=== PATIENT | male | born 1955 | race Caucasian/White ===

== ENCOUNTER 2017-10-30 13:00 | Outpatient (RCR) | payer MEDICARE, SELFPAY ==
[2017-10-16 13:12] VITALS: BP 97/58; PULSE 86; RESP 16; TEMP 38; BMI 24.4
--- NOTE | 2017-10-16 14:44 | PN.PCM_ITS ---
(1) Ulcer of left lower extremity with fat layer exposed Status: Chronic Current Visit: Yes Code(s): L97.922 - Non-pressure chronic ulcer of unspecified part of left lower leg with fat layer exposed (2) Diabetes mellitus with polyneuropathy Status: Chronic Current Visit: Yes Qualifiers: Code(s): E11.42 - Type 2 diabetes mellitus with diabetic polyneuropathy (3) Delayed wound healing Status: Chronic Current Visit: Yes Code(s): T14.8 - Other injury of unspecified body region (4) Amputation of right lower extremity Status: Chronic Current Visit: Yes Code(s): S88.911A - Complete traumatic amputation of right lower leg, level unspecified, initial encounter (5) Peripheral vascular disease Status: Chronic Current Visit: Yes Code(s): I73.9 - Peripheral vascular disease, unspecified Comment: venous (6) Malnutrition Status: Chronic Current Visit: Yes Code(s): E46 - Unspecified protein- calorie malnutrition Type of Wound Date of Service: 10/17/17 Chief Complaint: right leg revisional below knee amputation; chronic ulceration. left ulcer with fat layer exposed at previous second toe amputation site. diabetes. delayed healing continued. History of Wound: This 62 year old male with significant past medical history of uncontrolled diabetes, smoking habit, non compliance, recurrent lower extremity infections, h/o right below knee amputation, and small vessel disease follows up today for multiple lower extremity wounds. He denies fever, chills, nausea, vomiting, calf or foot pain. he denies new injuries. He had a second toe amputation performed by Dr. rayo this past August and his wound is still not healed. Progress of Wound: Stable - Physical Exam Vital Signs Temp Pulse Resp BP 100.4 F H 86 16 97/58 L 10/16/17 13:12 10/16/17 13:12 10/16/17 13:12 10/16/17 13:12 General: Alert, Oriented x3, Cooperative Extremities: No cyanosis, Capillary Refill Less than 3 Seconds - Around amputation site left and to remaining digits 1, 3, 4, 5, No Calf Tenderness - Negative Virgie and Long sign left, Diminished Peripheral Pulses, Edema Skin: Ulcer/ Wound - Granular base no deep tissue exposed. Skin is atrophic and hairless. No erythema no purulence no streaking noted left Wound Measurements and Assessment WC - Nurse 1 - General Ulcer Measurement Start: 10/16/17 13:11 Freq: Status: Active Protocol: Activity Type Activity Date Activity User E-Sign Co-Sign Detail Recorded Client Recorded Date Recorded By Document 10/16/17 13:12 [id number] 10/16/17 13:32 10/16/17 13:12 Wound Center Nurse 1 [Ulcer Assessment Protocol: WC.WD.LOC] #5 LEFT 2ND TOE AMP. SITE -Combined with other wound No -Current Size (cm) - Length 2.5 -Current Size (cm) - Width 1.0 -Current Size (cm) - Depth 0.1 -Total Square Cm 2.50 -Date of Last Picture (Recall this 10/16/17 field) -Photo Taken Yes -Epithelialization None Present -Tunneling No -Undermining/Tunneling No -Circular Undermining No -Classification - Thickness Full Thickness without Exposed Support Structure -Classification - Pathak Grading ( Grade 1 Diabetic Ulcer) -Exudate Amt Medium (34-66%) -Exudate Type Serosanguineous -Wound Margin Distinct, Outline Attached -Granulation Amt Small (1-33%) -Granulation Quality Red -Slough/Fibrin Yes -Necrosis Amt None Present (0 %) -Structure Exposed N/A -Texture (Annabel-wound Skin Appearance) Induration -Moisture (Annabel-wound Skin Appearance Maceration ) -Color (Annabel-wound Skin Appearance) No Abnormality -Temperature (Annabel-wound Skin Cool/Cold Appearance) -Tenderness on Palpation (Annabel-wound No Skin Appearance) -Ulcer Cleansing Rinsed/ Irrigated with Saline -Foul Odor after Cleansing No -Anesthetic Used 4% Lidocaine Solution [Edema Assessment] -Lower Limb Edema Present No - Nurse 2 - General Ulcer CM Notes Start: 10/16/17 13:11 Freq: Status: Active Protocol: Activity Type Activity Date Activity User E-Sign Co-Sign Detail Recorded Client Recorded Date Recorded By Document 10/16/17 13:48 [id number] 10/16/17 13:56 10/16/17 13:48 Wound Center Nurse 2 [Procedure/Treatment] #5 LEFT 2ND TOE AMP. SITE -Time 13:48 -Correct Patient Yes -Correct Side, Site, Position Yes -Correct Procedure Yes -Procedure Performed Yes -Type of Procedure Debridement -Clinical Debridement Subcutaneous -Post Debridement Size (cm) - Length 2.6 -Post Debridement Size (cm) - Width 1.1 -Post Debridement Size (cm) - Depth 0.1 -Total Square Cm 2.86 -Wound/Ulcer Outcome Amputation -Ulcer Cleansing Rinsed/ Irrigated with Saline -Foul Odor after Cleansing No -Bioengineered Tissue No -Topical Lidocaine (%) 4 -Bleeding Controlled with Pressure -Treatment Response Procedure Tolerated Well [See Physician Procedure note for Specifics] Pain Scale: 0-10 Numeric [Pain] -Is Patient Pain Free? Yes Musculoskeletal: No Tenderness to Palpation of Joints or Extremities, Muscle Wasting, - - Second toe amputation left below-knee amputation right Neurological: - - Lack of epicritic sensation to light touch left Psych/Mental Status: Normal Affect, Appropriate Debridement Note Post-Debridement Measurements/Treatment WC - Nurse 2 - General Ulcer CM Notes Start: 10/16/17 13:11 Freq: Status: Active Protocol: Activity Type Activity Date Activity User E-Sign Co-Sign Detail Recorded Client Recorded Date Recorded By Document 10/16/17 13:48 [id number] 10/16/17 13:56 10/16/17 13:48 Wound Center Nurse 2 #5 LEFT 2ND TOE AMP. SITE -Time 13:48 -Correct Patient Yes -Correct Side, Site, Position Yes -Correct Procedure Yes -Procedure Performed Yes -Type of Procedure Debridement -Clinical Debridement Subcutaneous -Post Debridement Size (cm) - Length 2.6 -Post Debridement Size (cm) - Width 1.1 -Post Debridement Size (cm) - Depth 0.1 -Total Square Cm 2.86 -Wound/Ulcer Outcome Amputation -Ulcer Cleansing Rinsed/ Irrigated with Saline -Foul Odor after Cleansing No -Bioengineered Tissue No -Topical Lidocaine (%) 4 -Bleeding Controlled with Pressure -Treatment Response Procedure Tolerated Well Pain Scale: 0-10 Numeric Is Patient Pain Free? Yes Wound debrided: 2nd toe amputation wound site Laterality: Left Wound Grade/Stage: grade 1 Type of Debridement: Excisional debridement Anesthesia Used: 4% Lidocaine Solution Depth: in the subcutaneous layer Percentage of wound debrided: 100 Instrument Used: #15 blade Tissue Removed: Fibrous, devitalized subcutaneous, biofilm, slough Severity: Fat Layer Exposed Amount of bleeding with debridement: Mild Bleeding Controlled with: Pressure Patient tolerated procedure well Assessment/Plan Active Problems Ulcer of left lower extremity with fat layer exposed (Chronic) Diabetes mellitus with polyneuropathy (Chronic) Delayed wound healing (Chronic) Amputation of right lower extremity (Chronic) Peripheral vascular disease (Chronic) venous Malnutrition (Chronic) Assessment: left foot ulcer with fat exposed (2nd toe amputation site). diabetes with neuropathy. small vessel disease. noncompliance / poor decision making. smoker. right below knee amputation (under care of ortho surgeon, Dr. Kendrick) Plan: Discussed case. Performed subcutaneous debridement left as noted in the clinical panel right and including bone of left toe. I recommend advanced skin substitute to optimize healing; preauthorization will be initiated. He was advised on the indications and planned procedure. To change dressing daily with edil to left second toe; this was applied today. To offload by wearing surgical shoe and to avoid pressure to the dorsal forefoot. To avoid wearing closed shoegear. To avoid pressure to ulcer sites. Continue nutritional supplementation, smoking cessation, and edema control to further optimize healing. To continue to apply lotion to the remainder of the limb to preserve skin quality. He understands he is high risk and at risk for further limb loss. RTC one week or call sooner if problems.
[2017-10-23 13:17] VITALS: BP 147/90; PULSE 102; RESP 18; TEMP 37.2; BMI 24.4
--- NOTE | 2017-10-23 15:16 | PN.PCM_ITS ---
(1) Ulcer of left lower extremity with fat layer exposed Status: Chronic Current Visit: Yes Code(s): L97.922 - Non-pressure chronic ulcer of unspecified part of left lower leg with fat layer exposed (2) Diabetes mellitus with polyneuropathy Status: Chronic Current Visit: Yes Qualifiers: Code(s): E11.42 - Type 2 diabetes mellitus with diabetic polyneuropathy (3) Delayed wound healing Status: Chronic Current Visit: Yes Code(s): T14.8 - Other injury of unspecified body region (4) Amputation of right lower extremity Status: Chronic Current Visit: Yes Code(s): S88.911A - Complete traumatic amputation of right lower leg, level unspecified, initial encounter (5) Peripheral vascular disease Status: Chronic Current Visit: Yes Code(s): I73.9 - Peripheral vascular disease, unspecified Comment: venous (6) Malnutrition Status: Chronic Current Visit: Yes Code(s): E46 - Unspecified protein- calorie malnutrition Type of Wound Date of Service: 10/23/17 Chief Complaint: right leg revisional below knee amputation; chronic ulceration. left ulcer with fat layer exposed at previous second toe amputation site. diabetes. delayed healing continued. History of Wound: This 62 year old male with significant past medical history of uncontrolled diabetes, smoking habit, non compliance, recurrent lower extremity infections, h/o right below knee amputation, and small vessel disease follows up today for multiple lower extremity wounds. He denies fever, chills, nausea, vomiting, calf or foot pain. he denies new injuries. He had a second toe amputation performed by Dr. rayo this past August and his wound is still not healed.he had a new blood blister to his great toe that he popped on his own. He denies a known trauma. Progress of Wound: Improving. New wound left great toe - Physical Exam Vital Signs Temp Pulse Resp BP 98.9 F 102 H 18 147/90 H 10/23/17 13:17 10/23/17 13:17 10/23/17 13:17 10/23/17 13:17 General: Alert, Oriented x3, Cooperative HEENT: Atraumatic Extremities: No cyanosis, Capillary Refill Less than 3 Seconds, No Calf Tenderness - Negative Virgie and Long left, Diminished Peripheral Pulses, Edema - Minimal left Skin: Ulcer/ Wound - No purulence, no erythema, streaking, no infection. There is a new wound with fibrous and granular base the distal left hallux without infection. His skin is atrophic and hairless left lower extremity Wound Measurements and Assessment WC - Nurse 1 - General Ulcer Measurement Start: 10/16/17 13:11 Freq: Status: Active Protocol: Activity Type Activity Date Activity User E-Sign Co-Sign Detail Recorded Client Recorded Date Recorded By Document 10/23/17 13:17 MW [email or web address] 10/23/17 13:23 MW 10/23/17 13:17 Wound Center Nurse 1 [Ulcer Assessment] #10 LEFT 2ND TOE AMP. SITE -Combined with other wound No -Current Size (cm) - Length 1.0 -Current Size (cm) - Width 0.5 -Current Size (cm) - Depth 0.1 -Total Square Cm 0.50 -Photo Taken No -Epithelialization Medium 34-66% -Tunneling No -Undermining/Tunneling No -Circular Undermining No -Exudate Amt Small (1-33%) -Exudate Type Serosanguineous -Wound Margin Flat & Intact -Granulation Amt Large (67-100%) -Granulation Quality Red -Slough/Fibrin Yes -Necrosis Amt Small (1-33%) -Necrotic Tissue Type Adherent Slough -Structure Exposed N/A -Texture (Annabel-wound Skin Appearance) Assessed -Moisture (Annabel-wound Skin Appearance Assessed ) Maceration -Color (Annabel-wound Skin Appearance) Assessed -Temperature (Annabel-wound Skin No Abnormality Appearance) (Pt Warm) -Tenderness on Palpation (Annabel-wound No Skin Appearance) -Ulcer Cleansing Rinsed/ Irrigated with Saline -Foul Odor after Cleansing No -Anesthetic Used 4% Lidocaine Solution [Edema Assessment] -Lower Limb Edema Present Yes -Left Calf (cm) 30.5 -Left Ankle (cm) 22.5 WC - Nurse 2 - General Ulcer CM Notes Start: 10/16/17 13:11 Freq: Status: Active Protocol: Activity Type Activity Date Activity User E-Sign Co-Sign Detail Recorded Client Recorded Date Recorded By Document 10/23/17 13:36 [id number] 10/23/17 13:45 JF 10/23/17 13:36 Wound Center Nurse 2 [Procedure/Treatment] 11- Right [place] -Time 13:43 -Correct Patient Yes -Correct Side, Site, Position Yes -Correct Procedure Yes -Procedure Performed Yes -Type of Procedure Debridement -Clinical Debridement Subcutaneous -Post Debridement Size (cm) - Length 0.5 -Post Debridement Size (cm) - Width 0.5 -Post Debridement Size (cm) - Depth 0.2 -Total Square Cm 0.25 -Wound/Ulcer Outcome Not Healed -Ulcer Cleansing Rinsed/ Irrigated with Saline -Foul Odor after Cleansing No -Bioengineered Tissue Yes -Type of bioengineered Tissue EPIFIX -Expiration Date 07/03/22 -Product Lot Number [id number] -Percent Used 100 -Saline Lot Number [id number] -Bleeding Controlled with Pressure -Other same Epifix applied to this ulcer. -Treatment Response Procedure Tolerated Well #10 LEFT 2ND TOE AMP. SITE -Time 13:41 -Correct Patient Yes -Correct Side, Site, Position Yes -Correct Procedure Yes -Procedure Performed Yes -Type of Procedure Debridement -Clinical Debridement Subcutaneous -Post Debridement Size (cm) - Length 1.1 -Post Debridement Size (cm) - Width 0.5 -Post Debridement Size (cm) - Depth 0.3 -Total Square Cm 0.55 -Wound/Ulcer Outcome Not Healed -Ulcer Cleansing Rinsed/ Irrigated with Saline -Foul Odor after Cleansing No -Bioengineered Tissue Yes -Type of bioengineered Tissue EPIFIX -Expiration Date 07/03/22 -Product Lot Number [id number] -Percent Used 100 -Saline Lot Number [id number] -Bleeding Controlled with Pressure -Treatment Response Procedure Tolerated Well [See Physician Procedure note for Specifics] Pain Scale: 0-10 Numeric [Pain] -Is Patient Pain Free? Yes Musculoskeletal: No Tenderness to Palpation of Joints or Extremities, Muscle Wasting, - - Right below-knee amputation Neurological: - - Lack of epicritic sensation light touch left lower extremity Psych/Mental Status: Normal Affect, Appropriate Debridement Note Post-Debridement Measurements/Treatment WC - Nurse 2 - General Ulcer CM Notes Start: 10/16/17 13:11 Freq: Status: Active Protocol: Activity Type Activity Date Activity User E-Sign Co-Sign Detail Recorded Client Recorded Date Recorded By Document 10/16/17 13:48 [id number] 10/16/17 13:56 Document 10/23/17 13:36 [id number] 10/23/17 13:45 JF 10/16/17 10/23/17 13:48 13:36 Wound Center Nurse 2 11- Right [place] -Time 13:43 -Correct Patient Yes -Correct Side, Site, Position Yes -Correct Procedure Yes -Procedure Performed Yes -Type of Procedure Debridement -Clinical Debridement Subcutaneous -Post Debridement Size (cm) - Length 0.5 -Post Debridement Size (cm) - Width 0.5 -Post Debridement Size (cm) - Depth 0.2 -Total Square Cm 0.25 -Wound/Ulcer Outcome Not Healed -Ulcer Cleansing Rinsed/ Irrigated with Saline -Foul Odor after Cleansing No -Bioengineered Tissue Yes -Type of bioengineered Tissue EPIFIX -Expiration Date 07/03/22 -Product Lot Number [id number] -Percent Used 100 -Saline Lot Number [id number] -Bleeding Controlled with Pressure -Other same Epifix applied to this ulcer. -Treatment Response Procedure Tolerated Well #10 LEFT 2ND TOE AMP. SITE -Time 13:48 13:41 -Correct Patient Yes Yes -Correct Side, Site, Position Yes Yes -Correct Procedure Yes Yes -Procedure Performed Yes Yes -Type of Procedure Debridement Debridement -Clinical Debridement Subcutaneous Subcutaneous -Post Debridement Size (cm) - Length 2.6 1.1 -Post Debridement Size (cm) - Width 1.1 0.5 -Post Debridement Size (cm) - Depth 0.1 0.3 -Total Square Cm 2.86 0.55 -Wound/Ulcer Outcome Amputation Not Healed -Ulcer Cleansing Rinsed/ Rinsed/ Irrigated with Irrigated with Saline Saline -Foul Odor after Cleansing No No -Bioengineered Tissue No Yes -Type of bioengineered Tissue EPIFIX -Expiration Date 07/03/22 -Product Lot Number [id number] -Percent Used 100 -Saline Lot Number [id number] -Topical Lidocaine (%) 4 -Bleeding Controlled with Pressure Pressure -Treatment Response Procedure Procedure Tolerated Well Tolerated Well Pain Scale: 0-10 Numeric Is Patient Pain Free? Yes Yes Wound debrided: s/p 2nd toe amputation site Laterality: Left Wound Grade/Stage: grade 1 Type of Debridement: Excisional debridement Anesthesia Used: 4% Lidocaine Solution Depth: in the subcutaneous layer Percentage of wound debrided: 100 Instrument Used: #15 blade Tissue Removed: fibrous, devitalized subcutaneous, biofilm, slough Severity: Fat Layer Exposed Amount of bleeding with debridement: Mild Bleeding Controlled with: Pressure Patient tolerated procedure well - Additional Wound Wound debrided: distal hallux Laterality: Left Wound Grade/Stage: grade 1 Type of Debridement: Excisional debridement Anesthesia Used: 4% Lidocaine Solution Depth: in the subcutaneous layer Percentage of wound debrided: 100 Instrument Used: #15 blade Tissue Removed: fibrous, devitalized subcutaneous, biofilm, slough Severity: Fat Layer Exposed Amount of bleeding with debridement: Mild Bleeding Controlled with: Pressure Patient tolerated procedure: Patient tolerated procedure well Assessment/Plan Active Problems Ulcer of left lower extremity with fat layer exposed (Chronic) Diabetes mellitus with polyneuropathy (Chronic) Delayed wound healing (Chronic) Amputation of right lower extremity (Chronic) Peripheral vascular disease (Chronic) venous Malnutrition (Chronic) Assessment: left foot ulcer with fat exposed (2nd toe amputation site), grade 1. New distal left hallux ulcer with fat layer exposed, grade 1. diabetes with neuropathy. small vessel disease. noncompliance / poor decision making. smoker. right below knee amputation (under care of ortho surgeon, Dr. Kendrick) Plan: Discussed case. Performed subcutaneous debridement left as noted in the clinical panel right and including bone of left toe. I recommend advanced skin substitute to optimize healing; preauthorization was performed. He was advised on the indications and planned procedure. He elects to proceed forward. The wounds were irrigated with normal saline and epi fix advanced wound care product was applied according to standard protocol. This was secured in place with Steri-Strips and wound veil to both sites. He tolerated this well. He was advised to keep his dressing clean dry and intact until follow-up next week. To offload by wearing surgical shoe and to avoid pressure to the dorsal forefoot. To avoid wearing closed shoegear. To avoid pressure to ulcer sites. Continue nutritional supplementation, smoking cessation, and edema control to further optimize healing. To continue to apply lotion to the remainder of the limb to preserve skin quality. He understands he is high risk and at risk for further limb loss. RTC one week or call sooner if problems.
[2017-10-30 13:15] VITALS: BP 147/74; PULSE 90; RESP 20; TEMP 37.1; BMI 24.4
--- NOTE | 2017-10-30 16:01 | PCM.WC.PN ---
(1) Ulcer of left lower extremity with fat layer exposed Status: Chronic Code(s): L97.922 - Non-pressure chronic ulcer of unspecified part of left lower leg with fat layer exposed (2) Diabetes mellitus with polyneuropathy Status: Chronic Qualifiers: Code(s): E11.42 - Type 2 diabetes mellitus with diabetic polyneuropathy (3) Delayed wound healing Status: Chronic Code(s): T14.8 - Other injury of unspecified body region (4) Amputation of right lower extremity Status: Chronic Code(s): S88.911A - Complete traumatic amputation of right lower leg, level unspecified, initial encounter (5) Peripheral vascular disease Status: Chronic Code(s): I73.9 - Peripheral vascular disease, unspecified Comment: venous (6) Malnutrition Status: Chronic Code(s): E46 - Unspecified protein-calorie malnutrition (7) Ulcer of right lower extremity with fat layer exposed Status: Chronic Code(s): L97.912 - Non-pressure chronic ulcer of unspecified part of right lower leg with fat layer exposed Type of Wound Date of Service: 10/31/17 Chief Complaint: right leg revisional below knee amputation; chronic ulceration. left ulcer with fat layer exposed at previous second toe amputation site. diabetes. delayed healing continued. History of Wound: This 62 year old male with significant past medical history of uncontrolled diabetes, smoking habit, non compliance, recurrent lower extremity infections, h/o right below knee amputation, and small vessel disease follows up today for multiple lower extremity wounds. He denies fever, chills, nausea, vomiting, calf or foot pain. he denies new injuries. He had a second toe amputation performed by Dr. rayo this past August. He denies a known trauma. He relates today that he also has a right stump wound and would like this evaluated at this time. He denied having this previously. He does continue to wear his prosthetic leg on the right lower extremity. Progress of Wound: Improving left foot ulcer. wound left great toe -healed. Recently reported right leg stump wound - Physical Exam Vital Signs Temp Pulse Resp BP 98.7 F 90 20 H 147/74 H 10/30/17 13:15 10/30/17 13:15 10/30/17 13:15 10/30/17 13:15 General: Alert, Oriented x3, Cooperative Extremities: No cyanosis, Capillary Refill Less than 3 Seconds, No Calf Tenderness, Diminished Peripheral Pulses, Edema, - - Right below-knee amputation Skin: Ulcer/ Wound - No purulence, no erythema, no streaking, no odor. The skin is atrophic and hairless. There is significant reduction in size and improved granulation tissue to the left foot ulcer site. The left great toe ulcer site is fully epithelialized and is healed today Wound Measurements and Assessment WC - Nurse 1 - General Ulcer Measurement Start: 10/16/17 13:11 Freq: Status: Active Protocol: Activity Type Activity Date Activity User E-Sign Co-Sign Detail Recorded Client Recorded Date Recorded By Document 10/30/17 13:15 DL [id number] 10/30/17 13:33 DL 10/30/17 13:15 Wound Center Nurse 1 [Ulcer Assessment] #12 R Stump -Current Size (cm) - Length 0.5 -Current Size (cm) - Width 0.6 -Current Size (cm) - Depth 0.9 -Total Square Cm 0.30 -Photo Taken Yes -Exudate Amt Small (1-33%) -Exudate Type Serosanguineous -Wound Margin Distinct, Outline Attached -Granulation Amt Small (1-33%) -Granulation Quality [place] -Necrosis Amt Small (1-33%) -Necrotic Tissue Type Adherent Slough -Structure Exposed N/A -Texture (Annabel-wound Skin Appearance) Scarring -Moisture (Annabel-wound Skin Appearance Maceration ) -Color (Annabel-wound Skin Appearance) No Abnormality Rubor -Temperature (Annabel-wound Skin No Abnormality Appearance) (Pt Warm) -Ulcer Cleansing Wound Cleanser -Foul Odor after Cleansing No -Anesthetic Used 4% Lidocaine Solution #11 L Grt Hallux -Current Size (cm) - Length 0.3 -Current Size (cm) - Width 0.3 -Current Size (cm) - Depth 0.1 -Total Square Cm 0.09 -Photo Taken No -Exudate Amt None Present (0 %) -Wound Margin Thickened -Granulation Amt None Present (0 %) -Necrosis Amt Small (1-33%) -Necrotic Tissue Type Adherent Slough -Structure Exposed N/A -Texture (Annabel-wound Skin Appearance) No Abnormality -Moisture (Annabel-wound Skin Appearance No Abnormality ) Dry/Scaly -Color (Annabel-wound Skin Appearance) No Abnormality -Temperature (Annabel-wound Skin No Abnormality Appearance) (Pt Warm) -Ulcer Cleansing Wound Cleanser -Foul Odor after Cleansing No -Anesthetic Used 4% Lidocaine Solution #10 LEFT 2ND TOE AMP. SITE -Current Size (cm) - Length 0.3 -Current Size (cm) - Width 0.1 -Current Size (cm) - Depth 0.1 -Total Square Cm 0.03 -Photo Taken No -Exudate Amt None Present (0 %) -Exudate Type Serosanguineous -Wound Margin Thickened -Granulation Amt Small (1-33%) -Granulation Quality Pale -Necrosis Amt Small (1-33%) -Necrotic Tissue Type Adherent Slough -Structure Exposed N/A -Texture (Annabel-wound Skin Appearance) Scarring -Moisture (Annabel-wound Skin Appearance Dry/Scaly ) -Color (Annabel-wound Skin Appearance) No Abnormality -Temperature (Annabel-wound Skin No Abnormality Appearance) (Pt Warm) -Ulcer Cleansing Wound Cleanser -Foul Odor after Cleansing No -Anesthetic Used 4% Lidocaine Solution WC - Nurse 2 - General Ulcer CM Notes Start: 10/16/17 13:11 Freq: Status: Active Protocol: Activity Type Activity Date Activity User E-Sign Co-Sign Detail Recorded Client Recorded Date Recorded By Document 10/30/17 13:48 [id number] 10/30/17 14:03 10/30/17 13:48 Wound Center Nurse 2 [Procedure/Treatment] #12 R Stump -Time 13:48 -Correct Patient Yes -Correct Side, Site, Position Yes -Correct Procedure Yes -Procedure Performed Yes -Type of Procedure Debridement -Clinical Debridement Subcutaneous -Post Debridement Size (cm) - Length 0.6 -Post Debridement Size (cm) - Width 0.7 -Post Debridement Size (cm) - Depth 0.9 -Total Square Cm 0.42 -Wound/Ulcer Outcome Not Healed -Ulcer Cleansing Rinsed/ Irrigated with Saline -Foul Odor after Cleansing No -Bioengineered Tissue No -Topical Lidocaine (%) 4 -Bleeding Controlled with Pressure -Treatment Response Procedure Tolerated Well #11 L Grt Hallux -Time 13:59 -Correct Patient Yes -Correct Side, Site, Position Yes -Correct Procedure Yes -Procedure Performed Yes -Post Debridement Size (cm) - Length 0 -Post Debridement Size (cm) - Width 0 -Post Debridement Size (cm) - Depth 0 -Total Square Cm 0 -Wound/Ulcer Outcome Healed- Epithelialized -Ulcer Cleansing Rinsed/ Irrigated with Saline -Foul Odor after Cleansing No -Bioengineered Tissue No -Bleeding Controlled with NA -Treatment Response Procedure Tolerated Well #10 LEFT 2ND TOE AMP. SITE -Time 13:59 -Correct Patient Yes -Correct Side, Site, Position Yes -Correct Procedure Yes -Procedure Performed Yes -Type of Procedure Debridement -Clinical Debridement Subcutaneous -Post Debridement Size (cm) - Length 0.4 -Post Debridement Size (cm) - Width 0.2 -Post Debridement Size (cm) - Depth 0.1 -Total Square Cm 0.08 -Wound/Ulcer Outcome Amputation -Ulcer Cleansing Rinsed/ Irrigated with Saline -Foul Odor after Cleansing No -Bioengineered Tissue Yes -Type of bioengineered Tissue EPIFIX -Expiration Date 08/02/22 -Product Lot Number [id number] -Percent Used 100 -Saline Lot Number [id number] -Topical Lidocaine (%) 4 -Bleeding Controlled with Pressure -Treatment Response Procedure Tolerated Well [See Physician Procedure note for Specifics] Pain Scale: 0-10 Numeric [Pain] -Is Patient Pain Free? Yes Musculoskeletal: No Tenderness to Palpation of Joints or Extremities, Muscle Wasting Neurological: - - Lack of epicritic sensation light touch bilateral lower extremities Psych/Mental Status: Normal Affect, Appropriate Debridement Note Post-Debridement Measurements/Treatment WC - Nurse 2 - General Ulcer CM Notes Start: 10/16/17 13:11 Freq: Status: Active Protocol: Activity Type Activity Date Activity User E-Sign Co-Sign Detail Recorded Client Recorded Date Recorded By Document 10/16/17 13:48 [id number] 10/16/17 13:56 Document 10/23/17 13:36 [id number] 10/23/17 13:45 Document 10/30/17 13:48 [id number] 10/30/17 14:03 10/16/17 10/23/17 10/30/17 13:48 13:36 13:48 Wound Center Nurse 2 #12 R Stump -Time 13:48 -Correct Patient Yes -Correct Side, Site, Position Yes -Correct Procedure Yes -Procedure Performed Yes -Type of Procedure Debridement -Clinical Debridement Subcutaneous -Post Debridement Size (cm) - Length 0.6 -Post Debridement Size (cm) - Width 0.7 -Post Debridement Size (cm) - Depth 0.9 -Total Square Cm 0.42 -Wound/Ulcer Outcome Not Healed -Ulcer Cleansing Rinsed/ Irrigated with Saline -Foul Odor after Cleansing No -Bioengineered Tissue No -Topical Lidocaine (%) 4 -Bleeding Controlled with Pressure -Treatment Response Procedure Tolerated Well #11 L Grt Hallux -Time 13:43 13:59 -Correct Patient Yes Yes -Correct Side, Site, Position Yes Yes -Correct Procedure Yes Yes -Procedure Performed Yes Yes -Type of Procedure Debridement -Clinical Debridement Subcutaneous -Post Debridement Size (cm) - Length 0.5 0 -Post Debridement Size (cm) - Width 0.5 0 -Post Debridement Size (cm) - Depth 0.2 0 -Total Square Cm 0.25 0 -Wound/Ulcer Outcome Not Healed Healed- Epithelialized -Ulcer Cleansing Rinsed/ Rinsed/ Irrigated with Irrigated with Saline Saline -Foul Odor after Cleansing No No -Bioengineered Tissue Yes No -Type of bioengineered Tissue EPIFIX -Expiration Date 07/03/22 -Product Lot Number [id number] -Percent Used 100 -Saline Lot Number [id number] -Bleeding Controlled with Pressure NA -Other same Epifix applied to this ulcer. -Treatment Response Procedure Procedure Tolerated Well Tolerated Well #10 LEFT 2ND TOE AMP. SITE -Time 13:48 13:41 13:59 -Correct Patient Yes Yes Yes -Correct Side, Site, Position Yes Yes Yes -Correct Procedure Yes Yes Yes -Procedure Performed Yes Yes Yes -Type of Procedure Debridement Debridement Debridement -Clinical Debridement Subcutaneous Subcutaneous Subcutaneous -Post Debridement Size (cm) - Length 2.6 1.1 0.4 -Post Debridement Size (cm) - Width 1.1 0.5 0.2 -Post Debridement Size (cm) - Depth 0.1 0.3 0.1 -Total Square Cm 2.86 0.55 0.08 -Wound/Ulcer Outcome Amputation Not Healed Amputation -Ulcer Cleansing Rinsed/ Rinsed/ Rinsed/ Irrigated with Irrigated with Irrigated with Saline Saline Saline -Foul Odor after Cleansing No No No -Bioengineered Tissue No Yes Yes -Type of bioengineered Tissue EPIFIX EPIFIX -Expiration Date 07/03/22 08/02/22 -Product Lot Number [id number] -Percent Used 100 100 -Saline Lot Number [id number] -Topical Lidocaine (%) 4 4 -Bleeding Controlled with Pressure Pressure Pressure -Treatment Response Procedure Procedure Procedure Tolerated Well Tolerated Well Tolerated Well Pain Scale: 0-10 Numeric Is Patient Pain Free? Yes Yes Yes Wound debrided: below knee amputation stump site Laterality: Right Wound Grade/Stage: grade 2 Type of Debridement: Excisional debridement Anesthesia Used: 4% Lidocaine Solution Depth: in the subcutaneous layer Percentage of wound debrided: 100 Instrument Used: #15 blade Tissue Removed: fibrous, devitalized subcutaneous, biofilm, slough Severity: Fat Layer Exposed Amount of bleeding with debridement: Mild Bleeding Controlled with: Pressure Patient tolerated procedure well Assessment/Plan Assessment: left foot ulcer with fat exposed (2nd toe amputation site), grade 1. Right below-knee amputation stump ulcer, grade 2. Healed distal left hallux ulcer. diabetes with neuropathy. small vessel disease. noncompliance / poor decision making. smoker. right below knee amputation (under care of ortho surgeon, Dr. Kendrick) Plan: Discussed case and ongoing treatment recommendations. Performed subcutaneous debridement left as noted in the clinical panel right and including bone of left toe. I recommend advanced skin substitute to optimize healing; preauthorization was performed. He was advised on the indications and planned procedure. He elects to proceed forward. The wounds were irrigated with normal saline and epi fix advanced wound care product was applied according to standard protocol. This was secured in place with Steri-Strips and wound veil to both sites. He tolerated this well. He was advised to keep his dressing clean dry and intact until follow-up next week. To offload by wearing surgical shoe and to avoid pressure to the dorsal forefoot. To avoid wearing closed shoegear. To avoid pressure to ulcer sites. Continue nutritional supplementation, smoking cessation, and edema control to further optimize healing. To continue to apply lotion to the remainder of the limb to preserve skin quality. He understands he is high risk and at risk for further limb loss. Pending response to initial treatment plan, further workup for right lower extremity will be initiated. There are no local signs of infection however the chronicity of this wound and depth of the wound are concerned. Surgical closure techniques will also be considered. RTC one week or call sooner if problems.
== END 2017-10-30 23:59 ==
LOC: WC 13:00
PROVIDERS: Family Provider Family Medicine; PCP Family Medicine; Visit Provider Podiatrist
DX: E11.622 Type 2 diabetes mellitus with other skin ulcer (principal); E11.42 Type 2 diabetes mellitus with diabetic polyneuropathy; E11.51 Type 2 diabetes mellitus with diabetic peripheral angiopathy without gangrene; L97.822 Non-pressure chronic ulcer of other part of left lower leg with fat layer exposed; Z89.421 Acquired absence of other right toe(s); E11.65 Type 2 diabetes mellitus with hyperglycemia; F17.200 Nicotine dependence, unspecified, uncomplicated; Z91.19 Patient's noncompliance with other medical treatment and regimen; R60.0 Localized edema; L97.522 Non-pressure chronic ulcer of other part of left foot with fat layer exposed
CPT/HCPCS: 11042; 15275; 99212; Q4131; G0463

== ENCOUNTER 2017-11-27 08:37 | Outpatient (RCR) | payer MEDICARE, SELFPAY ==
[2017-10-31 01:11] VITALS: PULSE 90; RESP 20; TEMP 37.1
[2017-11-13 13:22] VITALS: BP 139/61; PULSE 90; RESP 18; TEMP 36.9
--- NOTE | 2017-11-13 17:14 | PCM.WC.PN ---
(1) Chronic ulcer of left foot with fat layer exposed Status: Chronic Code(s): L97.522 - Non-pressure chronic ulcer of other part of left foot with fat layer exposed (2) Delayed wound healing Status: Chronic Code(s): T14.8 - Other injury of unspecified body region (3) Smoker Status: Chronic Code(s): F17.200 - Nicotine dependence, unspecified, uncomplicated (4) Amputation of right lower extremity Status: Chronic Code(s): S88.911A - Complete traumatic amputation of right lower leg, level unspecified, initial encounter (5) Ulcer of right lower extremity with fat layer exposed Status: Chronic Code(s): L97.912 - Non-pressure chronic ulcer of unspecified part of right lower leg with fat layer exposed (6) Peripheral vascular disease Status: Chronic Code(s): I73.9 - Peripheral vascular disease, unspecified Comment: venous Type of Wound Date of Service: 11/15/17 Chief Complaint: right leg revisional below knee amputation; chronic ulceration. left ulcer with fat layer exposed at previous second toe amputation site. diabetes. delayed healing continued. History of Wound: This 62 year old male with significant past medical history of uncontrolled diabetes, smoking habit, non compliance, recurrent lower extremity infections, h/o right below knee amputation, and small vessel disease follows up today for multiple lower extremity wounds. He denies fever, chills, nausea, vomiting, calf or foot pain. he denies new injuries. He had a second toe amputation performed by Dr. rayo this past August and his wound is still not healed. He reports improvement since last week. Progress of Wound: Improving - Physical Exam Vital Signs Temp Pulse Resp BP 98.4 F 90 18 139/61 H 11/13/17 13:22 11/13/17 13:22 11/13/17 13:22 11/13/17 13:22 General: Alert, Oriented x3, Cooperative Extremities: No cyanosis, Capillary Refill Less than 3 Seconds, No Calf Tenderness - neg aaron and schroeder left, Diminished Peripheral Pulses, Edema, - - right below knee amputation Skin: Ulcer/ Wound - No maceration, erythema, streaking, no odor. There is continued epithelialization to the left foot ulcer site. The right ulcer site is communicating to capsular layer but not directly to bone and there is continued serous drainage without infection noted. The peripheral skin is atrophic and hairless bilateral Wound Measurements and Assessment WC - Nurse 1 - General Ulcer Measurement Start: 11/13/17 13:22 Freq: Status: Active Protocol: Activity Type Activity Date Activity User E-Sign Co-Sign Detail Recorded Client Recorded Date Recorded By Document 11/13/17 13:22 [facility] [id number] 11/13/17 13:39 [facility] 11/13/17 13:22 Wound Center Nurse 1 [Ulcer Assessment] #12 R Stump -Combined with other wound No -Current Size (cm) - Length 0.4 -Current Size (cm) - Width 1 -Current Size (cm) - Depth 0.5 -Total Square Cm 0.4 -Photo Taken No -Epithelialization None Present -Tunneling No -Undermining/Tunneling Yes -Undermining/Tunneling Starts (O' 4 clock) -Undermining/Tunneling Ends (O'clock) 1 -Maximum Distance (cm) 1.3 -Exudate Amt Small (1-33%) -Exudate Type Serous -Wound Margin Distinct, Outline Attached -Granulation Amt Medium (34-66%) -Granulation Quality [place] -Slough/Fibrin Yes -Necrosis Amt Medium (34-66%) -Necrotic Tissue Type Adherent Slough -Texture (Annabel-wound Skin Appearance) Localized Edema Scarring -Moisture (Annabel-wound Skin Appearance Maceration ) -Color (Annabel-wound Skin Appearance) Erythema [place] -Temperature (Annabel-wound Skin No Abnormality Appearance) (Pt Warm) -Tenderness on Palpation (Annabel-wound No Skin Appearance) -Ulcer Cleansing Rinsed/ Irrigated with Saline -Foul Odor after Cleansing No -Anesthetic Used 4% Lidocaine Solution #10 LEFT 2ND TOE AMP. SITE -Combined with other wound No -Current Size (cm) - Length 0.4 -Current Size (cm) - Width 0.2 -Current Size (cm) - Depth 0.2 -Total Square Cm 0.08 -Photo Taken No -Epithelialization Small 1-33% -Tunneling No -Undermining/Tunneling No -Exudate Amt Small (1-33%) -Exudate Type Serous -Wound Margin Distinct, Outline Attached -Granulation Amt None Present (0 %) -Slough/Fibrin Yes -Necrosis Amt Large (67-100%) -Necrotic Tissue Type Adherent Slough -Structure Exposed None/Limited to Skin Breakdown -Texture (Annabel-wound Skin Appearance) Scarring -Moisture (Annabel-wound Skin Appearance Maceration ) Dry/Scaly -Color (Annabel-wound Skin Appearance) Assessed [place] -Temperature (Annabel-wound Skin No Abnormality Appearance) (Pt Warm) -Tenderness on Palpation (Annabel-wound No Skin Appearance) -Ulcer Cleansing Rinsed/ Irrigated with Saline -Foul Odor after Cleansing No -Anesthetic Used 4% Lidocaine Solution [Edema Assessment] -Lower Limb Edema Present Yes -Left Calf (cm) 20.5 -Left Ankle (cm) 30 WC - Nurse 2 - General Ulcer CM Notes Start: 11/13/17 13:22 Freq: Status: Active Protocol: Activity Type Activity Date Activity User E-Sign Co-Sign Detail Recorded Client Recorded Date Recorded By Document 11/13/17 13:56 [id number] 11/13/17 13:58 11/13/17 13:56 Wound Center Nurse 2 [Procedure/Treatment] #12 R Stump -Time 13:56 -Correct Patient Yes -Correct Side, Site, Position Yes -Correct Procedure Yes -Procedure Performed Yes -Type of Procedure Debridement -Clinical Debridement Subcutaneous -Post Debridement Size (cm) - Length 0.5 -Post Debridement Size (cm) - Width 1.1 -Post Debridement Size (cm) - Depth 0.5 -Total Square Cm 0.55 -Wound/Ulcer Outcome Not Healed -Ulcer Cleansing Rinsed/ Irrigated with Saline -Foul Odor after Cleansing No -Bioengineered Tissue No -Topical Lidocaine (%) 4 -Bleeding Controlled with Pressure -Treatment Response Procedure Tolerated Well #10 LEFT 2ND TOE AMP. SITE -Time 13:58 -Correct Patient Yes -Correct Side, Site, Position Yes -Correct Procedure Yes -Procedure Performed Yes -Type of Procedure Debridement -Clinical Debridement Subcutaneous -Post Debridement Size (cm) - Length 0.5 -Post Debridement Size (cm) - Width 0.3 -Post Debridement Size (cm) - Depth 0.1 -Total Square Cm 0.15 -Wound/Ulcer Outcome Not Healed -Ulcer Cleansing Rinsed/ Irrigated with Saline -Foul Odor after Cleansing No -Bioengineered Tissue No -Topical Lidocaine (%) 4 -Bleeding Controlled with Pressure -Treatment Response Procedure Tolerated Well [See Physician Procedure note for Specifics] Pain Scale: 0-10 Numeric [Pain] -Is Patient Pain Free? Yes Musculoskeletal: No Tenderness to Palpation of Joints or Extremities, Muscle Wasting, - - No palpation pain bilateral Neurological: - - Lack of epicritic sensation light touch bilateral Psych/Mental Status: Normal Affect, Appropriate Debridement Note Post-Debridement Measurements/Treatment WC - Nurse 2 - General Ulcer CM Notes Start: 11/13/17 13:22 Freq: Status: Active Protocol: Activity Type Activity Date Activity User E-Sign Co-Sign Detail Recorded Client Recorded Date Recorded By Document 11/13/17 13:56 [id number] 11/13/17 13:58 11/13/17 13:56 Wound Center Nurse 2 #12 R Stump -Time 13:56 -Correct Patient Yes -Correct Side, Site, Position Yes -Correct Procedure Yes -Procedure Performed Yes -Type of Procedure Debridement -Clinical Debridement Subcutaneous -Post Debridement Size (cm) - Length 0.5 -Post Debridement Size (cm) - Width 1.1 -Post Debridement Size (cm) - Depth 0.5 -Total Square Cm 0.55 -Wound/Ulcer Outcome Not Healed -Ulcer Cleansing Rinsed/ Irrigated with Saline -Foul Odor after Cleansing No -Bioengineered Tissue No -Topical Lidocaine (%) 4 -Bleeding Controlled with Pressure -Treatment Response Procedure Tolerated Well #10 LEFT 2ND TOE AMP. SITE -Time 13:58 -Correct Patient Yes -Correct Side, Site, Position Yes -Correct Procedure Yes -Procedure Performed Yes -Type of Procedure Debridement -Clinical Debridement Subcutaneous -Post Debridement Size (cm) - Length 0.5 -Post Debridement Size (cm) - Width 0.3 -Post Debridement Size (cm) - Depth 0.1 -Total Square Cm 0.15 -Wound/Ulcer Outcome Not Healed -Ulcer Cleansing Rinsed/ Irrigated with Saline -Foul Odor after Cleansing No -Bioengineered Tissue No -Topical Lidocaine (%) 4 -Bleeding Controlled with Pressure -Treatment Response Procedure Tolerated Well Pain Scale: 0-10 Numeric Is Patient Pain Free? Yes Wound debrided: dorsal foot Laterality: Left Wound Grade/Stage: grade 1 Type of Debridement: Excisional debridement Anesthesia Used: 4% Lidocaine Solution Depth: in the subcutaneous layer Percentage of wound debrided: 100 Instrument Used: #15 blade Tissue Removed: fibrous, devitalized subcutaneous, biofilm, sloug Severity: Fat Layer Exposed Amount of bleeding with debridement: Mild Bleeding Controlled with: Pressure Patient tolerated procedure well - Additional Wound Wound debrided: anterior leg Laterality: Right Wound Grade/Stage: grade 2 Type of Debridement: Excisional debridement Anesthesia Used: 4% Lidocaine Solution Depth: in the subcutaneous layer Percentage of wound debrided: 100 Instrument Used: #15 blade Tissue Removed: fibrous, devitalized subcutaneous, biofilm, slough Severity: Fat Layer Exposed Amount of bleeding with debridement: Mild Bleeding Controlled with: Pressure Patient tolerated procedure: Patient tolerated procedure well Assessment/Plan Assessment: left foot ulcer with fat exposed (2nd toe amputation site), grade 1. right leg ulcer, grade 2 at below knee amputation surgical site. diabetes with neuropathy. small vessel disease. noncompliance / poor decision making. smoker Plan: Discussed case. Performed subcutaneous debridement left and right as noted in the clinical panel right and including bone of left toe. I recommend advanced skin substitute to optimize healing; preauthorization was performed and he had a couple of applications with great improvement. He was advised on the indications and planned procedure. He elects to proceed forward. Yolie was applied and he was advised to changes every day. The debridement was performed as noted in the clinical panel. He tolerated this well. He was advised to keep his dressing clean dry and intact until follow-up next week. To offload by wearing surgical shoe and to avoid pressure to the dorsal forefoot. To avoid wearing closed shoegear. To avoid pressure to ulcer sites. Continued walking with the right lower extremity prosthesis is impairing his ability to heal his stump ulcer site due to continued pressure and shearing forces. I would like to perform an ulcer excision with delayed primary closure in the clinical setting next Saturday. He understands offloading with use of a wheelchair during this healing time is imperative for healing come prepared with this device. He understands he is at risk for further limb loss. He was reassured there are no signs of infection today. Continue nutritional supplementation, smoking cessation, and edema control to further optimize healing. To continue to apply lotion to the remainder of the limb to preserve skin quality. He understands he is high risk and at risk for further limb loss. RTC one week or call sooner if problems.
[2017-11-27 13:27] VITALS: BP 112/61; PULSE 104; RESP 18; TEMP 36.6
--- NOTE | 2017-11-27 14:38 | PCM.WC.PN ---
(1) Chronic ulcer of left foot with fat layer exposed Status: Chronic Current Visit: Yes Code(s): L97.522 - Non-pressure chronic ulcer of other part of left foot with fat layer exposed (2) Delayed wound healing Status: Chronic Current Visit: Yes Code(s): T14.8 - Other injury of unspecified body region (3) Smoker Status: Chronic Current Visit: Yes Code(s): F17.200 - Nicotine dependence, unspecified, uncomplicated (4) Amputation of right lower extremity Status: Chronic Current Visit: Yes Code(s): S88.911A - Complete traumatic amputation of right lower leg, level unspecified, initial encounter (5) Peripheral vascular disease Status: Chronic Current Visit: Yes Code(s): I73.9 - Peripheral vascular disease, unspecified Comment: venous (6) Ulcer of right lower extremity with necrosis of muscle Status: Chronic Current Visit: Yes Code(s): L97.913 - Non-pressure chronic ulcer of unspecified part of right lower leg with necrosis of muscle Type of Wound Date of Service: 11/27/17 Chief Complaint: right leg revisional below knee amputation; chronic ulceration / delayed healing. left ulcer with fat layer exposed at previous second toe amputation site. diabetes. delayed healing continued. History of Wound: This 62 year old male with significant past medical history of uncontrolled diabetes, smoking habit, non compliance, recurrent lower extremity infections, h/o right below knee amputation, and small vessel disease follows up today for multiple lower extremity wounds. He denies fever, chills, nausea, vomiting, calf or foot pain. he denies new injuries. He has been compliant this last week. He presents today with a wheelchair in preparation for right leg ulcer excision with suture closure. He understands he cannot wear his prosthetic or put any weight or apply any tension to the site where it is likely to fail. Progress of Wound: Improving - Physical Exam Vital Signs Temp Pulse Resp BP 97.8 F 104 H 18 112/61 11/27/17 13:27 11/27/17 13:27 11/27/17 13:27 11/27/17 13:27 General: Alert, Oriented x3, Cooperative Extremities: No cyanosis, Capillary Refill Less than 3 Seconds, No Calf Tenderness, Diminished Peripheral Pulses, Edema Skin: Ulcer/ Wound - No purulence, no erythema, no streaking, no odor. There is continued epithelialization noted to the left foot. The right leg ulcer does have exposed deeper fascia tissue however this does not probe directly to bone and there is no signs of infection noted. Hematogenous drainage is noted during this excisional procedure to both sites, - - The skin is very atrophic and there is no hair Wound Measurements and Assessment WC - Nurse 1 - General Ulcer Measurement Start: 11/13/17 13:22 Freq: Status: Active Protocol: Activity Type Activity Date Activity User E-Sign Co-Sign Detail Recorded Client Recorded Date Recorded By Document 11/27/17 13:27 [id number] 11/27/17 13:35 11/27/17 13:27 Wound Center Nurse 1 [Ulcer Assessment] #12 R Stump -Current Size (cm) - Length 0.2 -Current Size (cm) - Width 0.4 -Current Size (cm) - Depth 0.9 -Total Square Cm 0.08 -Photo Taken No -Exudate Amt Small (1-33%) -Exudate Type Serosanguineous -Wound Margin Distinct, Outline Attached -Granulation Amt Large (67-100%) -Granulation Quality Red -Necrosis Amt Small (1-33%) -Necrotic Tissue Type Adherent Slough -Structure Exposed N/A -Texture (Annabel-wound Skin Appearance) No Abnormality -Moisture (Annabel-wound Skin Appearance Maceration ) -Color (Annabel-wound Skin Appearance) Erythema Rubor -Temperature (Annabel-wound Skin No Abnormality Appearance) (Pt Warm) -Ulcer Cleansing Wound Cleanser -Foul Odor after Cleansing No -Anesthetic Used 4% Lidocaine Solution #10 LEFT 2ND TOE AMP. SITE -Combined with other wound No -Current Size (cm) - Length 0.1 -Current Size (cm) - Width 0.1 -Current Size (cm) - Depth 0.1 -Total Square Cm 0.01 -Photo Taken Yes -Epithelialization Large 67-100% -Tunneling No -Undermining/Tunneling No -Circular Undermining No -Exudate Amt None Present (0 %) -Wound Margin Indistinct, Non -Visible -Granulation Amt None Present (0 %) -Slough/Fibrin Yes -Necrosis Amt Large (67-100%) -Necrotic Tissue Type Adherent Slough -Structure Exposed N/A -Texture (Annabel-wound Skin Appearance) Assessed -Moisture (Annabel-wound Skin Appearance Assessed ) Dry/Scaly -Color (Annabel-wound Skin Appearance) Assessed -Temperature (Annabel-wound Skin No Abnormality Appearance) (Pt Warm) -Tenderness on Palpation (Annabel-wound No Skin Appearance) -Ulcer Cleansing Rinsed/ Irrigated with Saline -Foul Odor after Cleansing No -Anesthetic Used 4% Lidocaine Solution [Edema Assessment] -Lower Limb Edema Present NA WC - Nurse 2 - General Ulcer CM Notes Start: 11/13/17 13:22 Freq: Status: Active Protocol: Activity Type Activity Date Activity User E-Sign Co-Sign Detail Recorded Client Recorded Date Recorded By Document 11/27/17 14:11 [id number] 11/27/17 14:15 TM 11/27/17 14:11 Wound Center Nurse 2 [Procedure/Treatment] #12 R Stump -Time 14:13 -Correct Patient Yes -Correct Side, Site, Position Yes -Correct Procedure Yes -Procedure Performed Yes -Post Debridement Size (cm) - Length 0 -Post Debridement Size (cm) - Width 0 -Post Debridement Size (cm) - Depth 0 -Total Square Cm 0 -Wound/Ulcer Outcome Healed- Surgical Closure -Ulcer Cleansing Rinsed/ Irrigated with Saline -Foul Odor after Cleansing No -Bioengineered Tissue No -Injectable Lidocaine (%) 2 -Lidocaine (ml) 10 -Bleeding Controlled with Pressure -Treatment Response Procedure Tolerated Well #10 LEFT 2ND TOE AMP. SITE -Time 14:13 -Correct Patient Yes -Correct Side, Site, Position Yes -Correct Procedure Yes -Procedure Performed Yes -Type of Procedure Debridement -Clinical Debridement Subcutaneous -Post Debridement Size (cm) - Length 0.2 -Post Debridement Size (cm) - Width 0.2 -Post Debridement Size (cm) - Depth 0.1 -Total Square Cm 0.04 -Wound/Ulcer Outcome Not Healed -Ulcer Cleansing Rinsed/ Irrigated with Saline -Foul Odor after Cleansing No -Bioengineered Tissue Yes -Type of bioengineered Tissue EPIFIX -Expiration Date 09/02/22 -Product Lot Number [id number] -Percent Used 100 -Saline Lot Number [id number] -Topical Lidocaine (%) 5 -Bleeding Controlled with Pressure -Treatment Response Procedure Tolerated Well [See Physician Procedure note for Specifics] Pain Scale: 0-10 Numeric [Pain] -Is Patient Pain Free? Yes Musculoskeletal: No Tenderness to Palpation of Joints or Extremities, Muscle Wasting, - - second toe amputation, left. right below knee amputation Neurological: - - lack of epicritic sensation via light touch is noted Psych/Mental Status: Normal Affect, Appropriate Debridement Note Post-Debridement Measurements/Treatment WC - Nurse 2 - General Ulcer CM Notes Start: 11/13/17 13:22 Freq: Status: Active Protocol: Activity Type Activity Date Activity User E-Sign Co-Sign Detail Recorded Client Recorded Date Recorded By Document 11/13/17 13:56 [id number] 11/13/17 13:58 TM Document 11/27/17 14:11 [id number] 11/27/17 14:15 TM 11/13/17 11/27/17 13:56 14:11 Wound Center Nurse 2 #12 R Stump -Time 13:56 14:13 -Correct Patient Yes Yes -Correct Side, Site, Position Yes Yes -Correct Procedure Yes Yes -Procedure Performed Yes Yes -Type of Procedure Debridement -Clinical Debridement Subcutaneous -Post Debridement Size (cm) - Length 0.5 0 -Post Debridement Size (cm) - Width 1.1 0 -Post Debridement Size (cm) - Depth 0.5 0 -Total Square Cm 0.55 0 -Wound/Ulcer Outcome Not Healed Healed- Surgical Closure -Ulcer Cleansing Rinsed/ Rinsed/ Irrigated with Irrigated with Saline Saline -Foul Odor after Cleansing No No -Bioengineered Tissue No No -Topical Lidocaine (%) 4 -Injectable Lidocaine (%) 2 -Lidocaine (ml) 10 -Bleeding Controlled with Pressure Pressure -Treatment Response Procedure Procedure Tolerated Well Tolerated Well #10 LEFT 2ND TOE AMP. SITE -Time 13:58 14:13 -Correct Patient Yes Yes -Correct Side, Site, Position Yes Yes -Correct Procedure Yes Yes -Procedure Performed Yes Yes -Type of Procedure Debridement Debridement -Clinical Debridement Subcutaneous Subcutaneous -Post Debridement Size (cm) - Length 0.5 0.2 -Post Debridement Size (cm) - Width 0.3 0.2 -Post Debridement Size (cm) - Depth 0.1 0.1 -Total Square Cm 0.15 0.04 -Wound/Ulcer Outcome Not Healed Not Healed -Ulcer Cleansing Rinsed/ Rinsed/ Irrigated with Irrigated with Saline Saline -Foul Odor after Cleansing No No -Bioengineered Tissue No Yes -Type of bioengineered Tissue EPIFIX -Expiration Date 09/02/22 -Product Lot Number [id number] -Percent Used 100 -Saline Lot Number [id number] -Topical Lidocaine (%) 4 5 -Bleeding Controlled with Pressure Pressure -Treatment Response Procedure Procedure Tolerated Well Tolerated Well Pain Scale: 0-10 Numeric Is Patient Pain Free? Yes Yes Wound debrided: dorsal foot Laterality: Left Wound Grade/Stage: grade 1 Type of Debridement: Excisional debridement Anesthesia Used: 4% Lidocaine Solution Depth: in the subcutaneous layer Percentage of wound debrided: 100 Instrument Used: #15 blade Tissue Removed: fibrous, devitalized subcutaneous, biofilm, slough Severity: Fat Layer Exposed Amount of bleeding with debridement: Mild Bleeding Controlled with: Pressure Patient tolerated procedure well - Additional Wound Wound debrided: amputation stump site- this is a delayed primary closure Laterality: Right Wound Grade/Stage: grade 2 Type of Debridement: Excisional debridement Anesthesia Used: 4% Lidocaine Solution, - - 3cc 1% lidocain plain administed periwound Depth: in the subcutaneous layer Percentage of wound debrided: 100 Instrument Used: #15 blade Tissue Removed: fibrous, devitalized subcutaneous, biofilm, slough Severity: Fat Layer Exposed Amount of bleeding with debridement: Mild Bleeding Controlled with: Pressure, - - 2-0 prolene sutures applied utilizing vertical mattress and wide simple retention sutures and steristrips Assessment/Plan Active Problems Chronic ulcer of left foot with fat layer exposed (Chronic) Ulcer of right lower extremity with necrosis of muscle (Chronic) Delayed wound healing (Chronic) Smoker (Chronic) Amputation of right lower extremity (Chronic) Ulcer of right lower extremity with fat layer exposed (Chronic) Peripheral vascular disease (Chronic) venous Assessment: left foot ulcer with fat exposed (2nd toe amputation site), grade 1. right leg ulcer, grade 2 at below knee amputation surgical site. diabetes with neuropathy. small vessel disease. noncompliance / poor decision making. smoker Plan: Discussed case. Performed subcutaneous debridement left and right as noted in the clinical panel right and including bone of left toe. I recommend advanced skin substitute to optimize healing; preauthorization was performed and he had a couple of applications with great improvement. He was advised on the indications and planned procedure. He elects to proceed forward. The debridement was performed as noted in the clinical panel. Verbal consent was obtained to apply epi fix to the left foot this was secured in place the wound veil and Steri-Strips. To leave this dressing in place for next week. He tolerated this well. 3 Cc of 1% lidocaine plain was administered subdermally around the right leg stump site. A 15 blade was used to excisionally Remove approximately 3 mm around the wound margin the skin was gently mobilized and the skin edges were reapproximated utilizing 2-0 Prolene vertical mattress and wide retention simple suture techniques. A dressing consisting of Betadine and gauze was applied. He was advised to try to leave this in place until he follows up next week. If he does have strikethrough it is okay for him to change dressing at home. He must avoid prosthetic device use and he is amenable to this plan. He came prepared with a wheelchair today. To offload by wearing surgical shoe (left) and to avoid pressure to the dorsal forefoot. To avoid wearing closed shoegear. To avoid pressure to ulcer sites. Continue nutritional supplementation, smoking cessation, and edema control to further optimize healing. To continue to apply lotion to the remainder of the limb to preserve skin quality. He understands he is high risk and at risk for further limb loss. RTC one week or call sooner if problems.
== END 2017-11-30 23:59 ==
LOC: WC 08:37
PROVIDERS: Family Provider Family Medicine; PCP Family Medicine; Visit Provider Podiatrist
DX: E11.621 Type 2 diabetes mellitus with foot ulcer (principal); L97.522 Non-pressure chronic ulcer of other part of left foot with fat layer exposed; F17.200 Nicotine dependence, unspecified, uncomplicated; Z89.511 Acquired absence of right leg below knee; E11.51 Type 2 diabetes mellitus with diabetic peripheral angiopathy without gangrene; E11.65 Type 2 diabetes mellitus with hyperglycemia; Z91.19 Patient's noncompliance with other medical treatment and regimen; E11.40 Type 2 diabetes mellitus with diabetic neuropathy, unspecified; L97.812 Non-pressure chronic ulcer of other part of right lower leg with fat layer exposed
CPT/HCPCS: 11042; 15275; Q4131

== ENCOUNTER 2017-12-25 13:00 | Outpatient (RCR) | payer MEDICARE, MEDICAID, SELFPAY ==
[2017-12-01 00:58] VITALS: PULSE 104; RESP 18; TEMP 36.6
[2017-12-04 14:09] VITALS: BP 150/77; PULSE 90; RESP 18; TEMP 37.2
--- NOTE | 2017-12-04 14:54 | PCM.WC.PN ---
(1) Chronic ulcer of left foot with fat layer exposed Status: Chronic Current Visit: Yes Code(s): L97.522 - Non-pressure chronic ulcer of other part of left foot with fat layer exposed (2) Ulcer of right lower extremity with fat layer exposed Status: Chronic Current Visit: Yes Code(s): L97.912 - Non-pressure chronic ulcer of unspecified part of right lower leg with fat layer exposed (3) Osteomyelitis Status: Suspected Current Visit: No Qualifiers: Osteomyelitis location: tibia Laterality: right Code(s): M86.9 - Osteomyelitis, unspecified (4) Ulcer of left lower extremity with fat layer exposed Status: Chronic Current Visit: Yes Code(s): L97.922 - Non-pressure chronic ulcer of unspecified part of left lower leg with fat layer exposed (5) Diabetes mellitus with polyneuropathy Status: Chronic Current Visit: Yes Qualifiers: Diabetes mellitus type: type 2 Qualified Code(s): E11.42 - Type 2 diabetes mellitus with diabetic polyneuropathy Code(s): E11.42 - Type 2 diabetes mellitus with diabetic polyneuropathy (6) Delayed wound healing Status: Chronic Current Visit: Yes Code(s): T14.8 - Other injury of unspecified body region (7) Amputation of right lower extremity Status: Chronic Current Visit: Yes Code(s): S88.911A - Complete traumatic amputation of right lower leg, level unspecified, initial encounter (8) Peripheral vascular disease Status: Chronic Current Visit: Yes Code(s): I73.9 - Peripheral vascular disease, unspecified Comment: venous (9) Malnutrition Status: Chronic Current Visit: Yes Code(s): E46 - Unspecified protein-calorie malnutrition Type of Wound Date of Service: 12/05/17 Chief Complaint: right leg revisional below knee amputation; chronic ulceration / delayed healing. left ulcer with fat layer exposed at previous second toe amputation site. diabetes. delayed healing continued. History of Wound: This 62 year old male with significant past medical history of uncontrolled diabetes, smoking habit, non compliance, recurrent lower extremity infections, h/o right below knee amputation, and small vessel disease follows up today for multiple lower extremity wounds. He denies fever, chills, nausea, vomiting, calf or foot pain. he denies new injuries. He has been compliant this last week. He presents today with a wheelchair. He admits he has not been able to protect his right lower extremity as advised. When he travels on the stairs he does push off of his leg and thinks this has contributed to the suture is being ripped out. He understands he cannot wear his prosthetic or put any weight or apply any tension to the site where it is likely to fail. Progress of Wound: Improving left foot. No improvement right leg - Physical Exam Vital Signs Temp Pulse Resp BP 99 F 90 18 150/77 H 12/04/17 14:12/04/17 14:12/04/17 14:12/04/17 14:09 General: Alert, Oriented x3, Cooperative Extremities: No cyanosis, Capillary Refill Less than 3 Seconds, No Calf Tenderness - Negative Virgie and Long last, Diminished Peripheral Pulses, Edema - Mild bilateral lower extremities, - - Status post right below-knee amputation Skin: Ulcer/ Wound - No purulence, no erythema, streaking, no odor, no infection bilateral lower extremities. Significant epithelialization is noted to left foot wound. The right below-knee amputation stump site recently delayed primary closure site has dehisced and the sutures are no longer holding the wound and then approximated position. There is exposed deep capsular periosteal tissue exposed. There is no exposed bone. Significant mobilization at the below-knee amputation site is likely complicating his healing at this location. Wound Measurements and Assessment WC - Nurse 1 - General Ulcer Measurement Start: 12/04/17 14:08 Freq: Status: Active Protocol: Activity Type Activity Date Activity User E-Sign Co-Sign Detail Recorded Client Recorded Date Recorded By Document 12/04/17 14:09 [id number] 12/04/17 14:26 RB 12/04/17 14:09 Wound Center Nurse 1 [Ulcer Assessment] #12 R Stump -Combined with other wound No -Current Size (cm) - Length 0.5 -Current Size (cm) - Width 1 -Current Size (cm) - Depth 0.5 -Total Square Cm 0.5 -Tunneling No -Undermining/Tunneling No -Circular Undermining No -Classification - Thickness Full Thickness without Exposed Support Structure -Exudate Amt Medium (34-66%) -Exudate Type Serosanguineous -Wound Margin Thickened & Rolled Under -Granulation Amt Medium (34-66%) -Granulation Quality [place] -Slough/Fibrin Yes -Necrosis Amt Medium (34-66%) -Necrotic Tissue Type Adherent Slough -Structure Exposed N/A -Texture (Annabel-wound Skin Appearance) Assessed -Moisture (Annabel-wound Skin Appearance Assessed ) Maceration -Color (Annabel-wound Skin Appearance) Assessed -Temperature (Annabel-wound Skin No Abnormality Appearance) (Pt Warm) -Tenderness on Palpation (Annabel-wound No Skin Appearance) -Ulcer Cleansing Rinsed/ Irrigated with Saline -Foul Odor after Cleansing No -Anesthetic Used 4% Lidocaine Solution #10 LEFT 2ND TOE AMP. SITE -Combined with other wound No -Current Size (cm) - Length 1.5 -Current Size (cm) - Width 1.3 -Current Size (cm) - Depth 0.1 -Total Square Cm 1.95 -Tunneling No -Undermining/Tunneling No -Circular Undermining No -Classification - Thickness Full Thickness without Exposed Support Structure -Exudate Amt None Present (0 %) -Wound Margin Distinct, Outline Attached -Granulation Amt Small (1-33%) -Granulation Quality [place] -Slough/Fibrin Yes -Necrosis Amt Large (67-100%) -Necrotic Tissue Type Adherent Slough -Structure Exposed N/A -Texture (Annabel-wound Skin Appearance) Assessed -Moisture (Annabel-wound Skin Appearance Assessed ) -Color (Annabel-wound Skin Appearance) Assessed -Temperature (Annabel-wound Skin No Abnormality Appearance) (Pt Warm) -Tenderness on Palpation (Annabel-wound No Skin Appearance) -Ulcer Cleansing Rinsed/ Irrigated with Saline -Foul Odor after Cleansing No -Anesthetic Used 4% Lidocaine Solution WC - Nurse 2 - General Ulcer CM Notes Start: 12/04/17 14:08 Freq: Status: Active Protocol: Activity Type Activity Date Activity User E-Sign Co-Sign Detail Recorded Client Recorded Date Recorded By Document 12/04/17 14:51 [id number] 12/04/17 14:54 TM 12/04/17 14:51 Wound Center Nurse 2 [Procedure/Treatment] #12 R Stump -Time 14:52 -Correct Patient Yes -Correct Side, Site, Position Yes -Correct Procedure Yes -Procedure Performed Yes -Type of Procedure Debridement -Clinical Debridement Subcutaneous -Post Debridement Size (cm) - Length 0.6 -Post Debridement Size (cm) - Width 1.1 -Post Debridement Size (cm) - Depth 0.5 -Total Square Cm 0.66 -Wound/Ulcer Outcome Not Healed -Ulcer Cleansing Rinsed/ Irrigated with Saline -Foul Odor after Cleansing No -Bioengineered Tissue No -Topical Lidocaine (%) 5 -Bleeding Controlled with Pressure -Treatment Response Procedure Tolerated Well #10 LEFT 2ND TOE AMP. SITE -Time 14:52 -Correct Patient Yes -Correct Side, Site, Position Yes -Correct Procedure Yes -Procedure Performed Yes -Type of Procedure Debridement -Clinical Debridement Subcutaneous -Post Debridement Size (cm) - Length 1.6 -Post Debridement Size (cm) - Width 1.4 -Post Debridement Size (cm) - Depth 0.1 -Total Square Cm 2.24 -Wound/Ulcer Outcome Not Healed -Ulcer Cleansing Rinsed/ Irrigated with Saline -Foul Odor after Cleansing No -Bioengineered Tissue No -Bleeding Controlled with Pressure -Treatment Response Procedure Tolerated Well [See Physician Procedure note for Specifics] Pain Scale: 0-10 Numeric [Pain] -Is Patient Pain Free? Yes Musculoskeletal: No Tenderness to Palpation of Joints or Extremities, Muscle Wasting Neurological: - - Lack of epicritic sensation light touch bilateral lower extremities Psych/Mental Status: Normal Affect, Appropriate Debridement Note Post-Debridement Measurements/Treatment WC - Nurse 2 - General Ulcer CM Notes Start: 12/04/17 14:08 Freq: Status: Active Protocol: Activity Type Activity Date Activity User E-Sign Co-Sign Detail Recorded Client Recorded Date Recorded By Document 12/04/17 14:51 [id number] 12/04/17 14:54 12/04/17 14:51 Wound Center Nurse 2 #12 R Stump -Time 14:52 -Correct Patient Yes -Correct Side, Site, Position Yes -Correct Procedure Yes -Procedure Performed Yes -Type of Procedure Debridement -Clinical Debridement Subcutaneous -Post Debridement Size (cm) - Length 0.6 -Post Debridement Size (cm) - Width 1.1 -Post Debridement Size (cm) - Depth 0.5 -Total Square Cm 0.66 -Wound/Ulcer Outcome Not Healed -Ulcer Cleansing Rinsed/ Irrigated with Saline -Foul Odor after Cleansing No -Bioengineered Tissue No -Topical Lidocaine (%) 5 -Bleeding Controlled with Pressure -Treatment Response Procedure Tolerated Well #10 LEFT 2ND TOE AMP. SITE -Time 14:52 -Correct Patient Yes -Correct Side, Site, Position Yes -Correct Procedure Yes -Procedure Performed Yes -Type of Procedure Debridement -Clinical Debridement Subcutaneous -Post Debridement Size (cm) - Length 1.6 -Post Debridement Size (cm) - Width 1.4 -Post Debridement Size (cm) - Depth 0.1 -Total Square Cm 2.24 -Wound/Ulcer Outcome Not Healed -Ulcer Cleansing Rinsed/ Irrigated with Saline -Foul Odor after Cleansing No -Bioengineered Tissue No -Bleeding Controlled with Pressure -Treatment Response Procedure Tolerated Well Pain Scale: 0-10 Numeric Is Patient Pain Free? Yes Wound debrided: leg at below knee amputation site Laterality: Right Wound Grade/Stage: grade 2 Type of Debridement: Excisional debridement Anesthesia Used: 4% Lidocaine Solution Depth: in the subcutaneous layer Percentage of wound debrided: 100 Instrument Used: #15 blade Tissue Removed: devitalized subcutaneous, biofilm, slough, fibrous Severity: Fat Layer Exposed Amount of bleeding with debridement: Mild Bleeding Controlled with: Pressure Patient tolerated procedure well - Additional Wound Wound debrided: dorsal foot Laterality: Left Wound Grade/Stage: grade 1 Type of Debridement: Excisional debridement Anesthesia Used: 4% Lidocaine Solution Depth: in the subcutaneous layer Percentage of wound debrided: 100 Instrument Used: #15 blade Tissue Removed: devitalized subcutaneous, biofilm, slough, fibrous Severity: Fat Layer Exposed Amount of bleeding with debridement: Mild Bleeding Controlled with: Pressure Patient tolerated procedure: Patient tolerated procedure well Assessment/Plan Active Problems Ulcer of right lower extremity with fat layer exposed (Chronic) Chronic ulcer of left foot with fat layer exposed (Chronic) Ulcer of left lower extremity with fat layer exposed (Chronic) Diabetes mellitus with polyneuropathy (Chronic) Delayed wound healing (Chronic) Amputation of right lower extremity (Chronic) Peripheral vascular disease (Chronic) venous Malnutrition (Chronic) Assessment: left foot ulcer with fat exposed (2nd toe amputation site), grade 1. right leg ulcer, grade 2 at below knee amputation surgical site. diabetes with neuropathy. small vessel disease. noncompliance / poor decision making. smoker Plan: Discussed case and treatment recommendations moving forward. Performed subcutaneous debridement left and right as noted in the clinical panel right leg and left foot. To change dressing daily with Aquacel Ag. The sutures are removed from the dehisced right procedure site. I am concerned with the chronic deep tissue exposure and x-rays were ordered of the right lower extremity today. Lab work was also ordered. He understands a referral back to orthopedics may be needed due to his nonhealing surgical site or if osteomyelitis is suspected. To offload by wearing surgical shoe (left) and to avoid pressure to the dorsal forefoot. To avoid wearing closed shoegear. To avoid pressure to ulcer sites. I recommend stricter mobilization of the right lower extremity with a splint extending from the amputation stump site up to the proximal thigh. Supplies will be ordered to be applied next week. I recommend deep packing with overlying the wound VAC for negative pressure therapy to help this heal via secondary closure techniques. He is amenable to this plan and understands pushing off his leg while ascending or descending the stairs and likely compromising this even though this is his only way to get around his home and I understand this is very challenging for him. Continue nutritional supplementation, smoking cessation, and edema control to further optimize healing. To continue to apply lotion to the remainder of the limb to preserve skin quality. He understands he is high risk and at risk for further limb loss. RTC one week or call sooner if problems.
[2017-12-18 14:05] VITALS: BP 127/64; PULSE 94; RESP 16; TEMP 36.9
--- NOTE | 2017-12-18 15:37 | PN.PCM_ITS ---
(1) Chronic ulcer of left foot with fat layer exposed Status: Resolved Current Visit: Yes Code(s): L97.522 - Non-pressure chronic ulcer of other part of left foot with fat layer exposed (2) Ulcer of right lower extremity with fat layer exposed Status: Chronic Current Visit: Yes Code(s): L97.912 - Non-pressure chronic ulcer of unspecified part of right lower leg with fat layer exposed (3) Diabetes mellitus with polyneuropathy Status: Chronic Current Visit: Yes Qualifiers: Diabetes mellitus type: type 2 Qualified Code(s): E11.42 - Type 2 diabetes mellitus with diabetic polyneuropathy Code(s): E11.42 - Type 2 diabetes mellitus with diabetic polyneuropathy (4) Delayed wound healing Status: Chronic Current Visit: Yes Code(s): T14.8 - Other injury of unspecified body region (5) Amputation of right lower extremity Status: Chronic Current Visit: Yes Code(s): S88.911A - Complete traumatic amputation of right lower leg, level unspecified, initial encounter (6) Peripheral vascular disease Status: Chronic Current Visit: Yes Code(s): I73.9 - Peripheral vascular disease, unspecified Comment: venous (7) Malnutrition Status: Chronic Current Visit: Yes Code(s): E46 - Unspecified protein- calorie malnutrition Type of Wound Date of Service: 12/18/17 Chief Complaint: right leg revisional below knee amputation; chronic ulceration / delayed healing. diabetes. delayed healing continued. History of Wound: This 62 year old male with significant past medical history of uncontrolled diabetes, smoking habit, non compliance, recurrent lower extremity infections, h/o right below knee amputation, and small vessel disease follows up today for multiple lower extremity wounds. He denies fever, chills, nausea, vomiting, calf or foot pain. He denies new injuries. He has been compliant this last week. He presents today with a wheelchair. He understands he cannot wear his prosthetic or put any weight or apply any tension to the site where it is likely to fail. Progress of Wound: Healed left foot. No improvement right leg - Physical Exam Vital Signs Temp Pulse Resp BP 98.4 F 94 16 127/64 H 12/18/17 14:05 12/18/17 14:05 12/18/17 14:05 12/18/17 14:05 General: Alert, Oriented x3, Cooperative HEENT: Atraumatic Extremities: No cyanosis, No edema, Capillary Refill Less than 3 Seconds, No Calf Tenderness - Negative Virgie and Long left, Diminished Peripheral Pulses, - - Right below-knee amputation noted Skin: Ulcer/ Wound - Full epithelialization to left foot. No purulence, no erythema, no streaking, no odor, no. There is exposed deeper tissue at the below-knee amputation stump site and deep tissue mobilization is visualized in the wound bed. His skin is atrophic. Wound Measurements and Assessment WC - Nurse 1 - General Ulcer Measurement Start: 12/04/17 14:08 Freq: Status: Active Protocol: Activity Type Activity Date Activity User E-Sign Co-Sign Detail Recorded Client Recorded Date Recorded By Document 12/18/17 14:05 [facility] [id number] 12/18/17 14:22 [facility] 12/18/17 14:05 Wound Center Nurse 1 [Ulcer Assessment] # 13- RT POPLITEAL FOLD -Combined with other wound No -Current Size (cm) - Length 1 -Current Size (cm) - Width 0.8 -Current Size (cm) - Depth 0.1 -Total Square Cm 0.8 -Date of Last Picture (Recall this 12/18/17 field) -Photo Taken Yes -Epithelialization None Present -Tunneling No -Undermining/Tunneling No -Circular Undermining No -Exudate Amt Small (1-33%) -Exudate Type Serosanguineous -Wound Margin Distinct, Outline Attached -Granulation Amt Large (67-100%) -Granulation Quality Red -Slough/Fibrin Yes -Necrosis Amt Small (1-33%) -Necrotic Tissue Type Adherent Slough -Structure Exposed None/Limited to Skin Breakdown -Texture (Annabel-wound Skin Appearance) Scarring -Moisture (Annabel-wound Skin Appearance Dry/Scaly ) -Color (Annabel-wound Skin Appearance) Erythema -Temperature (Annabel-wound Skin No Abnormality Appearance) (Pt Warm) -Tenderness on Palpation (Annabel-wound No Skin Appearance) -Ulcer Cleansing Rinsed/ Irrigated with Saline -Foul Odor after Cleansing No -Anesthetic Used 4% Lidocaine Solution #12 R Stump -Combined with other wound No -Current Size (cm) - Length 0.5 -Current Size (cm) - Width 1.3 -Current Size (cm) - Depth 0.6 -Total Square Cm 0.65 -Date of Last Picture (Recall this 12/18/17 field) -Photo Taken Yes -Epithelialization None Present -Tunneling Yes -Tunneling Position (O'clock) 10 -Tunneling Distance (cm) 1.1 -Undermining/Tunneling No -Exudate Amt Small (1-33%) -Exudate Type Serosanguineous -Wound Margin Distinct, Outline Attached -Granulation Amt Large (67-100%) -Granulation Quality [place] -Slough/Fibrin No -Necrosis Amt None Present (0 %) -Structure Exposed N/A -Texture (Annabel-wound Skin Appearance) Scarring -Moisture (Annabel-wound Skin Appearance Maceration ) Dry/Scaly -Color (Annabel-wound Skin Appearance) Palor -Temperature (Annabel-wound Skin No Abnormality Appearance) (Pt Warm) -Tenderness on Palpation (Annabel-wound Yes Skin Appearance) -Ulcer Cleansing Rinsed/ Irrigated with Saline -Foul Odor after Cleansing No -Anesthetic Used 4% Lidocaine Solution #10 LEFT 2ND TOE AMP. SITE -Combined with other wound No -Current Size (cm) - Length 0.1 -Current Size (cm) - Width 0.1 -Current Size (cm) - Depth 0.1 -Total Square Cm 0.01 -Date of Last Picture (Recall this 12/18/17 field) -Photo Taken Yes -Epithelialization None Present -Tunneling No -Undermining/Tunneling No -Circular Undermining No -Exudate Amt None Present (0 %) -Wound Margin Distinct, Outline Attached -Granulation Amt None Present (0 %) -Slough/Fibrin Yes -Necrosis Amt Large (67-100%) -Necrotic Tissue Type Adherent Slough -Structure Exposed N/A -Texture (Annabel-wound Skin Appearance) Scarring -Moisture (Annabel-wound Skin Appearance Dry/Scaly ) -Color (Annabel-wound Skin Appearance) Assessed -Temperature (Annabel-wound Skin No Abnormality Appearance) (Pt Warm) -Tenderness on Palpation (Annabel-wound No Skin Appearance) -Ulcer Cleansing Rinsed/ Irrigated with Saline -Foul Odor after Cleansing No -Anesthetic Used 4% Lidocaine Solution WC - Nurse 2 - General Ulcer CM Notes Start: 12/04/17 14:08 Freq: Status: Active Protocol: Activity Type Activity Date Activity User E-Sign Co-Sign Detail Recorded Client Recorded Date Recorded By Document 12/18/17 14:53 JF [id number] 12/18/17 14:56 12/18/17 14:53 Wound Center Nurse 2 [Procedure/Treatment] # 13- RT POPLITEAL FOLD -Time 14:54 -Correct Patient No -Correct Side, Site, Position No -Correct Procedure No -Procedure Performed No #12 R Stump -Time 14:55 -Correct Patient Yes -Correct Side, Site, Position Yes -Correct Procedure Yes -Procedure Performed Yes -Type of Procedure Debridement -Clinical Debridement Subcutaneous -Post Debridement Size (cm) - Length 0.5 -Post Debridement Size (cm) - Width 1.5 -Post Debridement Size (cm) - Depth 0.6 -Total Square Cm 0.75 -Wound/Ulcer Outcome Not Healed -Ulcer Cleansing Rinsed/ Irrigated with Saline -Foul Odor after Cleansing No -Bioengineered Tissue No -Bleeding Controlled with Pressure -Treatment Response Procedure Tolerated Well #10 LEFT 2ND TOE AMP. SITE -Correct Patient No -Correct Side, Site, Position No -Correct Procedure No -Procedure Performed No -Post Debridement Size (cm) - Length 0 -Post Debridement Size (cm) - Width 0 -Post Debridement Size (cm) - Depth 0 -Total Square Cm 0 -Wound/Ulcer Outcome Healed- Epithelialized [See Physician Procedure note for Specifics] Pain Scale: 0-10 Numeric [Pain] -Is Patient Pain Free? Yes Musculoskeletal: No Tenderness to Palpation of Joints or Extremities, Muscle Wasting Neurological: - - Lack of epicritic sensation light touch Psych/Mental Status: Normal Affect, Appropriate Debridement Note Post-Debridement Measurements/Treatment WC - Nurse 2 - General Ulcer CM Notes Start: 12/04/17 14:08 Freq: Status: Active Protocol: Activity Type Activity Date Activity User E-Sign Co-Sign Detail Recorded Client Recorded Date Recorded By Document 12/04/17 14:51 [id number] 12/04/17 14:54 Document 12/18/17 14:53 [id number] 12/18/17 14:56 12/04/17 12/18/17 14:51 14:53 Wound Center Nurse 2 # 13- RT POPLITEAL FOLD -Time 14:54 -Correct Patient No -Correct Side, Site, Position No -Correct Procedure No -Procedure Performed No #12 R Stump -Time 14:52 14:55 -Correct Patient Yes Yes -Correct Side, Site, Position Yes Yes -Correct Procedure Yes Yes -Procedure Performed Yes Yes -Type of Procedure Debridement Debridement -Clinical Debridement Subcutaneous Subcutaneous -Post Debridement Size (cm) - Length 0.6 0.5 -Post Debridement Size (cm) - Width 1.1 1.5 -Post Debridement Size (cm) - Depth 0.5 0.6 -Total Square Cm 0.66 0.75 -Wound/Ulcer Outcome Not Healed Not Healed -Ulcer Cleansing Rinsed/ Rinsed/ Irrigated with Irrigated with Saline Saline -Foul Odor after Cleansing No No -Bioengineered Tissue No No -Topical Lidocaine (%) 5 -Bleeding Controlled with Pressure Pressure -Treatment Response Procedure Procedure Tolerated Well Tolerated Well #10 LEFT 2ND TOE AMP. SITE -Time 14:52 -Correct Patient Yes No -Correct Side, Site, Position Yes No -Correct Procedure Yes No -Procedure Performed Yes No -Type of Procedure Debridement -Clinical Debridement Subcutaneous -Post Debridement Size (cm) - Length 1.6 0 -Post Debridement Size (cm) - Width 1.4 0 -Post Debridement Size (cm) - Depth 0.1 0 -Total Square Cm 2.24 0 -Wound/Ulcer Outcome Not Healed Healed- Epithelialized -Ulcer Cleansing Rinsed/ Irrigated with Saline -Foul Odor after Cleansing No -Bioengineered Tissue No -Bleeding Controlled with Pressure -Treatment Response Procedure Tolerated Well Pain Scale: 0-10 Numeric Is Patient Pain Free? Yes Yes Wound debrided: leg Laterality: Right Wound Grade/Stage: grade 2 Type of Debridement: Excisional debridement Anesthesia Used: 4% Lidocaine Solution Depth: in the subcutaneous layer Percentage of wound debrided: 100 Instrument Used: #15 blade Tissue Removed: fibrous, devitalized subcutaneous, biofilm, slough Severity: Fat Layer Exposed Amount of bleeding with debridement: Mild Bleeding Controlled with: Pressure Patient tolerated procedure well Assessment/Plan Active Problems Ulcer of right lower extremity with fat layer exposed (Chronic) Ulcer of left lower extremity with fat layer exposed (Chronic) Diabetes mellitus with polyneuropathy (Chronic) Delayed wound healing (Chronic) Amputation of right lower extremity (Chronic) Peripheral vascular disease (Chronic) venous Malnutrition (Chronic) Assessment: left foot ulcer site remains healed. right leg ulcer, grade 2 at below knee amputation surgical site. diabetes with neuropathy. small vessel disease. noncompliance / poor decision making. smoker Plan: Discussed case and treatment recommendations moving forward. Performed subcutaneous debridement right lower extremity as noted in the clinical panel. To change dressing daily with sterile gauze packing; this was demonstrated. I previuosly ordered x-rays of the right lower extremity. Lab work was also ordered. It is noted he did not complete this further workup and missed several recent appointments. I encouraged him to obtain this diagnostic data at this time to ensure a more serious condition is not proliferating. He understands a referral back to orthopedics may be needed due to his nonhealing surgical site or if osteomyelitis is suspected. To offload by wearing surgical shoe (left is now healed) and to avoid pressure to the dorsal forefoot. To avoid wearing closed shoegear. To avoid pressure to ulcer site right lower extremity. After dressing was applied, a well-padded posterior mold was applied from the amputation level to the thigh to prevent knee contracture and further decrease tension at the wound site. I recommend deep packing with overlying the wound VAC for negative pressure therapy to help this heal via secondary closure techniques. His insurance covers only 80% of this and he is unable to afford the remaining cost and deferred wound VAC application today. Continue nutritional supplementation, smoking cessation, and edema control to further optimize healing. To continue to apply lotion to the remainder of the limb to preserve skin quality. He understands he is high risk and at risk for further limb loss. RTC one week or call sooner if problems.
[2017-12-25 13:20] VITALS: BP 128/69; PULSE 92; RESP 18; TEMP 36.9
--- NOTE | 2017-12-25 14:55 | PN.PCM_ITS ---
(1) Chronic ulcer of left foot with fat layer exposed Status: Resolved Current Visit: Yes Code(s): L97.522 - Non-pressure chronic ulcer of other part of left foot with fat layer exposed (2) Ulcer of right lower extremity with fat layer exposed Status: Chronic Current Visit: Yes Code(s): L97.912 - Non-pressure chronic ulcer of unspecified part of right lower leg with fat layer exposed (3) Diabetes mellitus with polyneuropathy Status: Chronic Current Visit: Yes Qualifiers: Diabetes mellitus type: type 2 Qualified Code(s): E11.42 - Type 2 diabetes mellitus with diabetic polyneuropathy Code(s): E11.42 - Type 2 diabetes mellitus with diabetic polyneuropathy (4) Delayed wound healing Status: Chronic Current Visit: Yes Code(s): T14.8 - Other injury of unspecified body region (5) Amputation of right lower extremity Status: Chronic Current Visit: Yes Code(s): S88.911A - Complete traumatic amputation of right lower leg, level unspecified, initial encounter (6) Peripheral vascular disease Status: Chronic Current Visit: Yes Code(s): I73.9 - Peripheral vascular disease, unspecified Comment: venous (7) Malnutrition Status: Chronic Current Visit: Yes Code(s): E46 - Unspecified protein- calorie malnutrition Type of Wound Date of Service: 12/27/17 Chief Complaint: right leg revisional below knee amputation; chronic ulceration / delayed healing. diabetes. delayed healing continued. History of Wound: This 62 year old male with significant past medical history of uncontrolled diabetes, smoking habit, non compliance, recurrent lower extremity infections, h/o right below knee amputation, and small vessel disease follows up today for multiple lower extremity wounds. He denies fever, chills, nausea, vomiting, calf or foot pain. He denies new injuries. He was not able to keep his posterior mold in place and this is removed last Saturday. He refuses additional application because he is unable to tolerate this due to his living condition. He presents today with a wheelchair. He has been changing the dressing twice daily. Progress of Wound: Stable right leg - Physical Exam Vital Signs Temp Pulse Resp BP 98.4 F 92 18 128/69 H 12/25/17 13:20 12/25/17 13:20 12/25/17 13:20 04/25/18 13:20 General: Alert, Oriented x3, Cooperative Extremities: No cyanosis, Capillary Refill Less than 3 Seconds, No Calf Tenderness, Diminished Peripheral Pulses, Edema Skin: Ulcer/ Wound - No purulence, no erythema, streaking, no odor, no infection right lower extremity. Skin is atrophic with scant hair Wound Measurements and Assessment WC - Nurse 1 - General Ulcer Measurement Start: 12/04/17 14:08 Freq: Status: Active Protocol: Activity Type Activity Date Activity User E-Sign Co-Sign Detail Recorded Client Recorded Date Recorded By Document 12/25/17 13:20 TN [id number] 12/25/17 13:32 [place] 12/25/17 13:20 Wound Center Nurse 1 [Ulcer Assessment] # 13- RT POPLITEAL FOLD -Combined with other wound No -Current Size (cm) - Length 0.1 -Current Size (cm) - Width 0.1 -Current Size (cm) - Depth 0.1 -Total Square Cm 0.01 -Photo Taken No -Epithelialization None Present -Tunneling No -Undermining/Tunneling No -Circular Undermining No -Change in Wound Grade/Stage No Query Text:If change please identify the Stage/Grade in the comment (ie. S2 G3) -Exudate Amt None Present (0 %) -Wound Margin Distinct, Outline Attached -Granulation Amt None Present (0 %) -Slough/Fibrin Yes -Necrosis Amt None Present (0 %) -Structure Exposed None/Limited to Skin Breakdown -Texture (Annabel-wound Skin Appearance) No Abnormality Assessed -Moisture (Annabel-wound Skin Appearance No Abnormality ) -Color (Annabel-wound Skin Appearance) No Abnormality Assessed -Temperature (Annabel-wound Skin No Abnormality Appearance) (Pt Warm) -Tenderness on Palpation (Annabel-wound No Skin Appearance) -Ulcer Cleansing Not Cleansed -Foul Odor after Cleansing No #12 R Stump -Combined with other wound No -Current Size (cm) - Length 0.7 -Current Size (cm) - Width 1.2 -Current Size (cm) - Depth 0.7 -Total Square Cm 0.84 -Photo Taken No -Epithelialization None Present -Tunneling Yes -Tunneling Position (O'clock) 12 -Tunneling Distance (cm) 0.6 -Circular Undermining No -Classification - Thickness Full Thickness without Exposed Support Structure -Change in Wound Grade/Stage No Query Text:If change please identify the Stage/Grade in the comment (ie. S2 G3) -Exudate Type Serosanguineous -Wound Margin Distinct, Outline Attached -Granulation Amt Small (1-33%) -Granulation Quality Red -Slough/Fibrin Yes -Necrosis Amt Large (67-100%) -Necrotic Tissue Type Adherent Slough -Structure Exposed None/Limited to Skin Breakdown -Texture (Annabel-wound Skin Appearance) Assessed Scarring -Moisture (Annabel-wound Skin Appearance Assessed ) Maceration -Color (Annabel-wound Skin Appearance) Assessed -Temperature (Annabel-wound Skin No Abnormality Appearance) (Pt Warm) -Tenderness on Palpation (Annabel-wound No Skin Appearance) -Ulcer Cleansing Wound Cleanser -Foul Odor after Cleansing No -Anesthetic Used 5% Lidocaine Gel [Edema Assessment] -Lower Limb Edema Present No WC - Nurse 2 - General Ulcer CM Notes Start: 12/04/17 14:08 Freq: Status: Active Protocol: Activity Type Activity Date Activity User E-Sign Co-Sign Detail Recorded Client Recorded Date Recorded By Document 12/25/17 13:43 [id number] 12/25/17 13:52 12/25/17 13:43 Wound Center Nurse 2 [Procedure/Treatment] # 13- RT POPLITEAL FOLD -Time 13:43 -Correct Patient Yes -Correct Side, Site, Position Yes -Correct Procedure Yes -Procedure Performed Yes -Post Debridement Size (cm) - Length 0 -Post Debridement Size (cm) - Width 0 -Post Debridement Size (cm) - Depth 0 -Total Square Cm 0 -Wound/Ulcer Outcome Healed- Epithelialized -Bleeding Controlled with NA #12 R Stump -Time 13:44 -Correct Patient Yes -Correct Side, Site, Position Yes -Correct Procedure Yes -Procedure Performed Yes -Type of Procedure Debridement -Clinical Debridement Subcutaneous -Post Debridement Size (cm) - Length 0.8 -Post Debridement Size (cm) - Width 1.3 -Post Debridement Size (cm) - Depth 0.7 -Total Square Cm 1.04 -Wound/Ulcer Outcome Not Healed -Ulcer Cleansing Rinsed/ Irrigated with Saline -Foul Odor after Cleansing No -Bioengineered Tissue No -Topical Lidocaine (%) 5 -Bleeding Controlled with Pressure -Treatment Response Procedure Tolerated Well [See Physician Procedure note for Specifics] Pain Scale: 0-10 Numeric [Pain] -Is Patient Pain Free? Yes Musculoskeletal: No Tenderness to Palpation of Joints or Extremities, Muscle Wasting, - - Right below-knee amputation Neurological: - - Lack of epicritic sensation light touch Psych/Mental Status: Normal Affect, Appropriate Debridement Note Post-Debridement Measurements/Treatment WC - Nurse 2 - General Ulcer CM Notes Start: 12/04/17 14:08 Freq: Status: Active Protocol: Activity Type Activity Date Activity User E-Sign Co-Sign Detail Recorded Client Recorded Date Recorded By Document 12/04/17 14:51 [id number] 12/04/17 14:54 Document 12/18/17 14:53 [id number] 12/18/17 14:56 Document 12/25/17 13:43 [id number] 12/25/17 13:52 12/04/17 12/18/17 12/25/17 14:51 14:53 13:43 Wound Center Nurse 2 # 13- RT POPLITEAL FOLD -Time 14:54 13:43 -Correct Patient No Yes -Correct Side, Site, Position No Yes -Correct Procedure No Yes -Procedure Performed No Yes -Post Debridement Size (cm) - Length 0 -Post Debridement Size (cm) - Width 0 -Post Debridement Size (cm) - Depth 0 -Total Square Cm 0 -Wound/Ulcer Outcome Healed- Epithelialized -Bleeding Controlled with NA #12 R Stump -Time 14:52 14:55 13:44 -Correct Patient Yes Yes Yes -Correct Side, Site, Position Yes Yes Yes -Correct Procedure Yes Yes Yes -Procedure Performed Yes Yes Yes -Type of Procedure Debridement Debridement Debridement -Clinical Debridement Subcutaneous Subcutaneous Subcutaneous -Post Debridement Size (cm) - Length 0.6 0.5 0.8 -Post Debridement Size (cm) - Width 1.1 1.5 1.3 -Post Debridement Size (cm) - Depth 0.5 0.6 0.7 -Total Square Cm 0.66 0.75 1.04 -Wound/Ulcer Outcome Not Healed Not Healed Not Healed -Ulcer Cleansing Rinsed/ Rinsed/ Rinsed/ Irrigated with Irrigated with Irrigated with Saline Saline Saline -Foul Odor after Cleansing No No No -Bioengineered Tissue No No No -Topical Lidocaine (%) 5 5 -Bleeding Controlled with Pressure Pressure Pressure -Treatment Response Procedure Procedure Procedure Tolerated Well Tolerated Well Tolerated Well #10 LEFT 2ND TOE AMP. SITE -Time 14:52 -Correct Patient Yes No -Correct Side, Site, Position Yes No -Correct Procedure Yes No -Procedure Performed Yes No -Type of Procedure Debridement -Clinical Debridement Subcutaneous -Post Debridement Size (cm) - Length 1.6 0 -Post Debridement Size (cm) - Width 1.4 0 -Post Debridement Size (cm) - Depth 0.1 0 -Total Square Cm 2.24 0 -Wound/Ulcer Outcome Not Healed Healed- Epithelialized -Ulcer Cleansing Rinsed/ Irrigated with Saline -Foul Odor after Cleansing No -Bioengineered Tissue No -Bleeding Controlled with Pressure -Treatment Response Procedure Tolerated Well Pain Scale: 0-10 Numeric Is Patient Pain Free? Yes Yes Yes Wound debrided: leg Laterality: Right Wound Grade/Stage: grade 2 Type of Debridement: Excisional debridement Anesthesia Used: 5% Lidocaine Gel Depth: in the subcutaneous layer Percentage of wound debrided: 100 Instrument Used: #15 blade Tissue Removed: fibrous, devitalized subcutaneous, biofilm, slough Severity: Fat Layer Exposed Amount of bleeding with debridement: Mild Bleeding Controlled with: Pressure Patient tolerated procedure well Assessment/Plan Active Problems Ulcer of right lower extremity with fat layer exposed (Chronic) Ulcer of left lower extremity with fat layer exposed (Chronic) Diabetes mellitus with polyneuropathy (Chronic) Delayed wound healing (Chronic) Amputation of right lower extremity (Chronic) Peripheral vascular disease (Chronic) venous Malnutrition (Chronic) Assessment: . right leg ulcer, grade 2 at below knee amputation surgical site. diabetes with neuropathy. small vessel disease. noncompliance / poor decision making. smoker Plan: Discussed case and treatment recommendations moving forward. Performed subcutaneous debridement right lower extremity as noted in the clinical panel. To change dressing daily with sterile gauze packing; this was demonstrated. I previuosly ordered x-rays of the right lower extremity. Lab work was also ordered. Unfortunately not obtained as advised; he was encouraged to complete this again. He understands a referral back to orthopedics may be needed due to his nonhealing surgical site or if osteomyelitis is suspected. To offload by wearing surgical shoe (left is now healed) and to avoid pressure to the dorsal forefoot. To avoid wearing closed shoegear. To avoid pressure to ulcer site right lower extremity. Fuses reapplication of the posterior mold splint. I recommend deep packing with overlying the wound VAC for negative pressure therapy to help this heal via secondary closure techniques. He does have most of the supplies available and is looking for a canister. Continue nutritional supplementation, smoking cessation, and edema control to further optimize healing. To continue to apply lotion to the remainder of the limb to preserve skin quality. He understands he is high risk and at risk for further limb loss. RTC one week or call sooner if problems.
== END 2017-12-30 23:59 ==
LOC: WC 13:00
PROVIDERS: Family Provider Family Medicine; PCP Family Medicine; Visit Provider Podiatrist
DX: E11.622 Type 2 diabetes mellitus with other skin ulcer (principal); E11.42 Type 2 diabetes mellitus with diabetic polyneuropathy; E11.51 Type 2 diabetes mellitus with diabetic peripheral angiopathy without gangrene; L97.822 Non-pressure chronic ulcer of other part of left lower leg with fat layer exposed; L97.812 Non-pressure chronic ulcer of other part of right lower leg with fat layer exposed; Z91.19 Patient's noncompliance with other medical treatment and regimen; Z89.511 Acquired absence of right leg below knee; E11.65 Type 2 diabetes mellitus with hyperglycemia
CPT/HCPCS: 11042

== ENCOUNTER 2018-01-10 14:00 | Outpatient (RCR) | payer MEDICARE, SELFPAY ==
[2017-12-31 00:47] VITALS: PULSE 92; RESP 18; TEMP 36.9
[2018-01-01 13:37] VITALS: BP 149/81; PULSE 101; RESP 18; TEMP 37.3
[2018-01-01 15:00] LABS: Bedside Glucose 39 mg/dL (70-110)
[2018-01-01 15:05] LABS: Bedside Glucose 45 mg/dL (70-110)
--- NOTE | 2018-01-01 17:26 | PN.PCM_ITS ---
(1) Ulcer of right lower extremity with fat layer exposed Status: Chronic Current Visit: Yes Code(s): L97.912 - Non-pressure chronic ulcer of unspecified part of right lower leg with fat layer exposed (2) Hypoglycemia Status: Chronic Current Visit: Yes Code(s): E16.2 - Hypoglycemia, unspecified (3) Diabetes mellitus with polyneuropathy Status: Chronic Current Visit: Yes Qualifiers: Diabetes mellitus type: type 2 Qualified Code(s): E11.42 - Type 2 diabetes mellitus with diabetic polyneuropathy Code(s): E11.42 - Type 2 diabetes mellitus with diabetic polyneuropathy (4) Peripheral vascular disease Status: Chronic Current Visit: Yes Code(s): I73.9 - Peripheral vascular disease, unspecified Comment: venous (5) Malnutrition Status: Chronic Current Visit: Yes Code(s): E46 - Unspecified protein- calorie malnutrition Type of Wound Date of Service: 01/02/18 Chief Complaint: right leg revisional below knee amputation; chronic ulceration / delayed healing. diabetes. delayed healing continued. History of Wound: This 62 year old male with significant past medical history of uncontrolled diabetes, smoking habit, non compliance, recurrent lower extremity infections, h/o right below knee amputation, and small vessel disease follows up today for multiple lower extremity wounds. He denies fever, chills, nausea, vomiting, calf or foot pain. He denies new injuries. He brought a wound VAC supplies today; [facility]. He presents today with a wheelchair. He has been changing the dressing as advised. Towards the end of his exam he admits he does not feel well and his sugar is dropping; he denies eating any food so far today. He did take his long-acting acting insulin prior to traveling today. Progress of Wound: Stable right leg - Physical Exam Vital Signs Temp Pulse Resp BP 99.1 F 101 H 18 149/81 H 01/01/18 13:37 01/01/18 13:37 01/01/18 13:37 01/01/18 13:37 General: Alert, Oriented x3, Cooperative, Lethargic - Late in the exam he became lethargic and expressed concerns of hypoglycemia; he remained conscious and alert and oriented throughout the entire process Extremities: No cyanosis, No edema, Capillary Refill Less than 3 Seconds, No Calf Tenderness, Diminished Peripheral Pulses, - - Right below-knee amputation Skin: Ulcer/ Wound - No purulence, no erythema, skin, odor, no eschar right surgical site, - - The skin is atrophic. Wound Measurements and Assessment - Nurse 1 - General Ulcer Measurement Start: 01/01/18 13:37 Freq: Status: Active Protocol: Activity Type Activity Date Activity User E-Sign Co-Sign Detail Recorded Client Recorded Date Recorded By Document 01/01/18 13:37 [id number] 01/01/18 13:39 01/01/18 13:37 Wound Center Nurse 1 [Ulcer Assessment] #12 R Stump -Combined with other wound No -Current Size (cm) - Length 0.8 -Current Size (cm) - Width 1.3 -Current Size (cm) - Depth 0.5 -Total Square Cm 1.04 -Photo Taken No -Epithelialization None Present -Tunneling Yes -Tunneling Position (O'clock) 13 -Tunneling Distance (cm) 1.0 -Undermining/Tunneling No -Circular Undermining No -Exudate Amt Medium (34-66%) -Exudate Type Serosanguineous -Wound Margin Flat & Intact -Granulation Amt Large (67-100%) -Granulation Quality Red -Slough/Fibrin Yes -Necrosis Amt Small (1-33%) -Necrotic Tissue Type Adherent Slough -Structure Exposed N/A -Texture (Annabel-wound Skin Appearance) Assessed -Moisture (Annabel-wound Skin Appearance Assessed ) Dry/Scaly -Color (Annabel-wound Skin Appearance) Assessed -Temperature (Annabel-wound Skin No Abnormality Appearance) (Pt Warm) -Tenderness on Palpation (Annabel-wound No Skin Appearance) -Ulcer Cleansing Wound Cleanser -Foul Odor after Cleansing No -Anesthetic Used 4% Lidocaine Solution - Nurse 2 - General Ulcer CM Notes Start: 01/01/18 13:37 Freq: Status: Active Protocol: Activity Type Activity Date Activity User E-Sign Co-Sign Detail Recorded Client Recorded Date Recorded By Document 01/01/18 14:02 [id number] 01/01/18 14:07 01/01/18 14:02 Wound Center Nurse 2 [Procedure/Treatment] -Time 14:02 -Correct Patient Yes -Correct Side, Site, Position Yes -Correct Procedure Yes -Procedure Performed Yes -Type of Procedure Debridement -Clinical Debridement Subcutaneous -Post Debridement Size (cm) - Length 0.9 -Post Debridement Size (cm) - Width 1.4 -Post Debridement Size (cm) - Depth 0.5 -Total Square Cm 1.26 -Wound/Ulcer Outcome Not Healed -Ulcer Cleansing Rinsed/ Irrigated with Saline -Foul Odor after Cleansing No -Bioengineered Tissue Yes -Type of bioengineered Tissue EPIFIX -Expiration Date 09/02/22 -Product Lot Number [id number] -Percent Used 100 -Saline Lot Number [id number] -Bleeding Controlled with Pressure -Treatment Response Procedure Tolerated Well [See Physician Procedure note for Specifics] Pain Scale: 0-10 Numeric [Pain] -Is Patient Pain Free? Yes Musculoskeletal: No Tenderness to Palpation of Joints or Extremities, Muscle Wasting, - - No pain with wound manipulation right Neurological: - - Lack of epicritic sensation light touch noted right lower extremity Psych/Mental Status: Normal Affect, Appropriate Debridement Note Post-Debridement Measurements/Treatment WC - Nurse 2 - General Ulcer CM Notes Start: 01/01/18 13:37 Freq: Status: Active Protocol: Activity Type Activity Date Activity User E-Sign Co-Sign Detail Recorded Client Recorded Date Recorded By Document 01/01/18 14:02 [email or web address] [id number] 01/01/18 14:07 DESTINEE 01/01/18 14:02 Wound Center Nurse 2 #12 R Stump -Time 14:02 -Correct Patient Yes -Correct Side, Site, Position Yes -Correct Procedure Yes -Procedure Performed Yes -Type of Procedure Debridement -Clinical Debridement Subcutaneous -Post Debridement Size (cm) - Length 0.9 -Post Debridement Size (cm) - Width 1.4 -Post Debridement Size (cm) - Depth 0.5 -Total Square Cm 1.26 -Wound/Ulcer Outcome Not Healed -Ulcer Cleansing Rinsed/ Irrigated with Saline -Foul Odor after Cleansing No -Bioengineered Tissue Yes -Type of bioengineered Tissue EPIFIX -Expiration Date 09/02/22 -Product Lot Number [id number] -Percent Used 100 -Saline Lot Number [id number] -Bleeding Controlled with Pressure -Treatment Response Procedure Tolerated Well Pain Scale: 0-10 Numeric Is Patient Pain Free? Yes Wound debrided: leg Laterality: Right Wound Grade/Stage: grade 2 Type of Debridement: Excisional debridement Anesthesia Used: 4% Lidocaine Solution Depth: in the subcutaneous layer Percentage of wound debrided: 100 Instrument Used: #15 blade Tissue Removed: fibrous, devitalized subcutaneous, biofilm, slough Severity: Fat Layer Exposed Amount of bleeding with debridement: Mild Bleeding Controlled with: Pressure Patient tolerated procedure well Assessment/Plan Active Problems Ulcer of right lower extremity with fat layer exposed (Chronic) Hypoglycemia (Chronic) Diabetes mellitus with polyneuropathy (Chronic) Peripheral vascular disease (Chronic) venous Malnutrition (Chronic) Assessment: hypoglycemia. right leg ulcer, grade 2 at below knee amputation surgical site. diabetes with neuropathy. small vessel disease. noncompliance / poor decision making. smoker Plan: Discussed case and treatment recommendations moving forward. Performed subcutaneous debridement right lower extremity as noted in the clinical panel. I recommend application of advanced wound care product today, epi fix. The indications, purpose, anticipated healing time management were discussed. This was applied after verbal consent and according to standard protocol. This was secured in place with Steri-Strips and wound veil. The wound VAC was applied however there was a malfunction with the cord and he will try to replace this this upcoming week. A gauze dressing was applied and he was advised to keep this intact to allow advanced wound care product incorporation. I previuosly ordered x-rays of the right lower extremity; this is not completed yet. Lab work was also ordered. Unfortunately not obtained as advised; he was encouraged to complete this again. He understands a referral back to orthopedics may be needed due to his nonhealing surgical site or if osteomyelitis is suspected. To offload by wearing surgical shoe (left is now healed) and to avoid pressure to the dorsal forefoot. To avoid wearing closed shoegear. To avoid pressure to ulcer site right lower extremity. He refuses reapplication of the posterior mold splint. I recommend deep packing with overlying the wound VAC for negative pressure therapy to help this heal via secondary closure techniques. Continue nutritional supplementation, smoking cessation, and edema control to further optimize healing. To continue to apply lotion to the remainder of the limb to preserve skin quality. He understands he is high risk and at risk for further limb loss. RTC one week or call sooner if problems; Dr. Cuellar is covering next week. Towards the end of his office visit, he became hypo-glycemia and expressed he has not eaten all day. His blood sugar was checked and he is at a level 31. He was able to eat applesauce and drinking Glucerna and eat snacks and this went up to low 40s. We immediately called the squad to him taken to the emergency room. He refused to leave with the squad and his blood sugar was 86 mg/dL when checked in the parking lot prior to transport home as previously planned. He is advised he must eat before coming to clinic to avoid this dangerous situation. Hypoglycemia is life-threatening.
[2018-01-10 14:52] VITALS: BP 104/74; PULSE 91; RESP 16; TEMP 36.6
--- NOTE | 2018-01-10 16:34 | PCM.WC.PN ---
(1) Ulcer of right lower extremity with fat layer exposed Status: Chronic Current Visit: Yes Code(s): L97.912 - Non-pressure chronic ulcer of unspecified part of right lower leg with fat layer exposed (2) Diabetes mellitus with polyneuropathy Status: Chronic Current Visit: Yes Qualifiers: Diabetes mellitus type: type 2 Qualified Code(s): E11.42 - Type 2 diabetes mellitus with diabetic polyneuropathy Code(s): E11.42 - Type 2 diabetes mellitus with diabetic polyneuropathy (3) Peripheral vascular disease Status: Chronic Current Visit: Yes Code(s): I73.9 - Peripheral vascular disease, unspecified Comment: venous (4) Malnutrition Status: Chronic Current Visit: Yes Code(s): E46 - Unspecified protein-calorie malnutrition (5) Osteomyelitis of right lower extremity Status: Suspected Current Visit: Yes Code(s): M86.9 - Osteomyelitis, unspecified Type of Wound Date of Service: 01/12/18 Chief Complaint: right leg revisional below knee amputation; chronic ulceration / delayed healing. diabetes. delayed healing continued. History of Wound: This 62 year old male with significant past medical history of uncontrolled diabetes, smoking habit, non compliance, recurrent lower extremity infections, h/o right below knee amputation, and small vessel disease follows up today for multiple lower extremity wounds. He denies fever, chills, nausea, vomiting, calf or foot pain. He denies new injuries. He brought a wound VAC supplies today; [facility]. He presents today with a wheelchair. He has kept his dressing intact as advised. He denies hypoglycemia today. He was unable to find an alternative wound VAC cord. He has not followed up with his previous orthopedic surgeon as advised and has not ever been able to progress into his prosthetic limb Progress of Wound: Worsening status right leg - Physical Exam Vital Signs Temp Pulse Resp BP 97.8 F 91 16 104/74 01/10/18 14:52 01/10/18 14:52 01/10/18 14:52 01/10/18 14:52 General: Alert, Oriented x3, Cooperative HEENT: Atraumatic Extremities: No cyanosis, Capillary Refill Less than 3 Seconds - To surgical site and wound site right lower extremity, Edema - Periwound right leg, Tenderness - No pain with wound manipulation, - - The deeper tissues are visualized through the wound bed and are gliding beneath the skin. Skin: Ulcer/ Wound - No purulence or odor noted. There is periwound erythema and inflammation noted. There is no probe or direct visualization of the bone however deeper structures are seen, - - The skin is atrophic and the leg is hairless Wound Measurements and Assessment WC - Nurse 1 - General Ulcer Measurement Start: 01/01/18 13:37 Freq: Status: Active Protocol: Activity Type Activity Date Activity User E-Sign Co-Sign Detail Recorded Client Recorded Date Recorded By Document 01/10/18 14:52 MW [id number] 01/10/18 15:05 MW 01/10/18 14:52 Wound Center Nurse 1 [Ulcer Assessment] #12 R Stump -Combined with other wound No -Current Size (cm) - Length 1.0 -Current Size (cm) - Width 1.5 -Current Size (cm) - Depth 1.1 -Total Square Cm 1.50 -Photo Taken No -Epithelialization None Present -Tunneling No -Undermining/Tunneling No -Circular Undermining No -Exudate Amt Small (1-33%) -Exudate Type Serosanguineous -Wound Margin Distinct, Outline Attached -Granulation Amt Medium (34-66%) -Granulation Quality Panther Burn -Slough/Fibrin Yes -Necrosis Amt Small (1-33%) -Necrotic Tissue Type Adherent Slough -Structure Exposed N/A -Texture (Annabel-wound Skin Appearance) Assessed Localized Edema Scarring -Moisture (Annabel-wound Skin Appearance Assessed ) Dry/Scaly -Color (Annabel-wound Skin Appearance) Assessed Erythema -Temperature (Annabel-wound Skin No Abnormality Appearance) (Pt Warm) -Tenderness on Palpation (Annabel-wound No Skin Appearance) -Ulcer Cleansing Rinsed/ Irrigated with Saline -Foul Odor after Cleansing No -Anesthetic Used 4% Lidocaine Solution 5% Lidocaine Gel [Edema Assessment] -Lower Limb Edema Present No WC - Nurse 2 - General Ulcer CM Notes Start: 01/01/18 13:37 Freq: Status: Active Protocol: Activity Type Activity Date Activity User E-Sign Co-Sign Detail Recorded Client Recorded Date Recorded By Document 01/10/18 15:52 TM [id number] 01/10/18 16:02 TM 01/10/18 15:52 Wound Center Nurse 2 [Procedure/Treatment] #12 R Stump -Time 15:55 -Correct Patient Yes -Correct Side, Site, Position Yes -Correct Procedure Yes -Procedure Performed Yes -Type of Procedure Debridement -Clinical Debridement Subcutaneous -Post Debridement Size (cm) - Length 1.1 -Post Debridement Size (cm) - Width 1.6 -Post Debridement Size (cm) - Depth 1.1 -Total Square Cm 1.76 -Wound/Ulcer Outcome Not Healed -Ulcer Cleansing Rinsed/ Irrigated with Saline -Foul Odor after Cleansing No -Bioengineered Tissue No -Topical Lidocaine (%) 4 -Bleeding Controlled with Pressure -Treatment Response Procedure Tolerated Well [See Physician Procedure note for Specifics] Pain Scale: 0-10 Numeric [Pain] -Is Patient Pain Free? Yes Musculoskeletal: No Tenderness to Palpation of Joints or Extremities, Muscle Wasting, - - Right below-knee amputation Neurological: - - Lack of epicritic sensation to light touch left. Wheelchair use noted Psych/Mental Status: Normal Affect, Appropriate Debridement Note Post-Debridement Measurements/Treatment WC - Nurse 2 - General Ulcer CM Notes Start: 01/01/18 13:37 Freq: Status: Active Protocol: Activity Type Activity Date Activity User E-Sign Co-Sign Detail Recorded Client Recorded Date Recorded By Document 01/01/18 14:02 [id number] 01/01/18 14:07 Document 01/10/18 15:52 [id number] 01/10/18 16:02 01/01/18 01/10/18 14:02 15:52 Wound Center Nurse 2 #12 R Stump -Time 14:02 15:55 -Correct Patient Yes Yes -Correct Side, Site, Position Yes Yes -Correct Procedure Yes Yes -Procedure Performed Yes Yes -Type of Procedure Debridement Debridement -Clinical Debridement Subcutaneous Subcutaneous -Post Debridement Size (cm) - Length 0.9 1.1 -Post Debridement Size (cm) - Width 1.4 1.6 -Post Debridement Size (cm) - Depth 0.5 1.1 -Total Square Cm 1.26 1.76 -Wound/Ulcer Outcome Not Healed Not Healed -Ulcer Cleansing Rinsed/ Rinsed/ Irrigated with Irrigated with Saline Saline -Foul Odor after Cleansing No No -Bioengineered Tissue Yes No -Type of bioengineered Tissue EPIFIX -Expiration Date 09/02/22 -Product Lot Number [id number] -Percent Used 100 -Saline Lot Number [id number] -Topical Lidocaine (%) 4 -Bleeding Controlled with Pressure Pressure -Treatment Response Procedure Procedure Tolerated Well Tolerated Well Pain Scale: 0-10 Numeric Is Patient Pain Free? Yes Yes Wound debrided: leg Laterality: Right Wound Grade/Stage: grade 2 Type of Debridement: Excisional debridement Anesthesia Used: 5% Lidocaine Gel Depth: in the subcutaneous layer Percentage of wound debrided: 100 Instrument Used: #15 blade Tissue Removed: fibrous, devitalized subcutaneous, biofilm, slough Severity: Fat Layer Exposed Amount of bleeding with debridement: Mild Bleeding Controlled with: Pressure Patient tolerated procedure well Assessment/Plan Active Problems Ulcer of right lower extremity with fat layer exposed (Chronic) Hypoglycemia (Chronic) Diabetes mellitus with polyneuropathy (Chronic) Peripheral vascular disease (Chronic) venous Malnutrition (Chronic) Assessment: right leg ulcer, grade 2 at below knee amputation surgical site. Rule out osteomyelitis. diabetes with neuropathy. small vessel disease. noncompliance / poor decision making. smoker Plan: Discussed case and treatment recommendations moving forward. Performed subcutaneous debridement right lower extremity as noted in the clinical panel. To change dressing daily with sterile gauze packing; this is applied today. The indications, purpose, anticipated healing time management were discussed. The wound VAC will be considered if all the equipment is obtained. A secondary gauze dressing was applied. I previuosly ordered x-rays of the right lower extremity; this is not completed yet. Lab work was also ordered. He reports he lost the order requisition and new papers were provided today. He understands a referral back to orthopedics may be needed due to his nonhealing surgical site or if osteomyelitis is suspected. To offload by wearing surgical shoe (left is now healed) and to avoid pressure to the dorsal forefoot. To avoid wearing closed shoegear. To avoid pressure to ulcer site right lower extremity. He refuses reapplication of the posterior mold splint on the right lower extremity. Continue nutritional supplementation, smoking cessation, and edema control to further optimize healing. To continue to apply lotion to the remainder of the limb to preserve skin quality. He understands he is high risk and at risk for further limb loss. RTC one week or call sooner if problems. I answered all his questions.
== END 2018-01-30 23:59 ==
LOC: WC 14:00
PROVIDERS: Family Provider Family Medicine; PCP Family Medicine; Visit Provider Podiatrist
DX: L97.912 Non-pressure chronic ulcer of unspecified part of right lower leg with fat layer exposed (principal); M86.9 Osteomyelitis, unspecified; E16.2 Hypoglycemia, unspecified; E11.42 Type 2 diabetes mellitus with diabetic polyneuropathy; I73.9 Peripheral vascular disease, unspecified; E46 Unspecified protein-calorie malnutrition; Z89.511 Acquired absence of right leg below knee; Z91.19 Patient's noncompliance with other medical treatment and regimen; F17.200 Nicotine dependence, unspecified, uncomplicated
CPT/HCPCS: 11042; 15271; 82962; Q4131

== ENCOUNTER → 2018-05-02 10:47 | Outpatient (CLI) | payer MEDICARE, SELFPAY ==
[2018-05-02 11:32] LABS: Absolute Lymphocyte Count 1.84 X10^3/ul (0.83-4.51); Absolute Neutrophil Count 4.1 X10^3/uL (2.0-7.7); Basophil# 0.05 X10^3/uL; Basophil% 0.7 % (0-1); Eosinophil# 0.35 X10^3/uL; Hematocrit 41.4 % (40-54); Hemoglobin 13.2 g/dl (13.0-16.5); Lymphocyte # 1.84 X10^3/ul (4.0); Lymphocyte % 26.3 % (19-41); Mean Corp Hgb Conc 31.9 g/gl (32-36); Mean Corpuscular Hgb 28.4 pg (27.0-32.0); Mean Platelet Vol. 11.7 fl (6.2-12.0); Monocyte# 0.64 X10^3/uL; Monocyte% 9.1 % (0-10); Neutrophil % 58.6 % (47-70); Platelet Count 223 K/mm3 (150-450); RBC Distribution Width CV 14.1 % (11.6-14.6); RBC Distribution Width SD 45.5 fl (35.1-43.9); Red Blood Count 4.65 M/mm3 (4.6-6.2)
[2018-05-02 11:39] LABS: POSITIVE COUNT NO; POSITIVE DIFFERENTIAL NO; POSITIVE MORPHOLOGY NO
[2018-05-02 12:10] LABS: Vitamin B12 305 pg/mL (211-911)
[2018-05-02 12:12] LABS: ALB/GLOB Ratio 0.8 RATIO (0.9-2.4); AST(SGOT) 15 U/L (15-37); Alanine Aminotransfer ALT/SGPT 20 U/L (16-61); Albumin, Serum 3.4 g/dL (3.2-5.0); Alkaline Phosphatase 102 U/L (45-117); Anion Gap 9 (5-15); BUN 17 mg/dL (7-18); BUN/Creat Ratio 11.3 RATIO (10-20); Calcium,Total 8.6 mg/dL (8.5-10.1); Chloride 103 mmol/L (98-107); Creatinine, Serum 1.51 mg/dL (0.70-1.30); EST Glomerular Filtration Rate 50 mL/min (>60); Est Glom Filt Rate - Afr Amer 60 mL/min (>60); Globulin 4.3 g/dL (2.2-4.2); Glucose 268 mg/dL (74-106); Potassium 4.6 mmol/L (3.5-5.1); Protein, Total 7.7 g/dL (6.4-8.2); Sodium Level 137 mmol/L (136-145); Thyroid Stim Hormone (TSH) 4.63 uIU/mL (0.358-3.74)
[2018-05-08 15:48] LABS: Testosterone, Free 5.25 ng/dL (5.00-21.00)
[2018-05-09 11:41] LABS: Testosterone, % Free 2.09 % (1.50-4.20); Testosterone, Total 251 ng/dL (264-916)
== END ==
PROVIDERS: Family Provider Family Medicine; PCP Family Medicine; Visit Provider Family Medicine
DX: E11.42 Type 2 diabetes mellitus with diabetic polyneuropathy (principal); E29.1 Testicular hypofunction; R53.83 Other fatigue; R29.898 Other symptoms and signs involving the musculoskeletal system
CPT/HCPCS: 36415; 80053; 82607; 84402; 84403; 84443; 85025

== ENCOUNTER → 2018-06-26 16:28 | Outpatient (CLI) | payer MEDICARE, SELFPAY ==
[2018-06-26 18:21] LABS: Hemoglobin A1c 10.4 % (4.2-6.3)
[2018-06-26 18:31] LABS: Amphetamine Urine VISTA NEGATIVE (<1000 ng/mL); Barbiturate Urine VISTA NEGATIVE (< 200 ng/mL); Benzodiazepine Urine VISTA NEGATIVE (< 200 ng/mL); Cocaine Urine VISTA NEGATIVE (< 300 ng/mL); Ecstacy Urine VISTA NEGATIVE (< 500 ng/mL); Methadone Urine VISTA NEGATIVE (< 300 ng/mL); PCP Urine VISTA NEGATIVE (< 25 ng/mL); THC Urine VISTA NEGATIVE (< 50 ng/mL); Vista UDS pH Range 6
[2018-06-26 18:49] LABS: Vitamin B12 371 pg/mL (211-911)
[2018-06-26 18:53] LABS: ALB/GLOB Ratio 0.8 RATIO (0.9-2.4); AST(SGOT) 12 U/L (15-37); Alanine Aminotransfer ALT/SGPT 18 U/L (16-61); Albumin, Serum 3.3 g/dL (3.2-5.0); Alkaline Phosphatase 104 U/L (45-117); Anion Gap 7 (5-15); BUN 29 mg/dL (7-18); BUN/Creat Ratio 20.4 RATIO (10-20); Calcium,Total 9.2 mg/dL (8.5-10.1); Chloride 104 mmol/L (98-107); Cholesterol 156 mg/dL (200); Creatinine, Serum 1.42 mg/dL (0.70-1.30); EST Glomerular Filtration Rate 53 mL/min (>60); Est Glom Filt Rate - Afr Amer 64 mL/min (>60); Globulin 4.4 g/dL (2.2-4.2); Glucose 214 mg/dL (74-106); High Density Lipoprotein 46 mg/dL; Potassium 4.3 mmol/L (3.5-5.1); Protein, Total 7.7 g/dL (6.4-8.2); Sodium Level 139 mmol/L (136-145); Thyroid Stim Hormone (TSH) 1.82 uIU/mL (0.358-3.74); Triglycerides 147 mg/dL; Very Low Density Lipoprotein 29 mg/dL (5-40)
== END ==
PROVIDERS: Family Provider Family Medicine; PCP Family Medicine; Visit Provider Family Medicine
DX: E11.42 Type 2 diabetes mellitus with diabetic polyneuropathy (principal); G89.29 Other chronic pain; E29.1 Testicular hypofunction
CPT/HCPCS: 36415; 80053; 80061; 80307; 82607; 82746; 83036; 84443

== ENCOUNTER → 2018-07-23 13:30 | Outpatient (CLI) | payer MEDICARE, SELFPAY | PROVIDERS: Family Provider Family Medicine; PCP Family Medicine; Referring Provider Ophthalmology; Visit Provider Ophthalmology | DX: Z22.321 Carrier or suspected carrier of Methicillin susceptible Staphylococcus aureus (principal) | CPT/HCPCS: 87081 ==

== ENCOUNTER → 2019-03-25 12:41 | Outpatient (CLI) | payer MEDICARE, SELFPAY ==
--- NOTE | 2019-03-25 12:49 | MRI_ITS ---
HISTORY: Chronic low back pain. COMPARISON: None. TECHNIQUE: Multisequence multiplanar MR imaging of the lumbar spine was performed per department protocol without IV gadolinium. # of images incl. paperwork: 129 FINDINGS: VERTEBRA: Mild retrolisthesis of L5 upon S1 measuring 3 mm. Remainder of the lumbar spine is otherwise in normal anatomic alignment. No acute fracture or subluxation. Lumbar vertebral bodies are normal in height. Mild anterior marginal osteophytes L3, L4, and L5 and at the T12 and L1 levels. No focal marrow signal abnormality to suggest a pathologic process. CONUS: The conus is identified opposite the T12-L1 level and is normal in morphology and signal characteristics. DISCS: Mild disc space narrowing at L4-L5 and L5-S1 levels. Moderate disc desiccation from the L2-L3 through the L5-S1 levels. LEVELS: T12-L1: No disc bulge or disc protrusion. No canal or neural foraminal stenosis. L1-2: No disc bulge or disc protrusion. No canal or neural foraminal stenosis. L2-3: No disc bulge or disc protrusion. No canal or neural foraminal stenosis. L3-4: Mild disc bulge without significant effacement of the ventral thecal sac. No superimposed disc protrusion. No canal or foraminal stenosis. Mild hypertrophic changes of bilateral facet joints. L4-5: Mild circumferential disc bulge. No significant effacement of ventral thecal sac. No superimposed disc protrusion. Mild bilateral facet joint arthropathy with ligamentum flavum redundancy. No canal or foraminal stenosis. L5-S1: 3 mm broad-based disc protrusion which predominantly effaces the ventral epidural fat and 1 mm of the ventral thecal sac. Moderate bilateral facet joint arthropathy. No canal or foraminal stenosis. SOFT TISSUES: Paravertebral soft tissues show no gross signal abnormalities. MRI/Spine Lumbar (Routine) IMPRESSION: 1. No canal or foraminal stenosis of lumbar spine. 2. Mild multilevel degenerative changes as described. at 1506 Reported and signed by: Rajan Lane MD Electronically Signed: Rajan Lane MD at 15:04 EDT Tel , Service support ,
== END ==
PROVIDERS: Family Provider Family Medicine; PCP Family Medicine; Referring Provider Anesthesiology Pain Medicine; Visit Provider Anesthesiology Pain Medicine
DX: M54.9 Dorsalgia, unspecified (principal)
CPT/HCPCS: 72148

== ENCOUNTER → 2019-07-03 11:01 | Outpatient (CLI) | payer MEDICARE, SELFPAY | LOC: LAB.FUTURE 01-05 00:17 → BFHLAB 04-07 08:59 | PROVIDERS: Family Provider Family Medicine; PCP Family Medicine; Visit Provider Family Medicine | DX: E11.42 Type 2 diabetes mellitus with diabetic polyneuropathy (principal); E11.22 Type 2 diabetes mellitus with diabetic chronic kidney disease; N18.3 Chronic kidney disease, stage 3 (moderate); E29.1 Testicular hypofunction; E53.8 Deficiency of other specified B group vitamins; Z51.81 Encounter for therapeutic drug level monitoring ==

== ENCOUNTER → 2019-11-02 10:50 | Outpatient (CLI) | payer MEDICARE, SELFPAY ==
[2019-11-02 12:54] LABS: Hematocrit 44.8 % (40-54); Red Blood Count 4.98 M/mm3 (4.6-6.2); White Blood Count 10.8 K/mm3 (4.4-11.0)
[2019-11-02 12:55] LABS: Absolute Lymphocyte Count 1.52 X10^3/uL (0.83-4.51); Absolute Neutrophil Count 8.3 X10^3/uL (2.0-7.7); Basophil# 0.09 X10^3/uL; Basophil% 0.8 % (0-1); Eosinophils% 0.9 % (0-5); Lymphocyte # 1.52 X10^3/ul (4.0); Mean Corp Hgb Conc 31.3 g/dL (32-36); Mean Corpuscular Hgb 28.1 pg (27.0-32.0); Monocyte# 0.74 X10^3/uL; Monocyte% 6.8 % (0-10); NRBC Flagged by Analyzer 0 % (0-5); Neutrophil % 76.7 % (47-70); Platelet Count 219 K/mm3 (150-450); RBC Distribution Width CV 14.4 % (11.6-14.6); RBC Distribution Width SD 47.1 fl (35.1-43.9)
[2019-11-02 13:17] LABS: Hemoglobin A1c 11.4 % (4.2-6.3)
[2019-11-02 13:31] LABS: Vitamin B12 378 pg/mL (211-911)
[2019-11-02 13:34] LABS: ALB/GLOB Ratio 0.8 RATIO (0.9-2.4); AST(SGOT) 9 U/L (15-37); Alanine Aminotransfer ALT/SGPT 19 U/L (16-61); Alkaline Phosphatase 119 U/L (45-117); Anion Gap 3 (5-15); BUN 28 mg/dL (7-18); BUN/Creat Ratio 22.4 RATIO (10-20); Calcium,Total 8.9 mg/dL (8.5-10.1); Chloride 106 mmol/L (98-107); Cholesterol 157 mg/dL (200); Creatinine, Serum 1.25 mg/dL (0.70-1.30); EST Glomerular Filtration Rate 61 mL/min (>60); Est Glom Filt Rate - Afr Amer 74 mL/min (>60); Globulin 3.7 g/dL (2.2-4.2); Glucose 257 mg/dL (74-106); High Density Lipoprotein 71 mg/dL; Potassium 4.4 mmol/L (3.5-5.1); Protein, Total 6.7 g/dL (6.4-8.2); Sodium Level 139 mmol/L (136-145); Triglycerides 101 mg/dL; Very Low Density Lipoprotein 20 mg/dL (5-40)
[2019-11-02 16:15] LABS: Microalbumin,Random Urine 78.9 mg/L (NO RANGE EST.); Microalbumin:Creatinine Ratio 109.3 mg/g CRE (<30 mg/g CRE)
[2019-11-05 12:07] LABS: Testosterone, Free 8.25 ng/dL (5.00-21.00)
[2019-11-05 14:04] LABS: Testosterone, Total 434 ng/dL (264-916)
== END ==
PROVIDERS: PCP Family Medicine; Visit Provider Family Medicine
DX: E11.42 Type 2 diabetes mellitus with diabetic polyneuropathy (principal); E11.22 Type 2 diabetes mellitus with diabetic chronic kidney disease; N18.3 Chronic kidney disease, stage 3 (moderate); E29.1 Testicular hypofunction; E53.8 Deficiency of other specified B group vitamins; Z51.81 Encounter for therapeutic drug level monitoring
CPT/HCPCS: 36415; 80053; 80061; 82043; 82570; 82607; 83036; 84402; 84403; 85025

== ENCOUNTER → 2020-05-20 12:09 | Outpatient (CLI) | payer MEDICARE, SELFPAY ==
--- NOTE | 2020-05-20 13:00 | MRI_ITS ---
STUDY: MRI LUMBAR SPINE WITHOUT CONTRAST REASON FOR EXAM: Male, 65 years old. Back pain 10-20 yrs, stenosis TECHNIQUE: Standardized fat and water weighted pulse sequences were obtained in the sagittal and axial planes. COMPARISON: 03/25/2019 FINDINGS: T12-L1: Normal endplates. Normal disc height, hydration and morphology. Normal bilateral facet joints. Normal central canal and bilateral lateral recesses. Normal bilateral intervertebral neural foramina. Normal lumbar lordosis. There is no substantial scoliosis. Normal conus medullaris that terminates at the T12/L1. L1-2: Normal endplates. Normal disc height, hydration and morphology. Normal bilateral facet joints. Normal central canal and bilateral lateral recesses. Normal bilateral intervertebral neural foramina. L2-3: Mild bilateral facet hypertrophy and ligament flavum hypertrophy. No change in the mild bilobed disc protrusion which produces mild spinal stenosis and mild bilateral neural foraminal stenosis. L3-4: Mild bilateral facet hypertrophy and ligament flavum hypertrophy. No change in the mild bilobed disc protrusion which produces mild spinal stenosis and mild bilateral neural foraminal stenosis. L4-5: Mild bilateral facet hypertrophy and ligament flavum hypertrophy. No change in the mild broad disc protrusion which produces mild spinal stenosis with mild bilateral lateral recess stenosis and mild bilateral neural foraminal stenosis. L5-S1: Mild bilateral facet hypertrophy. No change in a small central disc protrusion which produces mild spinal stenosis but no neural foraminal stenosis. Normal visualized sacral ala. Normal visualized paraspinous soft tissue structures. MRI/Spine Lumbar (Routine) IMPRESSION: No change from 03/25/2019. Electronically Signed: En Caballero MD at 16:36 EDT Tel , Service support ,
== END ==
PROVIDERS: PCP Family Medicine; Referring Provider Nurse Practitioner; Visit Provider Nurse Practitioner
DX: M48.062 Spinal stenosis, lumbar region with neurogenic claudication (principal)
CPT/HCPCS: 72148

== ENCOUNTER 2020-10-25 13:25 | Inpatient (IN) | payer MEDICARE, SELFPAY ==
[2020-10-25] VITALS (7 sets, daily range): BP systolic 104–133; BP diastolic 63–104; PULSE 102–113; RESP 14–18; TEMP 35.6–37.1; O2SAT 92–95; BMI 24.5; BMI 25.6
--- NOTE | 2020-10-25 14:08 | ED.VISSUMM ---
- ER Visit Summary Date of Service: 10/25/20 Chief Complaint: [Left foot wound] History of Present Illness: The patient is a 65 M [presents to the emergency department with a wound to the left foot that he first noted yesterday. Patient states that he had a similar issue years ago when he lost his right foot from it. Patient has history of MRSA. Patient noted that the heel skin became thin and started to peel off his heel. The rest of the foot became red and hot to the touch. He denies any fevers. Patient denies any Covid symptoms. Patient has history of peripheral vascular disease as well as diabetes, neuropathy, and history of osteomyelitis. 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 Cranial nerves II through XII grossly intact. TMs clear. Mucous membranes moist. No adenopathy. Cardiovascular-regular rate and rhythm without murmur or ectopy Lungs-clear to auscultation, chest wall stable without crepitus or subcu emphysema Abdomen-normoactive bowel sounds, soft, nontender, no rebound or rigidity, no peritoneal signs. Extremities-intact ?4, normal range of motion, normal pulses, atraumatic. Left foot-patient has a large flap-like wound of skin peeling off of the medial aspect of the heel with surrounding erythema and some serous drainage noted. There is a foul odor noted. Patient also has some erythema diffusely about the toes with most black eschar areas involving the great toe and the dorsum of the third MTP joint with surrounding cellulitic changes. Patient has good dorsal pedal and posterior tibial pulses. Test Results: [3 views x-rays of left foot obtained interpreted by myself as no acute fractures and no evidence of osteomyelitis to the heel noted. Patient was noted to have an amputation of the second toe. Radiology in agreement with interpretation other than he also noted arthrosis of the first MTP joint and IP joint. Patient had a CBC with differential that showed a white count 9.6, hemoglobin 12.8, hematocrit 40, placed 271. Chemistries unremarkable. Lactate was normal at 1.2. Patient had a CRP and sed rate ordered results of which are currently pending.] Emergency Department Course and Treatment: [IV line established on arrival. Patient started on Unasyn and vancomycin IV.] Treatment Plan: [Admit] Disposition: [Admit] Impression: [Left foot diabetic foot wound and cellulitis] This note was generated with [employer] dictation software. It may contain incorrect words, spelling, and punctuation that were not noted in review of the chart prior to signing ED Disposition - Plan for ED Patient: Referrals: Dani Sevilla DO [Primary Care Provider] -
--- NOTE | 2020-10-25 14:30 | RAD_ITS ---
STUDY: X-RAY - LEFT FOOT CLINICAL: Soft tissue wound and left foot pain. TECHNIQUE: 3 view(s) of the foot. COMPARISON: Radiographs 08/15/2017. FINDINGS: Normal talus, calcaneus, and tarsal bones. There is chronic healed fracture deformity of the distal fibula. Normal visualized subtalar, talonavicular, calcaneocuboid, tarsal and tarsometatarsal articulations. There is chronic healed fracture deformity of the fifth metatarsal. There is mild joint space narrowing of the metatarsophalangeal joint of the great toe. Normal tibial and fibular sesamoid bones. There is joint space narrowing of the interphalangeal joint of the great toe. Normal phalanges of the great toe. There is amputation of the second digit at the metatarsophalangeal joint. Normal third through fifth metatarsophalangeal joints. Normal interphalangeal joints and phalanges of the third through fifth digits. The soft tissue structures are unremarkable. RAD/Foot min 3 Views IMPRESSION: Arthrosis of the metatarsophalangeal joint and interphalangeal joint of the first digit. Chronic healed fracture deformity of the fifth metatarsal and distal fibula. Amputation of the second toe. Electronically Signed: Jules Arthur MD at 15:08 EST Tel , Service support ,
[2020-10-25 15:09] LABS: Absolute Lymphocyte Count 1.48 X10^3/uL (0.83-4.51); Absolute Neutrophil Count 7.4 X10^3/uL (2.0-7.7); Basophil# 0.06 X10^3/uL; Basophil% 0.6 % (0-1); Eosinophil# 0.03 X10^3/uL; Eosinophils% 0.3 % (0-5); Hematocrit 40.3 % (40-54); Hemoglobin 12.8 g/dL (13.0-16.5); Lymphocyte # 1.48 X10^3/ul (4.0); Lymphocyte % 15.4 % (19-41); Mean Corp Hgb Conc 31.8 g/dL (32-36); Mean Corpuscular Hgb 28.5 pg (27.0-32.0); Mean Corpuscular Volume 89.8 fL (80-94); Mean Platelet Vol. 11.7 fl (6.2-12.0); Monocyte# 0.58 X10^3/uL; NRBC Flagged by Analyzer 0 % (0-5); Neutrophil # 7.44 X10^3/uL (2.7-7.7); Neutrophil % 77.3 % (47-70); Platelet Count 271 K/mm3 (150-450); RBC Distribution Width CV 13.6 % (11.6-14.6); RBC Distribution Width SD 44.5 fl (35.1-43.9); Red Blood Count 4.49 M/mm3 (4.6-6.2); White Blood Count 9.6 K/mm3 (4.4-11.0)
[2020-10-25 15:22] LABS: Anion Gap 5 (5-15); BUN 21 mg/dL (7-18); BUN/Creat Ratio 17.9 RATIO (10-20); Chloride 105 mmol/L (98-107); Creatinine, Serum 1.17 mg/dL (0.70-1.30); EST Glomerular Filtration Rate 66 mL/min (>60); Est Glom Filt Rate - Afr Amer 80 mL/min (>60); Estimated Creatinine Clearance 67.25 ml/min; Glucose 158 mg/dL (74-106); Potassium 4.5 mmol/L (3.5-5.1); Sodium Level 139 mmol/L (136-145)
[2020-10-25 15:31] LABS: Lactic Acid 1.2 mmol/L (0.4-1.9)
[2020-10-25 15:36] LABS: Erythrocyte Sedimentation Rate 31 mm/hr (0-20)
--- NOTE | 2020-10-25 16:18 | PCM.HP.STD ---
Problem List (1) Diabetes mellitus with polyneuropathy Status: Chronic Qualifiers: (2) Amputation of right lower extremity Status: Chronic (3) Diabetic gastroparesis Status: Chronic (4) Diabetic neuropathy Status: Chronic Qualifiers: (5) Peripheral vascular disease Status: Chronic Comment: venous History of Present Illness Date of Admission: 10/25/20 Chief Complaint: Left foot wound. The patient is a 65 year old M with past medical history as mentioned above presented to the emergency room because of left foot pain, wound and redness. According to the patient, all symptoms started last night all of a sudden, started having sloughing of the skin on the left heel, associated with increased redness and swelling of the left foot, pain on the left foot, dull aching pain, 8 out of 10 in severity, not radiating and no aggravating or relieving factors. From development of the left foot, those wounds and redness are present for long time which may be worsening recently. He denies fever or chills. He had a history of below right knee amputation for diabetic foot infection. He had a history of amputation of the left second toe for osteomyelitis as well. In the emergency department, he was afebrile, slightly tachycardic, blood pressure was stable, pulse ox was 95% on room air. Routine blood work was unremarkable. Lactic acid was normal. X-ray of the left foot showed chronic healed fracture of the fifth metatarsal, no evidence of acute osteomyelitis. Patient is being admitted for acute left foot diabetic wound infection with surrounding cellulitis and suspected osteomyelitis. Past Medical History Past Medical History (Chronic Problems): Chronic Problems Ulcer of right lower extremity with fat layer exposed (Chronic) Chronic ulcer of left foot with fat layer exposed (Chronic) Ulcer of right lower extremity with necrosis of muscle (Chronic) Ulcer of left lower extremity with fat layer exposed (Chronic) Diabetes mellitus with polyneuropathy (Chronic) Delayed wound healing (Chronic) Smoker (Chronic) Amputation of right lower extremity (Chronic) Ulcer of right lower extremity with fat layer exposed (Chronic) INFECTED DIABETIC ULCERS (Chronic) Diabetes (Chronic) Nephrolithiasis (Chronic) Diabetic gastroparesis (Chronic) Diabetic neuropathy (Chronic) Peripheral vascular disease (Chronic) venous Malnutrition (Chronic) Allergies No Known Allergies Allergy (Verified 08/13/17 15:55) Home Medications: Ambulatory Orders Medication Instructions Recorded Insulin Detemir [Levemir FlexPen] 40 units SC BID 11/08/16 Insulin Aspart [Novolog Flexpen] 5 - 7 units SC TIDAC 08/13/17 Cyclobenzaprine HCl 10 mg PO TID PRN 10/25/20 Dulaglutide [Trulicity] 0.75 mg SQ FR 10/25/20 Erythromycin Base [Erythromycin] 250 mg PO BID PRN 10/25/20 Metoclopramide [Reglan] 10 mg PO BIDCM PRN 10/25/20 Ondansetron [Zofran Odt] 4 mg PO Q6H PRN 10/25/20 Oxycodone HCl 20 mg PO TID PRN PRN 10/25/20 Pregabalin [Lyrica] 150 mg PO 4X/DAY 10/25/20 Testosterone [Androgel] 2 each TD QHS 10/25/20 Surgical History: - - Right tibial surgery for fracture, right heel ulcer debridement, right ankle fasciotomy. Repeated debridements of right heel wound, right bka. Psychiatric History: No pertinent psych hx Lives: Alone Smoking Status: Current every day smoker Tobacco Use: Cigarettes Alcohol: None Drugs: None - *Family History Paternal History Items: No pertinent history Maternal History Items: No pertinent history Review of Systems Constitutional: Denies: Anorexia, Chills, Fever, Weakness Eyes: Denies: Blurred vision, Double vision, Drainage, Redness HEENT: Denies: Difficulty Hearing, Ear Pain, Eye Pain, Nasal Congestion, Sore Throat Cardiovascular: Denies: Chest Pain, Claudication, Chest Tightness, Edema, Heaviness, Palpitations, Syncope, - Respiratory: Denies: Cough, Pleuritic Pain, Shortness of Breath, Sputum production, Wheezing Gastrointestinal: Denies: Abdominal Pain, Constipation, Diarrhea, Nausea, Vomiting Genitourinary: Denies: Dysuria, Frequency, Hematuria Musculoskeletal: Reports: Foot Pain. Denies: Arm Pain, Back Pain Skin: Reports: Wounds. Denies: Dryness, Rash Neurological: Denies: Balance problems, Double vision, Change in Speech, Slurred speech, Focal weakness, Headaches, Incoordination, Numbness Psychiatric: Denies: Anxiety, Depression Endocrine: Denies: Change in Body Habitus, Polydipsia, Polyuria VTE Information - Inpt Only VTE Present on Admission: No VTE Mechan Device Prophylaxis: None VTE Pharm Prophylaxis ordered?: Yes - Physical Exam Vitals/I&O's: Vital Signs Temp Pulse Resp BP Pulse Ox 98.4 F 103 H 14 122/83 H 93 10/25/20 16:07 10/25/20 16:07 10/25/20 16:07 10/25/20 16:07 10/25/20 16:07 Oxygen Delivery Method Room Air Weight: 180 lb 12.465 oz Body Mass Index (BMI) 24.5 Finger Stick Blood Glucose 108 Intake and Output for Last 24 Hours 10/23/20 10/24/20 10/25/20 23:59 23:59 23:59 Intake Total 112 / 112 Balance 112 / 112 General: Alert, Oriented x3, Cooperative, No apparent distress HEENT: Atraumatic, PERRLA, EOMI, Normocephalic Oral: Moist Mucosa, No Gingival or Mucosal Lesions/ Ulcerations Neck: Supple, No JVD, Negative Carotid Bruits, Trachea Midline, Thyroid Normal Size and Texture Lungs: Clear to auscultation, Normal air movement, No rhonchi, No wheeze, No rales, Diminished Cardiovascular: Regular rate, Regular Rhythm, Normal S1, Normal S2, PMI Normal Abdomen: Bowel Sounds Present, Soft, Non Tender, Non-Distended, No Hepato-splenomegaly Extremities: No clubbing, No cyanosis, Edema - Trace edema of the left leg. Status post below right knee amputation. Left foot: Sloughing of the skin on the left heel with deep ulceration, status post amputation of the left second toe, diffuse erythema and swelling of the right foot. Skin: No rashes, Ulcer/ Wound Lymphatic: Cervical Adenopathy Neurological: Cranial nerves II-XII grossly intact, Motor Exam 5/5 strength throughout Psych/Mental Status: Normal Affect, Appropriate, Alert and oriented to time, place, person, mood and affect Laboratory Results 10/25/20 15:01: WBC 9.6, RBC 4.49 L, Hgb 12.8 L, Hct 40.3, MCV 89.8, MCH 28.5, MCHC 31.8 L, RDW Std Deviation 44.5 H, RDW Coeff of Jo 13.6, Plt Count 271, MPV 11.7, Immature Gran % (Auto) 0.400, Neut % (Auto) 77.3 H, Lymph % (Auto) 15.4 L, [place] % (Auto) 6.0, Eos % (Auto) 0.3, Baso % (Auto) 0.6, Absolute Neuts (auto) 7.4, Absolute Lymphs (auto) 1.48, Nucleated RBC % 0 10/25/20 15:01: Sodium 139, Potassium 4.5, Chloride 105, Carbon Dioxide 29.0, Anion Gap 5, BUN 21 H, Creatinine 1.17, Estim Creat Clear Calc 67.25, Est GFR (MDRD) Af Amer 80, Est GFR (MDRD) Non-Af 66, BUN/Creatinine Ratio 17.9, Glucose 158 H, Calcium 9.0 10/25/20 15:01: Lactic Acid 1.2 10/25/20 15:01: ESR 31 H 10/25/20 15:01: C-React Prot Ext Range 46.60 H Clinical Impression(s) from Imaging Studies Foot X-Ray 10/25/20 14:30 IMPRESSION: Arthrosis of the metatarsophalangeal joint and interphalangeal joint of the first digit. Chronic healed fracture deformity of the fifth metatarsal and distal fibula. Amputation of the second toe. Electronically Signed: Jules Arthur MD at 15:08 EST Tel , Service support , Current Medications Vancomycin HCl 1,250 mg/ (Sodium Chloride) 275 mls @ 167 mls/hr IV X1 ONE Stop: 10/25/20 16:23 Last Admin: 10/25/20 15:46 Dose: 167 mls/hr Documented by: Assessment/Plan This is a 65 years old male patient presented to the emergency room because of left foot wound, pain, swelling and redness, found to have acute diabetic left foot infection with infected wound, cellulitis and suspected osteomyelitis and is being admitted for evaluation and treatment. #1 acute left foot/left heel diabetic infection/infected wound/cellulitis/suspected osteomyelitis: X-ray of the left foot reviewed. No evidence of sepsis or sepsis. ESR and CRP are elevated. Plan: Admit to [facility] floor, wound culture, blood culture, MRSA wound screen, start IV Zosyn and vancomycin, OxyIR as needed for pain, IV fluids, Tylenol as needed, Zofran as needed, podiatry medicine consult, MRI left foot to rule out osteomyelitis, repeat CBC and BMP tomorrow morning, PT OT evaluation and treatment. #2 type 2 diabetes mellitus: Uncontrolled. Hemoglobin A1c was 11.4% on October,. Plan: ADA diet, Accu-Cheks, insulin sliding scale, check hemoglobin A1c, continue Levemir twice daily. #3 peripheral diabetic neuropathy: Continue Lyrica and OxyIR as needed. #4 diabetic gastroparesis: Stable, continue Reglan. #5 peripheral vascular disease: will do arterial Doppler of the left lower extremity. #6 DVT prophylaxis: Subcu Lovenox. This note was generated with [employer] dictation software. It may contain incorrect words, spelling, and punctuation that were not noted in checking the note before signing. Inpatient E&M: 07577 Init Hosp L3
--- NOTE | 2020-10-25 17:51 | MRI_ITS ---
STUDY: MRI LEFT ANKLE WITH AND WITHOUT CONTRAST REASON FOR EXAM: Left heel wound, infection. TECHNIQUE: Standarized fat and water weighted pulse sequences were obtained in all 3 orthogonal plane pre and post administration of 15ml Dotarem via IV. COMPARISON: Radiographs 10/25/2020. FINDINGS: Although there is image degradation secondary to patient motion, there is still significant diagnostically useful information available from this examination. There is edema in the subcutis adipose space with contrast enhancement (postcontrast T1 sagittal images 3-22) suggestive of cellulitis. There is no focal fluid collection to indicate soft tissue abscess. There is a very small volume of fluid in the distal posterior tibialis tendon sheath (T2 axial image 10). The posterior tibialis tendon is morphologically normal. Normal flexor digitorum longus tendon. There is a small volume of fluid in the flexor hallucis longus tendon sheath distal to the sustentaculum darlene (inversion recovery sagittal images 9, 10). Normal peroneus longus and brevis tendons. Normal tibialis anterior tendon. Normal extensor hallucis longus tendon. Normal extensor digitorum longus tendons. Normal Achilles tendon and teno-osseous insertion. Normal plantar fascia. Normal plantar calcaneal tubercles. There is fat replacement of the intrinsic muscles of the rearfoot suggestive of peripheral neuropathy. Normal distal tibiofibular syndesmotic ligamentous complex. Normal lateral ligamentous complex. Normal subtalar ligaments and sinus tarsi. Normal deltoid ligamentous complexes. Normal plantar calcaneonavicular (spring) ligament. Normal tibiotalar articulation. Normal talar dome. Normal subtalar articulations. Normal talonavicular articulation. Normal calcaneocuboid articulation. Normal navicular-cuneiform articulations. There is no bone edema of the tarsal bones of the hindfoot or midfoot, distal talus, distal fibula, or visualized proximal metatarsals to indicate osteomyelitis. MRI/Lower Ext No Joint W/WO Cont IMPRESSION: Cellulitis without demonstrated soft tissue abscess. Very mild posterior tibialis tenosynovitis. Mild flexor hallucis longus tenosynovitis. Atrophy of the intrinsic muscles of the hindfoot suggestive of peripheral neuropathy. No demonstrated osteomyelitis. Electronically Signed: Jules Arthur MD at 7:28 EST Tel , Service support ,
--- NOTE | 2020-10-25 18:03 | ART_ITS ---
Reason For Study: Diabetic foot infection Procedure A bilateral lower extremity continuous wave Doppler with analog waveform analysis,segmental pressures,and ankle brachial indexes without exercise. Left Segmental Pressures Left brachial= 118mmHg. Left thigh = 168mmHg. Left calf = 140mmHg. Left posterior tibial artery = 110mmHg. Right Segmental Pressures Right brachial= 126mmHg. Indices The left ankle brachial index by the posterior tibial artery is 0.87. Interpretation Summary History of right below-knee amputation Unable to assess left toe pressures or left dorsalis pedis secondary to wounds and or bandages Abdomen normal left posterior tibial resting ankle-brachial index of 0.87 with biphasic Doppler waveforms consistent with moderately severe arterial occlusive disease Ordering Physician: Pedro Hargrove Referring Physician: Dani Sevilla Performed By: Arabella Hein RDCS/RVT
[2020-10-25 18:11] LABS: Bedside Glucose 27 mg/dL (70-110)
[2020-10-25 18:27] LABS: Hemoglobin A1c 11.6 % (3.8-5.6)
--- NOTE | 2020-10-25 18:28 | NURSING ---
1805 bs checked prior to supper tray and was 27. discharge specialist aware and lab called for stat backup. pt a&ox3 and only reported that felt a little weird usually carries candy d/t doing this at least once a month and pt had not eaten since this am. 2 oj's given with peanut butter crackers and mini candybars. dr. bernstein aware.
--- NOTE | 2020-10-25 18:29 | NURSING ---
1830-lab in for stat backup. mri form completed and sent to mri. pt sitting up in bed eating supper now
[2020-10-25] MEDS: Dextrose 50%-Water 25 GM/50 ML DISP.SYRIN IV (18:35)
[2020-10-25] MEDS: 0.9% Normal Saline 1,000 ML 100 ML IV (18:44)
[2020-10-25 18:49] LABS: Glucose 39 mg/dL (74-106)
--- NOTE | 2020-10-25 18:59 | PCM.RX.CS ---
Consult Pharmacy has been consulted to manage selected antiobiotic: Vancomycin Type of Consult: New start Suspected Infection: Skin/Soft tissue Labs: Sodium 139 mmol/L (136-145) 10/25/20 15:01 Potassium 4.5 mmol/L (3.5-5.1) 10/25/20 15:01 Chloride 105 mmol/L (98-107) 10/25/20 15:01 Carbon Dioxide 29.0 mmol/L (21.0-32.0) 10/25/20 15:01 Anion Gap 5 (5-15) 10/25/20 15:01 BUN 21 mg/dL (7-18) H 10/25/20 15:01 Creatinine 1.17 mg/dL (0.70-1.30) 10/25/20 15:01 Est GFR (MDRD) Af Amer 80 mL/min (>60) 10/25/20 15:01 Est GFR (MDRD) Non-Af 66 mL/min (>60) 10/25/20 15:01 BUN/Creatinine Ratio 17.9 RATIO (10-20) 10/25/20 15:01 Glucose 39 mg/dL (74-106) L* 10/25/20 18:26 Weight used for dosin kg Estimated Creatinine Clearance: 67ml/min Goal Trough: 10-15 mcg/mL Pharmacy Plan for Drug Dosing: NEW START IV VANCOMYCIN Consulting Physician: Delvin Indication: Diabetic Foot\Cellulitis Goal Trough: 10-15 SrCr: 1.17 CrCl: 67.25 Comments: pt received x1 dose of Vancomycin 1250mg in the ER 10/25 at 1546 Vancomcyin Dose: Dr. Hargrove dosed the pt at 750mg q12h, which per our dosing protocol is the correct dose for a goal trough of 10-15. Will not adjust ordered dose. Pending Level: 10/27/20 at 0330 Pharmacy Service will continue to monitor and adjust dosing as required. Follow-Up Labs: Trough Vancomycin - 10/27 at 0330
[2020-10-25 19:01] LABS: Bedside Glucose 158 mg/dL (70-110)
[2020-10-25] MEDS: oxyCODONE 5 MG Tablet PO (19:01)
[2020-10-25] MEDS: Pregabalin 75 MG Capsule 150 MG PO ×2 (19:01→22:51)
--- NOTE | 2020-10-25 19:22 | NURSING ---
repeat bs after d50 158 then rechecked in 30mins was 167. mri coming to take and architectural inspector in to remove rt prosthesis
[2020-10-25 19:26] LABS: Bedside Glucose 167 mg/dL (70-110)
[2020-10-25 22:40] LABS: Bedside Glucose 267 mg/dL (70-110)
[2020-10-25] MEDS: 0.9% Saline Lock 10 ML Syringe IV (22:50)
[2020-10-26] VITALS (9 sets, daily range): BP systolic 112–133; BP diastolic 73–81; PULSE 80–116; RESP 18; TEMP 36.7–37.2; O2SAT 92–96
[2020-10-26 00:28] LABS: M R Staph aureus DNA By PCR Negative (Negative); Probe Check PASS; Specimen Processing Control PASS; Staph aureus DNA By PCR NEGATIVE (Negative)
[2020-10-26 02:01] LABS: Bedside Glucose 25 mg/dL (70-110)
[2020-10-26 02:01] LABS: Bedside Glucose 26 mg/dL (70-110)
[2020-10-26 03:06] LABS: Bedside Glucose 228 mg/dL (70-110)
[2020-10-26] MEDS: 0.9% Saline Lock 10 ML Syringe IV (05:05)
[2020-10-26] MEDS: oxyCODONE 5 MG Tablet PO ×2 (05:18→17:17)
--- NOTE | 2020-10-26 06:07 | PCM.CONS.GEN ---
Problem List (1) Ulcer of left foot with fat layer exposed Status: Acute (2) Cellulitis of left lower limb Status: Acute (3) Diabetes mellitus with polyneuropathy Status: Chronic Qualifiers: (4) Malnutrition Status: Chronic (5) Other specified peripheral vascular diseases Status: Suspected (6) Amputation of right lower extremity Status: Chronic Reason for Consult Date of Consultation: 10/26/20 Reason for Consultation: Left foot infection and wounds History of Present Illness: The patient is a 65 year old M with significant past medical history of uncontrolled diabetes and prior amputation was seen bedside this morning for infected left heel ulcer and ulcers to the toes. He reports his heel became painful and swollen within the past two weeks. He noticed it while on his way to [employer] to get his right prosthetic leg updated. He presented to the emergency room for evaluation due to the odor. He also relates his toe ulcer and skin changes were noticed within the past week. He denies trauma or recent increase in activity. His pain upon arrival was 8/10 and now is decreased to mild. He is resting with his foot hanging over several pillows. He denies fever, chills, nausea, vomiting, fatigue, calf pain. He denies left limb claudication with ambulation. This patient is previously known to me for wound care in 2017. He has a history of MRSA. Past Medical History Past Medical History (Chronic Problems): Chronic Problems Ulcer of right lower extremity with fat layer exposed (Chronic) Chronic ulcer of left foot with fat layer exposed (Chronic) Ulcer of right lower extremity with necrosis of muscle (Chronic) Ulcer of left lower extremity with fat layer exposed (Chronic) Diabetes mellitus with polyneuropathy (Chronic) Delayed wound healing (Chronic) Smoker (Chronic) Amputation of right lower extremity (Chronic) Ulcer of right lower extremity with fat layer exposed (Chronic) INFECTED DIABETIC ULCERS (Chronic) Diabetes (Chronic) Nephrolithiasis (Chronic) Diabetic gastroparesis (Chronic) Diabetic neuropathy (Chronic) Peripheral vascular disease (Chronic) venous Malnutrition (Chronic) Allergies No Known Allergies Allergy (Verified 08/13/17 15:55) Home Medications: Ambulatory Orders Medication Instructions Recorded Insulin Detemir [Levemir FlexPen] 40 units SC BID 11/08/16 Insulin Aspart [Novolog Flexpen] 5 - 7 units SC TIDAC 08/13/17 Cyclobenzaprine HCl 10 mg PO TID PRN 10/25/20 Dulaglutide [Trulicity] 0.75 mg SQ FR 10/25/20 Erythromycin Base [Erythromycin] 250 mg PO BID PRN 10/25/20 Metoclopramide [Reglan] 10 mg PO BIDCM PRN 10/25/20 Ondansetron [Zofran Odt] 4 mg PO Q6H PRN 10/25/20 Oxycodone HCl 20 mg PO TID PRN PRN 10/25/20 Pregabalin [Lyrica] 150 mg PO 4X/DAY 10/25/20 Testosterone [Androgel] 2 each TD QHS 10/25/20 Surgical History: - - Right tibial surgery for fracture, right heel ulcer debridement, right ankle fasciotomy. Repeated debridements of right heel wound, right bka. Psychiatric History: No pertinent psych hx Lives: Alone Smoking Status: Current every day smoker Tobacco Use: Cigarettes Alcohol: None Drugs: None - *Family History Paternal History Items: No pertinent history Maternal History Items: No pertinent history Review of Systems Constitutional: Denies: Chills, Fever, Fatigue Cardiovascular: Reports: Edema. Denies: Chest Pain, Claudication Respiratory: Denies: Shortness of Breath Gastrointestinal: Denies: Nausea, Vomiting Skin: Reports: Skin Changes, Wounds Neurological: Reports: Balance problems, Incoordination, Numbness, Tingling Psychiatric: Denies: Anxiety Endocrine: Denies: Change in Body Habitus Patient Problems: Active and Suspected Problems Ulcer of left foot with fat layer exposed (Acute) Cellulitis of left lower limb (Acute) Other specified peripheral vascular diseases (Suspected) - Physical Exam Vitals/I&O's: Vital Signs Temp Pulse Resp BP Pulse Ox 99 F 109 H 18 133/80 H 93 10/26/20 05:09 10/26/20 05:09 10/26/20 05:09 10/26/20 05:09 10/26/20 05:09 Oxygen Delivery Method Room Air Weight: 85.729 kg Body Mass Index (BMI) 25.6 Finger Stick Blood Glucose 108 Intake and Output for Last 24 Hours 10/24/20 10/25/20 10/26/20 23:59 23:59 23:59 Intake Total 1463.67 / 1463.67 670 / 670 Output Total 1200 / 1200 Balance 263.67 / 263.67 670 / 670 General: Alert, Oriented x3, Cooperative HEENT: Atraumatic Extremities: No cyanosis, Capillary Refill Less than 3 Seconds, No Calf Tenderness - Negative Virgie and Long sign left, Diminished Peripheral Pulses - Nonpalpable DP pulse and 2 out of 4 palpable PT pulse left lower extremity. Nonpalpable popliteal pulse left lower extremity, Edema - Hindfoot and ankle mild to moderate edema, - - Right below-knee amputation. Left second toe amputation. Left lower extremity compartments remain soft to palpate Skin: Ulcer/ Wound - Skin discontinuity with callus partially adhered consistent with prior blister site with foul odor. After debridement and cleansing, foul odor is reduced and there is a ulcer base that is mainly granular with a small area of fibrous tissue and devitalized region without deep probing., - - The ulcers to the first and third toe are granular and superficial without adjacent signs of infection. His skin in general is hairless and atrophic. He does have cellulitis including erythema extending to the anterior mid leg and adjacent to the medial hindfoot Musculoskeletal: No Tenderness to Palpation of Joints or Extremities, Muscle Wasting Lymphatic: - - No palpable lymphadenopathy popliteal, left Neurological: - - Lack of normal epicritic sensation to light touch is consistent with his neuropathic status Psych/Mental Status: Normal Affect, Appropriate Laboratory Results 10/25/20 15:01: WBC 9.6, RBC 4.49 L, Hgb 12.8 L, Hct 40.3, MCV 89.8, MCH 28.5, MCHC 31.8 L, RDW Std Deviation 44.5 H, RDW Coeff of Jo 13.6, Plt Count 271, MPV 11.7, Immature Gran % (Auto) 0.400, Neut % (Auto) 77.3 H, Lymph % (Auto) 15.4 L, [place] % (Auto) 6.0, Eos % (Auto) 0.3, Baso % (Auto) 0.6, Absolute Neuts (auto) 7.4, Absolute Lymphs (auto) 1.48, Nucleated RBC % 0 10/25/20 15:01: Sodium 139, Potassium 4.5, Chloride 105, Carbon Dioxide 29.0, Anion Gap 5, BUN 21 H, Creatinine 1.17, Estim Creat Clear Calc 67.25, Est GFR (MDRD) Af Amer 80, Est GFR (MDRD) Non-Af 66, BUN/Creatinine Ratio 17.9, Glucose 158 H, Calcium 9.0 10/25/20 15:01: Lactic Acid 1.2 10/25/20 15:01: ESR 31 H 10/25/20 15:01: C-React Prot Ext Range 46.60 H 10/25/20 15:01: Hemoglobin A1c 11.6 H 10/25/20 16:08: S.aureus Protein A PCR NEGATIVE, MRSA (PCR) Negative 10/25/20 18:04: POC Glucose 27 L* 10/25/20 18:26: Glucose 39 L* 10/25/20 18:34: POC Glucose 25 L* 10/25/20 18:36: POC Glucose 26 L* 10/25/20 18:58: POC Glucose 158 H 10/25/20 19:21: POC Glucose 167 H 10/25/20 22:22: POC Glucose 267 H 10/26/20 02:59: POC Glucose 228 H Current Medications Acetaminophen (Acetaminophen 325 Mg Tablet) 650 mg PO Q6H PRN PRN PRN Reason: Pain Score 1-10/Temp > 100.7 F Enoxaparin Sodium (Enoxaparin 40 Mg/0.4 Ml Syringe) 40 mg SC DAILY [facility] Sodium Chloride () 1,000 mls @ 100 mls/hr IV .Q10H [facility] Last Infusion: 10/26/20 05:03 Dose: 0 mls/hr Documented by: Piperacillin Sod/Tazobactam (Sod 3.375 gm/ Sodium Chloride) 50 mls @ 12.5 mls/hr IV Q8 [facility] Last Admin: 10/26/20 05:06 Dose: 12.5 mls/hr Documented by: Vancomycin HCl 750 mg/ Sodium (Chloride) 265 mls @ 250 mls/hr IV Q12H [facility] Last Admin: 10/26/20 05:03 Dose: 250 mls/hr Documented by: Insulin Glargine (Insulin Glargine 100 Units/Ml Pen) 40 units SC BID [facility] Last Admin: 10/25/20 22:57 Dose: 40 u Documented by: Insulin Human Lispro (Insulin Lispro 100 Unit/Ml Insuln.Pen) 0 unit SC ACHS [facility]; Protocol Last Admin: 10/25/20 22:26 Dose: Not Given Documented by: Metoclopramide HCl (Metoclopramide 10 Mg Tablet) 10 mg PO BIDCM PRN PRN Reason: STOMACH Ondansetron HCl (Ondansetron 4 Mg/2 Ml Vial) 4 mg IV Q8H PRN PRN PRN Reason: NAUSEA/VOMITING Oxycodone HCl (Oxycodone 5 Mg Tablet) 5 mg PO Q4H PRN PRN PRN Reason: Pain Score 4-5 Last Admin: 10/26/20 05:18 Dose: 5 mg Documented by: Pregabalin (Pregabalin 75 Mg Capsule) 150 mg PO 4X/DAY JAMES Last Admin: 10/25/20 22:51 Dose: 150 mg Documented by: Senna/Docusate Sodium (Senna/Docusate Sodium 1 Tablet) 2 tablet PO BID PRN PRN PRN Reason: Constipation Sodium Chloride (0.9% Saline Lock 10 Ml Syringe) 10 - 40 ml IV UD PRN PRN Reason: SALINE FLUSH Last Admin: 10/26/20 05:05 Dose: 10 ml Documented by: Sodium Chloride (Sodium Chloride 0.65% 1 Gibson Gibson.Btl) 2 spray NASAL TID PRN PRN PRN Reason: NASAL DRYNESS Zolpidem Tartrate (Zolpidem Tartrate 5 Mg Tablet) 5 mg PO QHS PRN PRN PRN Reason: INSOMNIA Assessment/Plan All Active Problems Ulcer of left foot with fat layer exposed (Acute) Cellulitis of left lower limb (Acute) Left plantar medial heel ulcer with cellulitis Uncontrolled diabetes with neuropathy (A1c 11.6%) Prior right below-knee amputation and left second toe amputation Peripheral vascular disease screening in process Ulcer hallux and third toe, stable without infection (Pathak grade 1) I reviewed and discussed his case. He is afebrile this morning. His diagnostic data was reviewed. His white blood cell count is 10.9, ESR 31, C-reactive protein 46.6. X-rays were reviewed without any acute fractures, dislocation, soft tissue emphysema, foreign body, or osseous destruction adjacent to the ulcer location. MRI was reviewed without evidence of osteomyelitis or deep space abscess. There is some subcutaneous edema at the ulcer area. There is also some mild tenosynovitis to the flexor tendons at the ankle level. There is a foul odor noted with moist callus overlying the ulcer site. This was debrided after verbal consent was obtained with a 15 blade scalpel. The predebridement measurement was 5.3 x 5.2 x 0.1 cm and post debridement 5.5 x 5.3 x 0.1 cm. Devitalized subcutaneous, nonviable fibrous tissue, biofilm, slough, callus were excised. Additionally there is a ulcer to the distal hallux with predebridement measurement of 0.2 x 0.4 x 0.1 cm and post debridement 0.3 x 0.5 x 0.1 cm. There is an ulcer to the dorsal distal aspect of the second toe predebridement 0.1 x 0.1 x 0.1 cm and post debridement 0.2 x 0.2 x 0.1 cm. There was no bogginess or fluctuance on palpation of the ulcer site or at the adjacent ulcer area. Pressure was applied to maintain hemostasis and he tolerated this well. Betadine wet-to-dry dressing was also applied. To continue to keep pressure off the site by hanging his heel over stacked pillows while in bed and avoiding direct weightbearing activity to the hindfoot. Surgical shoe will be ordered to also offload his toe ulcer sites. Updated post debridement aerobic, anaerobic, and MRSA PCR cultures were obtained. Blood cultures are pending. He was started on broad-spectrum IV antibiotics including vancomycin and Zosyn. Updated arterial duplex studies were ordered for the left lower extremity to assess for peripheral vascular disease given his history of contralateral limb amputation and history of prior lower extremity ulcers. It is noted he had fairly normal perfusion to the left lower extremity when last checked in 2017. The results of this updated tests are pending. I recommend continued wound care and antibiotics at this time. Surgical intervention is not recommended at this time. Surgical intervention will be considered if he does not respond appropriately to the a forementioned treatments. Medical management DVT prophylaxis per primary team as noted. Thank you for the consultation. Please do not hesitate to call if you have any questions. Justa Garcia DPM, [facility] [phone]
[2020-10-26 06:46] LABS: Bedside Glucose 131 mg/dL (70-110)
[2020-10-26 07:18] LABS: Absolute Neutrophil Count 9.2 X10^3/uL (2.0-7.7); Basophil# 0.06 X10^3/uL; Basophil% 0.5 % (0-1); Eosinophil# 0.14 X10^3/uL; Eosinophils% 1.3 % (0-5); Hematocrit 38.7 % (40-54); Lymphocyte % 8.2 % (19-41); Mean Corpuscular Hgb 28.3 pg (27.0-32.0); Mean Corpuscular Volume 91.3 fL (80-94); Mean Platelet Vol. 11.9 fl (6.2-12.0); Monocyte# 0.59 X10^3/uL; Monocyte% 5.4 % (0-10); NRBC Flagged by Analyzer 0 % (0-5); Neutrophil # 9.19 X10^3/uL (2.7-7.7); Neutrophil % 84.1 % (47-70); Platelet Count 246 K/mm3 (150-450); RBC Distribution Width CV 13.7 % (11.6-14.6); Red Blood Count 4.24 M/mm3 (4.6-6.2); White Blood Count 10.9 K/mm3 (4.4-11.0)
[2020-10-26] MEDS: 0.9% Normal Saline 1,000 ML 100 ML IV ×2 (07:33→19:02)
[2020-10-26 07:59] LABS: Anion Gap 5 (5-15); BUN 15 mg/dL (7-18); BUN/Creat Ratio 14.7 RATIO (10-20); Calcium,Total 8.6 mg/dL (8.5-10.1); Chloride 110 mmol/L (98-107); Creatinine, Serum 1.02 mg/dL (0.70-1.30); EST Glomerular Filtration Rate 77 mL/min (>60); Est Glom Filt Rate - Afr Amer 94 mL/min (>60); Estimated Creatinine Clearance 77.14 ml/min; Glucose 133 mg/dL (74-106); Potassium 3.9 mmol/L (3.5-5.1); Sodium Level 141 mmol/L (136-145)
[2020-10-26 08:20] LABS: M R Staph aureus DNA By PCR Negative (Negative); Probe Check PASS; Specimen Processing Control PASS; Staph aureus DNA By PCR NEGATIVE (Negative)
--- NOTE | 2020-10-26 09:26 | NURSING ---
wound photo: left medial heel
--- NOTE | 2020-10-26 09:27 | NURSING ---
wound photo: left great and 2nd toe
[2020-10-26] MEDS: Enoxaparin 40 MG/0.4 ML Syringe SC (09:37)
[2020-10-26] MEDS: Pregabalin 75 MG Capsule 150 MG PO ×4 (09:42→21:36)
--- NOTE | 2020-10-26 11:00 | CASEMGMT ---
ZAC GALAVIZ Face to Face with patient for initial transition planning/care coordination assessment. ZAC GALAVIZ introduced self and role at [facility]. Patient sitting up in chair, alert and oriented. Patient willing to participate in some of the assessment and is able to answer questions appropriately. Care providers, pharmacy, and demographics verified. Patient wishes to discharge home, denies need for home health at this time. Patient states he has no further needs or concerns at this time. CM to follow for discharge planning needs that may arise. PCP: [facility] Specialists: denies Preferred Pharmacy: [facility] Insurance: Medicare Prescription Benefit: yes Living Will/HPOA: no, no LNOK: unknown Living Arrangements: Patient reports he lives in a 2 story home. He would not answer any further questions regarding his home. He states You need to collaborate with those people who were just in here. They asked the exact same questions. Later in the assessment, patient reported he was independent at home. Transportation: [employer] and neighbor DME/HHC: Pt reports he has a cane, walker, shower chair and wheelchair in the home. He denies need for further DME. He reports he has not had any previous HHC. He also declines to have any HHC upon dc for wound care. He also states he works out at home and will not need therapy. He states he did not have wound care prior to this episode and that he can do his own wound care when he goes home. He has been in SNF's in [facility] and [facility]. He was unable to recall the names of the facilities. Disposition Plan: Pt to dc home with self, neighbor support and follow up plans in place.
[2020-10-26 11:41] LABS: Bedside Glucose 204 mg/dL (70-110)
[2020-10-26] MEDS: cycloBENZAPRine HCl 10 MG Tablet PO (17:17)
--- NOTE | 2020-10-26 17:22 | PN_ITS ---
Patient Problems: Active and Suspected Problems Ulcer of left foot with fat layer exposed (Acute) Cellulitis of left lower limb (Acute) Other specified peripheral vascular diseases (Suspected) Subjective: Patient was seen and examined today, I talked with him briefly about discharge planning, he does not want to go to a jail facility at the time of discharge he prefers to go home. We are currently awaiting culture results- there are 3 different types of bacteria growing out of the wound but they are not identified specifically yet. Patient remains on Zosyn and vancomycin, patient complains of no fever or chills. - Physical Exam Vitals/I&O's: Vital Signs Temp Pulse Resp BP Pulse Ox 98.0 F 80 18 127/81 H 94 10/26/20 11:05 10/26/20 11:05 10/26/20 11:05 10/26/20 11:05 10/26/20 11:05 Oxygen Delivery Method Room Air Weight: 85.7 kg Body Mass Index (BMI) 25.6 Finger Stick Blood Glucose 108 Intake and Output for Last 24 Hours 10/24/20 10/25/20 10/26/20 23:59 23:59 23:59 Intake Total 1463.67 / 1463.67 1328.33 / 1328.33 Output Total 1200 / 1200 Balance 263.67 / 263.67 1328.33 / 1328.33 General: Alert, Oriented x3, Cooperative, No apparent distress, Well developed, Well nourished HEENT: Atraumatic, PERRLA, EOMI, Normocephalic Oral: Moist Mucosa Neck: Supple, No JVD, Trachea Midline, Thyroid Normal Size and Texture Lungs: Clear to auscultation, Normal air movement, No rhonchi, No wheeze, No rales Cardiovascular: Regular rate, Regular Rhythm, Normal S1, Normal S2, No murmurs, PMI Normal, No rub noted, No Gallop Abdomen: Bowel Sounds Present, Soft, Non Tender, Non-Distended Extremities: No clubbing, No cyanosis, Capillary Refill Less than 3 Seconds, - - There is a remote below the knee amputation noted to be present Skin: - - Left lower leg is wrapped with surgical dressing-this was not removed for inspection of his foot wounds Musculoskeletal: No Tenderness to Palpation of Joints or Extremities Neurological: Cranial nerves II-XII grossly intact, Neuro grossly intact Psych/Mental Status: Normal Affect, Appropriate, Alert and oriented to time, place, person, mood and affect Microbiology Past 72 Hours 10/25/20 16:08 Wound - Left Foot Gram Stain - Final 10/25/20 16:08 Wound - Left Foot Wound Culture - Preliminary 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 Gram negative glenda Gram positive organism 10/26/20 06:45 Wound - Heel, Left Gram Stain - Final Laboratory Results 10/25/20 15:01: Hemoglobin A1c 11.6 H 10/25/20 16:08: S.aureus Protein A PCR NEGATIVE, MRSA (PCR) Negative 10/25/20 18:04: POC Glucose 27 L* 10/25/20 18:26: Glucose 39 L* 10/25/20 18:34: POC Glucose 25 L* 10/25/20 18:36: POC Glucose 26 L* 10/25/20 18:58: POC Glucose 158 H 10/25/20 19:21: POC Glucose 167 H 10/25/20 22:22: POC Glucose 267 H 10/26/20 02:59: POC Glucose 228 H 10/26/20 06:41: POC Glucose 131 H 10/26/20 06:45: S.aureus Protein A PCR NEGATIVE, MRSA (PCR) Negative 10/26/20 06:50: Sodium 141, Potassium 3.9, Chloride 110 H, Carbon Dioxide 26.0, Anion Gap 5, BUN 15, Creatinine 1.02, Estim Creat Clear Calc 77.14, Est GFR (MDRD) Af Amer 94, Est GFR (MDRD) Non-Af 77, BUN/Creatinine Ratio 14.7, Glucose 133 H, Calcium 8.6 10/26/20 06:50: WBC 10.9, RBC 4.24 L, Hgb 12.0 L, Hct 38.7 L, MCV 91.3, MCH 28.3, MCHC 31.0 L, RDW Std Deviation 46.0 H, RDW Coeff of Jo 13.7, Plt Count 246, MPV 11.9, Immature Gran % (Auto) 0.500, Neut % (Auto) 84.1 H, Lymph % (Auto) 8.2 L, [place] % (Auto) 5.4, Eos % (Auto) 1.3, Baso % (Auto) 0.5, Absolute Neuts (auto) 9.2 H, Absolute Lymphs (auto) 0.90, Nucleated RBC % 0 10/26/20 11:38: POC Glucose 204 H Current Medications Acetaminophen (Acetaminophen 325 Mg Tablet) 650 mg PO Q6H PRN PRN PRN Reason: Pain Score 1-10/Temp > 100.7 F Cyclobenzaprine HCl (Cyclobenzaprine Hcl 10 Mg Tablet) 10 mg PO TID PRN PRN Reason: SPASMS Last Admin: 10/26/20 17:17 Dose: 10 mg Documented by: Enoxaparin Sodium (Enoxaparin 40 Mg/0.4 Ml Syringe) 40 mg SC DAILY REPLACED BY [facility] Last Admin: 10/26/20 09:37 Dose: 40 mg Documented by: Sodium Chloride () 1,000 mls @ 100 mls/hr IV .Q10H REPLACED BY [facility] Last Admin: 10/26/20 07:33 Dose: 100 mls/hr Documented by: Piperacillin Sod/Tazobactam (Sod 3.375 gm/ Sodium Chloride) 50 mls @ 12.5 mls/hr IV Q8 REPLACED BY [facility] Last Admin: 10/26/20 14:50 Dose: 12.5 mls/hr Documented by: Vancomycin HCl 750 mg/ Sodium (Chloride) 265 mls @ 250 mls/hr IV Q12H REPLACED BY [facility] Last Admin: 10/26/20 17:16 Dose: 250 mls/hr Documented by: Insulin Glargine (Insulin Glargine 100 Units/Ml Pen) 40 units SC BID REPLACED BY [facility] Last Admin: 10/26/20 09:38 Dose: 40 u Documented by: Insulin Human Lispro (Insulin Lispro 100 Unit/Ml Insuln.Pen) 0 unit SC [facility]; Protocol Last Admin: 10/26/20 17:17 Dose: Not Given Documented by: Metoclopramide HCl (Metoclopramide 10 Mg Tablet) 10 mg PO BIDCM PRN PRN Reason: STOMACH Ondansetron HCl (Ondansetron 4 Mg/2 Ml Vial) 4 mg IV Q8H PRN PRN PRN Reason: NAUSEA/VOMITING Oxycodone HCl (Oxycodone 5 Mg Tablet) 5 mg PO Q4H PRN PRN PRN Reason: Pain Score 4-5 Last Admin: 10/26/20 17:17 Dose: 5 mg Documented by: Pregabalin (Pregabalin 75 Mg Capsule) 150 mg PO 4X/DAY JAMES Last Admin: 10/26/20 14:50 Dose: 150 mg Documented by: Senna/Docusate Sodium (Senna/Docusate Sodium 1 Tablet) 2 tablet PO BID PRN PRN PRN Reason: Constipation Sodium Chloride (0.9% Saline Lock 10 Ml Syringe) 10 - 40 ml IV UD PRN PRN Reason: SALINE FLUSH Last Admin: 10/26/20 05:05 Dose: 10 ml Documented by: Sodium Chloride (Sodium Chloride 0.65% 1 Helm Helm.Btl) 2 spray NASAL TID PRN PRN PRN Reason: NASAL DRYNESS Zolpidem Tartrate (Zolpidem Tartrate 5 Mg Tablet) 5 mg PO QHS PRN PRN PRN Reason: INSOMNIA Medical Necessity - Tobacco Use Smoking Status: Current every day smoker Tobacco Use: Cigarettes Assessment/Plan All Active Problems Ulcer of left foot with fat layer exposed (Acute) Cellulitis of left lower limb (Acute) #1 cellulitis of the left foot secondary to diabetic neuropathy-multiple organisms are growing out of the wound at this time, continue present antibiotic treatment and await confirmation of organisms, surgery is not indicated at this time per podiatry notes #2 type 2 diabetes-uncontrolled, continue to monitor blood sugars #3 diabetic neuropathy #4 diabetic gastroparesis Inpatient E&M: [id number] [facility] L2
[2020-10-26 17:26] LABS: Bedside Glucose 270 mg/dL (70-110)
--- NOTE | 2020-10-26 18:16 | NURSING ---
pt updated that dr juarez has changed oxy ir to 20 mg tid prn and that means he must ask for it when he needs it-pt voices understanding at this time, oxy ir 20 mg not available in accudose for pt administration
[2020-10-26] MEDS: oxyCODONE 5 MG Tablet 20 MG PO (19:01)
[2020-10-26 21:36] LABS: Bedside Glucose 412 mg/dL (70-110)
[2020-10-27 04:00] VITALS: BP 125/63; PULSE 92; RESP 16; TEMP 36.8; O2SAT 97
[2020-10-27] MEDS: 0.9% Normal Saline 1,000 ML 100 ML IV ×2 (04:18→15:26)
[2020-10-27 04:19] LABS: Vancomycin, Trough Level 10.8 ug/mL (5.0-15.0)
[2020-10-27 04:21] LABS: Anion Gap 5 (5-15); BUN 24 mg/dL (7-18); BUN/Creat Ratio 24.1 RATIO (10-20); Calcium,Total 7.9 mg/dL (8.5-10.1); Chloride 110 mmol/L (98-107); EST Glomerular Filtration Rate 80 mL/min (>60); Est Glom Filt Rate - Afr Amer 96 mL/min (>60); Estimated Creatinine Clearance 78.68 ml/min; Glucose 266 mg/dL (74-106); Potassium 4.2 mmol/L (3.5-5.1); Sodium Level 135 mmol/L (136-145)
[2020-10-27 06:46] LABS: Bedside Glucose 127 mg/dL (70-110)
[2020-10-27] MEDS: cycloBENZAPRine HCl 10 MG Tablet PO (06:46)
[2020-10-27] MEDS: oxyCODONE 5 MG Tablet 20 MG PO ×3 (06:46→21:25)
[2020-10-27 07:20] VITALS: O2SAT 95
--- NOTE | 2020-10-27 07:36 | PN_ITS ---
Patient Problems: Active and Suspected Problems Ulcer of left foot with fat layer exposed (Acute) Cellulitis of left lower limb (Acute) Other specified peripheral vascular diseases (Suspected) Subjective: This 65-year-old male with uncontrolled diabetes and prior bilateral lower extremity amputations seen bedside for a left heel ulcer with cellulitis. He also has first and third toe ulcers. He denies fever, chill, nausea, vomiting, loss of appetite. He would like to return home at time of discharge. He relates he refused his antibiotics and some of his insulin overnight. - Physical Exam Vitals/I&O's: Vital Signs Temp Pulse Resp BP Pulse Ox 98.2 F 92 16 125/63 H 95 10/27/20 04:00 10/27/20 04:00 10/27/20 04:00 10/27/20 04:00 10/27/20 07:20 Oxygen Delivery Method Room Air Weight: 85.7 kg Body Mass Index (BMI) 25.6 Finger Stick Blood Glucose 108 Intake and Output for Last 24 Hours 10/25/20 10/26/20 10/27/20 23:59 23:59 23:59 Intake Total 1463.67 / 1463.67 3543.33 / 4143.33 1676.67 / 1676.67 Output Total 1200 / 1200 2100 / 2100 Balance 263.67 / 263.67 3543.33 / 3143.33 -423.33 / -423.33 General: Alert, Oriented x3, Cooperative HEENT: Atraumatic Extremities: No cyanosis, Capillary Refill Less than 3 Seconds, No Calf Tenderness - Left, Diminished Peripheral Pulses - Palpable PT pulse and difficult to palpate deeply depressed left lower extremity, Edema - Decreased left lower extremity, - - Right below-knee amputation Skin: Ulcer/ Wound - Resolved erythema. No streaking, odor, or purulence. There is significant provement to the medial heel ulcer and the base is pale granular with a dry devitalized location. There is no bogginess, fluctuance, or deep tissue exposure. The first and third toe ulcer sites are granular superficial, - - There are no signs of infection to the toes or deep tissue exposure. 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 Gram negative glenda Gram positive organism 10/26/20 06:45 Wound - Heel, Left Gram Stain - Final Laboratory Results 10/26/20 06:45: S.aureus Protein A PCR NEGATIVE, MRSA (PCR) Negative 10/26/20 06:50: Sodium 141, Potassium 3.9, Chloride 110 H, Carbon Dioxide 26.0, Anion Gap 5, BUN 15, Creatinine 1.02, Estim Creat Clear Calc 77.14, Est GFR (M DRD) Af Amer 94, Est GFR (MDRD) Non-Af 77, BUN/Creatinine Ratio 14.7, Glucose 133 H, Calcium 8.6 10/26/20 11:38: POC Glucose 204 H 10/26/20 17:07: POC Glucose 270 H 10/26/20 21:29: POC Glucose 412 H 10/27/20 03:38: Vancomycin Trough 10.8 10/27/20 03:38: Sodium 135 L, Potassium 4.2, Chloride 110 H, Carbon Dioxide 20.0 L, Anion Gap 5, BUN 24 H, Creatinine 1.00, Estim Creat Clear Calc 78.68, Est GFR (MDRD) Af Amer 96, Est GFR (MDRD) Non-Af 80, BUN/Creatinine Ratio 24.1 H, Glucose 266 H, Calcium 7.9 L 10/27/20 06:38: POC Glucose 127 H Current Medications Acetaminophen (Acetaminophen 325 Mg Tablet) 650 mg PO Q6H PRN PRN PRN Reason: Pain Score 1-10/Temp > 100.7 F Cyclobenzaprine HCl (Cyclobenzaprine Hcl 10 Mg Tablet) 10 mg PO TID PRN PRN Reason: SPASMS Last Admin: 10/27/20 06:46 Dose: 10 mg Documented by: Enoxaparin Sodium (Enoxaparin 40 Mg/0.4 Ml Syringe) 40 mg SC DAILY [facility] Last Admin: 10/26/20 09:37 Dose: 40 mg Documented by: Sodium Chloride () 1,000 mls @ 100 mls/hr IV .Q10H [facility] Last Admin: 10/27/20 04:18 Dose: 100 mls/hr Documented by: Piperacillin Sod/Tazobactam (Sod 3.375 gm/ Sodium Chloride) 50 mls @ 12.5 mls/ hr IV Q8 [facility] Last Admin: 10/27/20 06:42 Dose: Not Given Documented by: Vancomycin HCl 750 mg/ Sodium (Chloride) 265 mls @ 250 mls/hr IV Q12H [facility] Last Admin: 10/27/20 04:22 Dose: Not Given Documented by: Insulin Glargine (Insulin Glargine 100 Units/Ml Pen) 40 units SC BID [facility] Last Admin: 10/26/20 21:39 Dose: 40 u Documented by: Insulin Human Lispro (Insulin Lispro 100 Unit/Ml Insuln.Pen) 0 unit SC ACHS [facility]; Protocol Last Admin: 10/27/20 06:42 Dose: Not Given Documented by: Metoclopramide HCl (Metoclopramide 10 Mg Tablet) 10 mg PO BIDCM PRN PRN Reason: STOMACH Ondansetron HCl (Ondansetron 4 Mg/2 Ml Vial) 4 mg IV Q8H PRN PRN PRN Reason: NAUSEA/VOMITING Oxycodone HCl (Oxycodone 5 Mg Tablet) 20 mg PO TID PRN PRN PRN Reason: Pain Score 4-10 Last Admin: 10/27/20 06:46 Dose: 20 mg Documented by: Pregabalin (Pregabalin 75 Mg Capsule) 150 mg PO 4X/DAY [facility] Last Admin: 10/26/20 21:36 Dose: 150 mg Documented by: Senna/Docusate Sodium (Senna/Docusate Sodium 1 Tablet) 2 tablet PO BID PRN PRN PRN Reason: Constipation Sodium Chloride (0.9% Saline Lock 10 Ml Syringe) 10 - 40 ml IV UD PRN PRN Reason: SALINE FLUSH Last Admin: 10/26/20 05:05 Dose: 10 ml Documented by: Sodium Chloride (Sodium Chloride 0.65% 1 [place].Btl) 2 spray NASAL TID PRN PRN PRN Reason: NASAL DRYNESS Zolpidem Tartrate (Zolpidem Tartrate 5 Mg Tablet) 5 mg PO QHS PRN PRN PRN Reason: INSOMNIA Medical Necessity - Tobacco Use Smoking Status: Current every day smoker Tobacco Use: Cigarettes Assessment/Plan All Active Problems Ulcer of left foot with fat layer exposed (Acute) Cellulitis of left lower limb (Acute) Left plantar medial heel ulcer with cellulitis - improving Uncontrolled diabetes with neuropathy (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 He is afebrile this morning. His diagnostic data was reviewed. WBC this morning is pending. At time of admisstion his ESR 31, C- reactive protein 46.6. X-rays were reviewed without any acute fractures, dislocation, soft tissue emphysema, foreign body, or osseous destruction adjacent to the ulcer location. MRI was reviewed without evidence of osteomyelitis or deep space abscess. There is some subcutaneous edema at the ulcer area. There is also some mild tenosynovitis to the flexor tendons at the ankle level. His erythema and odor have resolved. Clinical improvement is noted to heel and toe ulcer sites. Betadine wet-to-dry dressing was also applied. To continue to keep pressure off the site by hanging his heel over stacked pillows while in bed and avoiding direct weightbearing activity to the hindfoot. Surgical shoe will be ordered to also offload his toe ulcer sites. MRSA pcr was negative. So far gram neg glenda and gram positive growth; additional information is pending. Blood cultures are pending. He was started on broad- spectrum IV antibiotics including vancomycin and Zosyn. Recommend narrowing this at this time and infectious disease consult after cultures finalize if improvement does not continue due to his high risk status. Will consider 2 weeks oral antibiotics if continued progress is noted, lack of deep tissue involvement, and pending sensitivities. Updated arterial duplex studies were ordered for the left lower extremity to assess for peripheral vascular disease given his history of contralateral limb amputation and history of prior lower extremity ulcers. He has MARISSA left 0.86 and biphasic waveforms. Digital pressures were not obtained due to his wounds. Disease is noted. I recommend inpatient versus outpatient referral to vascular specialist given his bilateral limb loss history and current tissue loss. I recommend continued wound care and antibiotics at this time. Surgical intervention is not recommended at this time. Surgical intervention will be considered if he does not respond appropriately to the a forementioned treatments. Medical management DVT prophylaxis per primary team as noted. [facility] at [facility] of discharge. This case was discussed with hospitalist, Dr. Forbes. Please do not hesitate to call if you have any questions. Justa Garcia DPM, FACF[facility] [phone]
[2020-10-27 08:46] LABS: Absolute Neutrophil Count 5.9 X10^3/uL (2.0-7.7); Basophil# 0.06 X10^3/uL; Basophil% 0.7 % (0-1); Eosinophil# 0.34 X10^3/uL; Eosinophils% 4.1 % (0-5); Hematocrit 42.2 % (40-54); Hemoglobin 12.5 g/dL (13.0-16.5); Lymphocyte % 16.7 % (19-41); Mean Corp Hgb Conc 29.6 g/dL (32-36); Mean Corpuscular Hgb 28.2 pg (27.0-32.0); Mean Corpuscular Volume 95.3 fL (80-94); Mean Platelet Vol. 11.4 fl (6.2-12.0); Monocyte% 7.2 % (0-10); NRBC Flagged by Analyzer 0 % (0-5); Neutrophil # 5.93 X10^3/uL (2.7-7.7); Neutrophil % 70.9 % (47-70); Platelet Count 226 K/mm3 (150-450); RBC Distribution Width CV 13.4 % (11.6-14.6); RBC Distribution Width SD 47.5 fl (35.1-43.9); Red Blood Count 4.43 M/mm3 (4.6-6.2); White Blood Count 8.4 K/mm3 (4.4-11.0)
[2020-10-27 09:42] VITALS: BP 114/70; PULSE 99; RESP 18; TEMP 37.2; O2SAT 96
[2020-10-27 09:50] VITALS: PULSE 84
[2020-10-27] MEDS: Pregabalin 75 MG Capsule 150 MG PO ×4 (09:54→21:25)
[2020-10-27] MEDS: Enoxaparin 40 MG/0.4 ML Syringe SC (09:54)
[2020-10-27] MEDS: Vancomycin IV 1,000 MG/200 ML BAG 200 MG IV (10:01)
--- NOTE | 2020-10-27 12:11 | PN_ITS ---
Patient Problems: Active and Suspected Problems Ulcer of left foot with fat layer exposed (Acute) Cellulitis of left lower limb (Acute) Other specified peripheral vascular diseases (Suspected) Subjective: Patient seen and examined. Patient irritable during assessment, multiple generalized complaints. Denies fever, chills. Reports pain is well controlled. Denies other physical symptoms or complaints. - Physical Exam Vitals/I&O's: Vital Signs Temp Pulse Resp BP Pulse Ox 98.9 F 99 18 114/70 96 10/27/20 09:42 10/27/20 09:42 10/27/20 09:42 10/27/20 09:42 10/27/20 09:42 Oxygen Delivery Method Room Air Weight: 188 lb 14.978 oz Body Mass Index (BMI) 25.6 Finger Stick Blood Glucose 108 Intake and Output for Last 24 Hours 10/25/20 10/26/20 10/27/20 23:59 23:59 23:59 Intake Total 1463.67 / 1463.67 3543.33 / 4143.33 2248.34 / 2248.34 Output Total 1200 / 1200 2100 / 2100 Balance 263.67 / 263.67 3543.33 / 3143.33 148.34 / 148.34 General: Alert, Oriented x3, Cooperative, - - Irritable HEENT: Atraumatic, PERRLA, EOMI, Normocephalic Neck: Supple, No JVD, Negative Carotid Bruits Lungs: Clear to auscultation, Normal air movement Cardiovascular: Regular rate, No murmurs Abdomen: Bowel Sounds Present, Soft, Non Tender, Non-Distended Extremities: No clubbing, No cyanosis, No edema, Capillary Refill Less than 3 Seconds, - - Right BKA Skin: - - Left foot dressing clean dry and intact, changed by podiatry this morning. 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 Gram negative glenda Beta streptococcus Gram positive glenda 10/26/20 06:45 Wound - Heel, Left Gram Stain - Final Laboratory Results 10/26/20 17:07: POC Glucose 270 H 10/26/20 21:29: POC Glucose 412 H 10/27/20 03:38: Vancomycin Trough 10.8 10/27/20 03:38: Sodium 135 L, Potassium 4.2, Chloride 110 H, Carbon Dioxide 20.0 L, Anion Gap 5, BUN 24 H, Creatinine 1.00, Estim Creat Clear Calc 78.68, Est GFR (MDRD) Af Amer 96, Est GFR (MDRD) Non-Af 80, BUN/Creatinine Ratio 24.1 H, Glucose 266 H, Calcium 7.9 L 10/27/20 06:38: POC Glucose 127 H 10/27/20 08:36: WBC 8.4, RBC 4.43 L, Hgb 12.5 L, Hct 42.2, MCV 95.3 H, MCH 28.2, MCHC 29.6 L, RDW Std Deviation 47.5 H, RDW Coeff of Jo 13.4, Plt Count 226, MPV 11.4, Immature Gran % (Auto) 0.400, Neut % (Auto) 70.9 H, Lymph % (Auto) 16.7 L, [place] % (Auto) 7.2, Eos % (Auto) 4.1, Baso % (Auto) 0.7, Absolute Neuts (auto) 5.9, Absolute Lymphs (auto) 1.40, Nucleated RBC % 0 Current Medications Acetaminophen (Acetaminophen 325 Mg Tablet) 650 mg PO Q6H PRN PRN PRN Reason: Pain Score 1-10/Temp > 100.7 F Cyclobenzaprine HCl (Cyclobenzaprine Hcl 10 Mg Tablet) 10 mg PO TID PRN PRN Reason: SPASMS Last Admin: 10/27/20 06:46 Dose: 10 mg Documented by: Enoxaparin Sodium (Enoxaparin 40 Mg/0.4 Ml Syringe) 40 mg SC DAILY [facility] Last Admin: 10/27/20 09:54 Dose: 40 mg Documented by: Sodium Chloride () 1,000 mls @ 100 mls/hr IV .Q10H [facility] Last Infusion: 10/27/20 10:01 Dose: 0 mls/hr Documented by: Piperacillin Sod/Tazobactam (Sod 3.375 gm/ Sodium Chloride) 50 mls @ 12.5 mls/hr IV Q8 [facility] Last Admin: 10/27/20 06:42 Dose: Not Given Documented by: Vancomycin HCl (Vancomycin) 1,000 mg in 200 mls @ 200 mls/hr IV Q12H [facility] Last Admin: 10/27/20 10:01 Dose: 200 mls/hr Documented by: Insulin Glargine (Insulin Glargine 100 Units/Ml Pen) 40 units SC BID [facility] Last Admin: 10/27/20 09:55 Dose: 40 u Documented by: Insulin Human Lispro (Insulin Lispro 100 Unit/Ml Insuln.Pen) 0 unit SC ACHS [facility]; Protocol Last Admin: 10/27/20 06:42 Dose: Not Given Documented by: Metoclopramide HCl (Metoclopramide 10 Mg Tablet) 10 mg PO BIDCM PRN PRN Reason: STOMACH Ondansetron HCl (Ondansetron 4 Mg/2 Ml Vial) 4 mg IV Q8H PRN PRN PRN Reason: NAUSEA/VOMITING Oxycodone HCl (Oxycodone 5 Mg Tablet) 20 mg PO TID PRN PRN PRN Reason: Pain Score 4-10 Last Admin: 10/27/20 06:46 Dose: 20 mg Documented by: Pregabalin (Pregabalin 75 Mg Capsule) 150 mg PO 4X/DAY [facility] Last Admin: 10/27/20 09:54 Dose: 150 mg Documented by: Senna/Docusate Sodium (Senna/Docusate Sodium 1 Tablet) 2 tablet PO BID PRN PRN PRN Reason: Constipation Sodium Chloride (0.9% Saline Lock 10 Ml Syringe) 10 - 40 ml IV UD PRN PRN Reason: SALINE FLUSH Last Admin: 10/26/20 05:05 Dose: 10 ml Documented by: Sodium Chloride (Sodium Chloride 0.65% 1 [place] Zenda.Btl) 2 spray NASAL TID PRN PRN PRN Reason: NASAL DRYNESS Zolpidem Tartrate (Zolpidem Tartrate 5 Mg Tablet) 5 mg PO QHS PRN PRN PRN Reason: INSOMNIA Medical Necessity - Tobacco Use Smoking Status: Current every day smoker Tobacco Use: Cigarettes Assessment/Plan All Active Problems Ulcer of left foot with fat layer exposed (Acute) Cellulitis of left lower limb (Acute) 1. Acute left plantar medial heel diabetic infected ulceration with cellulitis- podiatry following. Continue IV Zosyn and IV vancomycin. Dressing changes per podiatry recommendations. No plans for surgical intervention at this time. Will need follow-up with wound center at discharge. Awaiting final cultures and sensitivities. PT/OT. 2. Type 2 diabetes mellitus, uncontrolled-hemoglobin A1c 11.6%. Continue Lantus 40 units twice daily and sliding scale insulin. Adjust as appropriate for further glucose control. Glucose significantly fluctuating. 3. Diabetic peripheral neuropathy, diabetic gastroparesis-on Lyrica, Reglan. 4. Peripheral vascular disease-we will need follow-up with vascular surgery on an outpatient basis. ABIs completed, demonstrate moderately severe arterial occlusive disease on the left. DVT prophylaxis-Lovenox subcu This patient was seen by L[facility] Lawrence under the supervision of Dr. Forbes.
[2020-10-27 12:20] LABS: Bedside Glucose 153 mg/dL (70-110)
[2020-10-27 14:22] VITALS: BP 121/64; PULSE 91; RESP 18; TEMP 37.1; O2SAT 93
--- NOTE | 2020-10-27 16:34 | PCM.RX.CS ---
Consult Pharmacy has been consulted to manage selected antiobiotic: Vancomycin Type of Consult: Follow-up Suspected Infection: Skin/Soft tissue Labs: Sodium 135 mmol/L (136-145) L 10/27/20 03:38 Potassium 4.2 mmol/L (3.5-5.1) 10/27/20 03:38 Chloride 110 mmol/L (98-107) H 10/27/20 03:38 Carbon Dioxide 20.0 mmol/L (21.0-32.0) L 10/27/20 03:38 Anion Gap 5 (5-15) 10/27/20 03:38 BUN 24 mg/dL (7-18) H 10/27/20 03:38 Creatinine 1.00 mg/dL (0.70-1.30) 10/27/20 03:38 Est GFR (MDRD) Af Amer 96 mL/min (>60) 10/27/20 03:38 Est GFR (MDRD) Non-Af 80 mL/min (>60) 10/27/20 03:38 BUN/Creatinine Ratio 24.1 RATIO (10-20) H 10/27/20 03:38 Glucose 266 mg/dL (74-106) H 10/27/20 03:38 Vancomycin Trough 10.8 ug/mL (5.0-15.0) 10/27/20 03:38 Microbiology: Microbiology 10/25/20 15:06 Blood Culture (Wb) - Anticubital Right Blood Culture - Preliminary No growth in 48 hours. 10/25/20 15:01 Blood Culture (Wb) - Anticubital Left Blood Culture - Preliminary No growth in 48 hours. 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 montano talked to pt and convinced him to continue antibiotics. will restart pt at 1000mg q12h (,22). Pending Level: 10/28 at 2130 Pharmacy Service will continue to monitor and adjust dosing as required. Follow-Up Labs: Trough Vancomycin - 10/28 at 2130
[2020-10-27 17:11] LABS: Bedside Glucose 236 mg/dL (70-110)
[2020-10-27 19:49] VITALS: BP 143/76; PULSE 90; RESP 18; TEMP 36.8; O2SAT 93
[2020-10-27 21:41] LABS: Bedside Glucose 246 mg/dL (70-110)
[2020-10-28] MEDS: 0.9% Normal Saline 1,000 ML 100 ML IV (01:17)
[2020-10-28 01:59] VITALS: BP 153/80; PULSE 96; RESP 18; TEMP 37; O2SAT 97
[2020-10-28 04:06] LABS: Bedside Glucose 36 mg/dL (70-110)
[2020-10-28 04:21] LABS: Hematocrit 39.6 % (40-54); Hemoglobin 12.3 g/dL (13.0-16.5); Mean Corp Hgb Conc 31.1 g/dL (32-36); Mean Corpuscular Hgb 28.1 pg (27.0-32.0); Mean Corpuscular Volume 90.4 fL (80-94); Mean Platelet Vol. 11.2 fl (6.2-12.0); Platelet Count 233 K/mm3 (150-450); RBC Distribution Width CV 13.2 % (11.6-14.6); Red Blood Count 4.38 M/mm3 (4.6-6.2); White Blood Count 12.8 K/mm3 (4.4-11.0)
[2020-10-28 04:26] LABS: Bedside Glucose 46 mg/dL (70-110)
[2020-10-28 04:34] LABS: Anion Gap 7 (5-15); BUN 24 mg/dL (7-18); BUN/Creat Ratio 23.8 RATIO (10-20); Calcium,Total 8.6 mg/dL (8.5-10.1); Chloride 109 mmol/L (98-107); Creatinine, Serum 1.01 mg/dL (0.70-1.30); EST Glomerular Filtration Rate 78 mL/min (>60); Est Glom Filt Rate - Afr Amer 95 mL/min (>60); Glucose 44 mg/dL (74-106); Potassium 3.5 mmol/L (3.5-5.1); Sodium Level 141 mmol/L (136-145)
[2020-10-28 04:35] LABS: Bedside Glucose 71 mg/dL (70-110)
[2020-10-28 06:30] LABS: Bedside Glucose 115 mg/dL (70-110)
[2020-10-28] MEDS: Enoxaparin 40 MG/0.4 ML Syringe SC (08:39)
[2020-10-28] MEDS: Pregabalin 75 MG Capsule 150 MG PO (08:42)
[2020-10-28] MEDS: oxyCODONE 5 MG Tablet 20 MG PO (08:42)
--- NOTE | 2020-10-28 08:56 | PN_ITS ---
Patient Problems: Active and Suspected Problems Ulcer of left foot with fat layer exposed (Acute) Cellulitis of left lower limb (Acute) Other specified peripheral vascular diseases (Suspected) Subjective: This 65-year-old male with uncontrolled diabetes and prior bilateral lower extremity amputations seen bedside for a left heel ulcer with cellulitis. He also has first and third toe ulcers. He denies fever, chill, nausea, vomiting, loss of appetite. He had a hypoglycemic event overnight relates he is frustrated. He is eager to return home. He is amendable and able to follow-up with the antibiotic, wound care center, and vascular surgery referral in the outpatient setting. He denies odor or pain to the left lower extremity. - Physical Exam Vitals/I&O's: Vital Signs Temp Pulse Resp BP Pulse Ox 98.6 F 96 18 153/80 H 97 10/28/20 01:59 10/28/20 01:59 10/28/20 01:59 10/28/20 01:59 10/28/20 01:59 Oxygen Delivery Method Room Air Weight: 85.7 kg Body Mass Index (BMI) 25.6 Finger Stick Blood Glucose 108 Intake and Output for Last 24 Hours 10/26/20 10/27/20 10/28/20 23:59 23:59 23:59 Intake Total 3543.33 / 4143.33 3866.67 / 3866.67 1331.67 / 1331.67 Output Total 2425 / 2425 Balance 3543.33 / 3143.33 1441.67 / 1441.67 1331.67 / 1331.67 General: Alert, Oriented x3, Cooperative Extremities: No cyanosis, Capillary Refill Less than 3 Seconds, No Calf Tenderness, Diminished Peripheral Pulses, Edema - Decreased left lower extremity Skin: Ulcer/ Wound - There is no erythema, streaking, odor, bogginess or fluctuance, or purulence to the left lower extremity. Reduce first and third toe ulcer sites sizes are noted. The left heel ulcer also appears dry and healthy. There is a moist central area of devitalized tissue and this was debrided., - - Adjacent skin is hairless and atrophic Musculoskeletal: No Tenderness to Palpation of Joints or Extremities, Muscle Wasting, - - Right below-knee amputation. Left second toe amputation. Compartments are soft to palpate left lower extremity. There is no left knee contracture. He is able to actively move his left remaining digits and ankle in all directions. Neurological: - - Lack of epicritic sensation to light touch is consistent with neuropathic status Psych/Mental Status: Normal Affect, Appropriate, Agitated Microbiology Past 72 Hours 10/26/20 06:45 Wound - Heel, Left Gram Stain - Final 10/26/20 06:45 Wound - Heel, Left Wound Culture - Preliminary GNR lactose core shaper sides GNR lactose core shaper sides#2 10/26/20 06:45 Wound - Heel, Left Anaerobic Culture - Preliminary Checking for anaerobes, further studies to follow. 10/25/20 16:08 Wound - Left Foot Gram Stain - Final 10/25/20 16:08 Wound - Left Foot Wound Culture - Final Klebsiella oxytoca Enterobacter cloacae complex Streptococcus group G Corynebacterium amycolatum 10/25/20 15:06 Blood Culture (Wb) - Anticubital Right Blood Culture - Preliminary No growth in 48 hours. 10/25/20 15:01 Blood Culture (Wb) - Anticubital Left Blood Culture - Preliminary No growth in 48 hours. Laboratory Results 10/27/20 12:13: POC Glucose 153 H 10/27/20 17:04: POC Glucose 236 H 10/27/20 21:31: POC Glucose 246 H 10/28/20 04:03: POC Glucose 36 L* 10/28/20 04:15: Sodium 141, Potassium 3.5, Chloride 109 H, Carbon Dioxide 25.0, Anion Gap 7, BUN 24 H, Creatinine 1.01, Estim Creat Clear Calc 77.90, Est GFR (MDRD) Af Amer 95, Est GFR (MDRD) Non-Af 78, BUN/Creatinine Ratio 23.8 H, Glucose 44 L*, Calcium 8.6 10/28/20 04:15: WBC 12.8 H, RBC 4.38 L, Hgb 12.3 L, Hct 39.6 L, MCV 90.4 D, MCH 28.1, MCHC 31.1 L D, RDW Std Deviation 44.0 H, RDW Coeff of Jo 13.2, Plt Count 233, MPV 11.2 10/28/20 04:18: POC Glucose 46 L 10/28/20 04:32: POC Glucose 71 10/28/20 06:25: POC Glucose 115 H Current Medications Acetaminophen (Acetaminophen 325 Mg Tablet) 650 mg PO Q6H PRN PRN PRN Reason: Pain Score 1-10/Temp > 100.7 F Cyclobenzaprine HCl (Cyclobenzaprine Hcl 10 Mg Tablet) 10 mg PO TID PRN PRN Reason: SPASMS Last Admin: 10/27/20 06:46 Dose: 10 mg Documented by: Enoxaparin Sodium (Enoxaparin 40 Mg/0.4 Ml Syringe) 40 mg SC DAILY [facility] Last Admin: 10/28/20 08:39 Dose: 40 mg Documented by: Sodium Chloride () 1,000 mls @ 100 mls/hr IV .Q10H [facility] Last Infusion: 10/28/20 04:15 Dose: 0 mls/hr Documented by: Piperacillin Sod/Tazobactam (Sod 3.375 gm/ Sodium Chloride) 50 mls @ 12.5 mls/hr IV Q8 [facility] Last Admin: 10/28/20 05:38 Dose: 12.5 mls/hr Documented by: Insulin Glargine (Insulin Glargine 100 Units/Ml Pen) 40 units SC BID [facility] Last Admin: 10/27/20 21:32 Dose: 40 u Documented by: Insulin Human Lispro (Insulin Lispro 100 Unit/Ml Insuln.Pen) 0 unit SC [facility]; Protocol Last Admin: 10/28/20 06:28 Dose: Not Given Documented by: Metoclopramide HCl (Metoclopramide 10 Mg Tablet) 10 mg PO BIDCM PRN PRN Reason: STOMACH Ondansetron HCl (Ondansetron 4 Mg/2 Ml Vial) 4 mg IV Q8H PRN PRN PRN Reason: NAUSEA/VOMITING Oxycodone HCl (Oxycodone 5 Mg Tablet) 20 mg PO TID PRN PRN PRN Reason: Pain Score 4-10 Last Admin: 10/28/20 08:42 Dose: 20 mg Documented by: Pregabalin (Pregabalin 75 Mg Capsule) 150 mg PO 4X/DAY [facility] Last Admin: 10/28/20 08:42 Dose: 150 mg Documented by: Senna/Docusate Sodium (Senna/Docusate Sodium 1 Tablet) 2 tablet PO BID PRN PRN PRN Reason: Constipation Sodium Chloride (0.9% Saline Lock 10 Ml Syringe) 10 - 40 ml IV UD PRN PRN Reason: SALINE FLUSH Last Admin: 10/26/20 05:05 Dose: 10 ml Documented by: Sodium Chloride (Sodium Chloride 0.65% 1 [place] Stock[place].Btl) 2 spray NASAL TID PRN PRN PRN Reason: NASAL DRYNESS Zolpidem Tartrate (Zolpidem Tartrate 5 Mg Tablet) 5 mg PO QHS PRN PRN PRN Reason: INSOMNIA Medical Necessity - Tobacco Use Smoking Status: Current every day smoker Tobacco Use: Cigarettes Assessment/Plan All Active Problems Ulcer of left foot with fat layer exposed (Acute) Cellulitis of left lower limb (Acute) Left plantar medial heel ulcer with cellulitis - improving Uncontrolled diabetes with neuropathy (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 He is afebrile this morning. His diagnostic data was reviewed. WBC this morning is pending. His erythema and odor have resolved. Clinical improvement is continued to heel and toe ulcer sites. Betadine wet-to-dry dressing was also applied. I recommend changing this to Dakin wet-to-dry dressing and this order was placed. He can also continue this when he returns home. To continue to keep pressure off the site by hanging his heel over stacked pillows while in bed and avoiding direct weightbearing activity to the hindfoot. Surgical shoe ordered. MRSA pcr was negative. Initial wound culture with klebsiella, step, enterococcus, and corynebacterium amycolatum. Post debridement culture with GNR core shaper sides. Blood cultures are pending and negative for growth so far. He was started on broad-spectrum IV antibiotics including vancomycin and Zosyn. Recommend narrowing this at this time and infectious disease consult (discussed with Dr. Forbes). Will consider 2 weeks oral antibiotics (omnicef). Updated arterial duplex studies were ordered for the left lower extremity to assess for peripheral vascular disease given his history of contralateral limb amputation and history of prior lower extremity ulcers. He has MARISSA left 0.86 and biphasic waveforms. Digital pressures were not obtained due to his wounds. Disease is noted. I recommend outpatient referral to vascular specialist given his bilateral limb loss history and current tissue loss with Dr. Arias. To proceed in the outpatient setting. After verbal consent was obtained, debridement with medical scissor and forcep was performed to remove nonadhered devitalized tissue from the central ulcer site. The central plug that was removed measured approximately 2.1 x 0.8 x 0.1 cm (predebridement 2.0 x 0.7 x 0.1 cm) this plan was discussed with the patient and he is amendable and was performed in an excisional subcutaneous manner to remove fibrous tissue, devitalized subcutaneous tissue, biofilm, slough. No central bogginess or fluctuance was noted. No purulence or odor was noted. He tolerated this well. Pressure was applied to maintain hemostasis. Medical management DVT prophylaxis per primary team as noted. [facility] at time of discharge. This case was discussed with hospitalist, Dr. Forbes. Please do not hesitate to call if you have any questions. Discharge planning: We will need to confirm he is still comfortable performing lower extremity dressing changes at home. Supplies been ordered. To maintain partial weightbearing status to the left foot. To follow-up at [facility] for continued prosthetic adjustments for the right lower extremity where she has a below the knee amputation on. Antibiotic selection and has been confirmed. Reviewed case with nursing staff who will help him get set up with his follow-up appointments in the outpatient setting as well. Justa Garcia DPM, [facility] [phone]
--- NOTE | 2020-10-28 08:57 | DCINST_ITS ---
Discharge Activity: May Shower - no soaking. To wash limb with antibacterial soap and water Weight Bearing Status: Partial weight bearing - toe touch with surgical shoe and use assistive device Keep extremity elevated above heart level: Left Leg Call your doctor if your incision/area has: Continuous Slow Oozing, Sudden Increased Bleeding, Increased Pain/ Swelling, Increased Redness, Foul Smelling Discharge Call your doctor if you observe: Fever of 101 or Higher, Calf discomfort, Uncontrolled pain Cleanse incision/area with: Soap & Water Additional Dressing/Incision Instructions:: change heel and toe (1 and 3) dressing daily with dakin wet to dry dressing, gauze, kerlix, deep wrap Allergies/Adverse Reactions: Allergies No Known Allergies Allergy (Verified 08/13/17 15:55) Medications to take at Discharge Insulin Detemir [Levemir FlexPen] 40 units SC BID 11/08/16 Insulin Aspart [Novolog Flexpen] 5 - 7 units SC TIDAC 08/13/17 Cyclobenzaprine HCl 10 mg PO TID PRN 10/25/20 Dulaglutide [Trulicity] 0.75 mg SQ FR 10/25/20 Metoclopramide [Reglan] 10 mg PO BIDCM PRN 10/25/20 Ondansetron [Zofran Odt] 4 mg PO Q6H PRN 10/25/20 Oxycodone HCl 20 mg PO TID PRN PRN 10/25/20 Pregabalin [Lyrica] 150 mg PO 4X/DAY 10/25/20 Testosterone [Androgel] 2 each TD QHS 10/25/20 Cefdinir [Omnicef [equiv]] 300 mg PO BID #28 cap 10/28/20 The following prescriptions were given: Cefdinir [Omnicef [equiv]] 300 mg PO BID #28 cap Transmission Status: Received by [address] Primary Care Physician: Dani Sevilla DO [Primary Care Provider] - Test Results: Test results from this visit will be discussed in further detail at your follow- up appointment, if applicable. Please Follow Up With: Clinic,Wound - Dr. Garcia on Sat When: call [phone] to schedule Please Follow Up With: Sang Arias MD When: schedule within 2-4 weeks. call to schedule Proposed Discharge Date: 10/28/20
[2020-10-28] MEDS: DAKIN'S SOL HALF STRENGTH (=0.25%) 1 APPLIC TOPICAL (09:22)
[2020-10-28 10:18] VITALS: BP 143/71; PULSE 106; RESP 18; TEMP 37.2; O2SAT 95
--- NOTE | 2020-10-28 10:18 | CASEMGMT ---
RN CM in to discuss dc with patient. Pt denies need for HHC. He reports he is able to do his own dressing changes. Provided a list of HHC agencies should pt change his mind once home. He is aware to notify PCP to set up HHC if needed after hospital dc. Pt denies further questions or concerns at this time.
--- NOTE | 2020-10-28 10:42 | DCINST_ITS ---
- Discharge Diagnoses Current Active Problems: Current Active and Chronic Problems Ulcer of left foot with fat layer exposed (Acute) Cellulitis of left lower limb (Acute) Diabetes mellitus with polyneuropathy (Chronic) Amputation of right lower extremity (Chronic) Diabetic gastroparesis (Chronic) Diabetic neuropathy (Chronic) Peripheral vascular disease (Chronic) venous Malnutrition (Chronic) You will use the following diet at home:: Calorie/Carbohydrate Controlled (specify 1200, 1400, etc) Discharge Activity: May Shower - no soaking. To wash limb with antibacterial soap and water Weight Bearing Status: Partial weight bearing - toe touch with surgical shoe and use assistive device Keep extremity elevated above heart level: Left Leg Call your doctor if your incision/area has: Continuous Slow Oozing, Sudden I ncreased Bleeding, Increased Pain/ Swelling, Increased Redness, Foul Smelling Discharge Call your doctor if you observe: Fever of 101 or Higher, Calf discomfort, Uncontrolled pain Cleanse incision/area with: Soap & Water Additional Dressing/Incision Instructions:: change heel and toe (1 and 3) dressing daily with dakin wet to dry dressing, gauze, kerlix, deep wrap Allergies/Adverse Reactions: Allergies No Known Allergies Allergy (Verified 08/13/17 15:55) Medications to take at Discharge Insulin Aspart [Novolog Flexpen] 5 - 7 units SC TIDAC 08/13/17 Cyclobenzaprine HCl 10 mg PO TID PRN 10/25/20 Dulaglutide [Trulicity] 0.75 mg SQ FR 10/25/20 Metoclopramide [Reglan] 10 mg PO BIDCM PRN 10/25/20 Ondansetron [Zofran Odt] 4 mg PO Q6H PRN 10/25/20 Oxycodone HCl 20 mg PO TID PRN PRN 10/25/20 Pregabalin [Lyrica] 150 mg PO 4X/DAY 10/25/20 Testosterone [Androgel] 2 each TD QHS 10/25/20 Cefdinir [Omnicef [equiv]] 300 mg PO BID #28 cap 10/28/20 Insulin Detemir [Levemir Flextouch] 35 unit SQ BID #1 insuln.pen 10/28/20 The following prescriptions were given: Insulin Detemir [Levemir Flextouch] 35 unit SQ BID #1 insuln.pen Cefdinir [Omnicef [equiv]] 300 mg PO BID #28 cap Transmission Status: Received by [facility] Primary Care Physician: Dani Sevilla DO [Primary Care Provider] - Please follow up with your Primary Care Physician in: 1 Week Test Results: Test results from this visit will be discussed in further detail at your follow- up appointment, if applicable. Please Follow Up With: Justa Garcia DPM When: 1 wk Please Follow Up With: Sang Arias MD When: schedule within 2-4 weeks. call to schedule Proposed Discharge Date: 10/28/20
--- NOTE | 2020-10-28 10:48 | PCM.DC.SUM ---
Discharge Date and Diagnosis - Problem List Patient Problems: Active and Suspected Problems Ulcer of left foot with fat layer exposed (Acute) Cellulitis of left lower limb (Acute) Other specified peripheral vascular diseases (Suspected) Date of Admission: 10/25/20 Date of Discharge: 10/28/20 - Primary Discharge Diagnosis Acute Problems: Active Problems 1. Acute left plantar medial heel diabetic infected ulceration with cellulitis 2. Type 2 diabetes mellitus, uncontrolled 3. Diabetic peripheral neuropathy, diabetic gastroparesis 4. Peripheral vascular disease Suspected Problems: Suspected Problems Other specified peripheral vascular diseases (Suspected) - Secondary Discharge Diagnosis Chronic Problems: Chronic Problems Ulcer of right lower extremity with fat layer exposed (Chronic) Chronic ulcer of left foot with fat layer exposed (Chronic) Ulcer of right lower extremity with necrosis of muscle (Chronic) Ulcer of left lower extremity with fat layer exposed (Chronic) Diabetes mellitus with polyneuropathy (Chronic) Delayed wound healing (Chronic) Smoker (Chronic) Amputation of right lower extremity (Chronic) Ulcer of right lower extremity with fat layer exposed (Chronic) INFECTED DIABETIC ULCERS (Chronic) Diabetes (Chronic) Nephrolithiasis (Chronic) Diabetic gastroparesis (Chronic) Diabetic neuropathy (Chronic) Peripheral vascular disease (Chronic) venous Malnutrition (Chronic) Hospital Course and Treatment Imaging Results: Diagnostic Data Foot X-Ray 10/25/20 14:30 IMPRESSION: Arthrosis of the metatarsophalangeal joint and interphalangeal joint of the first digit. Chronic healed fracture deformity of the fifth metatarsal and distal fibula. Amputation of the second toe. Electronically Signed: Jules Arthur MD at 15:08 EST Tel , Service support , Lower Extremity MRI 10/25/20 17:51 IMPRESSION: Cellulitis without demonstrated soft tissue abscess. Very mild posterior tibialis tenosynovitis. Mild flexor hallucis longus tenosynovitis. Atrophy of the intrinsic muscles of the hindfoot suggestive of peripheral neuropathy. No demonstrated osteomyelitis. Electronically Signed: Jules Arthur MD at 7:28 EST Tel , Service support , Consultations 10/25/20 17:51 Consult: Onc/Wound/diffusion operator Routine Comment: Dr. Garcia- Podiatry Operations: None Procedures: None Summary of Care Provided: The patient is a 65 year old M admitted 10/25/2020 due to left foot wound. 1. Acute left plantar medial heel diabetic infected ulceration with cellulitis-podiatry consulted during admission. IV Zosyn and IV vancomycin during admission. Transition to Omnicef for 14 days at discharge. Culture grew multiple organisms including Klebsiella, Enterobacter, Streptococcus and Corynebacterium. No plans for surgical intervention at this time. Patient declined home health. Continue dressing changes per podiatry recommendations. Follow-up with podiatry, Dr. Garcia in 1 week. Patient states he prefers not to follow-up at wound center. 2. Type 2 diabetes mellitus, uncontrolled-hemoglobin A1c 11.6%. Continue Lantus 35 units twice daily and sliding scale insulin. Scheduled NovoLog. 3. Diabetic peripheral neuropathy, diabetic gastroparesis-on Lyrica, Reglan. 4. Peripheral vascular disease-we will need follow-up with vascular surgery on an outpatient basis. ABIs completed, demonstrate moderately severe arterial occlusive disease on the left. Referred to Dr. Arias for outpatient follow-up. General: Alert, Oriented x3, Cooperative, Irritable HEENT: Atraumatic, PERRLA, EOMI, Normocephalic Neck: Supple, No JVD, Negative Carotid Bruits Lungs: Clear to auscultation, Normal air movement Cardiovascular: Regular rate, No murmurs Abdomen: Bowel Sounds Present, Soft, Non Tender, Non-Distended Extremities: No clubbing, No cyanosis, No edema, Capillary Refill Less than 3 Seconds, Right BKA Skin: - - Left foot dressing clean dry and intact, changed by podiatry this morning. Musculoskeletal: No Tenderness to Palpation of Joints or Extremities Neurological: Cranial nerves II-XII grossly intact, Neuro grossly intact Psych/Mental Status: Normal affect Patient seen and examined prior to discharge. Physical assessment as noted above. Patient is stable for discharge with follow up recommendations as noted above. This patient was seen by LIS Lawrence under the supervision of Dr. Forbes. Patient Problems: Active and Suspected Problems Ulcer of left foot with fat layer exposed (Acute) Cellulitis of left lower limb (Acute) Other specified peripheral vascular diseases (Suspected) - Physical Exam Vitals/I&O's: Vital Signs Temp Pulse Resp BP Pulse Ox 99 F 106 H 18 143/71 H 95 10/28/20 10:18 10/28/20 10:18 10/28/20 10:18 10/28/20 10:18 10/28/20 10:18 Oxygen Delivery Method Room Air Weight: 188 lb 14.978 oz Body Mass Index (BMI) 25.6 Finger Stick Blood Glucose 108 Intake and Output for Last 24 Hours 10/26/20 10/27/20 10/28/20 23:59 23:59 23:59 Intake Total 3543.33 / 4143.33 3866.67 / 3866.67 1381.67 / 1381.67 Output Total 2425 / 2425 Balance 3543.33 / 3143.33 1441.67 / 1441.67 1381.67 / 1381.67 Microbiology Past 72 Hours 10/26/20 06:45 Wound - Heel, Left Gram Stain - Final 10/26/20 06:45 Wound - Heel, Left Wound Culture - Preliminary GNR lactose cloth finishing range operator chief GNR lactose cloth finishing range operator chief#2 Streptococcus group G GPC Poss Enterococcus sp Staphylococcus species Gram positive glenda 10/26/20 06:45 Wound - Heel, Left Anaerobic Culture - Preliminary Checking for anaerobes, further studies to follow. 10/25/20 16:08 Wound - Left Foot Gram Stain - Final 10/25/20 16:08 Wound - Left Foot Wound Culture - Final Klebsiella oxytoca Enterobacter cloacae complex Streptococcus group G Corynebacterium amycolatum 10/25/20 15:06 Blood Culture (Wb) - Anticubital Right Blood Culture - Preliminary No growth in 48 hours. 10/25/20 15:01 Blood Culture (Wb) - Anticubital Left Blood Culture - Preliminary No growth in 48 hours. Laboratory Results 10/27/20 12:13: POC Glucose 153 H 10/27/20 17:04: POC Glucose 236 H 10/27/20 21:31: POC Glucose 246 H 10/28/20 04:03: POC Glucose 36 L* 10/28/20 04:15: Sodium 141, Potassium 3.5, Chloride 109 H, Carbon Dioxide 25.0, Anion Gap 7, BUN 24 H, Creatinine 1.01, Estim Creat Clear Calc 77.90, Est GFR (MDRD) Af Amer 95, Est GFR (MDRD) Non-Af 78, BUN/Creatinine Ratio 23.8 H, Glucose 44 L*, Calcium 8.6 10/28/20 04:15: WBC 12.8 H, RBC 4.38 L, Hgb 12.3 L, Hct 39.6 L, MCV 90.4 D, MCH 28.1, MCHC 31.1 L D, RDW Std Deviation 44.0 H, RDW Coeff of Jo 13.2, Plt Count 233, MPV 11.2 10/28/20 04:18: POC Glucose 46 L 10/28/20 04:32: POC Glucose 71 10/28/20 06:25: POC Glucose 115 H Current Medications Acetaminophen (Acetaminophen 325 Mg Tablet) 650 mg PO Q6H PRN PRN PRN Reason: Pain Score 1-10/Temp > 100.7 F Cyclobenzaprine HCl (Cyclobenzaprine Hcl 10 Mg Tablet) 10 mg PO TID PRN PRN Reason: SPASMS Last Admin: 10/27/20 06:46 Dose: 10 mg Documented by: Enoxaparin Sodium (Enoxaparin 40 Mg/0.4 Ml Syringe) 40 mg SC DAILY [facility] Last Admin: 10/28/20 08:39 Dose: 40 mg Documented by: Sodium Chloride () 1,000 mls @ 100 mls/hr IV .Q10H [facility] Last Infusion: 10/28/20 04:15 Dose: 0 mls/hr Documented by: Piperacillin Sod/Tazobactam (Sod 3.375 gm/ Sodium Chloride) 50 mls @ 12.5 mls/hr IV Q8 [facility] Last Infusion: 10/28/20 09:48 Dose: Infused Documented by: Insulin Glargine (Insulin Glargine 100 Units/Ml Pen) 35 units SC BID [facility] Last Admin: 10/28/20 09:33 Dose: 30 u Documented by: Insulin Human Lispro (Insulin Lispro 100 Unit/Ml Insuln.Pen) 0 unit SC ACHS [facility]; Protocol Last Admin: 10/28/20 06:28 Dose: Not Given Documented by: Metoclopramide HCl (Metoclopramide 10 Mg Tablet) 10 mg PO BIDCM PRN PRN Reason: STOMACH Ondansetron HCl (Ondansetron 4 Mg/2 Ml Vial) 4 mg IV Q8H PRN PRN PRN Reason: NAUSEA/VOMITING Oxycodone HCl (Oxycodone 5 Mg Tablet) 20 mg PO TID PRN PRN PRN Reason: Pain Score 4-10 Last Admin: 10/28/20 08:42 Dose: 20 mg Documented by: Pregabalin (Pregabalin 75 Mg Capsule) 150 mg PO 4X/DAY JAMES Last Admin: 10/28/20 08:42 Dose: 150 mg Documented by: Senna/Docusate Sodium (Senna/Docusate Sodium 1 Tablet) 2 tablet PO BID PRN PRN PRN Reason: Constipation Sodium Chloride (0.9% Saline Lock 10 Ml Syringe) 10 - 40 ml IV UD PRN PRN Reason: SALINE FLUSH Last Admin: 10/26/20 05:05 Dose: 10 ml Documented by: Sodium Chloride (Sodium Chloride 0.65% 1 [place] Bangor.Btl) 2 spray NASAL TID PRN PRN PRN Reason: NASAL DRYNESS Zolpidem Tartrate (Zolpidem Tartrate 5 Mg Tablet) 5 mg PO QHS PRN PRN PRN Reason: INSOMNIA Discharge Activity: May Shower - no soaking. To wash limb with antibacterial soap and water Weight Bearing Status: Partial weight bearing - toe touch with surgical shoe and use assistive device Keep extremity elevated above heart level: Left Leg Call your doctor if your incision/area has: Continuous Slow Oozing, Sudden Increased Bleeding, Increased Pain/ Swelling, Increased Redness, Foul Smelling Discharge Call your doctor if you observe: Fever of 101 or Higher, Calf discomfort, Uncontrolled pain Cleanse incision/area with: Soap & Water Additional Dressing/Incision Instructions:: change heel and toe (1 and 3) dressing daily with dakin wet to dry dressing, gauze, kerlix, deep wrap Home Medications: Medications to take at Discharge Insulin Aspart [Novolog Flexpen] 5 - 7 units SC TIDAC 08/13/17 Cyclobenzaprine HCl 10 mg PO TID PRN 10/25/20 Dulaglutide [Trulicity] 0.75 mg SQ FR 10/25/20 Metoclopramide [Reglan] 10 mg PO BIDCM PRN 10/25/20 Ondansetron [Zofran Odt] 4 mg PO Q6H PRN 10/25/20 Oxycodone HCl 20 mg PO TID PRN PRN 10/25/20 Pregabalin [Lyrica] 150 mg PO 4X/DAY 10/25/20 Testosterone [Androgel] 2 each TD QHS 10/25/20 Cefdinir [Omnicef [equiv]] 300 mg PO BID #28 cap 10/28/20 Insulin Detemir [Levemir Flextouch] 35 unit SQ BID #1 insuln.pen 10/28/20 Following Prescriptions Were Given to Patient: Insulin Detemir [Levemir Flextouch] 35 unit SQ BID #1 insuln.pen Cefdinir [Omnicef [equiv]] 300 mg PO BID #28 cap Transmission [facility]: [facility] Primary Care Physician: Dani Sevilla DO [Primary Care Provider] - Please follow up with your Primary Care Physician in: 1 Week Please Follow Up With: Justa Garcia DPM When: 1 wk Please Follow Up With: Sang Arias MD When: schedule within 2-4 weeks. call to schedule Disposition: Home Minutes spent on discharge:: 35 Patient Condition:: Stable Medical Necessity - Tobacco Use Smoking Status: Current every day smoker Tobacco Use: Cigarettes Meaningful Use Info Meaningful Use Diagnoses (Choose all that apply): None applicable
[2020-10-28 11:05] LABS: Bedside Glucose 186 mg/dL (70-110)
--- NOTE | 2020-10-28 11:58 | PHA.DC.MC ---
Pharmacy Service has performed discharge medication reconciliation and counseling for this patient. The patient was counseled on the following discharge medications and changes in medications for homegoing were reviewed. 1. OMNICEF 2. LEVEMIR --> DOSE CHANGE The Reason for Use, instructions for use, and potential side effects were reviewed for all new medications. The patient's questions regarding all of their medications were answered. The patient was able to verbally demonstrate an understanding of their discharge medications. Home Medications Insulin Aspart [Novolog Flexpen] 5 - 7 units SC TIDAC 08/13/17 Cyclobenzaprine HCl 10 mg PO TID PRN 10/25/20 Dulaglutide [Trulicity] 0.75 mg SQ FR 10/25/20 Metoclopramide [Reglan] 10 mg PO BIDCM PRN 10/25/20 Ondansetron [Zofran Odt] 4 mg PO Q6H PRN 10/25/20 Oxycodone HCl 20 mg PO TID PRN PRN 10/25/20 Pregabalin [Lyrica] 150 mg PO 4X/DAY 10/25/20 Testosterone [Androgel] 2 each TD QHS 10/25/20 Cefdinir [Omnicef [equiv]] 300 mg PO BID #28 cap 10/28/20 Insulin Detemir [Levemir Flextouch] 35 unit SQ BID #1 insuln.pen 10/28/20 The patient's discharge medication list was reviewed for discrepancies and discrepancies were resolved.
--- NOTE | 2020-11-01 12:50 | CASEMGMT ---
[facility] DC PHONE CALL DC DATE: 10/28/20 DC DISPOSITION: Home DC DIAGNOSIS: foot ulcer, cellulitis LACE/STRATA: 07/05 F/U APPTS MADE PRIOR TO DC: wound center and Dr. Arias Attempted call to patient's phone. No answer, and no messaging with voice identifier. Vani PIERCEN RN ACM
== END 2020-10-28 13:57 | disposition home or self-care (01) | DRG 623 ==
LOC: ED 14:16 → MS3 16:23
PROVIDERS: Nurse Practitioner Family; Podiatrist; Admitting Provider Hospitalist; Emergency Provider Emergency Medicine; PCP Family Medicine; Visit Provider Internal Medicine
DX: E11.621 Type 2 diabetes mellitus with foot ulcer (principal); L97.422 Non-pressure chronic ulcer of left heel and midfoot with fat layer exposed; L03.116 Cellulitis of left lower limb; E11.628 Type 2 diabetes mellitus with other skin complications; B96.1 Klebsiella pneumoniae [K. pneumoniae] as the cause of diseases classified elsewhere; B95.2 Enterococcus as the cause of diseases classified elsewhere; B95.5 Unspecified streptococcus as the cause of diseases classified elsewhere; B96.89 Other specified bacterial agents as the cause of diseases classified elsewhere; E11.65 Type 2 diabetes mellitus with hyperglycemia; E11.42 Type 2 diabetes mellitus with diabetic polyneuropathy; E11.43 Type 2 diabetes mellitus with diabetic autonomic (poly)neuropathy; K31.84 Gastroparesis; E11.51 Type 2 diabetes mellitus with diabetic peripheral angiopathy without gangrene; F17.210 Nicotine dependence, cigarettes, uncomplicated; Z89.511 Acquired absence of right leg below knee; Z89.422 Acquired absence of other left toe(s); Z79.4 Long term (current) use of insulin; Z79.899 Other long term (current) drug therapy; Z87.39 Personal history of other diseases of the musculoskeletal system and connective tissue; Z86.14 Personal history of Methicillin resistant Staphylococcus aureus infection
CPT/HCPCS: 36415; 73630; 73720; 80048; 80202; 82947; 82962; 83036; 83605; 85025; 85027; 85652; 86140; 87040; 87070; 87075; 87077; 87186; 87205; 87640; 93923; 97162; 97166; 99251; 99283; A9575; J7030; J7050; A4216; G0463; J0295

== ENCOUNTER 2021-01-13 01:18 | Inpatient (IN) | payer MEDICARE, SELFPAY ==
[2020-10-25 16:30] VITALS: BMI 25.6
[2021-01-13] VITALS (46 sets, daily range): BP systolic 82–123; BP diastolic 42–78; PULSE 83–115; RESP 12–22; TEMP 35.9–37.2; O2SAT 92–100; BMI 29.2; BMI 21.7
--- NOTE | 2021-01-13 01:34 | EKG12_ITS ---
Test Reason : Blood Pressure : / mmHG Vent. Rate : 100 BPM Atrial Rate : 100 BPM P-R Int : 168 ms QRS Dur : 100 ms QT Int : 368 ms P-R-T Axes : 078 048 067 degrees QTc Int : 474 ms Normal sinus rhythm Nonspecific ST and T wave abnormality Prolonged QT Abnormal ECG Confirmed by LEÓN RIVAS, GUY ([id number]), video effects editor ALBERTO GARZA ([id number]) on 01/16/2021 2:51:00 PM Referred By: TUYET Confirmed By:GUY TRAORE MD
--- NOTE | 2021-01-13 01:34 | RAD_ITS ---
STUDY: X-RAY - LEFT FOOT CLINICAL: Male, 65 years old. infection on heel of left foot. pt is nauseous and diabetic. TECHNIQUE: 3 view(s) of the foot. COMPARISON: None. FINDINGS: Osteomyelitis involving the calcaneus with associated soft tissue swelling, soft tissue ulceration with subcutaneous emphysema. Consideration for gangrene. Remainder of the left foot is within normal limits outside of prior amputation of the distal second digit RAD/Foot min 3 Views IMPRESSION: As above Electronically Signed: Froilan Kuo DO at 3:53 EDT Tel , Service support ,
--- NOTE | 2021-01-13 01:36 | EDS_ITS ---
HPI History of Present Illness Chief Complaint: Wound Informant: patient and EMS Onset/Context/Timing Onset: Month(s) (3+) Context: Gradual Onset Timing: Continuous Quality: numb/insensate Location: left heel/foot Associated Symptoms Associated Symptoms: trouble talking/thinking, generalized weakness Narrative Narrative: Patient states he has a diabetic foot infection and has been going to wound care but stopped about 2 or 3 months ago. States he has been feeling w eaker and feels like his wound has been getting worse and may be infected. He has been having trouble saying what he wants to say and says this has maybe been going on for a month or so. He presents at 1:30 AM night because tonight his neighbor was able to convince him to come to the hospital. He states he has been trying to get him to go for some time. Patient lives alone. [facility] Medical History (Updated 01/13/21 @ 06:[address] Bebo Stock MD) Diabetes Malnutrition Home Medications insulin aspart U-100 [Novolog Flexpen U-100 Insulin] 5 - 7 units SUBCUT TIDAC 08/13/17 [History Last Taken 10/25/20] cyclobenzaprine 10 mg PO TID PRN 10/25/20 [History Last Taken 10/25/20] dulaglutide 0.75 mg SQ FR 10/25/20 [History Last Taken 10/21/20] metoclopramide HCl 10 mg PO BIDCM PRN 10/25/20 [History Last Taken 2 Weeks Ago ~10/11/20] ondansetron 4 mg PO Q6H PRN 10/25/20 [History Last Taken 10/25/20] oxycodone 20 mg PO TID PRN PRN 10/25/20 [History Last Taken 10/25/20] pregabalin 150 mg PO 4X/DAY 10/25/20 [History Last Taken 10/25/20] testosterone 2 each TD QHS 10/25/20 [History Last Taken 10/24/20] cefdinir 300 mg PO BID #28 cap 10/28/20 [Rx Last Taken Unknown] insulin detemir U-100 35 unit SQ BID #1 insuln.pen 10/28/20 [Rx Last Taken Unknown] Allergy/AdvReac Type Severity Reaction Status Date / Time No Known Allergies Allergy Verified 01/13/21 01:19 Surgical History Below-knee amputation of right lower extremity Social History Smoking Status: Current every day smoker ROS ROS ED Constitutional Constitutional ED: Reports malaise and weakness; Denies chills or fever(s) Eyes Eyes: Denies change in vision or diplopia ENT ENT ED: Denies rhinorrhea or sore throat Cardiovascular Cardiovascular: Denies chest pain or palpitations Respiratory/Chest Respiratory/Chest: Denies cough or dyspnea Gastrointestinal Gastrointestinal: Denies abdominal pain Genitourinary Genitourinary ED: Denies dysuria or hematuria Musculoskeletal Musculoskeletal: Reports other Details: LLE edema ; Denies back pain or neck pain Integumentary Reports as per HPI, erythema and wounds; Denies abscess Neurologic Neurologic: Denies headache(s) or weakness Psychiatric Psychiatric: Denies anxiety or suicidal thoughts EXAM Physical Exam Const Vital Signs: 01/13/21 01:19 01/13/21 01:45 01/13/21 02:10 Temperature 97 F L 98.5 F Temperature Source Temporal Temporal Pulse Rate 104 H 103 H Respiratory Rate 20 H 22 H 18 Blood Pressure 114/68 102/52 L 95/51 L Blood Pressure Mean 83 68 65 Pulse Ox 100 Oxygen Delivery Method Room Air Room Air 01/13/21 02:20 01/13/21 02:25 01/13/21 02:59 Temperature 98.5 F 98.5 F 98.9 F Temperature Source Temporal Temporal Temporal Pulse Rate 103 H 105 H Respiratory Rate 16 18 Blood Pressure 95/52 L 91/45 L Blood Pressure Mean 66 60 Pulse Ox 98 Oxygen Delivery Method Room Air 01/13/21 04:00 01/13/21 04:30 Temperature 98.5 F Temperature Source Temporal Pulse Rate 98 102 H Respiratory Rate 15 15 Blood Pressure 88/52 L 98/43 L Blood Pressure Mean 64 61 Pulse Ox 98 98 Oxygen Delivery Method Room Air Room Air Positive well nourished, well developed and unkempt General Appearance ED: unkempt, well developed and NAD HEENT Reports moist mucous membranes normocephalic and atraumatic; Negative for trauma Eyes PERRL and EOMs intact bilaterally Neck full ROM and supple Resp normal respiratory effort and clear to auscultation bilaterally Cardio regular rate, regular rhythm and no murmurs GI non-tender and non-distended Auscultation: normoactive bowel sounds Palpation: soft Back/Spine no CVA tenderness General Back: other FROM Extremity Extremity Narrative: Significant wound to the left hindfoot and anterior left ankle is less severe. See below. 1 amputated toe on this foot. BKA on the other extremity which looks good and without a wound. Distal both lower extremities very dried and scaly with superficial sloughing. No bullae. General Extremety ED: Yes edema General Extremity: edema Neuro oriented x3 and CN's II-XII intact bilaterally Neuro Narrative: Abnormal sensation left lower extremity due to peripheral neuropathy according to patient. He frequently has expressive aphasia, unable to say what he wants to. No dysarthria. Moves all 4 extremities well. NIHSS 2, 1 for aphasia and 1 for sensory, no other deficits. Sensorium / Orientation: awake and alert Motor Exam: strength 5/5 throughout Psych mental status grossly normal Appearance: unkempt Skin Skin Narrative: Patient with significant full-thickness wound to the heel, with the skin gone and evidence of necrotic tissue within the wound. There is no discharge from here, however there are more superficial purulent wounds anterior left ankle. Erythema goes from the left hindfoot up toward the knee and edema along with it. With his neuropathy, none of this is tender. Edema in the foot precludes ability to feel pulse but the foot is warm. MDM MDM MDM Narrative Medical decision making narrative: Patient is septic likely from his diabetic foot wound infection, and also appears to be in DKA with acute kidney injury. He started dropping his blood pressure along with his MAP, so 30 cc/kg IV fluid bolus was performed. He was pancultured and empiric antibiotics were started, he will be admitted to the ICU. Started on insulin drip after acidosis was verified, this should help his hyperkalemia. He has some peaked T waves but no other EKG findings/changes of hyperkalemia. Patient's IVs were both removed during his ED stay and he had no access, nurses were not able to get another line easily. Patient needs a central line anyway, and the department was very busy so there was delay in getting consent because the patient initially was refusing, and I had to have multiple conversations with him regarding the central line that he needs for multiple reasons. Even tually we were able to place it after the patient eventually consented, and treatment resumed along with admission to the ICU. His blood pressure did respond nicely to the IV fluid bolus, and at this time he does not qualify for septic shock. Lab Data Attestation: I reviewed the patient's lab results. Labs: Laboratory Results - last 24 hr 01/13/21 01/13/21 01/13/21 01:45 01:45 01:45 WBC 19.6 H RBC 3.51 L Hgb 9.4 L Hct 33.2 L MCV 94.6 H MCH 26.8 L MCHC 28.3 L RDW Std Deviation 49.4 H RDW Coeff of Jo 14.3 Plt Count 430 MPV 11.6 Immature Gran % (Auto) 2.700 H Neut % (Auto) 88.6 H Lymph % (Auto) 2.6 L [place] % (Auto) 5.7 Eos % (Auto) 0.1 Baso % (Auto) 0.3 Absolute Neuts (auto) 17.4 H Absolute Lymphs (auto) 0.50 L Nucleated RBC % 0 Differential Comment SCANNED [place] Cells RARE ESR 61 H PT 17.6 H INR 1.5 APTT 36.9 H Sodium 122 L Potassium 5.7 H Chloride 87 L Carbon Dioxide 10.0 L Anion Gap 25 H BUN 53 H Creatinine 2.65 H Estim Creat Clear Calc 29.69 Est GFR (MDRD) Af Amer 31 L Est GFR (MDRD) Non-Af 26 L BUN/Creatinine Ratio 20.0 Glucose 800 H* Lactic Acid Calcium 9.1 Magnesium Total Bilirubin 0.60 AST 7 L ALT 16 Alkaline Phosphatase 130 H C-React Prot Ext Range 421.00 H Total Protein 7.2 Albumin 2.2 L Globulin 5.0 H Albumin/Globulin Ratio 0.4 L Acetone Level 01/13/21 01/13/21 01/13/21 01:45 01:45 04:21 WBC RBC Hgb Hct MCV MCH MCHC RDW Std Deviation RDW Coeff of Jo Plt Count MPV Immature Gran % (Auto) Neut % (Auto) Lymph % (Auto) [place] % (Auto) Eos % (Auto) Baso % (Auto) Absolute Neuts (auto) Absolute Lymphs (auto) Nucleated RBC % Differential Comment [place] Cells ESR PT INR APTT Sodium Potassium Chloride Carbon Dioxide Anion Gap BUN Creatinine Estim Creat Clear Calc Est GFR (MDRD) Af Amer Est GFR (MDRD) Non-Af BUN/Creatinine Ratio Glucose Lactic Acid 2.3 H* Calcium Magnesium 2.5 Total Bilirubin AST ALT Alkaline Phosphatase C-React Prot Ext Range Total Protein Albumin Globulin Albumin/Globulin Ratio Acetone Level LARGE H ABG Data ABG results: ABG 01/13/21 03:58 Specimen Type ART Sample Site R Radial pH 7.09 L* Bicarbonate Actual 5.3 L Total CO2 6 Base Excess -25 L O2 Saturation 96 ABG pCO2 17.8 L* ABG pO2 105 H Kev Test Positive O2 Delivery Device Room Air Crit Call To/Read Back Yes Radiography Chest X-Ray - ED: 1 View, Read by ED Physician and No Acute Disease Diagnostic Testing: Radiology Impression Foot X-Ray 01/13/21 01:34 IMPRESSION: As above Electronically Signed: Froilan Kuo DO at 3:53 EDT Tel , Service support , Brain CT 01/13/21 01:37 IMPRESSION: Chronic involutional changes of the brain. Electronically Signed: Froilan Kuo DO at 3:30 EDT Tel , Service support , Chest X-Ray 01/13/21 03:15 IMPRESSION: Normal x-ray examination of the chest. Electronically Signed: Froilan Kuo DO at 3:55 EDT Tel , Service support , Second portable chest x-ray also read by myself, 1 view for line placement, good line placement in SVC no pneumothorax. EKG Initial EKG: Attestation: I personally reviewed and interpreted this EKG as follows: Interpretation: Sinus Rhythm and No Acute Injury Pattern Comments: Peaked T waves. No other changes of hyperkalemia. Procedures Other Procedures Procedure(s): Central line placement --indication: Access and insulin drip/DKA; patient had 2 peripheral IVs, they both somehow fell out or were removed although the patient does not think he pulled them out. After informed consent, the left subclavian vein site was prepped and draped in a sterile fashion, anesthetized with 7 cc plain 1% lidocaine, and dark nonpulsatile blood was found with finder needle, and a 16 cm triple-lumen catheter was placed via modified Seldinger technique without complication or difficulty. All 3 ports natalie back dark red blood and flushed without difficulty. Chest x-ray confirms good placement. No complications and tolerated well. Critical Care Time Critical care time (excluding procedures): 30-74 minutes (40 min), Including time spent:, Discussing w/Patient &/or Family/Seam Closer, Discussing w/Consultants, Arranging Admission or Transfer and Performing Direct Patient Care at Bedside Discharge Plan Dx/Rx/DC Orders Clinical Impression: DKA (diabetic ketoacidoses), Diabetic infection of left foot, Acute kidney injury, Sepsis Disposition Disposition: Acute Care Hospital [facility]
--- NOTE | 2021-01-13 01:37 | CT_ITS ---
STUDY: CT BRAIN WITHOUT CONTRAST REASON FOR EXAM: Male, 65 years old. altered mental status RADIATION DOSAGE (If Supplied By Facility): CTDIvol = ( 44.99 ) mGy, DLP = ( 829.85 ) mGycm TECHNIQUE: Transaxial CT imaging of the brain was performed without administration of intravenous contrast material. Individualized dose optimization techniques were used for this CT. COMPARISON: 02/15/2016 FINDINGS: Normal soft tissue structures. Normal calvarium. There is mild cerebral atrophy with widening of the extra-axial spaces and ventricular dilatation. There are areas of decreased attenuation within the white matter tracts of the supratentorial brain, consistent with microvascular disease changes. Normal basal ganglia and thalami. Normal brainstem. Normal cerebellum. There is no intracranial hemorrhage. There are no findings of an acute ischemic infarction. Normal visualized paranasal sinuses. CT/Brain/Head without Contrast IMPRESSION: Chronic involutional changes of the brain. Electronically Signed: Froilan Kuo DO at 3:30 EDT Tel , Service support ,
[2021-01-13] MEDS: 0.9% Normal Saline 1,000 ML 999 ML IV ×4 (01:45→08:40)
[2021-01-13 01:57] LABS: Erythrocyte Sedimentation Rate 61 mm/hr (0-20)
[2021-01-13 01:58] LABS: Absolute Neutrophil Count 17.4 X10^3/uL (2.0-7.7); Basophil# 0.05 X10^3/uL; Basophil% 0.3 % (0-1); Eosinophil# 0.01 X10^3/uL; Eosinophils% 0.1 % (0-5); Hematocrit 33.2 % (40-54); Hemoglobin 9.4 g/dL (13.0-16.5); Lymphocyte % 2.6 % (19-41); Mean Corp Hgb Conc 28.3 g/dL (32-36); Mean Corpuscular Hgb 26.8 pg (27.0-32.0); Mean Corpuscular Volume 94.6 fL (80-94); Mean Platelet Vol. 11.6 fl (6.2-12.0); Monocyte# 1.12 X10^3/uL; Monocyte% 5.7 % (0-10); NRBC Flagged by Analyzer 0 % (0-5); Neutrophil # 17.39 X10^3/uL (2.7-7.7); Neutrophil % 88.6 % (47-70); POSITIVE DIFFERENTIAL YES; Platelet Count 430 K/mm3 (150-450); RBC Distribution Width CV 14.3 % (11.6-14.6); RBC Distribution Width SD 49.4 fl (35.1-43.9); Red Blood Count 3.51 M/mm3 (4.6-6.2); White Blood Count 19.6 K/mm3 (4.4-11.0)
[2021-01-13 01:59] LABS: Differential Indicated SCAN CRITERIA MET
[2021-01-13] MEDS: Ondansetron 4 MG/2 ML Vial IV (02:00)
[2021-01-13 02:04] LABS: International Normalized Ratio 1.5; Prothrombin Time (Protime)PT. 17.6 SECONDS (11.7-14.9)
[2021-01-13 02:05] LABS: Partial Thromboplast Time 36.9 Seconds (24.1-36.2)
[2021-01-13 02:27] LABS: ALB/GLOB Ratio 0.4 RATIO (0.9-2.4); AST(SGOT) 7 U/L (15-37); Alanine Aminotransfer ALT/SGPT 16 U/L (16-61); Albumin, Serum 2.2 g/dL (3.2-5.0); Alkaline Phosphatase 130 U/L (45-117); Anion Gap 25 (5-15); BUN 53 mg/dL (7-18); Calcium,Total 9.1 mg/dL (8.5-10.1); Chloride 87 mmol/L (98-107); Creatinine, Serum 2.65 mg/dL (0.70-1.30); EST Glomerular Filtration Rate 26 mL/min (>60); Est Glom Filt Rate - Afr Amer 31 mL/min (>60); Estimated Creatinine Clearance 29.69 ml/min; Glucose 800 mg/dL (74-106); Lactic Acid 2.3 mmol/L (0.4-1.9); Potassium 5.7 mmol/L (3.5-5.1); Protein, Total 7.2 g/dL (6.4-8.2); Sodium Level 122 mmol/L (136-145)
[2021-01-13 02:33] LABS: Burr Cells RARE; Differential Comment SCANNED
[2021-01-13] MEDS: Metoclopramide 10 MG/2 ML Vial 5 MG IV (02:41)
--- NOTE | 2021-01-13 03:15 | RAD_ITS ---
STUDY: X-RAY CHEST REASON FOR EXAM: Male, 65 years old. altered mental status TECHNIQUE: Single AP portable view of the chest. COMPARISON: None. FINDINGS: The lungs are clear and expanded. There is no demonstrated pleural abnormality. Normal size heart. Normal mediastinum and manny. Normal visualized pulmonary arteries. Normal visualized aortic arch and descending thoracic aorta. Normal visualized thoracic spine. Normal visualized ribs, clavicles, and shoulders. There is no demonstrated abnormality of the visualized soft tissue structures of the upper abdomen. RAD/Chest 1 View (Portable) IMPRESSION: Normal x-ray examination of the chest. Electronically Signed: Froilan Kuo DO at 3:55 EDT Tel , Service support ,
--- NOTE | 2021-01-13 03:40 | ED.RN ---
3rd liter of 0.9Ns hung at this time. unable to scan, as it would end the 2nd unit that is not yet complete.
[2021-01-13 04:06] LABS: Allen Test Positive; Base Excess -25 mmol/L (-2 to +2); Bicarbonate 5.3 mmol/L (22-26); Blood Gas Specimen Type ART; O2 Delivery Device Room Air; PO2 105 mmHG (75-100); SITE R Radial; SO2 96 % (95-99); Total Carbon Dioxide 6 mmol/L; pCO2 17.8 mmHg (35-45); pH 7.09 (7.35-7.45)
--- NOTE | 2021-01-13 04:09 | CPS ---
ANAIS has critical values. Dr. Chance notified of critical values
--- NOTE | 2021-01-13 04:20 | HP.PCM.HOS_ITS ---
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 History is limited as the patient's kept replying to all questions as irritation. History was obtained for emergency department doctor who reported that a friend has been trying to get the patient into the hospital because patient's left heel wound appears to be worsening and patient finally gave in to come to the hospital. Reportedly he has stopped seen wound care for some time. [facility] Medical History (Updated 01/13/21 @ 06:[address] Bebo Stock MD) Diabetes Malnutrition Home Medications insulin aspart U-100 [Novolog Flexpen U-100 Insulin] 5 - 7 units SUBCUT TIDAC 08/13/17 [History Last Taken 10/25/20] cyclobenzaprine 10 mg PO TID PRN 10/25/20 [History Last Taken 10/25/20] dulaglutide 0.75 mg SQ FR 10/25/20 [History Last Taken 10/21/20] metoclopramide HCl 10 mg PO BIDCM PRN 10/25/20 [History Last Taken 2 Weeks Ago ~10/11/20] ondansetron 4 mg PO Q6H PRN 10/25/20 [History Last Taken 10/25/20] oxycodone 20 mg PO TID PRN PRN 10/25/20 [History Last Taken 10/25/20] pregabalin 150 mg PO 4X/DAY 10/25/20 [History Last Taken 10/25/20] testosterone 2 each TD QHS 10/25/20 [History Last Taken 10/24/20] cefdinir 300 mg PO BID #28 cap 10/28/20 [Rx Last Taken Unknown] insulin detemir U-100 35 unit SQ BID #1 insuln.pen 10/28/20 [Rx Last Taken Unknown] Allergy/AdvReac Type Severity Reaction Status Date / Time No Known Allergies Allergy Verified 01/13/21 01:19 other (The patient's did not provide information on family medical condition although same question was asked multiple times with nurse present.) Surgical History Below-knee amputation of right lower extremity Social History Smoking Status: Current every day smoker ROS Review of Systems ROS Unobtainable: other Details: Patient who is alert refused to provide further information. Vital Signs Vital Signs Vital Signs: 01/13/21 01:19 01/13/21 01:45 01/13/21 02:10 Temperature 97 F L 98.5 F Temperature Source Temporal Temporal Pulse Rate 104 H 103 H Respiratory Rate 20 H 22 H 18 Blood Pressure 114/68 102/52 L 95/51 L Blood Pressure Mean 83 68 65 Pulse Ox 100 Oxygen Delivery Method Room Air Room Air 01/13/21 02:20 01/13/21 02:25 01/13/21 02:59 Temperature 98.5 F 98.5 F 98.9 F Temperature Source Temporal Temporal Temporal Pulse Rate 103 H 105 H Respiratory Rate 16 18 Blood Pressure 95/52 L 91/45 L Blood Pressure Mean 66 60 Pulse Ox 98 Oxygen Delivery Method Room Air Physical Exam Narrative Alert. Does not answer questions to check orientation. Nontraumatic; normocephalic Lung clear to auscultate Heart sounds S1-S2. No murmur, gallop or rubs. Abdomen bowel sounds present soft, nontender nondistended Extremity: Malodorous wound of left heel. Swelling of left foot. Right below the knee amputation Lab / Micro Data Result Diagrams: 01/13/21 01:45 01/13/21 01:45 Labs: Laboratory Results - last 24 hr 01/13/21 01/13/21 01/13/21 01:45 01:45 01:45 WBC 19.6 H RBC 3.51 L Hgb 9.4 L Hct 33.2 L MCV 94.6 H MCH 26.8 L MCHC 28.3 L RDW Std Deviation 49.4 H RDW Coeff of Jo 14.3 Plt Count 430 MPV 11.6 Immature Gran % (Auto) 2.700 H Neut % (Auto) 88.6 H Lymph % (Auto) 2.6 L [place] % (Auto) 5.7 Eos % (Auto) 0.1 Baso % (Auto) 0.3 Absolute Neuts (auto) 17.4 H Absolute Lymphs (auto) 0.50 L Nucleated RBC % 0 Differential Comment SCANNED [place] Cells RARE ESR 61 H PT 17.6 H INR 1.5 APTT 36.9 H Sodium 122 L Potassium 5.7 H Chloride 87 L Carbon Dioxide 10.0 L Anion Gap 25 H BUN 53 H Creatinine 2.65 H Estim Creat Clear Calc 29.69 Est GFR (MDRD) Af Amer 31 L Est GFR (MDRD) Non-Af 26 L BUN/Creatinine Ratio 20.0 Glucose 800 H* Lactic Acid Calcium 9.1 Total Bilirubin 0.60 AST 7 L ALT 16 Alkaline Phosphatase 130 H C-React Prot Ext Range 421.00 H Total Protein 7.2 Albumin 2.2 L Globulin 5.0 H Albumin/Globulin Ratio 0.4 L 01/13/21 01:45 WBC RBC Hgb Hct MCV MCH MCHC RDW Std Deviation RDW Coeff of Jo Plt Count MPV Immature Gran % (Auto) Neut % (Auto) Lymph % (Auto) [place] % (Auto) Eos % (Auto) Baso % (Auto) Absolute Neuts (auto) Absolute Lymphs (auto) Nucleated RBC % Differential Comment [place] Cells ESR PT INR APTT Sodium Potassium Chloride Carbon Dioxide Anion Gap BUN Creatinine Estim Creat Clear Calc Est GFR (MDRD) Af Amer Est GFR (MDRD) Non-Af BUN/Creatinine Ratio Glucose Lactic Acid 2.3 H* Calcium Total Bilirubin AST ALT Alkaline Phosphatase C-React Prot Ext Range Total Protein Albumin Globulin Albumin/Globulin Ratio ABG Data ABG results: ABG 01/13/21 03:58 Specimen Type ART Sample Site R Radial pH 7.09 L* Bicarbonate Actual 5.3 L Total CO2 6 Base Excess -25 L O2 Saturation 96 ABG pCO2 17.8 L* ABG pO2 105 H Kev Test Positive O2 Delivery Device Room Air Crit Call To/Read Back Yes Radiology Impression Foot X-Ray 01/13/21 01:34 IMPRESSION: As above Electronically Signed: Froilan Kuo DO at 3:53 EDT Tel , Service support , Brain CT 01/13/21 01:37 IMPRESSION: Chronic involutional changes of the brain. Electronically Signed: Froilan Kuo DO at 3:30 EDT Tel , Service support , Chest X-Ray 01/13/21 03:15 IMPRESSION: Normal x-ray examination of the chest. Electronically Signed: Froilan Kuo at 3:55 EDT Tel , Service support , Assessment & Plan Assessment/Plan (1) Severe sepsis: (2) INFECTED DIABETIC ULCERS: (3) DKA (diabetic ketoacidoses): QUALIFIERS: Diabetes mellitus type: other specified (including YAAKOV) Diabetes mellitus complication detail: without coma Qualified Code(s): E13.10 - Other specified diabetes mellitus with ketoacidosis without coma PLAN: Severe sepsis secondary to infected diabetic ulcer SIRS criteria: White count of 19,600; neutrophilic predominance with lymphopenia. MAP of less than 65 Acute kidney injury with creatinine 2.65 with baseline creatinine around 1.01. Lactic acid of 2.3 Review of medical department labs showed elevated CRP and ESR. Blood culture was obtained at the emergency department; follow up. Trend lactic acid Old records reviewed showed that culture on left wound obtained on 10/26/2020 showed polymicrobial infection. Given vancomycin and Zosyn at the emergency department and continued. Admit to intensive care unit. Consult type caster and podiatry. Trend CBC and BMP. DKA Review of Emergency department labs showed a sodium level of 122. Glucose of 800. CO2 of 10. pH of 7.09. Check acetone level and hemoglobin A1c. Insulin drip ordered at the emergency department. Emergency department doctor to put in a central line and start patient on insulin drip. Reportedly p atient's removed peripheral line originally placed and there is been difficulty putting in a new peripheral line. Insulin bolus ordered at the emergency department. While on the floor we will start patient on maintenance infusion of normal saline at 150 mL's per hour. Potassium is high no need to replace at this time. BMP every 4 hours to calculate anion gap. N.p.o. for now. Patient received IV fluids at the emergency department and kept asking for water. Ice chips given at the emergency department. Morphine as needed ordered ERIKA Review of [place] department labs showed a creatinine of 2.65 on presentation. Baseline creatinine is around 1.01. BUN is 53. BUN over creatinine is 20. IV fluids as above Avoid nephrotoxins Trend BMP. Urine sodium and urine creatinine ordered. Tobacco abuse Counseled. DVT prophylaxis: SCD since the patient is a candidate of debridement/surgery. Visit Charges Inpatient E&M: 25395 Init Hosp L3
--- NOTE | 2021-01-13 04:40 | ED.RN ---
IV ACCESS IN RAC LOST. MD AWARE. WILL ORDER CENTRAL LINE. PT HAS VANC & IVF INFUSING IN L HAND.
[2021-01-13 04:44] LABS: Magnesium 2.5 mg/dL (1.6-2.6)
--- NOTE | 2021-01-13 04:58 | ED.RN ---
PT REMOVED IV ACCESS FROM RT HAND. CURRENTLY HAS NO IV ACCESS. DR MCCAULEY AWARE. PLAN IS TO INSERT CENTRAL LINE.
[2021-01-13 05:53] LABS: Reflex Lactate? Y
--- NOTE | 2021-01-13 06:51 | RAD_ITS ---
STUDY: X-RAY CHEST REASON FOR EXAM: Male, 65 years old. Line placement TECHNIQUE: Single AP portable view of the chest. COMPARISON: None. FINDINGS: There is a left-sided subclavian line tip is in the superior vena cava. The lungs are clear and expanded. There is no demonstrated pleural abnormality. Normal size heart. Normal mediastinum and manny. Normal visualized pulmonary arteries. Normal visualized aortic arch and descending thoracic aorta. There are diffuse degenerative changes of the visualized thoracic spine. Normal visualized ribs, clavicles, and shoulders. There is no demonstrated abnormality of the visualized soft tissue structures of the upper abdomen. RAD/CXR for Line Placement IMPRESSION: There is a left-sided subclavian line and the tip is in superior vena cava. No visualized acute focal infiltrate. Electronically Signed: Alissa Allen MD at 7:58 EDT Tel , Service support ,
[2021-01-13 07:25] LABS: Bedside Glucose > 500 mg/dL (70-110)
[2021-01-13 07:25] LABS: Bacteria 0 SEEN /hpf (None Seen); Mucous, Urine 0 SEEN /hpf (<or=2+); Squamous Epithelial Cells - UA 0 SEEN /hpf (0-5); White Blood Cells 0 SEEN /hpf (0-5)
[2021-01-13 07:28] LABS: Color, Urine Yellow (Yellow); Glucose, Dipstick 1000 mg/dl (Normal); Ketone-Dipstick 50 mg/dl (Negative); Leukocyte Esterase-Dipstick Negative /ul (Negative); Nitrite-Dipstick Negative (Negative); Occult Blood-Urine 25 /ul (Negative); Protein-Dipstick 15 mg/dl (Negative); Urine Bilirubin Dipstick Negative (Negative); Urine Clarity Clear (Clear); Urine Urobilinogen Normal (Normal)
[2021-01-13 07:34] LABS: Red Blood Cells-Urine 0-5 SEEN /hpf (0-5)
--- NOTE | 2021-01-13 07:42 | ED.RN ---
REPORT GIVEN TO JASMINE LIVESTOCK NUTRITION TERRITORY MANAGER.
[2021-01-13 07:44] LABS: Lactic Acid 1.7 mmol/L (0.4-1.9)
[2021-01-13] MEDS: 0.9% Normal Saline 1,000 ML 150 ML IV (08:26)
--- NOTE | 2021-01-13 08:29 | CON.PCM_ITS ---
Assessment & Plan Assessment/Plan (1) Non-pressure chronic ulcer of left heel and midfoot with necrosis of bone: (2) Acute osteomyelitis of left hindfoot: (3) Severe sepsis: (4) DKA (diabetic ketoacidoses): QUALIFIERS: Diabetes mellitus complication detail: without coma Diabetes mellitus type: other specified (including YAAKOV) Qualified Code(s): E13.10 - Other specified diabetes mellitus with ketoacidosis without coma (5) Diabetic neuropathy: QUALIFIERS: Diabetes mellitus complication detail: diabetic polyneuropathy Diabetes mellitus type: type 2 Qualified Code(s): E11.42 - Type 2 diabetes mellitus with diabetic polyneuropathy (6) Peripheral vascular disease: PLAN: Reviewed diagnostic data. Patient with severe left heel infection and osteomyelitis with noted emphysema to the heel. There is significant gangrene and maloder. Reviewed left foot xrays and lab results. Discussed with patient. Discussed wound debridement of infected and necrotic/ soft tissue and bone. This was recommended to be done as soon as possible. Reviewed rationale of this with patient. He was intially resistant to this - he in fact stated in his opinion it was not even infected. After further discussing with him he was agreeable to proceed with the heel debridement. Discussed with Dr. Peña, and once cleared from medial standpoint we will plan to proceed with the debridement surgery to the left foot/heel. HPI Consult Data Date of Consult: 01/13/21 HPI Narrative HPI Narrative: MARIAMA HUDDLESTON, is a 65 M who presents with left heel ulcer which is infected. Patient relates in his opinion the heel/wound is not infected. Patient found to have increased WBC, increased potassium, DKA, hypotension, and ERIKA - being treated in ER this morning. Left foot xrays with osteomyelitis and subcutaneous emphysema to the left heel. Patient has been started on IV antibioitcs, and plans to be admitted to ICU. Patient with hx of right lower extremity amputation. Patient sitting up in bed. Blood sugar was 800 this morning when getting labs in ER. [facility] Medical History Diabetes Malnutrition Home Medications insulin aspart U-100 [Novolog Flexpen U-100 Insulin] 5 - 7 units SUBCUT TIDAC 08/13/17 [History Last Taken 10/25/20] cyclobenzaprine 10 mg PO TID PRN 10/25/20 [History Last Taken 10/25/20] dulaglutide 0.75 mg SQ FR 10/25/20 [History Last Taken 10/21/20] metoclopramide HCl 10 mg PO BIDCM PRN 10/25/20 [History Last Taken 2 Weeks Ago ~10/11/20] ondansetron 4 mg PO Q6H PRN 10/25/20 [History Last Taken 10/25/20] oxycodone 20 mg PO TID PRN PRN 10/25/20 [History Last Taken 10/25/20] pregabalin 150 mg PO 4X/DAY 10/25/20 [History Last Taken 10/25/20] testosterone 2 each TD QHS 10/25/20 [History Last Taken 10/24/20] cefdinir 300 mg PO BID #28 cap 10/28/20 [Rx Last Taken Unknown] insulin detemir U-100 35 unit SQ BID #1 insuln.pen 10/28/20 [Rx Last Taken Unknown] Allergy/AdvReac Type Severity Reaction Status Date / Time No Known Allergies Allergy Verified 01/13/21 01:19 Surgical History Below-knee amputation of right lower extremity Social History Smoking Status: Current every day smoker ROS Constitutional Constitutional: Denies chills or fever(s) Physical Exam Const alert and no apparent distress General Appearance: frail and appears older than stated age Nutritional Appearance: thin Extremity Extremity Narrative: Left heel with significant necrosis/gangrene and maloder present down to bone, site is boggy and grossly infected, there is hair in the wound site; there is some cellulitis and edema present, there are some superficial abrasions diffusely to the leg as well. No other open lesions or acute ischemia to the left foot/ankle or leg. Patient with peripheral neuropathy to the left foot. Lab / Micro Data Result Diagrams: 01/13/21 11:45 01/13/21 16:15 Labs: Laboratory Results - last 24 hr 01/13/21 01/13/21 01/13/21 01:45 01:45 01:45 WBC 19.6 H RBC 3.51 L Hgb 9.4 L Hct 33.2 L MCV 94.6 H MCH 26.8 L MCHC 28.3 L RDW Std Deviation 49.4 H RDW Coeff of Jo 14.3 Plt Count 430 MPV 11.6 Immature Gran % (Auto) 2.700 H Neut % (Auto) 88.6 H Lymph % (Auto) 2.6 L [place] % (Auto) 5.7 Eos % (Auto) 0.1 Baso % (Auto) 0.3 Absolute Neuts (auto) 17.4 H Absolute Lymphs (auto) 0.50 L Nucleated RBC % 0 Differential Comment SCANNED [place] Cells RARE ESR 61 H PT 17.6 H INR 1.5 APTT 36.9 H Sodium 122 L Potassium 5.7 H Chloride 87 L Carbon Dioxide 10.0 L Anion Gap 25 H BUN 53 H Creatinine 2.65 H Estim Creat Clear Calc 29.69 Est GFR (MDRD) Af Amer 31 L Est GFR (MDRD) Non-Af 26 L BUN/Creatinine Ratio 20.0 Glucose 800 H* Lactic Acid Calcium 9.1 Magnesium Total Bilirubin 0.60 AST 7 L ALT 16 Alkaline Phosphatase 130 H C-React Prot Ext Range 421.00 H Total Protein 7.2 Albumin 2.2 L Globulin 5.0 H Albumin/Globulin Ratio 0.4 L Urine Color Urine Clarity Urine pH Ur Specific [place] Urine Protein Urine Glucose (UA) Urine Ketones Urine Occult Blood Urine Nitrite Urine Bilirubin Urine Urobilinogen Ur Leukocyte Esterase Urine RBC Urine WBC Ur Squamous [place] Cells Urine Bacteria Urine Mucus Acetone Level POC Glucose 01/13/21 01/13/21 01/13/21 01:45 01:45 04:21 WBC RBC Hgb Hct MCV MCH MCHC RDW Std Deviation RDW Coeff of Jo Plt Count MPV Immature Gran % (Auto) Neut % (Auto) Lymph % (Auto) [place] % (Auto) Eos % (Auto) Baso % (Auto) Absolute Neuts (auto) Absolute Lymphs (auto) Nucleated RBC % Differential Comment [place] Cells ESR PT INR APTT Sodium Potassium Chloride Carbon Dioxide Anion Gap BUN Creatinine Estim Creat Clear Calc Est GFR (MDRD) Af Amer Est GFR (MDRD) Non-Af BUN/Creatinine Ratio Glucose Lactic Acid 2.3 H* Calcium Magnesium 2.5 Total Bilirubin AST ALT Alkaline Phosphatase C-React Prot Ext Range Total Protein Albumin Globulin Albumin/Globulin Ratio Urine Color Urine Clarity Urine pH Ur Specific [place] Urine Protein Urine Glucose (UA) Urine Ketones Urine Occult Blood Urine Nitrite Urine Bilirubin Urine Urobilinogen Ur Leukocyte Esterase Urine RBC Urine WBC Ur Squamous Epith Cells Urine Bacteria Urine Mucus Acetone Level LARGE H POC Glucose 01/13/21 01/13/21 01/13/21 07:11 07:14 07:15 WBC RBC Hgb Hct MCV MCH MCHC RDW Std Deviation RDW Coeff of Jo Plt Count MPV Immature Gran % (Auto) Neut % (Auto) Lymph % (Auto) [place] % (Auto) Eos % (Auto) Baso % (Auto) Absolute Neuts (auto) Absolute Lymphs (auto) Nucleated RBC % Differential Comment [place] Cells ESR PT INR APTT Sodium Potassium Chloride Carbon Dioxide Anion Gap BUN Creatinine Estim Creat Clear Calc Est GFR (MDRD) Af Amer Est GFR (MDRD) Non-Af BUN/Creatinine Ratio Glucose Lactic Acid 1.7 Calcium Magnesium Total Bilirubin AST ALT Alkaline Phosphatase C-React Prot Ext Range Total Protein Albumin Globulin Albumin/Globulin Ratio Urine Color Yellow Urine Clarity Clear Urine pH 5.0 Ur Specific [place] 1.020 Urine Protein 15 H Urine Glucose (UA) 1000 H Urine Ketones 50 H Urine Occult Blood 25 H Urine Nitrite Negative Urine Bilirubin Negative Urine Urobilinogen Normal Ur Leukocyte Esterase Negative Urine RBC 0-5 SEEN Urine WBC 0 SEEN Ur Squamous Epith Cells 0 SEEN Urine Bacteria 0 SEEN Urine Mucus 0 SEEN Acetone Level POC Glucose > 500 H* ABG Data ABG results: ABG 01/13/21 03:58 Specimen Type ART Sample Site R Radial pH 7.09 L* Bicarbonate Actual 5.3 L Total CO2 6 Base Excess -25 L O2 Saturation 96 ABG pCO2 17.8 L* ABG pO2 105 H Kev Test Positive O2 Delivery Device Room Air Crit Call To/Read Back Yes Radiology Impression Foot X-Ray 01/13/21 01:34 IMPRESSION: As above Electronically Signed: Froilan Kuo DO at 3:53 EDT Tel , Service support , Brain CT 01/13/21 01:37 IMPRESSION: Chronic involutional changes of the brain. Electronically Signed: Froilan Kuo DO at 3:30 EDT Tel , Service support , Chest X-Ray 01/13/21 03:15 IMPRESSION: Normal x-ray examination of the chest. Electronically Signed: Froilan Kuo DO at 3:55 EDT Tel , Service support , Chest X-Ray 01/13/21 06:51 IMPRESSION: There is a left-sided subclavian line and the tip is in superior vena cava. No visualized acute focal infiltrate. Electronically Signed: Alissa Allen MD at 7:58 EDT Tel , Service support ,
[2021-01-13 08:55] LABS: Anion Gap 24 (5-15); BUN 53 mg/dL (7-18); BUN/Creat Ratio 20.4 RATIO (10-20); Calcium,Total 8.1 mg/dL (8.5-10.1); Chloride 94 mmol/L (98-107); EST Glomerular Filtration Rate 26 mL/min (>60); Est Glom Filt Rate - Afr Amer 32 mL/min (>60); Estimated Creatinine Clearance 30.26 ml/min; Glucose 690 mg/dL (74-106); Potassium 5.3 mmol/L (3.5-5.1); Sodium Level 127 mmol/L (136-145)
[2021-01-13 09:10] LABS: Hemoglobin A1c 12.4 % (3.8-5.6)
--- NOTE | 2021-01-13 09:32 | CON.PCM.CC_ITS ---
Assessment & Plan Assessment/Plan (1) Acute osteomyelitis of left hindfoot: (2) Non-pressure chronic ulcer of left heel and midfoot with necrosis of bone: (3) Severe sepsis: (4) DKA (diabetic ketoacidoses): QUALIFIERS: Diabetes mellitus type: other specified (including YAAKOV) Diabetes mellitus complication detail: without coma Qualified Code(s): E13.10 - Other specified diabetes mellitus with ketoacidosis without coma (5) Diabetic gastroparesis: (6) Peripheral vascular disease: (7) Amputation of right lower extremity: (8) Diabetes mellitus with polyneuropathy: (9) Acute kidney injury: PLAN: RECOMMENDATIONS: 1. Agree with empiric antibiotics. Add clindamycin given possible gas formation 2. Aggressive fluid resuscitation 3. DKA protocol 4. Surgical exploration once hemodynamically stable 5. Repeat CBC with next BMP for possible transfusion given need for surgery 6. Avoid nephrotoxins. Follow BMP. 7. Potential need for guardianship. Social work/case management to follow IMPRESSIONS: 1. Severe sepsis secondary to left calcaneal infected wound Patient with tachycardia and hypotension with evidence of endorgan damage including acute kidney injury. Patient has received fluid boluses. Patient is likely significantly volume depleted given acute DKA and history of gastroparesis. We will continue to volume resuscitate. Cannot exclude the need for pressors moving forward. There is some concern for possible air on x-ray, so addition of clindamycin can be helpful. Cannot exclude the need for significant amputation. Podiatry is currently following. 2. Acute DKA secondary to problem #1 Patient with attempted compensation from a respiratory standpoint for significant acidosis. Acidosis is likely a mixed metabolic acidosis. Patient is on the DKA protocol. Continue to follow. Continue insulin drip. 3. Acute kidney injury Baseline renal function appears to be approximately 1. No indication for renal replacement therapy at this time, but will have to follow closely as patient appears to have prerenal etiology. Volume resuscitation is underway. Potassium is significantly elevated, but this is likely complicated by acute DKA. 4. Malnutrition/multiple diabetic complications including peripheral vascular disease, gastroparesis and delayed healing Patient with multiple wounds at various stages of healing. Patient will be difficult to recover given his lack of compliance and comorbidities associated with diabetes. Wound nurse has been contacted. Cultures have been taken. 5. Poor insight/malnutrition/lack of follow-up/anemia Complicates care, management, recovery and prognosis. Patient appears to have progressed significantly since last visit in the wound center. Patient may require evaluation for protective services versus emergency guardianship. Social work/case management to follow. Patient appears to be relatively dehydrated, so concerned that hemoglobin is overestimated on initial CBC. This will be rechecked. Cannot exclude the need for a blood transfusion prior to surgical intervention. Clinical suspicion for bone marrow suppression secondary to chronic wounds. TIME: 33 minutes critical care time spent addressing patient's severe sepsis, acute DKA, acute kidney injury, optimization for surgery, review of all data and collaboration with care team (8:30 AM to 10 AM) HPI Consult Data Date of Consult: 01/13/21 HPI Narrative HPI Narrative: MARIAMA HUDDLESTON is a 65-year-old male, with past medical history listed below, who presented to [facility] on 01/13/2021 via EMS secondary to progressive weakness and concerned about lower extremity wound. Patient has a history of chronic lower extremity wounds, but was lost to follow-up approximately 2 to 3 months ago. Patient reportedly was convinced by his neighbor to come into the hospital. Patient lives independently at baseline. In the ER, patient was afebrile, but tachycardic as high as 105 bpm. Patient became progressively hypotensive with a blood pressure of 88/52. Patient has tolerated room air well. ER physician noted significant wound on the left hindfoot and anterior ankle. Patient was given a 30 cc/kg IV bolus and started on empiric antibiotics following panculture. Patient was also noted to have significant hyperglycemia with a glucose over 800 and was started on an insulin drip. Laboratory work-up showed a white blood cell count of 19.6, hemoglobin of 9.4 with slightly elevated PTT at 36.9. Potassium was elevated at 5.7, but bicarbonate was decreased to 10. BUN was elevated at 53 with creatinine of 2.65. CRP was elevated at 421 with alk phos of 130. An ABG showed a partially compensated metabolic acidosis with a PCO2 of 17.8 and PO2 of [address] of the head and chest x-ray were unremarkable. Foot x-ray showed possible gas and decrease in calcaneal density. On arrival to the intensive care unit, patient was quite cantankerous. Patient was very resistant to examination. Patient states that he has had his wounds and peripheral neuropathy for months and came in because his neighbor said it was appropriate. Patient did state that he is not interested in any further amputations. Patient does not check his blood sugars on a routine basis. Patient is not reporting any special diet. Patient was very resistant to a complete review of systems, so this history would be considered limited. [facility] Medical History Diabetes Malnutrition Home Medications insulin aspart U-100 [Novolog Flexpen U-100 Insulin] 5 - 7 units SUBCUT TIDAC 08/13/17 [History Last Taken 10/25/20] cyclobenzaprine 10 mg PO TID PRN 10/25/20 [History Last Taken 10/25/20] dulaglutide 0.75 mg SQ FR 10/25/20 [History Last Taken 10/21/20] metoclopramide HCl 10 mg PO BIDCM PRN 10/25/20 [History Last Taken 2 Weeks Ago ~10/11/20] ondansetron 4 mg PO Q6H PRN 10/25/20 [History Last Taken 10/25/20] oxycodone 20 mg PO TID PRN PRN 10/25/20 [History Last Taken 10/25/20] pregabalin 150 mg PO 4X/DAY 10/25/20 [History Last Taken 10/25/20] testosterone 2 each TD QHS 10/25/20 [History Last Taken 10/24/20] cefdinir 300 mg PO BID #28 cap 10/28/20 [Rx Last Taken Unknown] insulin detemir U-100 35 unit SQ BID #1 insuln.pen 10/28/20 [Rx Last Taken Unknown] Allergy/AdvReac Type Severity Reaction Status Date / Time No Known Allergies Allergy Verified 01/13/21 01:19 Surgical History Below-knee amputation of right lower extremity Social History Smoking Status: Current every day smoker ROS Review of Systems ROS Unobtainable: other Details: Patient cooperation Physical Exam Const alert and oriented x3 Constitutional Narrative: Smells of possible Pseudomonas infection General Appearance: uncooperative, disheveled, ill appearing, frail and appears older than stated age Exam Limitations: behavioral limitations Nutritional Appearance: cachectic HEENT normocephalic and external ears normal Head and Scalp: atraumatic Eyes PERRL and EOMs intact bilaterally Neck supple, no JVD and no carotid bruits Lymph Lymphatic: lymphadenopathy Lymphadenopathy Laterality: bilateral Chest inspection of chest normal and palpation of chest normal Resp normal respiratory effort and clear to auscultation bilaterally Effort and Inspection: Negative for stridor, actively coughing or uses accessory muscles Auscultation: diminished lung sounds; Negative for rales, rhonchi or wheezes Cardio no murmurs, no rub and no gallops Rate: tachycardic Peripheral Pulses: Negative for dorsalis pedis pulses present GI normal to inspection, nondistended, normoactive bowel sounds and soft to palpation Extremity General Extremity: clubbing; Negative for edema Skin Skin Narrative: Vascular insufficiency changes of all extremities. Wound Narrative: Multiple superficial ulcers in various stages of healing. Malodorous lesions noted. Left calcaneal heel wound described accurately in nursing notes. No crepitus appreciated. Nails: dystrophic and yellow and thickened Neuro CN's II-XII intact bilaterally Psych cooperative and affect normal Lab / Micro Data Result Diagrams: 01/13/21 01:45 01/13/21 08:30 Labs: Laboratory Results - last 24 hr 01/13/21 01/13/21 01/13/21 01:45 01:45 01:45 WBC 19.6 H RBC 3.51 L Hgb 9.4 L Hct 33.2 L MCV 94.6 H MCH 26.8 L MCHC 28.3 L RDW Std Deviation 49.4 H RDW Coeff of Jo 14.3 Plt Count 430 MPV 11.6 Immature Gran % (Auto) 2.700 H Neut % (Auto) 88.6 H Lymph % (Auto) 2.6 L [place] % (Auto) 5.7 Eos % (Auto) 0.1 Baso % (Auto) 0.3 Absolute Neuts (auto) 17.4 H Absolute Lymphs (auto) 0.50 L Nucleated RBC % 0 Differential Comment SCANNED [place] Cells RARE ESR 61 H PT 17.6 H INR 1.5 APTT 36.9 H Sodium 122 L Potassium 5.7 H Chloride 87 L Carbon Dioxide 10.0 L Anion Gap 25 H BUN 53 H Creatinine 2.65 H Estim Creat Clear Calc 29.69 Est GFR (MDRD) Af Amer 31 L Est GFR (MDRD) Non-Af 26 L BUN/Creatinine Ratio 20.0 Glucose 800 H* Hemoglobin A1c Lactic Acid Calcium 9.1 Magnesium Total Bilirubin 0.60 AST 7 L ALT 16 Alkaline Phosphatase 130 H C-React Prot Ext Range 421.00 H Total Protein 7.2 Albumin 2.2 L Globulin 5.0 H Albumin/Globulin Ratio 0.4 L Urine Color Urine Clarity Urine pH Ur Specific [place] Urine Protein Urine Glucose (UA) Urine Ketones Urine Occult Blood Urine Nitrite Urine Bilirubin Urine Urobilinogen Ur Leukocyte Esterase Urine RBC Urine WBC Ur Squamous Epith Cells Urine Bacteria Urine Mucus Acetone Level POC Glucose 01/13/21 01/13/21 01/13/21 01:45 01:45 01:45 WBC RBC Hgb Hct MCV MCH MCHC RDW Std Deviation RDW Coeff of Jo Plt Count MPV Immature Gran % (Auto) Neut % (Auto) Lymph % (Auto) [place] % (Auto) Eos % (Auto) Baso % (Auto) Absolute Neuts (auto) Absolute Lymphs (auto) Nucleated RBC % Differential Comment [place] Cells ESR PT INR APTT Sodium Potassium Chloride Carbon Dioxide Anion Gap BUN Creatinine Estim Creat Clear Calc Est GFR (MDRD) Af Amer Est GFR (MDRD) Non-Af BUN/Creatinine Ratio Glucose Hemoglobin A1c 12.4 H Lactic Acid 2.3 H* Calcium Magnesium 2.5 Total Bilirubin AST ALT Alkaline Phosphatase C-React Prot Ext Range Total Protein Albumin Globulin Albumin/Globulin Ratio Urine Color Urine Clarity Urine pH Ur Specific [place] Urine Protein Urine Glucose (UA) Urine Ketones Urine Occult Blood Urine Nitrite Urine Bilirubin Urine Urobilinogen Ur Leukocyte Esterase Urine RBC Urine WBC Ur Squamous Epith Cells Urine Bacteria Urine Mucus Acetone Level POC Glucose 01/13/21 01/13/21 01/13/21 04:21 07:11 07:14 WBC RBC Hgb Hct MCV MCH MCHC RDW Std Deviation RDW Coeff of Jo Plt Count MPV Immature Gran % (Auto) Neut % (Auto) Lymph % (Auto) [place] % (Auto) Eos % (Auto) Baso % (Auto) Absolute Neuts (auto) Absolute Lymphs (auto) Nucleated RBC % Differential Comment [place] Cells ESR PT INR APTT Sodium Potassium Chloride Carbon Dioxide Anion Gap BUN Creatinine Estim Creat Clear Calc Est GFR (MDRD) Af Amer Est GFR (MDRD) Non-Af BUN/Creatinine Ratio Glucose Hemoglobin A1c Lactic Acid 1.7 Calcium Magnesium Total Bilirubin AST ALT Alkaline Phosphatase C-React Prot Ext Range Total Protein Albumin Globulin Albumin/Globulin Ratio Urine Color Urine Clarity Urine pH Ur Specific [place] Urine Protein Urine Glucose (UA) Urine Ketones Urine Occult Blood Urine Nitrite Urine Bilirubin Urine Urobilinogen Ur Leukocyte Esterase Urine RBC Urine WBC Ur Squamous Epith Cells Urine Bacteria Urine Mucus Acetone Level LARGE H POC Glucose > 500 H* 01/13/21 01/13/21 07:15 08:30 WBC RBC Hgb Hct MCV MCH MCHC RDW Std Deviation RDW Coeff of Jo Plt Count MPV Immature Gran % (Auto) Neut % (Auto) Lymph % (Auto) [place] % (Auto) Eos % (Auto) Baso % (Auto) Absolute Neuts (auto) Absolute Lymphs (auto) Nucleated RBC % Differential Comment [place] Cells ESR PT INR APTT Sodium 127 L Potassium 5.3 H Chloride 94 L Carbon Dioxide 9.0 L* Anion Gap 24 H BUN 53 H Creatinine 2.60 H Estim Creat Clear Calc 30.26 Est GFR (MDRD) Af Amer 32 L Est GFR (MDRD) Non-Af 26 L BUN/Creatinine Ratio 20.4 H Glucose 690 H* Hemoglobin A1c Lactic Acid Calcium 8.1 L Magnesium Total Bilirubin AST ALT Alkaline Phosphatase C-React Prot Ext Range Total Protein Albumin Globulin Albumin/Globulin Ratio Urine Color Yellow Urine Clarity Clear Urine pH 5.0 Ur Specific [place] 1.020 Urine Protein 15 H Urine Glucose (UA) 1000 H Urine Ketones 50 H Urine Occult Blood 25 H Urine Nitrite Negative Urine Bilirubin Negative Urine Urobilinogen Normal Ur Leukocyte Esterase Negative Urine RBC 0-5 SEEN Urine WBC 0 SEEN Ur Squamous Epith Cells 0 SEEN Urine Bacteria 0 SEEN Urine Mucus 0 SEEN Acetone Level POC Glucose ABG Data ABG results: ABG 01/13/21 03:58 Specimen Type ART Sample Site R Radial pH 7.09 L* Bicarbonate Actual 5.3 L Total CO2 6 Base Excess -25 L O2 Saturation 96 ABG pCO2 17.8 L* ABG pO2 105 H Kev Test Positive O2 Delivery Device Room Air Crit Call To/Read Back Yes Radiology Impression Foot X-Ray 01/13/21 01:34 IMPRESSION: As above Electronically Signed: Froilan Kuo DO at 3:53 EDT Tel , Service support , Brain CT 01/13/21 01:37 IMPRESSION: Chronic involutional changes of the brain. Electronically Signed: Froilan Kuo DO at 3:30 EDT Tel , Service support , Chest X-Ray 01/13/21 03:15 IMPRESSION: Normal x-ray examination of the chest. Electronically Signed: Froilan Kuo DO at 3:55 EDT Tel , Service support , Chest X-Ray 01/13/21 06:51 IMPRESSION: There is a left-sided subclavian line and the tip is in superior vena cava. No visualized acute focal infiltrate. Electronically Signed: Alissa Allen MD at 7:58 EDT Tel , Service support , Charges/Coding Procedures Pulmonary 9xxxx: [id number] Critical care first hour
[2021-01-13 09:45] LABS: Bedside Glucose > 500 mg/dL (70-110)
[2021-01-13 09:45] LABS: Bedside Glucose > 500 mg/dL (70-110)
[2021-01-13 09:45] LABS: AST(SGOT) 12 U/L (15-37); Alanine Aminotransfer ALT/SGPT 17 U/L (16-61); Albumin, Serum 1.8 g/dL (3.2-5.0); Alkaline Phosphatase 123 U/L (45-117); Bilirubin, Direct 0.13 mg/dL (0.00-0.30); Globulin 4.3 g/dL (2.2-4.2); Protein, Total 6.1 g/dL (6.4-8.2)
[2021-01-13] MEDS: Lactated Ringers 1,000 ML 999 ML IV (09:45)
--- NOTE | 2021-01-13 10:17 | PCM.RX.CS ---
Consult Pharmacy has been consulted to manage selected antiobiotic: Vancomycin Type of Consult: New start Suspected Infection: Skin/Soft tissue Prior Doses of Antibiotics Received/Current Regimen: PATIENT RECEIVED IN ER VANCOMYCIN 2000MG AND ZOSYN 3.375 Labs: Sodium 127 mmol/L (136-145) L 01/13/21 08:30 Potassium 5.3 mmol/L (3.5-5.1) H 01/13/21 08:30 Chloride 94 mmol/L (98-107) L 01/13/21 08:30 Carbon Dioxide 9.0 mmol/L (21.0-32.0) L* 01/13/21 08:30 Anion Gap 24 (5-15) H 01/13/21 08:30 BUN 53 mg/dL (7-18) H 01/13/21 08:30 Creatinine 2.60 mg/dL (0.70-1.30) H 01/13/21 08:30 Est GFR (MDRD) Af Amer 32 mL/min (>60) L 01/13/21 08:30 Est GFR (MDRD) Non-Af 26 mL/min (>60) L 01/13/21 08:30 BUN/Creatinine Ratio 20.4 RATIO (10-20) H 01/13/21 08:30 Glucose 690 mg/dL (74-106) H* 01/13/21 08:30 Pharmacy Plan for Drug Dosing: Pharmacy Service will continue to monitor and adjust dosing as required.
--- NOTE | 2021-01-13 10:18 | PCM.RX.CS ---
Consult Pharmacy has been consulted to manage selected antiobiotic: Vancomycin Type of Consult: New start Suspected Infection: Skin/Soft tissue Prior Doses of Antibiotics Received/Current Regimen: PATIENT RECEIVED VANCOMYCIN 2000MG AND ZOSYN IN ER. Labs: Sodium 127 mmol/L (136-145) L 01/13/21 08:30 Potassium 5.3 mmol/L (3.5-5.1) H 01/13/21 08:30 Chloride 94 mmol/L (98-107) L 01/13/21 08:30 Carbon Dioxide 9.0 mmol/L (21.0-32.0) L* 01/13/21 08:30 Anion Gap 24 (5-15) H 01/13/21 08:30 BUN 53 mg/dL (7-18) H 01/13/21 08:30 Creatinine 2.60 mg/dL (0.70-1.30) H 01/13/21 08:30 Est GFR (MDRD) Af Amer 32 mL/min (>60) L 01/13/21 08:30 Est GFR (MDRD) Non-Af 26 mL/min (>60) L 01/13/21 08:30 BUN/Creatinine Ratio 20.4 RATIO (10-20) H 01/13/21 08:30 Glucose 690 mg/dL (74-106) H* 01/13/21 08:30 Microbiology: MICROBIOLOGY IS PENDING Weight used for dosin.6 kg Estimated Creatinine Clearance: 28 Goal Trough: 15-20 mcg/mL Pharmacy Plan for Drug Dosing: START VANCOMYCIN 750MG EVERY 24 HOURS STARTING 01/14/21 @0330 DRAW TROUGH AT 0300 ON 01/15/21 Pharmacy Service will continue to monitor and adjust dosing as required. Follow-Up Labs: Trough Vancomycin - 0300 ON 01/15/21
--- NOTE | 2021-01-13 10:20 | NURSING ---
wound photo: left heel
[2021-01-13] MEDS: 0.9% Saline Lock 10 ML Syringe IV ×2 (10:54→20:03)
[2021-01-13 10:55] LABS: Bedside Glucose > 500 mg/dL (70-110)
--- NOTE | 2021-01-13 10:57 | CASEMGMT ---
Social Work SW attended ICU rounds. Pt admitted with right heel wound and to be taken to surgery today. Pt does have a LBKA as well. Pt lives at home alone with support of a neighbor/friend. SW will defer case at this time and will follow up for discharge planning when appropriate. BLAS Sanders
[2021-01-13 12:04] LABS: Absolute Lymphocyte Count 0.61 X10^3/uL (0.83-4.51); Absolute Neutrophil Count 14.4 X10^3/uL (2.0-7.7); Basophil# 0.02 X10^3/uL; Basophil% 0.1 % (0-1); Hematocrit 28.2 % (40-54); Hemoglobin 8.5 g/dL (13.0-16.5); Lymphocyte # 0.61 X10^3/ul (0.83-4.51); Lymphocyte % 3.8 % (19-41); Mean Corp Hgb Conc 30.1 g/dL (32-36); Mean Corpuscular Hgb 26.6 pg (27.0-32.0); Mean Corpuscular Volume 88.4 fL (80-94); Monocyte# 0.73 X10^3/uL; Monocyte% 4.6 % (0-10); NRBC Flagged by Analyzer 0 % (0-5); Neutrophil % 90.2 % (47-70); Platelet Count 382 K/mm3 (150-450); RBC Distribution Width CV 13.7 % (11.6-14.6); RBC Distribution Width SD 44.1 fl (35.1-43.9); Red Blood Count 3.19 M/mm3 (4.6-6.2)
[2021-01-13 12:10] LABS: Bedside Glucose 480 mg/dL (70-110)
[2021-01-13 12:37] LABS: Anion Gap 18 (5-15); BUN 51 mg/dL (7-18); BUN/Creat Ratio 21.4 RATIO (10-20); Calcium,Total 7.8 mg/dL (8.5-10.1); Chloride 100 mmol/L (98-107); Creatinine, Serum 2.38 mg/dL (0.70-1.30); EST Glomerular Filtration Rate 29 mL/min (>60); Est Glom Filt Rate - Afr Amer 35 mL/min (>60); Estimated Creatinine Clearance 30.93 ml/min; Potassium 4.6 mmol/L (3.5-5.1); Sodium Level 132 mmol/L (136-145)
[2021-01-13 12:38] LABS: Glucose 491 mg/dL (74-106)
[2021-01-13 13:05] LABS: Bedside Glucose 423 mg/dL (70-110)
--- NOTE | 2021-01-13 13:07 | CON.PCM.ID_ITS ---
Assessment & Plan Assessment/Plan (1) Acute osteomyelitis of left hindfoot: PLAN: On empiric vanc/zosyn/clinda. Wound cx 10/2020 with klebs, enterobacter, strep, enterococcus, CoNS, corynebacter, and anaerobes. OR plan dieudonne for today. Counseled re: importance of covid shot after discharge. Will follow, thank you, d/w nursing. (2) DKA (diabetic ketoacidoses): QUALIFIERS: Diabetes mellitus type: other specified (including YAAKOV) Diabetes mellitus complication detail: without coma Qualified Code(s): E13.10 - Other specified diabetes mellitus with ketoacidosis without coma (3) Severe sepsis: HPI Consult Data Date of Consult: 01/13/21 HPI Narrative HPI Narrative: MARIAMA HUDDLESTON, is a 65 M with h/o DM, R BKA, presented early AM with altered mental status by EMS after friend called 911. Reported worsening L heel ulcer. No fever. Glucose of 800. Admitted to icu with insulin gtt, vanc/zosyn/clinda. Recent admit 10/2020 with polymicrobial foot infection, discharged on omnicef. Mental status and BP improving, plan is for OR today for foot I&D. Has not gotten covid vaccine, not interested in it. Full ROS performed and neg except as noted above. [facility] Medical History Diabetes Malnutrition Home Medications insulin aspart U-100 [Novolog Flexpen U-100 Insulin] 5 - 7 units SUBCUT TIDAC 08/13/17 [History Last Taken 10/25/20] cyclobenzaprine 10 mg PO TID PRN 10/25/20 [History Last Taken 10/25/20] dulaglutide 0.75 mg SQ FR 10/25/20 [History Last Taken 10/21/20] metoclopramide HCl 10 mg PO BIDCM PRN 10/25/20 [History Last Taken 2 Weeks Ago ~10/11/20] ondansetron 4 mg PO Q6H PRN 10/25/20 [History Last Taken 10/25/20] oxycodone 20 mg PO TID PRN PRN 10/25/20 [History Last Taken 10/25/20] pregabalin 150 mg PO 4X/DAY 10/25/20 [History Last Taken 10/25/20] testosterone 2 each TD QHS 10/25/20 [History Last Taken 10/24/20] cefdinir 300 mg PO BID #28 cap 10/28/20 [Rx Last Taken Unknown] insulin detemir U-100 35 unit SQ BID #1 insuln.pen 10/28/20 [Rx Last Taken Unknown] Allergy/AdvReac Type Severity Reaction Status Date / Time No Known Allergies Allergy Verified 01/13/21 01:19 Surgical History Below-knee amputation of right lower extremity Social History Smoking Status: Current every day smoker Physical Exam Const oriented x3 General Appearance: cooperative and lethargic HEENT normocephalic and head/scalp atraumatic Eyes PERRL and EOMs intact bilaterally Neck supple and No nodes Resp normal air movement and clear to auscultation bilaterally Cardio Rate: tachycardic GI normal to inspection, nondistended, normoactive bowel sounds Skin Skin Narrative: reviewed wound photo. RLE s/p BKA. Shallow ulcer under R patella. Neuro CN's II-XII intact bilaterally Lab / Micro Data Result Diagrams: 01/13/21 11:45 01/13/21 11:45 Labs: Laboratory Results - last 24 hr 01/13/21 01/13/21 01/13/21 01:45 01:45 01:45 WBC 19.6 H RBC 3.51 L Hgb 9.4 L Hct 33.2 L MCV 94.6 H MCH 26.8 L MCHC 28.3 L RDW Std Deviation 49.4 H RDW Coeff of Jo 14.3 Plt Count 430 MPV 11.6 Immature Gran % (Auto) 2.700 H Neut % (Auto) 88.6 H Lymph % (Auto) 2.6 L Greenlee % (Auto) 5.7 Eos % (Auto) 0.1 Baso % (Auto) 0.3 Absolute Neuts (auto) 17.4 H Absolute Lymphs (auto) 0.50 L Nucleated RBC % 0 Differential Comment SCANNED Troy Cells RARE ESR 61 H PT 17.6 H INR 1.5 APTT 36.9 H Sodium 122 L Potassium 5.7 H Chloride 87 L Carbon Dioxide 10.0 L Anion Gap 25 H BUN 53 H Creatinine 2.65 H Estim Creat Clear Calc 29.69 Est GFR (MDRD) Af Amer 31 L Est GFR (MDRD) Non-Af 26 L BUN/Creatinine Ratio 20.0 Glucose 800 H* Hemoglobin A1c Lactic Acid Calcium 9.1 Magnesium Total Bilirubin 0.60 Direct Bilirubin AST 7 L ALT 16 Alkaline Phosphatase 130 H C-React Prot Ext Range 421.00 H Total Protein 7.2 Albumin 2.2 L Globulin 5.0 H Albumin/Globulin Ratio 0.4 L Urine Color Urine Clarity Urine pH Ur Specific [place] Urine Protein Urine Glucose (UA) Urine Ketones Urine Occult Blood Urine Nitrite Urine Bilirubin Urine Urobilinogen Ur Leukocyte Esterase Urine RBC Urine WBC Ur Squamous Epith Cells Urine Bacteria Urine Mucus Acetone Level POC Glucose 01/13/21 01/13/21 01/13/21 01:45 01:45 01:45 WBC RBC Hgb Hct MCV MCH MCHC RDW Std Deviation RDW Coeff of Jo Plt Count MPV Immature Gran % (Auto) Neut % (Auto) Lymph % (Auto) Greenlee % (Auto) Eos % (Auto) Baso % (Auto) Absolute Neuts (auto) Absolute Lymphs (auto) Nucleated RBC % Differential Comment Troy Cells ESR PT INR APTT Sodium Potassium Chloride Carbon Dioxide Anion Gap BUN Creatinine Estim Creat Clear Calc Est GFR (MDRD) Af Amer Est GFR (MDRD) Non-Af BUN/Creatinine Ratio Glucose Hemoglobin A1c 12.4 H Lactic Acid 2.3 H* Calcium Magnesium 2.5 Total Bilirubin Direct Bilirubin AST ALT Alkaline Phosphatase C-React Prot Ext Range Total Protein Albumin Globulin Albumin/Globulin Ratio Urine Color Urine Clarity Urine pH Ur Specific [place] Urine Protein Urine Glucose (UA) Urine Ketones Urine Occult Blood Urine Nitrite Urine Bilirubin Urine Urobilinogen Ur Leukocyte Esterase Urine RBC Urine WBC Ur Squamous Epith Cells Urine Bacteria Urine Mucus Acetone Level POC Glucose 01/13/21 01/13/21 01/13/21 04:21 07:11 07:14 WBC RBC Hgb Hct MCV MCH MCHC RDW Std Deviation RDW Coeff of Jo Plt Count MPV Immature Gran % (Auto) Neut % (Auto) Lymph % (Auto) [place] % (Auto) Eos % (Auto) Baso % (Auto) Absolute Neuts (auto) Absolute Lymphs (auto) Nucleated RBC % Differential Comment [place] Cells ESR PT INR APTT Sodium Potassium Chloride Carbon Dioxide Anion Gap BUN Creatinine Estim Creat Clear Calc Est GFR (MDRD) Af Amer Est GFR (MDRD) Non-Af BUN/Creatinine Ratio Glucose Hemoglobin A1c Lactic Acid 1.7 Calcium Magnesium Total Bilirubin Direct Bilirubin AST ALT Alkaline Phosphatase C-React Prot Ext Range Total Protein Albumin Globulin Albumin/Globulin Ratio Urine Color Urine Clarity Urine pH Ur Specific [place] Urine Protein Urine Glucose (UA) Urine Ketones Urine Occult Blood Urine Nitrite Urine Bilirubin Urine Urobilinogen Ur Leukocyte Esterase Urine RBC Urine WBC Ur Squamous Epith Cells Urine Bacteria Urine Mucus Acetone Level LARGE H POC Glucose > 500 H* 01/13/21 01/13/21 01/13/21 07:15 08:23 08:30 WBC RBC Hgb Hct MCV MCH MCHC RDW Std Deviation RDW Coeff of Jo Plt Count MPV Immature Gran % (Auto) Neut % (Auto) Lymph % (Auto) [place] % (Auto) Eos % (Auto) Baso % (Auto) Absolute Neuts (auto) Absolute Lymphs (auto) Nucleated RBC % Differential Comment Prudence Cells ESR PT INR APTT Sodium 127 L Potassium 5.3 H Chloride 94 L Carbon Dioxide 9.0 L* Anion Gap 24 H BUN 53 H Creatinine 2.60 H Estim Creat Clear Calc 30.26 Est GFR (MDRD) Af Amer 32 L Est GFR (MDRD) Non-Af 26 L BUN/Creatinine Ratio 20.4 H Glucose 690 H* Hemoglobin A1c Lactic Acid Calcium 8.1 L Magnesium Total Bilirubin Direct Bilirubin AST ALT Alkaline Phosphatase C-React Prot Ext Range Total Protein Albumin Globulin Albumin/Globulin Ratio Urine Color Yellow Urine Clarity Clear Urine pH 5.0 Ur Specific [place] 1.020 Urine Protein 15 H Urine Glucose (UA) 1000 H Urine Ketones 50 H Urine Occult Blood 25 H Urine Nitrite Negative Urine Bilirubin Negative Urine Urobilinogen Normal Ur Leukocyte Esterase Negative Urine RBC 0-5 SEEN Urine WBC 0 SEEN Ur Squamous Epith Cells 0 SEEN Urine Bacteria 0 SEEN Urine Mucus 0 SEEN Acetone Level POC Glucose > 500 H* 01/13/21 01/13/21 01/13/21 08:30 09:37 10:30 WBC RBC Hgb Hct MCV MCH MCHC RDW Std Deviation RDW Coeff of Jo Plt Count MPV Immature Gran % (Auto) Neut % (Auto) Lymph % (Auto) [place] % (Auto) Eos % (Auto) Baso % (Auto) Absolute Neuts (auto) Absolute Lymphs (auto) Nucleated RBC % Differential Comment Troy Cells ESR PT INR APTT Sodium Potassium Chloride Carbon Dioxide Anion Gap BUN Creatinine Estim Creat Clear Calc Est GFR (MDRD) Af Amer Est GFR (MDRD) Non-Af BUN/Creatinine Ratio Glucose Hemoglobin A1c Lactic Acid Calcium Magnesium Total Bilirubin 0.50 Direct Bilirubin 0.13 AST 12 L ALT 17 Alkaline Phosphatase 123 H C-React Prot Ext Range Total Protein 6.1 L Albumin 1.8 L Globulin 4.3 H Albumin/Globulin Ratio Urine Color Urine Clarity Urine pH Ur Specific [place] Urine Protein Urine Glucose (UA) Urine Ketones Urine Occult Blood Urine Nitrite Urine Bilirubin Urine Urobilinogen Ur Leukocyte Esterase Urine RBC Urine WBC Ur Squamous Epith Cells Urine Bacteria Urine Mucus Acetone Level POC Glucose > 500 H* > 500 H* 01/13/21 01/13/21 01/13/21 11:45 11:45 11:45 WBC 16.0 H RBC 3.19 L Hgb 8.5 L Hct 28.2 L MCV 88.4 D MCH 26.6 L MCHC 30.1 L D RDW Std Deviation 44.1 H RDW Coeff of Jo 13.7 Plt Count 382 MPV 11.0 Immature Gran % (Auto) 1.300 H Neut % (Auto) 90.2 H Lymph % (Auto) 3.8 L [place] % (Auto) 4.6 Eos % (Auto) 0.0 Baso % (Auto) 0.1 Absolute Neuts (auto) 14.4 H Absolute Lymphs (auto) 0.61 L Nucleated RBC % 0 Differential Comment Prudence Cells ESR PT INR APTT Sodium 132 L Potassium 4.6 Chloride 100 Carbon Dioxide 14.0 L Anion Gap 18 H BUN 51 H Creatinine 2.38 H Estim Creat Clear Calc 30.93 Est GFR (MDRD) Af Amer 35 L Est GFR (MDRD) Non-Af 29 L BUN/Creatinine Ratio 21.4 H Glucose 491 H* Hemoglobin A1c Lactic Acid Calcium 7.8 L Magnesium Total Bilirubin Direct Bilirubin AST ALT Alkaline Phosphatase C-React Prot Ext Range Total Protein Albumin Globulin Albumin/Globulin Ratio Urine Color Urine Clarity Urine pH Ur Specific [place] Urine Protein Urine Glucose (UA) Urine Ketones Urine Occult Blood Urine Nitrite Urine Bilirubin Urine Urobilinogen Ur Leukocyte Esterase Urine RBC Urine WBC Ur Squamous Epith Cells Urine Bacteria Urine Mucus Acetone Level LARGE H POC Glucose 01/13/21 01/13/21 11:47 12:58 WBC RBC Hgb Hct MCV MCH MCHC RDW Std Deviation RDW Coeff of Jo Plt Count MPV Immature Gran % (Auto) Neut % (Auto) Lymph % (Auto) [place] % (Auto) Eos % (Auto) Baso % (Auto) Absolute Neuts (auto) Absolute Lymphs (auto) Nucleated RBC % Differential Comment Pr[place]ence Cells ESR PT INR APTT Sodium Potassium Chloride Carbon Dioxide Anion Gap BUN Creatinine Estim Creat Clear Calc Est GFR (MDRD) Af Amer Est GFR (MDRD) Non-Af BUN/Creatinine Ratio Glucose Hemoglobin A1c Lactic Acid Calcium Magnesium Total Bilirubin Direct Bilirubin AST ALT Alkaline Phosphatase C-React Prot Ext Range Total Protein Albumin Globulin Albumin/Globulin Ratio Urine Color Urine Clarity Urine pH Ur Specific [place] Urine Protein Urine Glucose (UA) Urine Ketones Urine Occult Blood Urine Nitrite Urine Bilirubin Urine Urobilinogen Ur Leukocyte Esterase Urine RBC Urine WBC Ur Squamous Epith Cells Urine Bacteria Urine Mucus Acetone Level POC Glucose 480 H* 423 H Micro: Microbiology 01/13/21 02:10 Gram Stain - Final Wound - Heel, Left ABG Data ABG results: ABG 01/13/21 03:58 Specimen Type ART Sample Site R Radial pH 7.09 L* Bicarbonate Actual 5.3 L Total CO2 6 Base Excess -25 L O2 Saturation 96 ABG pCO2 17.8 L* ABG pO2 105 H Kev Test Positive O2 Delivery Device Room Air Crit Call To/Read Back Yes Radiology Impression Foot X-Ray 01/13/21 01:34 IMPRESSION: As above Electronically Signed: Froilan Kuo DO at 3:53 EDT Tel , Service support , Brain CT 01/13/21 01:37 IMPRESSION: Chronic involutional changes of the brain. Electronically Signed: Froilan Kuo DO at 3:30 EDT Tel , Service support , Chest X-Ray 01/13/21 03:15 IMPRESSION: Normal x-ray examination of the chest. Electronically Signed: Froilan Kuo DO at 3:55 EDT Tel , Service support , Chest X-Ray 01/13/21 06:51 IMPRESSION: There is a left-sided subclavian line and the tip is in superior vena cava. No visualized acute focal infiltrate. Electronically Signed: Alissa Allen MD at 7:58 EDT Tel , Service support ,
[2021-01-13 13:45] LABS: Bedside Glucose 409 mg/dL (70-110)
[2021-01-13 14:41] LABS: Bedside Glucose 413 mg/dL (70-110)
[2021-01-13] MEDS: 0.9% Normal Saline 1,000 ML 250 ML IV ×3 (14:45→23:47)
[2021-01-13 14:46] LABS: Urine Sodium 7 mmol/L (Not Establ.)
--- NOTE | 2021-01-13 16:15 | TISS_PTH ---
PATIENT: MARIAMA HUDDLESTON LOC: [facility] U#:[id number] AGE/SX: 65/M ROOM: [facility] RE01/13/[address]: Dr. Willis Haley MD : 1955 BED: 1 DIS: 01/17/2021 SPEC #: [id number] RECD: 01/16/21 07:10 STATUS: SHRAVAN REQ #: [id number] RUBIN: 01/13/21 16:[address]: Carlton East DEPT: SURGICAL PATHOLOGY RECD BY: Ines Pathak ENTERED: 01/16/21 08:52 SP TYPE: Tissue Bx OTHR DR: MD Dr. Sunny Swift, MD Dr. Bebo Bryant Dr., MD Dr. Jeanna Fascione, DPM Dr. 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 Debrided tissue left heel, B ? Debrided calcaneal bone left MICROSCOPIC DIAGNOSIS A. Skin and soft tissue of left heel, biopsy: Ulceration with associated acute and chronic inflammation and necrosis. Minute fragments of bone consistent with acute osteomyelitis. B. Calcaneal bone of left foot, biopsy: Acute osteomyelitis. AM:gavin 01/19/2021 MICROSCOPIC DESCRIPTION Slides are reviewed. GROSS DESCRIPTION A - Received in fixative is one container labeled with the patient's name and designated debrided tissue left heel. The specimen consists of multiple pieces of flores-white skin with underlying tissue that in aggregate measure 11 x 12 x 4 cm. The largest piece measures 8 cm in greatest dimension and shows an extensive area of ulceration. Glass Installer Technician sections are submitted in two cassettes. B - Received in fixative is one container labeled with the patient's name and designated debrided calcaneal bone left heel. The specimen consists of four variable sized pieces of bone measuring in aggregate 7 x 6 x 3.5 cm. Glass Installer Technician sections are submitted in two cassettes after decalcification. / RAOUL:gavin 01/16/21 TC:2 CPT: 01166 x2, [id number]
[2021-01-13 16:44] LABS: Anion Gap 8 (5-15); BUN 47 mg/dL (7-18); BUN/Creat Ratio 21.1 RATIO (10-20); Calcium,Total 7.8 mg/dL (8.5-10.1); Chloride 104 mmol/L (98-107); Creatinine, Serum 2.23 mg/dL (0.70-1.30); EST Glomerular Filtration Rate 31 mL/min (>60); Est Glom Filt Rate - Afr Amer 38 mL/min (>60); Estimated Creatinine Clearance 33.01 ml/min; Glucose 390 mg/dL (74-106); Potassium 4.8 mmol/L (3.5-5.1); Sodium Level 134 mmol/L (136-145)
[2021-01-13 17:15] LABS: Bedside Glucose 368 mg/dL (70-110)
[2021-01-13 17:15] LABS: Bedside Glucose 393 mg/dL (70-110)
[2021-01-13] MEDS: Bupivacaine Mpf 0.5% 30 ML VIAL (17:45)
[2021-01-13 17:49] LABS: M R Staph aureus DNA By PCR Negative (Negative); Probe Check PASS; Specimen Processing Control PASS
--- NOTE | 2021-01-13 18:41 | OP.PCM_ITS ---
Report of Operation Date of Procedure: 01/13/21 Pre-Operative Diagnosis: Left heel necrotic ulcer down to necrotic soft tissue, fascia and bone Osteomyelitis left calcaneus Gangrene left foot Post-Operative Diagnosis: Same Surgery/Procedure Performed:: Debridement of all nonviable, infected and necrotic soft tissue and bone from the left foot Surgeon: Carlton East aircraft maintenance engineer: None Type of Anesthesia: MAC/Supplemental/Local Specimen's removed: 1. Debrided soft tissue from left foot/heel sent to pathology and microbiology 2. Debrided bone from left calcaneus sent to pathology and microbiology Estimated Blood Loss (mL): 20mL Description of Procedure: Indications: This is a 65 year old gentleman with h istory of multiple medical problems including diabetes, peripheral neuropathy and peripheral vascular disease, as well as smoker who presented with severely necrotic left heel ulceration down to deep soft tissue and bone. WBC elevated, lactic acid elevated, ESR and CRP elevated, patient in DKA, with osteomyelitis and gas to left calcaneus on xrays today. Patient with ERIKA and hypotension, elevated K as well. Patient has been started on IV antibiotics, and in ICU. Due to the extent of the infection recommended debridement of all nonviable, infected and necrotic soft tissue and bone from the left foot. 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 Goal of todays procedure is try to help control and rid source of infection. Reviewed risks of worsening infection, blood clots, need for further surgery, loss of life, and advised he will very likely need amputation. This was discussed with patient in detail. I asked patient if there was any family or friends he would like me to contact as well - he declined and said no. The consent form was reviewed with him, and he freely signed it. No guarantees were given nor implied. No warranties were given. Operative Procedure: The patient was brought back to the operating room, and was placed on the operating room table in the prone position, being sure all prominences were well padded. He was secured to the operating room table with a safety belt around his waist. He received MAC anesthesia per the anesthesia t eam. The skin was cleansed around the ankle using 70% Isopropyl alcohol and a local nerve block was completed using 10mL of Bupivacaine plain. A well padded left thigh pneumatic tourniquet was applied around the left thigh. The left lower extremity was scrubbed, prepped, and draped in the usual aseptic fashion. Further attention was directed to the left foot and ankle, there was very large and deep necrotic foul smelling gangrenous ulceration to the posterior heel down to necrotic and soft black bone. There was hair stuck in the site. There was cellulitis, bogginess and purulence. There was probing and tracking into the deep plantar foot and to the Achilles tendon. The left foot was elevated for 3 minutes and also exsanguinated using an Esmarch bandage and the left thigh tourniquet was inflated to 300mmHg. At this time all nonviable, infected and necrotic tissue and bone was debrided from the foot using a 15 blade as well as a powered saggital saw for the bone in excisional fashion. There was a large part of the posterior calcaneus which was necrotic, soft, fragmented, black with significant maloder - this was excised down to healthy viable bone. It was noted there was black and green tissue with significant purulence extending from the heel to the deep plantar arch of the foot involving the fascia layer and extending up to the achilles tendon itself. All of this nonviable, infected and necrotic soft tissue was debrided down to healthy viable tissue using a 15 blade in excisional fashion. The area debrided measured 19.5cm x 9cm and down to bone. The debrided soft tissue was sent for culture and to pathology, and the debrided bone was also sent to pathologh and microbiology for further evaluation. The site was flushed out with copious amounts of normal saline solution. The remaining tissues to the foot were noted to be viable at this time. A dressing was applied which consisted of betadine soaked gauze, fibrillar and gel foam hemostatic dressing, 4x4 gauze, kerlix, abd pads, kerlix and deep bandages. The pneumatic tourniquet was deflated at 38 minutes, there was return of normal flow to the distal foot and toes, CFT < 2 seconds to all toes with normal temperature. The patient tolerated the above procedure well, and anesthesia well with no complication. The patient was transported back to the ICU and will be followed as an inpatient. Grafts/Implants Used: None Complications None
--- NOTE | 2021-01-13 18:41 | NURSING ---
education re chronic illness deferred till acute illness resolving
[2021-01-13 19:00] LABS: Bedside Glucose 348 mg/dL (70-110)
--- NOTE | 2021-01-13 19:49 | RAD_ITS ---
STUDY: X-RAY - LEFT FOOT CLINICAL: Male, 65 years old. Post op TECHNIQUE: 3 view(s) of the foot. COMPARISON: Left foot x-ray January 13, 2021 FINDINGS: There is a postoperative appearance of the foot status post resection of the posterior aspect of the calcaneus. There is visualized soft tissue absence. There is a subacute fibular fracture. Prior visualized gassy soft tissues is also been resected. There is minimal gas within the soft tissues which may represent postoperative change. There is partially visualized irregularity of the mid fifth metatarsal compatible with prior fracture. There is a resection of the second distal phalanx at the metatarsophalangeal joint. RAD/Foot min 3 Views IMPRESSION: Subacute fracture of the distal fibula. Could consider a left ankle x-ray. Interval resection of the calcaneus debridement of the soft tissues. Prior fracture of the fifth metatarsal. Prior amputation of the second digit at the metatarsophalangeal joint. Electronically Signed: Alissa Allen MD at 8:06 EDT Tel , Service support ,
[2021-01-13] MEDS: fentaNYL 100 MCG/2 ML Ampul 25 MCG IV (20:00)
[2021-01-13 21:06] LABS: Bedside Glucose 299 mg/dL (70-110)
[2021-01-13 21:06] LABS: Bedside Glucose 359 mg/dL (70-110)
[2021-01-13 21:08] LABS: Anion Gap 8 (5-15); BUN 44 mg/dL (7-18); Calcium,Total 7.6 mg/dL (8.5-10.1); Chloride 106 mmol/L (98-107); EST Glomerular Filtration Rate 36 mL/min (>60); Est Glom Filt Rate - Afr Amer 43 mL/min (>60); Glucose 317 mg/dL (74-106); Potassium 4.3 mmol/L (3.5-5.1); Sodium Level 137 mmol/L (136-145)
[2021-01-13 21:21] LABS: Bedside Glucose 326 mg/dL (70-110)
[2021-01-13 23:05] LABS: Bedside Glucose 328 mg/dL (70-110)
[2021-01-13 23:05] LABS: Bedside Glucose 286 mg/dL (70-110)
[2021-01-14] VITALS (23 sets, daily range): BP systolic 92–133; BP diastolic 49–69; PULSE 79–98; RESP 12–22; TEMP 36.6–37.2; O2SAT 92–98
[2021-01-14 01:04] LABS: Anion Gap 2 (5-15); BUN 39 mg/dL (7-18); BUN/Creat Ratio 22.4 RATIO (10-20); Calcium,Total 7.5 mg/dL (8.5-10.1); Chloride 110 mmol/L (98-107); Creatinine, Serum 1.74 mg/dL (0.70-1.30); EST Glomerular Filtration Rate 42 mL/min (>60); Est Glom Filt Rate - Afr Amer 51 mL/min (>60); Glucose 242 mg/dL (74-106); Potassium 3.9 mmol/L (3.5-5.1); Sodium Level 138 mmol/L (136-145)
[2021-01-14 01:46] LABS: Bedside Glucose 277 mg/dL (70-110)
[2021-01-14 01:46] LABS: Bedside Glucose 257 mg/dL (70-110)
[2021-01-14] MEDS: Dext 5%-0.45% NS 1,000 ML 150 ML IV (02:03)
[2021-01-14 02:40] LABS: Bedside Glucose 226 mg/dL (70-110)
[2021-01-14 03:50] LABS: Bedside Glucose 234 mg/dL (70-110)
[2021-01-14 03:50] LABS: Bedside Glucose 238 mg/dL (70-110)
[2021-01-14 04:46] LABS: Absolute Lymphocyte Count 0.65 X10^3/uL (0.83-4.51); Absolute Neutrophil Count 9.6 X10^3/uL (2.0-7.7); Basophil# 0.02 X10^3/uL; Basophil% 0.2 % (0-1); Eosinophil# 0.01 X10^3/uL; Eosinophils% 0.1 % (0-5); Hematocrit 23.2 % (40-54); Hemoglobin 7.5 g/dL (13.0-16.5); Lymphocyte # 0.65 X10^3/ul (0.83-4.51); Lymphocyte % 5.9 % (19-41); Mean Corp Hgb Conc 32.3 g/dL (32-36); Mean Corpuscular Volume 83.5 fL (80-94); Mean Platelet Vol. 10.6 fl (6.2-12.0); Monocyte# 0.74 X10^3/uL; Monocyte% 6.7 % (0-10); NRBC Flagged by Analyzer 0 % (0-5); Neutrophil # 9.61 X10^3/uL (2.7-7.7); Neutrophil % 86.6 % (47-70); Platelet Count 278 K/mm3 (150-450); RBC Distribution Width CV 13.5 % (11.6-14.6); RBC Distribution Width SD 41.5 fl (35.1-43.9); Red Blood Count 2.78 M/mm3 (4.6-6.2); White Blood Count 11.1 K/mm3 (4.4-11.0)
[2021-01-14 05:05] LABS: Anion Gap 8 (5-15); BUN 35 mg/dL (7-18); BUN/Creat Ratio 21.7 RATIO (10-20); Calcium,Total 7.5 mg/dL (8.5-10.1); Chloride 108 mmol/L (98-107); Creatinine, Serum 1.61 mg/dL (0.70-1.30); EST Glomerular Filtration Rate 46 mL/min (>60); Est Glom Filt Rate - Afr Amer 55 mL/min (>60); Estimated Creatinine Clearance 48.87 ml/min; Glucose 235 mg/dL (74-106); Potassium 3.9 mmol/L (3.5-5.1); Sodium Level 136 mmol/L (136-145)
--- NOTE | 2021-01-14 07:03 | PCM.PN.INT ---
Subjective Subjective Patient continues to be current with staff. Patient was able to be taken off of the insulin drip at approximately 345 this morning. Patient's blood pressures have been maintained without pressor therapy overnight despite surgical intervention yesterday. Patient is reporting some pain, but describes it is tolerable at this time. Objective Data Objective Data All labs and imaging were reviewed. Patient does have a preliminary positive gram-negative blood culture from 01/13/2021 that is undergoing further processing. Multiple cultures from the heel are also pending. Vital Signs: Vital Signs Temp Pulse Resp BP Pulse Ox 36.9 C 94 17 95/63 92 01/14/21 04:00 01/14/21 06:00 01/14/21 06:00 01/14/21 06:00 01/14/21 06:00 Oxygen Flow Rate (L/min) 2 Oxygen Delivery Method Nasal Cannula Weight: 77.3 kg Body Mass Index (BMI) 21.7 Intake & Output: Intake and Output for Last 24 Hours 01/12/21 01/13/21 01/14/21 23:59 23:59 23:59 Intake Total 9375.13 / 9375.13 1557.67 / 1557.67 Output Total 625 / 625 500 / 500 Balance 8750.13 / 8750.13 1057.67 / 1057.67 Lab / Micro Data Result Diagrams: 01/14/21 04:40 01/14/21 04:40 Labs: Laboratory Results - last 24 hr 01/13/21 01/13/21 01/13/21 01:45 07:11 07:14 WBC RBC Hgb Hct MCV MCH MCHC RDW Std Deviation RDW Coeff of Jo Plt Count MPV Immature Gran % (Auto) Neut % (Auto) Lymph % (Auto) [place] % (Auto) Eos % (Auto) Baso % (Auto) Absolute Neuts (auto) Absolute Lymphs (auto) Nucleated RBC % Sodium Potassium Chloride Carbon Dioxide Anion Gap BUN Creatinine Estim Creat Clear Calc Est GFR (MDRD) Af Amer Est GFR (MDRD) Non-Af BUN/Creatinine Ratio Glucose Hemoglobin A1c 12.4 H Lactic Acid 1.7 Calcium Total Bilirubin Direct Bilirubin AST ALT Alkaline Phosphatase Total Protein Albumin Globulin Urine Color Urine Clarity Urine pH Ur Specific [place] Urine Protein Urine Glucose (UA) Urine Ketones Urine Occult Blood Urine Nitrite Urine Bilirubin Urine Urobilinogen Ur Leukocyte Esterase Urine RBC Urine WBC Ur Squamous Epith Cells Urine Bacteria Urine Mucus Ur Random Sodium Urine Creatinine Acetone Level MRSA (PCR) POC Glucose > 500 H* 01/13/21 01/13/21 01/13/21 07:15 08:23 08:30 WBC RBC Hgb Hct MCV MCH MCHC RDW Std Deviation RDW Coeff of Jo Plt Count MPV Immature Gran % (Auto) Neut % (Auto) Lymph % (Auto) [place] % (Auto) Eos % (Auto) Baso % (Auto) Absolute Neuts (auto) Absolute Lymphs (auto) Nucleated RBC % Sodium 127 L Potassium 5.3 H Chloride 94 L Carbon Dioxide 9.0 L* Anion Gap 24 H BUN 53 H Creatinine 2.60 H Estim Creat Clear Calc 30.26 Est GFR (MDRD) Af Amer 32 L Est GFR (MDRD) Non-Af 26 L BUN/Creatinine Ratio 20.4 H Glucose 690 H* Hemoglobin A1c Lactic Acid Calcium 8.1 L Total Bilirubin Direct Bilirubin AST ALT Alkaline Phosphatase Total Protein Albumin Globulin Urine Color Yellow Urine Clarity Clear Urine pH 5.0 Ur Specific [place] 1.020 Urine Protein 15 H Urine Glucose (UA) 1000 H Urine Ketones 50 H Urine Occult Blood 25 H Urine Nitrite Negative Urine Bilirubin Negative Urine Urobilinogen Normal Ur Leukocyte Esterase Negative Urine RBC 0-5 SEEN Urine WBC 0 SEEN Ur Squamous Epith Cells 0 SEEN Urine Bacteria 0 SEEN Urine Mucus 0 SEEN Ur Random Sodium Urine Creatinine Acetone Level MRSA (PCR) POC Glucose > 500 H* 01/13/21 01/13/21 01/13/21 08:30 09:37 10:30 WBC RBC Hgb Hct MCV MCH MCHC RDW Std Deviation RDW Coeff of Oj Plt Count MPV Immature Gran % (Auto) Neut % (Auto) Lymph % (Auto) [place] % (Auto) Eos % (Auto) Baso % (Auto) Absolute Neuts (auto) Absolute Lymphs (auto) Nucleated RBC % Sodium Potassium Chloride Carbon Dioxide Anion Gap BUN Creatinine Estim Creat Clear Calc Est GFR (MDRD) Af Amer Est GFR (MDRD) Non-Af BUN/Creatinine Ratio Glucose Hemoglobin A1c Lactic Acid Calcium Total Bilirubin 0.50 Direct Bilirubin 0.13 AST 12 L ALT 17 Alkaline Phosphatase 123 H Total Protein 6.1 L Albumin 1.8 L Globulin 4.3 H Urine Color Urine Clarity Urine pH Ur Specific [place] Urine Protein Urine Glucose (UA) Urine Ketones Urine Occult Blood Urine Nitrite Urine Bilirubin Urine Urobilinogen Ur Leukocyte Esterase Urine RBC Urine WBC Ur Squamous Epith Cells Urine Bacteria Urine Mucus Ur Random Sodium Urine Creatinine Acetone Level MRSA (PCR) POC Glucose > 500 H* > 500 H* 01/13/21 01/13/21 01/13/21 11:45 11:45 11:45 WBC 16.0 H RBC 3.19 L Hgb 8.5 L Hct 28.2 L MCV 88.4 D MCH 26.6 L MCHC 30.1 L D RDW Std Deviation 44.1 H RDW Coeff of Jo 13.7 Plt Count 382 MPV 11.0 Immature Gran % (Auto) 1.300 H Neut % (Auto) 90.2 H Lymph % (Auto) 3.8 L [place] % (Auto) 4.6 Eos % (Auto) 0.0 Baso % (Auto) 0.1 Absolute Neuts (auto) 14.4 H Absolute Lymphs (auto) 0.61 L Nucleated RBC % 0 Sodium 132 L Potassium 4.6 Chloride 100 Carbon Dioxide 14.0 L Anion Gap 18 H BUN 51 H Creatinine 2.38 H Estim Creat Clear Calc 30.93 Est GFR (MDRD) Af Amer 35 L Est GFR (MDRD) Non-Af 29 L BUN/Creatinine Ratio 21.4 H Glucose 491 H* Hemoglobin A1c Lactic Acid Calcium 7.8 L Total Bilirubin Direct Bilirubin AST ALT Alkaline Phosphatase Total Protein Albumin Globulin Urine Color Urine Clarity Urine pH Ur Specific [place] Urine Protein Urine Glucose (UA) Urine Ketones Urine Occult Blood Urine Nitrite Urine Bilirubin Urine Urobilinogen Ur Leukocyte Esterase Urine RBC Urine WBC Ur Squamous Epith Cells Urine Bacteria Urine Mucus Ur Random Sodium Urine Creatinine Acetone Level LARGE H MRSA (PCR) POC Glucose 01/13/21 01/13/21 01/13/21 11:47 12:58 13:41 WBC RBC Hgb Hct MCV MCH MCHC RDW Std Deviation RDW Coeff of Jo Plt Count MPV Immature Gran % (Auto) Neut % (Auto) Lymph % (Auto) [place] % (Auto) Eos % (Auto) Baso % (Auto) Absolute Neuts (auto) Absolute Lymphs (auto) Nucleated RBC % Sodium Potassium Chloride Carbon Dioxide Anion Gap BUN Creatinine Estim Creat Clear Calc Est GFR (MDRD) Af Amer Est GFR (MDRD) Non-Af BUN/Creatinine Ratio Glucose Hemoglobin A1c Lactic Acid Calcium Total Bilirubin Direct Bilirubin AST ALT Alkaline Phosphatase Total Protein Albumin Globulin Urine Color Urine Clarity Urine pH Ur Specific [place] Urine Protein Urine Glucose (UA) Urine Ketones Urine Occult Blood Urine Nitrite Urine Bilirubin Urine Urobilinogen Ur Leukocyte Esterase Urine RBC Urine WBC Ur Squamous Epith Cells Urine Bacteria Urine Mucus Ur Random Sodium Urine Creatinine Acetone Level MRSA (PCR) POC Glucose 480 H* 423 H 409 H 01/13/21 01/13/21 01/13/21 14:10 14:30 14:36 WBC RBC Hgb Hct MCV MCH MCHC RDW Std Deviation RDW Coeff of Jo Plt Count MPV Immature Gran % (Auto) Neut % (Auto) Lymph % (Auto) [place] % (Auto) Eos % (Auto) Baso % (Auto) Absolute Neuts (auto) Absolute Lymphs (auto) Nucleated RBC % Sodium Potassium Chloride Carbon Dioxide Anion Gap BUN Creatinine Estim Creat Clear Calc Est GFR (MDRD) Af Amer Est GFR (MDRD) Non-Af BUN/Creatinine Ratio Glucose Hemoglobin A1c Lactic Acid Calcium Total Bilirubin Direct Bilirubin AST ALT Alkaline Phosphatase Total Protein Albumin Globulin Urine Color Urine Clarity Urine pH Ur Specific [place] Urine Protein Urine Glucose (UA) Urine Ketones Urine Occult Blood Urine Nitrite Urine Bilirubin Urine Urobilinogen Ur Leukocyte Esterase Urine RBC Urine WBC Ur Squamous Epith Cells Urine Bacteria Urine Mucus Ur Random Sodium 7 Urine Creatinine 37.80 Acetone Level MRSA (PCR) Negative POC Glucose 413 H 01/13/21 01/13/21 01/13/21 15:55 16:15 17:02 WBC RBC Hgb Hct MCV MCH MCHC RDW Std Deviation RDW Coeff of Jo Plt Count MPV Immature Gran % (Auto) Neut % (Auto) Lymph % (Auto) [place] % (Auto) Eos % (Auto) Baso % (Auto) Absolute Neuts (auto) Absolute Lymphs (auto) Nucleated RBC % Sodium 134 L Potassium 4.8 Chloride 104 Carbon Dioxide 22.0 Anion Gap 8 BUN 47 H Creatinine 2.23 H Estim Creat Clear Calc 33.01 Est GFR (MDRD) Af Amer 38 L Est GFR (MDRD) Non-Af 31 L BUN/Creatinine Ratio 21.1 H Glucose 390 H Hemoglobin A1c Lactic Acid Calcium 7.8 L Total Bilirubin Direct Bilirubin AST ALT Alkaline Phosphatase Total Protein Albumin Globulin Urine Color Urine Clarity Urine pH Ur Specific [place] Urine Protein Urine Glucose (UA) Urine Ketones Urine Occult Blood Urine Nitrite Urine Bilirubin Urine Urobilinogen Ur Leukocyte Esterase Urine RBC Urine WBC Ur Squamous Epith Cells Urine Bacteria Urine Mucus Ur Random Sodium Urine Creatinine Acetone Level MRSA (PCR) POC Glucose 368 H 393 H 01/13/21 01/13/21 01/13/21 18:23 18:52 19:54 WBC RBC Hgb Hct MCV MCH MCHC RDW Std Deviation RDW Coeff of Jo Plt Count MPV Immature Gran % (Auto) Neut % (Auto) Lymph % (Auto) [place] % (Auto) Eos % (Auto) Baso % (Auto) Absolute Neuts (auto) Absolute Lymphs (auto) Nucleated RBC % Sodium Potassium Chloride Carbon Dioxide Anion Gap BUN Creatinine Estim Creat Clear Calc Est GFR (MDRD) Af Amer Est GFR (MDRD) Non-Af BUN/Creatinine Ratio Glucose Hemoglobin A1c Lactic Acid Calcium Total Bilirubin Direct Bilirubin AST ALT Alkaline Phosphatase Total Protein Albumin Globulin Urine Color Urine Clarity Urine pH Ur Specific [place] Urine Protein Urine Glucose (UA) Urine Ketones Urine Occult Blood Urine Nitrite Urine Bilirubin Urine Urobilinogen Ur Leukocyte Esterase Urine RBC Urine WBC Ur Squamous Epith Cells Urine Bacteria Urine Mucus Ur Random Sodium Urine Creatinine Acetone Level MRSA (PCR) POC Glucose 348 H 326 H 359 H 01/13/21 01/13/21 01/13/21 20:30 20:53 21:49 WBC RBC Hgb Hct MCV MCH MCHC RDW Std Deviation RDW Coeff of Jo Plt Count MPV Immature Gran % (Auto) Neut % (Auto) Lymph % (Auto) [place] % (Auto) Eos % (Auto) Baso % (Auto) Absolute Neuts (auto) Absolute Lymphs (auto) Nucleated RBC % Sodium 137 Potassium 4.3 Chloride 106 Carbon Dioxide 23.0 Anion Gap 8 BUN 44 H Creatinine 2.00 H Estim Creat Clear Calc 36.80 Est GFR (MDRD) Af Amer 43 L Est GFR (MDRD) Non-Af 36 L BUN/Creatinine Ratio 22.0 H Glucose 317 H Hemoglobin A1c Lactic Acid Calcium 7.6 L Total Bilirubin Direct Bilirubin AST ALT Alkaline Phosphatase Total Protein Albumin Globulin Urine Color Urine Clarity Urine pH Ur Specific [place] Urine Protein Urine Glucose (UA) Urine Ketones Urine Occult Blood Urine Nitrite Urine Bilirubin Urine Urobilinogen Ur Leukocyte Esterase Urine RBC Urine WBC Ur Squamous Epith Cells Urine Bacteria Urine Mucus Ur Random Sodium Urine Creatinine Acetone Level MRSA (PCR) POC Glucose 299 H 286 H 01/13/21 01/13/21 01/14/21 22:49 23:44 00:35 WBC RBC Hgb Hct MCV MCH MCHC RDW Std Deviation RDW Coeff of Jo Plt Count MPV Immature Gran % (Auto) Neut % (Auto) Lymph % (Auto) [place] % (Auto) Eos % (Auto) Baso % (Auto) Absolute Neuts (auto) Absolute Lymphs (auto) Nucleated RBC % Sodium 138 Potassium 3.9 Chloride 110 H Carbon Dioxide 26.0 Anion Gap 2 L BUN 39 H Creatinine 1.74 H Estim Creat Clear Calc 42.30 Est GFR (MDRD) Af Amer 51 L Est GFR (MDRD) Non-Af 42 L BUN/Creatinine Ratio 22.4 H Glucose 242 H Hemoglobin A1c Lactic Acid Calcium 7.5 L Total Bilirubin Direct Bilirubin AST ALT Alkaline Phosphatase Total Protein Albumin Globulin Urine Color Urine Clarity Urine pH Ur Specific [place] Urine Protein Urine Glucose (UA) Urine Ketones Urine Occult Blood Urine Nitrite Urine Bilirubin Urine Urobilinogen Ur Leukocyte Esterase Urine RBC Urine WBC Ur Squamous Epith Cells Urine Bacteria Urine Mucus Ur Random Sodium Urine Creatinine Acetone Level MRSA (PCR) POC Glucose 328 H 257 H 01/14/21 01/14/21 01/14/21 00:36 01:45 02:39 WBC RBC Hgb Hct MCV MCH MCHC RDW Std Deviation RDW Coeff of Jo Plt Count MPV Immature Gran % (Auto) Neut % (Auto) Lymph % (Auto) [place] % (Auto) Eos % (Auto) Baso % (Auto) Absolute Neuts (auto) Absolute Lymphs (auto) Nucleated RBC % Sodium Potassium Chloride Carbon Dioxide Anion Gap BUN Creatinine Estim Creat Clear Calc Est GFR (MDRD) Af Amer Est GFR (MDRD) Non-Af BUN/Creatinine Ratio Glucose Hemoglobin A1c Lactic Acid Calcium Total Bilirubin Direct Bilirubin AST ALT Alkaline Phosphatase Total Protein Albumin Globulin Urine Color Urine Clarity Urine pH Ur Specific [place] Urine Protein Urine Glucose (UA) Urine Ketones Urine Occult Blood Urine Nitrite Urine Bilirubin Urine Urobilinogen Ur Leukocyte Esterase Urine RBC Urine WBC Ur Squamous Epith Cells Urine Bacteria Urine Mucus Ur Random Sodium Urine Creatinine Acetone Level MRSA (PCR) POC Glucose 277 H 226 H 238 H 01/14/21 01/14/21 01/14/21 03:45 04:40 04:40 WBC 11.1 H RBC 2.78 L Hgb 7.5 L Hct 23.2 L MCV 83.5 D MCH 27.0 MCHC 32.3 D RDW Std Deviation 41.5 RDW Coeff of Jo 13.5 Plt Count 278 MPV 10.6 Immature Gran % (Auto) 0.500 Neut % (Auto) 86.6 H Lymph % (Auto) 5.9 L [place] % (Auto) 6.7 Eos % (Auto) 0.1 Baso % (Auto) 0.2 Absolute Neuts (auto) 9.6 H Absolute Lymphs (auto) 0.65 L Nucleated RBC % 0 Sodium 136 Potassium 3.9 Chloride 108 H Carbon Dioxide 20.0 L Anion Gap 8 BUN 35 H Creatinine 1.61 H Estim Creat Clear Calc 48.87 Est GFR (MDRD) Af Amer 55 L Est GFR (MDRD) Non-Af 46 L BUN/Creatinine Ratio 21.7 H Glucose 235 H Hemoglobin A1c Lactic Acid Calcium 7.5 L Total Bilirubin Direct Bilirubin AST ALT Alkaline Phosphatase Total Protein Albumin Globulin Urine Color Urine Clarity Urine pH Ur Specific [place] Urine Protein Urine Glucose (UA) Urine Ketones Urine Occult Blood Urine Nitrite Urine Bilirubin Urine Urobilinogen Ur Leukocyte Esterase Urine RBC Urine WBC Ur Squamous Epith Cells Urine Bacteria Urine Mucus Ur Random Sodium Urine Creatinine Acetone Level MRSA (PCR) POC Glucose 234 H Micro: Microbiology 01/13/21 13:40 Interface Orders SARS-CoV-2 Antigen (Rapid) - Final 01/13/21 01:45 Blood Culture (Wb) - Anticubital Left Blood Culture - Preliminary 01/13/21 02:10 Wound - Heel, Left Gram Stain - Final Radiography Diagnostic Testing: Radiology Impression Chest X-Ray 01/13/21 06:51 IMPRESSION: There is a left-sided subclavian line and the tip is in superior vena cava. No visualized acute focal infiltrate. Electronically Signed: Alissa Allen MD at 7:58 EDT Tel , Service support , Physical Exam Const alert and oriented x3 Constitutional Narrative: Smells of possible Pseudomonas infection General Appearance: uncooperative, disheveled, frail and appears older than stated age Exam Limitations: behavioral limitations Nutritional Appearance: cachectic HEENT normocephalic and external ears normal Eyes PERRL and EOMs intact bilaterally Neck supple, no JVD and no carotid bruits Lymph Lymphatic: lymphadenopathy Lymphadenopathy Laterality: bilateral Chest inspection of chest normal and palpation of chest normal Resp normal respiratory effort and clear to auscultation bilaterally Effort and Inspection: Negative for stridor, actively coughing or uses accessory muscles Auscultation: diminished lung sounds; Negative for rales, rhonchi or wheezes Cardio no murmurs, no rub and no gallops Rate: tachycardic Peripheral Pulses: Negative for dorsalis pedis pulses present GI normal to inspection, nondistended, normoactive bowel sounds and soft to palpation Extremity normal capillary refill General Extremity: clubbing; Negative for edema Skin no rashes or lesions noted Skin Narrative: Vascular insufficiency changes of all extremities. Wound Narrative: Multiple superficial ulcers in various stages of healing. Malodorous lesions noted. Left calcaneal heel wound currently dressed and was not personally evaluated. No crepitus appreciated. Nails: dystrophic and yellow and thickened Neuro CN's II-XII intact bilaterally Psych cooperative and affect normal Assessment & Plan Assessment/Plan (1) Acute osteomyelitis of left hindfoot: (2) Non-pressure chronic ulcer of left heel and midfoot with necrosis of bone: (3) Severe sepsis: (4) DKA (diabetic ketoacidoses): QUALIFIERS: Diabetes mellitus type: other specified (including [id number]) Diabetes mellitus complication detail: without coma Qualified Code(s): E13.10 - Other specified diabetes mellitus with ketoacidosis without coma (5) Diabetic gastroparesis: (6) Peripheral vascular disease: (7) Amputation of right lower extremity: (8) Diabetes mellitus with polyneuropathy: (9) Acute kidney injury: PLAN: RECOMMENDATIONS: 1. Agree with empiric antibiotics. Continue clindamycin for an additional 24 hours 2. Likely okay to slow down fluid resuscitation 3. Continue subcu insulin with sliding scale 4. Await surgical recommendations 5. Okay to hold on transfusion for now 6. Avoid nephrotoxins. Follow BMP. 7. Potential need for guardianship. Social work/case management to follow 8. Okay to leave the intensive care unit from my perspective IMPRESSIONS: 1. Severe sepsis secondary to left calcaneal infected wound Patient with tachycardia and hypotension with evidence of endorgan damage including acute kidney injury. Patient has received fluid boluses. Patient is likely significantly volume depleted given acute DKA and history of gastroparesis. Patient appears to be volume resuscitated at this time. Okay to slow IV fluids from my perspective. Patient is on appropriate antibiotics. Patient does have a gram-negative growing in his blood, but clinical suspicion is for polymicrobial wound infection, so would continue Vanco and gram-negative coverage. Await podiatry recommendation on potential further surgeries. 2. Acute DKA secondary to problem #1 Resolved. Patient with attempted compensation from a respiratory standpoint for significant acidosis. Acidosis is likely a mixed metabolic acidosis. Okay to continue basal insulin with sliding scale 3. Acute kidney injury Improving. Baseline renal function appears to be approximately 1. No indication for renal replacement therapy at this time, but will have to follow closely as patient appears to have prerenal etiology. Volume resuscitation is underway. Potassium was significantly elevated, but this is likely complicated by acute DKA. 4. Malnutrition/multiple diabetic complications including peripheral vascular disease, gastroparesis and delayed healing Patient with multiple wounds at various stages of healing. Patient will be difficult to recover given his lack of compliance and comorbidities associated with diabetes. Wound nurse has been contacted. Cultures have been taken. 5. Poor insight/malnutrition/lack of follow-up/anemia Complicates care, management, recovery and prognosis. Patient appears to have progressed significantly since last visit in the wound center. Patient may require evaluation for protective services versus emergency guardianship. Social work/case management to follow. Patient appears to be relatively dehydrated, so concerned that hemoglobin is overestimated on initial CBC. This will be rechecked. Cannot exclude the need for a blood transfusion prior to surgical intervention. Clinical suspicion for bone marrow suppression secondary to chronic wounds. Visit Charges Inpatient E&M: 71505 Subs Hosp L3
[2021-01-14] MEDS: fentaNYL 100 MCG/2 ML Ampul 25 MCG IV ×2 (08:03→10:45)
[2021-01-14] MEDS: 0.9% Saline Lock 10 ML Syringe IV ×3 (08:03→18:06)
[2021-01-14] MEDS: 0.9% Normal Saline 1,000 ML 75 ML IV (08:04)
[2021-01-14] MEDS: Insulin Lispro 100 UNIT/ML INSULN.PEN SC ×4 (08:06→11:37)
[2021-01-14 08:26] LABS: Bedside Glucose 215 mg/dL (70-110)
--- NOTE | 2021-01-14 09:03 | PCM.PROGNOTE ---
Subjective Subjective Patient was seen this morning for follow up on left heel debridement. He relates he is feeling better today. No strikethrough on outer layer of foot/ankle bandage. Patient sitting up in bed. No fevers. Hgb 7.5 Objective Data Objective Data Vital Signs: Vital Signs Temp Pulse Resp BP Pulse Ox 98.4 F 81 15 107/60 95 01/14/21 08:00 01/14/21 08:00 01/14/21 08:00 01/14/21 08:00 01/14/21 08:00 Oxygen Flow Rate (L/min) 2 Oxygen Delivery Method Room Air Weight: 77.3 kg Body Mass Index (BMI) 21.7 Intake & Output: Intake and Output for Last 24 Hours 01/12/21 01/13/21 01/14/21 23:59 23:59 23:59 Intake Total 9375.13 / 9375.13 1677.67 / 1677.67 Output Total 625 / 625 500 / 500 Balance 8750.13 / 8750.13 1177.67 / 1177.67 Lab / Micro Data Result Diagrams: 01/14/21 04:40 01/14/21 04:40 Labs: Laboratory Results - last 24 hr 01/13/21 01/13/21 01/13/21 01:45 08:23 08:30 WBC RBC Hgb Hct MCV MCH MCHC RDW Std Deviation RDW Coeff of Jo Plt Count MPV Immature Gran % (Auto) Neut % (Auto) Lymph % (Auto) [place] % (Auto) Eos % (Auto) Baso % (Auto) Absolute Neuts (auto) Absolute Lymphs (auto) Nucleated RBC % Sodium Potassium Chloride Carbon Dioxide Anion Gap BUN Creatinine Estim Creat Clear Calc Est GFR (MDRD) Af Amer Est GFR (MDRD) Non-Af BUN/Creatinine Ratio Glucose Hemoglobin A1c 12.4 H Calcium Total Bilirubin 0.50 Direct Bilirubin 0.13 AST 12 L ALT 17 Alkaline Phosphatase 123 H Total Protein 6.1 L Albumin 1.8 L Globulin 4.3 H Ur Random Sodium Urine Creatinine Acetone Level MRSA (PCR) POC Glucose > 500 H* 01/13/21 01/13/21 01/13/21 09:37 10:30 11:45 WBC RBC Hgb Hct MCV MCH MCHC RDW Std Deviation RDW Coeff of Jo Plt Count MPV Immature Gran % (Auto) Neut % (Auto) Lymph % (Auto) [place] % (Auto) Eos % (Auto) Baso % (Auto) Absolute Neuts (auto) Absolute Lymphs (auto) Nucleated RBC % Sodium Potassium Chloride Carbon Dioxide Anion Gap BUN Creatinine Estim Creat Clear Calc Est GFR (MDRD) Af Amer Est GFR (MDRD) Non-Af BUN/Creatinine Ratio Glucose Hemoglobin A1c Calcium Total Bilirubin Direct Bilirubin AST ALT Alkaline Phosphatase Total Protein Albumin Globulin Ur Random Sodium Urine Creatinine Acetone Level LARGE H MRSA (PCR) POC Glucose > 500 H* > 500 H* 01/13/21 01/13/21 01/13/21 11:45 11:45 11:47 WBC 16.0 H RBC 3.19 L Hgb 8.5 L Hct 28.2 L MCV 88.4 D MCH 26.6 L MCHC 30.1 L D RDW Std Deviation 44.1 H RDW Coeff of Jo 13.7 Plt Count 382 MPV 11.0 Immature Gran % (Auto) 1.300 H Neut % (Auto) 90.2 H Lymph % (Auto) 3.8 L [place] % (Auto) 4.6 Eos % (Auto) 0.0 Baso % (Auto) 0.1 Absolute Neuts (auto) 14.4 H Absolute Lymphs (auto) 0.61 L Nucleated RBC % 0 Sodium 132 L Potassium 4.6 Chloride 100 Carbon Dioxide 14.0 L Anion Gap 18 H BUN 51 H Creatinine 2.38 H Estim Creat Clear Calc 30.93 Est GFR (MDRD) Af Amer 35 L Est GFR (MDRD) Non-Af 29 L BUN/Creatinine Ratio 21.4 H Glucose 491 H* Hemoglobin A1c Calcium 7.8 L Total Bilirubin Direct Bilirubin AST ALT Alkaline Phosphatase Total Protein Albumin Globulin Ur Random Sodium Urine Creatinine Acetone Level MRSA (PCR) POC Glucose 480 H* 01/13/21 01/13/21 01/13/21 12:58 13:41 14:10 WBC RBC Hgb Hct MCV MCH MCHC RDW Std Deviation RDW Coeff of Jo Plt Count MPV Immature Gran % (Auto) Neut % (Auto) Lymph % (Auto) [place] % (Auto) Eos % (Auto) Baso % (Auto) Absolute Neuts (auto) Absolute Lymphs (auto) Nucleated RBC % Sodium Potassium Chloride Carbon Dioxide Anion Gap BUN Creatinine Estim Creat Clear Calc Est GFR (MDRD) Af Amer Est GFR (MDRD) Non-Af BUN/Creatinine Ratio Glucose Hemoglobin A1c Calcium Total Bilirubin Direct Bilirubin AST ALT Alkaline Phosphatase Total Protein Albumin Globulin Ur Random Sodium 7 Urine Creatinine 37.80 Acetone Level MRSA (PCR) POC Glucose 423 H 409 H 01/13/21 01/13/21 01/13/21 14:30 14:36 15:55 WBC RBC Hgb Hct MCV MCH MCHC RDW Std Deviation RDW Coeff of Jo Plt Count MPV Immature Gran % (Auto) Neut % (Auto) Lymph % (Auto) [place] % (Auto) Eos % (Auto) Baso % (Auto) Absolute Neuts (auto) Absolute Lymphs (auto) Nucleated RBC % Sodium Potassium Chloride Carbon Dioxide Anion Gap BUN Creatinine Estim Creat Clear Calc Est GFR (MDRD) Af Amer Est GFR (MDRD) Non-Af BUN/Creatinine Ratio Glucose Hemoglobin A1c Calcium Total Bilirubin Direct Bilirubin AST ALT Alkaline Phosphatase Total Protein Albumin Globulin Ur Random Sodium Urine Creatinine Acetone Level MRSA (PCR) Negative POC Glucose 413 H 368 H 01/13/21 01/13/21 01/13/21 16:15 17:02 18:23 WBC RBC Hgb Hct MCV MCH MCHC RDW Std Deviation RDW Coeff of Jo Plt Count MPV Immature Gran % (Auto) Neut % (Auto) Lymph % (Auto) [place] % (Auto) Eos % (Auto) Baso % (Auto) Absolute Neuts (auto) Absolute Lymphs (auto) Nucleated RBC % Sodium 134 L Potassium 4.8 Chloride 104 Carbon Dioxide 22.0 Anion Gap 8 BUN 47 H Creatinine 2.23 H Estim Creat Clear Calc 33.01 Est GFR (MDRD) Af Amer 38 L Est GFR (MDRD) Non-Af 31 L BUN/Creatinine Ratio 21.1 H Glucose 390 H Hemoglobin A1c Calcium 7.8 L Total Bilirubin Direct Bilirubin AST ALT Alkaline Phosphatase Total Protein Albumin Globulin Ur Random Sodium Urine Creatinine Acetone Level MRSA (PCR) POC Glucose 393 H 348 H 01/13/21 01/13/21 01/13/21 18:52 19:54 20:30 WBC RBC Hgb Hct MCV MCH MCHC RDW Std Deviation RDW Coeff of Jo Plt Count MPV Immature Gran % (Auto) Neut % (Auto) Lymph % (Auto) [place] % (Auto) Eos % (Auto) Baso % (Auto) Absolute Neuts (auto) Absolute Lymphs (auto) Nucleated RBC % Sodium 137 Potassium 4.3 Chloride 106 Carbon Dioxide 23.0 Anion Gap 8 BUN 44 H Creatinine 2.00 H Estim Creat Clear Calc 36.80 Est GFR (MDRD) Af Amer 43 L Est GFR (MDRD) Non-Af 36 L BUN/Creatinine Ratio 22.0 H Glucose 317 H Hemoglobin A1c Calcium 7.6 L Total Bilirubin Direct Bilirubin AST ALT Alkaline Phosphatase Total Protein Albumin Globulin Ur Random Sodium Urine Creatinine Acetone Level MRSA (PCR) POC Glucose 326 H 359 H 01/13/21 01/13/21 01/13/21 20:53 21:49 22:49 WBC RBC Hgb Hct MCV MCH MCHC RDW Std Deviation RDW Coeff of Jo Plt Count MPV Immature Gran % (Auto) Neut % (Auto) Lymph % (Auto) [place] % (Auto) Eos % (Auto) Baso % (Auto) Absolute Neuts (auto) Absolute Lymphs (auto) Nucleated RBC % Sodium Potassium Chloride Carbon Dioxide Anion Gap BUN Creatinine Estim Creat Clear Calc Est GFR (MDRD) Af Amer Est GFR (MDRD) Non-Af BUN/Creatinine Ratio Glucose Hemoglobin A1c Calcium Total Bilirubin Direct Bilirubin AST ALT Alkaline Phosphatase Total Protein Albumin Globulin Ur Random Sodium Urine Creatinine Acetone Level MRSA (PCR) POC Glucose 299 H 286 H 328 H 01/13/21 01/14/21 01/14/21 23:44 00:35 00:36 WBC RBC Hgb Hct MCV MCH MCHC RDW Std Deviation RDW Coeff of Jo Plt Count MPV Immature Gran % (Auto) Neut % (Auto) Lymph % (Auto) [place] % (Auto) Eos % (Auto) Baso % (Auto) Absolute Neuts (auto) Absolute Lymphs (auto) Nucleated RBC % Sodium 138 Potassium 3.9 Chloride 110 H Carbon Dioxide 26.0 Anion Gap 2 L BUN 39 H Creatinine 1.74 H Estim Creat Clear Calc 42.30 Est GFR (MDRD) Af Amer 51 L Est GFR (MDRD) Non-Af 42 L BUN/Creatinine Ratio 22.4 H Glucose 242 H Hemoglobin A1c Calcium 7.5 L Total Bilirubin Direct Bilirubin AST ALT Alkaline Phosphatase Total Protein Albumin Globulin Ur Random Sodium Urine Creatinine Acetone Level MRSA (PCR) POC Glucose 257 H 277 H 01/14/21 01/14/21 01/14/21 01:45 02:39 03:45 WBC RBC Hgb Hct MCV MCH MCHC RDW Std Deviation RDW Coeff of Jo Plt Count MPV Immature Gran % (Auto) Neut % (Auto) Lymph % (Auto) [place] % (Auto) Eos % (Auto) Baso % (Auto) Absolute Neuts (auto) Absolute Lymphs (auto) Nucleated RBC % Sodium Potassium Chloride Carbon Dioxide Anion Gap BUN Creatinine Estim Creat Clear Calc Est GFR (MDRD) Af Amer Est GFR (MDRD) Non-Af BUN/Creatinine Ratio Glucose Hemoglobin A1c Calcium Total Bilirubin Direct Bilirubin AST ALT Alkaline Phosphatase Total Protein Albumin Globulin Ur Random Sodium Urine Creatinine Acetone Level MRSA (PCR) POC Glucose 226 H 238 H 234 H 01/14/21 01/14/21 01/14/21 04:40 04:40 08:02 WBC 11.1 H RBC 2.78 L Hgb 7.5 L Hct 23.2 L MCV 83.5 D MCH 27.0 MCHC 32.3 D RDW Std Deviation 41.5 RDW Coeff of Jo 13.5 Plt Count 278 MPV 10.6 Immature Gran % (Auto) 0.500 Neut % (Auto) 86.6 H Lymph % (Auto) 5.9 L [place] % (Auto) 6.7 Eos % (Auto) 0.1 Baso % (Auto) 0.2 Absolute Neuts (auto) 9.6 H Absolute Lymphs (auto) 0.65 L Nucleated RBC % 0 Sodium 136 Potassium 3.9 Chloride 108 H Carbon Dioxide 20.0 L Anion Gap 8 BUN 35 H Creatinine 1.61 H Estim Creat Clear Calc 48.87 Est GFR (MDRD) Af Amer 55 L Est GFR (MDRD) Non-Af 46 L BUN/Creatinine Ratio 21.7 H Glucose 235 H Hemoglobin A1c Calcium 7.5 L Total Bilirubin Direct Bilirubin AST ALT Alkaline Phosphatase Total Protein Albumin Globulin Ur Random Sodium Urine Creatinine Acetone Level MRSA (PCR) POC Glucose 215 H Micro: Microbiology 01/13/21 13:40 Interface Orders SARS-CoV-2 Antigen (Rapid) - Final 01/13/21 01:45 Blood Culture (Wb) - Anticubital Left Blood Culture - Preliminary 01/13/21 02:10 Wound - Heel, Left Gram Stain - Final Radiography Diagnostic Testing: Radiology Impression Foot X-Ray 01/13/21 19:49 IMPRESSION: Subacute fracture of the distal fibula. Could consider a left ankle x-ray. Interval resection of the calcaneus debridement of the soft tissues. Prior fracture of the fifth metatarsal. Prior amputation of the second digit at the metatarsophalangeal joint. Electronically Signed: Alissa Allen MD at 8:06 EDT Tel , Service support , Physical Exam Const alert and no apparent distress Extremity Extremity Narrative: s/p debridement of left foot down to deep soft tissue and bone - the tissues are healthy and viable, no maloder, no purulence, bleeding controlled, infection much/significantly improved. Chronic peripheral neuropathy to the left foot. CFT < 2 seconds to all toe on the left foot. Assessment & Plan Assessment/Plan (1) Acute osteomyelitis of left hindfoot: (2) Non-pressure chronic ulcer of left heel and midfoot with necrosis of bone: (3) Severe sepsis: (4) DKA (diabetic ketoacidoses): QUALIFIERS: Diabetes mellitus complication detail: without coma Diabetes mellitus type: other specified (including YAAKOV) Qualified Code(s): E13.10 - Other specified diabetes mellitus with ketoacidosis without coma (5) Diabetes: (6) Diabetic neuropathy: QUALIFIERS: Diabetes mellitus complication detail: diabetic polyneuropathy Diabetes mellitus type: type 2 Qualified Code(s): E11.42 - Type 2 diabetes mellitus with diabetic polyneuropathy PLAN: s/p debridement left foot/heel with partial calcanectomy on 01/13/2021. Reviewed diagnostic data. Reviewed left foot post op xrays. There is possible fibular fracture - radiologist suggested possible ankle xrays - will order ankle xrays for further evaluation, however patient is nonambulatory and will unlikely change treatment plan. Clinically from infection standpoint foot significantly improved. Cultures have been obtained and final results pending. Patient is on IV antibiotics - Vanc/Zosyn and Clindamycin, Dr. Vital/ID on consult. Bleeding controlled to the left foot. Reviewed labs and hgb was 7.5. Discussed with Dr. Peña and will recheck hgb at noon with possible transfusion pending results. Continue with daily dressing changes to the left foot - betadine wet to dry dressing changes with overlying gauze, kerlix, abd pads and deep bandage. No weightbearing left foot. Advised patient foot will be nonfunctional due to the extent of the infection. He relates he will not proceed with future amputation. Podiatry will continue to follow.
--- NOTE | 2021-01-14 09:47 | PCM.PN.HOSP ---
Subjective Subjective And examined. He had debridement of the left heel done yesterday. His insulin drip has been off since 3:45 AM. He is more pleasant. He denied any new complaints. Started on long-acting insulin. No fever such Objective Data Objective Data Vital Signs: Vital Signs Temp Pulse Resp BP Pulse Ox 98.4 F 86 21 H 109/67 98 01/14/21 08:00 01/14/21 09:00 01/14/21 09:00 01/14/21 09:00 01/14/21 09:00 Oxygen Flow Rate (L/min) 2 Oxygen Delivery Method Room Air Weight: 77.3 kg Body Mass Index (BMI) 21.7 Intake & Output: Intake and Output for Last 24 Hours 01/12/21 01/13/21 01/14/21 23:59 23:59 23:59 Intake Total 9375.13 / 9375.13 1677.67 / 1677.67 Output Total 625 / 625 500 / 500 Balance 8750.13 / 8750.13 1177.67 / 1177.67 Lab / Micro Data Result Diagrams: 01/14/21 04:40 01/14/21 04:40 Labs: Laboratory Results - last 24 hr 01/13/21 01/13/21 01/13/21 10:30 11:45 11:45 WBC RBC Hgb Hct MCV MCH MCHC RDW Std Deviation RDW Coeff of Jo Plt Count MPV Immature Gran % (Auto) Neut % (Auto) Lymph % (Auto) [place] % (Auto) Eos % (Auto) Baso % (Auto) Absolute Neuts (auto) Absolute Lymphs (auto) Nucleated RBC % Sodium 132 L Potassium 4.6 Chloride 100 Carbon Dioxide 14.0 L Anion Gap 18 H BUN 51 H Creatinine 2.38 H Estim Creat Clear Calc 30.93 Est GFR (MDRD) Af Amer 35 L Est GFR (MDRD) Non-Af 29 L BUN/Creatinine Ratio 21.4 H Glucose 491 H* Calcium 7.8 L Ur Random Sodium Urine Creatinine Acetone Level LARGE H MRSA (PCR) POC Glucose > 500 H* Crossmatch 01/13/21 01/13/21 01/13/21 11:45 11:47 12:58 WBC 16.0 H RBC 3.19 L Hgb 8.5 L Hct 28.2 L MCV 88.4 D MCH 26.6 L MCHC 30.1 L D RDW Std Deviation 44.1 H RDW Coeff of Jo 13.7 Plt Count 382 MPV 11.0 Immature Gran % (Auto) 1.300 H Neut % (Auto) 90.2 H Lymph % (Auto) 3.8 L [place] % (Auto) 4.6 Eos % (Auto) 0.0 Baso % (Auto) 0.1 Absolute Neuts (auto) 14.4 H Absolute Lymphs (auto) 0.61 L Nucleated RBC % 0 Sodium Potassium Chloride Carbon Dioxide Anion Gap BUN Creatinine Estim Creat Clear Calc Est GFR (MDRD) Af Amer Est GFR (MDRD) Non-Af BUN/Creatinine Ratio Glucose Calcium Ur Random Sodium Urine Creatinine Acetone Level MRSA (PCR) POC Glucose 480 H* 423 H Crossmatch 01/13/21 01/13/21 01/13/21 13:41 14:10 14:30 WBC RBC Hgb Hct MCV MCH MCHC RDW Std Deviation RDW Coeff of Jo Plt Count MPV Immature Gran % (Auto) Neut % (Auto) Lymph % (Auto) [place] % (Auto) Eos % (Auto) Baso % (Auto) Absolute Neuts (auto) Absolute Lymphs (auto) Nucleated RBC % Sodium Potassium Chloride Carbon Dioxide Anion Gap BUN Creatinine Estim Creat Clear Calc Est GFR (MDRD) Af Amer Est GFR (MDRD) Non-Af BUN/Creatinine Ratio Glucose Calcium Ur Random Sodium 7 Urine Creatinine 37.80 Acetone Level MRSA (PCR) Negative POC Glucose 409 H Crossmatch 01/13/21 01/13/21 01/13/21 14:36 15:55 16:15 WBC RBC Hgb Hct MCV MCH MCHC RDW Std Deviation RDW Coeff of Jo Plt Count MPV Immature Gran % (Auto) Neut % (Auto) Lymph % (Auto) [place] % (Auto) Eos % (Auto) Baso % (Auto) Absolute Neuts (auto) Absolute Lymphs (auto) Nucleated RBC % Sodium 134 L Potassium 4.8 Chloride 104 Carbon Dioxide 22.0 Anion Gap 8 BUN 47 H Creatinine 2.23 H Estim Creat Clear Calc 33.01 Est GFR (MDRD) Af Amer 38 L Est GFR (MDRD) Non-Af 31 L BUN/Creatinine Ratio 21.1 H Glucose 390 H Calcium 7.8 L Ur Random Sodium Urine Creatinine Acetone Level MRSA (PCR) POC Glucose 413 H 368 H Crossmatch 01/13/21 01/13/21 01/13/21 17:02 18:23 18:52 WBC RBC Hgb Hct MCV MCH MCHC RDW Std Deviation RDW Coeff of Jo Plt Count MPV Immature Gran % (Auto) Neut % (Auto) Lymph % (Auto) [place] % (Auto) Eos % (Auto) Baso % (Auto) Absolute Neuts (auto) Absolute Lymphs (auto) Nucleated RBC % Sodium Potassium Chloride Carbon Dioxide Anion Gap BUN Creatinine Estim Creat Clear Calc Est GFR (MDRD) Af Amer Est GFR (MDRD) Non-Af BUN/Creatinine Ratio Glucose Calcium Ur Random Sodium Urine Creatinine Acetone Level MRSA (PCR) POC Glucose 393 H 348 H 326 H Crossmatch 01/13/21 01/13/21 01/13/21 19:54 20:30 20:53 WBC RBC Hgb Hct MCV MCH MCHC RDW Std Deviation RDW Coeff of Jo Plt Count MPV Immature Gran % (Auto) Neut % (Auto) Lymph % (Auto) [place] % (Auto) Eos % (Auto) Baso % (Auto) Absolute Neuts (auto) Absolute Lymphs (auto) Nucleated RBC % Sodium 137 Potassium 4.3 Chloride 106 Carbon Dioxide 23.0 Anion Gap 8 BUN 44 H Creatinine 2.00 H Estim Creat Clear Calc 36.80 Est GFR (MDRD) Af Amer 43 L Est GFR (MDRD) Non-Af 36 L BUN/Creatinine Ratio 22.0 H Glucose 317 H Calcium 7.6 L Ur Random Sodium Urine Creatinine Acetone Level MRSA (PCR) POC Glucose 359 H 299 H Crossmatch 01/13/21 01/13/21 01/13/21 21:49 22:49 23:44 WBC RBC Hgb Hct MCV MCH MCHC RDW Std Deviation RDW Coeff of Jo Plt Count MPV Immature Gran % (Auto) Neut % (Auto) Lymph % (Auto) [place] % (Auto) Eos % (Auto) Baso % (Auto) Absolute Neuts (auto) Absolute Lymphs (auto) Nucleated RBC % Sodium Potassium Chloride Carbon Dioxide Anion Gap BUN Creatinine Estim Creat Clear Calc Est GFR (MDRD) Af Amer Est GFR (MDRD) Non-Af BUN/Creatinine Ratio Glucose Calcium Ur Random Sodium Urine Creatinine Acetone Level MRSA (PCR) POC Glucose 286 H 328 H 257 H Crossmatch 01/14/21 01/14/21 01/14/21 00:35 00:36 01:45 WBC RBC Hgb Hct MCV MCH MCHC RDW Std Deviation RDW Coeff of Jo Plt Count MPV Immature Gran % (Auto) Neut % (Auto) Lymph % (Auto) [place] % (Auto) Eos % (Auto) Baso % (Auto) Absolute Neuts (auto) Absolute Lymphs (auto) Nucleated RBC % Sodium 138 Potassium 3.9 Chloride 110 H Carbon Dioxide 26.0 Anion Gap 2 L BUN 39 H Creatinine 1.74 H Estim Creat Clear Calc 42.30 Est GFR (MDRD) Af Amer 51 L Est GFR (MDRD) Non-Af 42 L BUN/Creatinine Ratio 22.4 H Glucose 242 H Calcium 7.5 L Ur Random Sodium Urine Creatinine Acetone Level MRSA (PCR) POC Glucose 277 H 226 H Crossmatch 01/14/21 01/14/21 01/14/21 02:39 03:45 04:40 WBC 11.1 H RBC 2.78 L Hgb 7.5 L Hct 23.2 L MCV 83.5 D MCH 27.0 MCHC 32.3 D RDW Std Deviation 41.5 RDW Coeff of Jo 13.5 Plt Count 278 MPV 10.6 Immature Gran % (Auto) 0.500 Neut % (Auto) 86.6 H Lymph % (Auto) 5.9 L [place] % (Auto) 6.7 Eos % (Auto) 0.1 Baso % (Auto) 0.2 Absolute Neuts (auto) 9.6 H Absolute Lymphs (auto) 0.65 L Nucleated RBC % 0 Sodium Potassium Chloride Carbon Dioxide Anion Gap BUN Creatinine Estim Creat Clear Calc Est GFR (MDRD) Af Amer Est GFR (MDRD) Non-Af BUN/Creatinine Ratio Glucose Calcium Ur Random Sodium Urine Creatinine Acetone Level MRSA (PCR) POC Glucose 238 H 234 H Crossmatch 01/14/21 01/14/21 01/14/21 04:40 08:02 09:35 WBC RBC Hgb Hct MCV MCH MCHC RDW Std Deviation RDW Coeff of Jo Plt Count MPV Immature Gran % (Auto) Neut % (Auto) Lymph % (Auto) [place] % (Auto) Eos % (Auto) Baso % (Auto) Absolute Neuts (auto) Absolute Lymphs (auto) Nucleated RBC % Sodium 136 Potassium 3.9 Chloride 108 H Carbon Dioxide 20.0 L Anion Gap 8 BUN 35 H Creatinine 1.61 H Estim Creat Clear Calc 48.87 Est GFR (MDRD) Af Amer 55 L Est GFR (MDRD) Non-Af 46 L BUN/Creatinine Ratio 21.7 H Glucose 235 H Calcium 7.5 L Ur Random Sodium Urine Creatinine Acetone Level MRSA (PCR) POC Glucose 215 H Crossmatch See Detail Micro: Microbiology 01/13/21 13:40 Interface Orders SARS-CoV-2 Antigen (Rapid) - Final 01/13/21 01:45 Blood Culture (Wb) - Anticubital Left Blood Culture - Preliminary 01/13/21 02:10 Wound - Heel, Left Gram Stain - Final Radiography Diagnostic Testing: Radiology Impression Foot X-Ray 01/13/21 19:49 IMPRESSION: Subacute fracture of the distal fibula. Could consider a left ankle x-ray. Interval resection of the calcaneus debridement of the soft tissues. Prior fracture of the fifth metatarsal. Prior amputation of the second digit at the metatarsophalangeal joint. Electronically Signed: Alissa Allen MD at 8:06 EDT Tel , Service support , Physical Exam Narrative General: Alert, Oriented x3, Cooperative, No apparent distress, Well developed HEENT: Atraumatic Oral: Moist Mucosa Neck: Supple Lungs: Clear to auscultation Cardiovascular: HS I+II, regular, no murmurs Abdomen: Bowel Sounds Present, Soft, Non Tender Extremities: No edema Skin: No rashes, No breakdown Neurological: Grossly intact Psych/Mental Status: Appropriate Assessment & Plan Assessment/Plan (1) Severe sepsis: (2) INFECTED DIABETIC ULCERS: (3) DKA (diabetic ketoacidoses): QUALIFIERS: Diabetes mellitus type: other specified (including YAAKOV) Diabetes mellitus complication detail: without coma Qualified Code(s): E13.10 - Other specified diabetes mellitus with ketoacidosis without coma (4) Acute osteomyelitis of left hindfoot: (5) Non-pressure chronic ulcer of left heel and midfoot with necrosis of bone: (6) Acute kidney injury: (7) Anemia: (8) Hyponatremia: PLAN: 1. Acute DKA, resolved, off insulin drip Started on Lantus, premeal insulin, ISS 2. Severe sepsis secondary to acute necrotic diabetic ulcer/osteomyelitis of the left heel calcaneus, improved WBC count is improved to 11.1. Blood and wound cultures are pending Patient does not want to have amputation Podiatry and ID following on 3. Acute kidney injury, pre-renal secondary to #1 and 2, improving Creatinine of 2.65, creatinine is 1.65, will continue on IV fluids 4. Severe anemia, etiology is likely mixed from acute blood loss from surgery as well as anemia of chronic disease Globin is 7.5 from 12.5. Hemoglobin is 14. Recheck H&H, transfuse when hemoglobin is below 7, type and crossmatch Check iron stores, stool for occult blood 5. Hyponatremia secondary to #1 , resolved 6. Relative hypotension related to dehydration, continue on IV fluids 7. Nicotine dependence, advised to quit 8. DVT PPx- SCDs on account of recent anemia Visit Charges Inpatient E&M: 40384 Subs Hosp L3
--- NOTE | 2021-01-14 10:00 | RAD_ITS ---
STUDY: X-RAY - LEFT ANKLE REASON FOR EXAM: Male, 65 years old. possible fibular fracture TECHNIQUE: 3 view(s) of the ankle. COMPARISON: None. FINDINGS: Healed fracture the distal fibula proximal tibial plateau. Normal medial and lateral malleoli. Normal tibiotalar articulation and ankle mortise. Status post resection of the posterior calcaneus. The visualized subtalar, talonavicular, calcaneocuboid and tarsal articulations are normal. The soft tissue structures are unremarkable. RAD/Ankle min 3 Views IMPRESSION: 1. Healed fracture the distal fibula proximal tibial plafond. 2. Status post resection of the posterior calcaneus per Electronically Signed: En Caballero MD at 11:03 EDT Tel , Service support ,
[2021-01-14 10:19] LABS: Iron 24 ug/dL (65-175); Iron Binding Capacity,Total 74 ug/dL (250-450); PERCENT IRON SATURATION 32.4 % (15.0-55.0)
[2021-01-14] MEDS: Magnesium Hydroxide 30 ML UDC PO (11:38)
[2021-01-14 11:45] LABS: Bedside Glucose 184 mg/dL (70-110)
[2021-01-14 14:26] LABS: Hematocrit 25.2 % (40-54); Hemoglobin 8.3 g/dL (13.0-16.5)
[2021-01-14] MEDS: oxyCODONE 5 MG Tablet PO (14:38)
[2021-01-14 16:46] LABS: Bedside Glucose 144 mg/dL (70-110)
[2021-01-14] MEDS: Morphine 2 MG/ML Syringe IV (18:01)
[2021-01-14] MEDS: 0.9% Normal Saline 1,000 ML 100 ML IV (18:07)
--- NOTE | 2021-01-14 18:14 | CM.ED ---
BYRON Note: Referral Source: CM Referral Reason: Discharge Planning SW met with patient in his room. SW explained reason for follow up for discharge planning. Patient was slow to respond to question. medical staff coordinator said patient has been angry. Patient said that his PCP is Dr. Pandey. Patient reports that his specialist are the deirdre that did my surgery yesterday. Patient reports he has Medicare A and B. At this point of the conversation patient said he was done talking as he is having a hard time. SW advised that patient will have follow up with SW on Saturday and he said I will be here that long?. SW explained that is based on patient's MD and level of care he needs. Patient very dismissive of this radio news writer. Leonor OLSEN
[2021-01-14 22:05] LABS: Bedside Glucose 109 mg/dL (70-110)
[2021-01-15 02:25] VITALS: BP 141/67; PULSE 68; RESP 20; TEMP 36.4; O2SAT 94
[2021-01-15 03:48] LABS: Vancomycin, Trough Level 10.8 ug/mL (5.0-15.0)
[2021-01-15] MEDS: 0.9% Saline Lock 10 ML Syringe IV ×3 (04:04→07:19)
[2021-01-15] MEDS: Morphine 2 MG/ML Syringe IV ×4 (04:04→15:28)
--- NOTE | 2021-01-15 04:16 | PCM.RX.CS ---
Consult Pharmacy has been consulted to manage selected antiobiotic: Vancomycin Type of Consult: Follow-up Suspected Infection: Skin/Soft tissue Prior Doses of Antibiotics Received/Current Regimen: Medications Vancomycin HCl 1,250 mg/ (Sodium Chloride) 275 mls @ 167 mls/hr IV Q24H JAMES Vancomycin HCl 750 mg/ Sodium (Chloride) 265 mls @ 250 mls/hr IV Q24H JAMES Stop: 01/15/21 04:45 Last Admin: 01/15/21 03:33 Dose: 250 mls/hr Labs: Sodium 136 mmol/L (136-145) 01/14/21 04:40 Potassium 3.9 mmol/L (3.5-5.1) 01/14/21 04:40 Chloride 108 mmol/L (98-107) H 01/14/21 04:40 Carbon Dioxide 20.0 mmol/L (21.0-32.0) L 01/14/21 04:40 Anion Gap 8 (5-15) 01/14/21 04:40 BUN 35 mg/dL (7-18) H 01/14/21 04:40 Creatinine 1.61 mg/dL (0.70-1.30) H 01/14/21 04:40 Est GFR (MDRD) Af Amer 55 mL/min (>60) L 01/14/21 04:40 Est GFR (MDRD) Non-Af 46 mL/min (>60) L 01/14/21 04:40 BUN/Creatinine Ratio 21.7 RATIO (10-20) H 01/14/21 04:40 Glucose 235 mg/dL (74-106) H 01/14/21 04:40 Vancomycin Trough 10.8 ug/mL (5.0-15.0) 01/15/21 02:50 Microbiology: Microbiology 01/13/21 Unknown Bone - Left Foot Gram Stain - Final 01/13/21 Unknown Bone - Left Foot Wound Culture - Preliminary Gram negative glenda 01/13/21 Unknown Tissue - Left Foot Gram Stain - Final 01/13/21 Unknown Tissue - Left Foot Wound Culture - Preliminary GNR lactose client care representative 01/13/21 02:10 Wound - Heel, Left Gram Stain - Final 01/13/21 02:10 Wound - Heel, Left Wound Culture - Preliminary Gram positive organism Gram negative glenda 01/13/21 13:40 Interface Orders SARS-CoV-2 Antigen (Rapid) - Final 01/13/21 01:45 Blood Culture (Wb) - Anticubital Left Blood Culture - Preliminary Weight used for dosin.3 kg Estimated Creatinine Clearance: 49 Goal Trough: 15-20 mcg/mL Pharmacy Plan for Drug Dosing: Vancomycin trough level of 10.8 was below the target range of 15-20. Will increase the dose to 1250mg q24h and re-draw a trough prior to 3rd dose of new regimen. Pharmacy Service will continue to monitor and adjust dosing as required. Follow-Up Labs: Trough Vancomycin Labs to be done on [date and time ordered]: 01/18/21 @6718
[2021-01-15] MEDS: 0.9% Normal Saline 1,000 ML 100 ML IV (05:28)
[2021-01-15] MEDS: oxyCODONE 5 MG Tablet PO (06:11)
[2021-01-15] MEDS: Ondansetron 4 MG/2 ML Vial IV ×2 (06:16→13:23)
[2021-01-15 07:00] LABS: Absolute Neutrophil Count 8.3 X10^3/uL (2.0-7.7); Basophil# 0.02 X10^3/uL; Basophil% 0.2 % (0-1); Eosinophil# 0.01 X10^3/uL; Eosinophils% 0.1 % (0-5); Hemoglobin 9.1 g/dL (13.0-16.5); Lymphocyte % 9.2 % (19-41); Mean Corp Hgb Conc 32.5 g/dL (32-36); Mean Corpuscular Hgb 26.6 pg (27.0-32.0); Mean Corpuscular Volume 81.9 fL (80-94); Monocyte# 0.54 X10^3/uL; Monocyte% 5.5 % (0-10); NRBC Flagged by Analyzer 0 % (0-5); Neutrophil % 84.5 % (47-70); Platelet Count 299 K/mm3 (150-450); RBC Distribution Width CV 13.9 % (11.6-14.6); RBC Distribution Width SD 41.1 fl (35.1-43.9); Red Blood Count 3.42 M/mm3 (4.6-6.2); White Blood Count 9.8 K/mm3 (4.4-11.0)
--- NOTE | 2021-01-15 07:19 | PCM.PN.INT ---
Subjective Subjective Patient transferred out of the intensive care unit yesterday. Patient has remained hemodynamically stable on room air. Patient did report some nausea this morning and had just received Zofran just prior to my arrival. Patient states his pain is marginally controlled and he feels no better than yesterday. Objective Data Objective Data Vital Signs: Vital Signs Temp Pulse Resp BP Pulse Ox 36.4 C L 68 20 H 141/67 H 94 01/15/21 02:25 01/15/21 02:25 01/15/21 02:25 01/15/21 02:25 01/15/21 02:25 Oxygen Flow Rate (L/min) 2 Oxygen Delivery Method Room Air Weight: 77.3 kg Body Mass Index (BMI) 21.7 Intake & Output: Intake and Output for Last 24 Hours 01/13/21 01/14/21 01/15/21 23:59 23:59 23:59 Intake Total 9375.13 / 9375.13 3568.67 / 4068.67 1971.00 / 1971.00 Output Total 625 / 625 1900 / 1900 1650 / 1650 Balance 8750.13 / 8750.13 1668.67 / 2168.67 321.00 / 321.00 Lab / Micro Data Result Diagrams: 01/15/21 06:44 01/14/21 04:40 Labs: Laboratory Results - last 24 hr 01/14/21 01/14/21 01/14/21 04:40 08:02 09:35 WBC RBC Hgb Hct MCV MCH MCHC RDW Std Deviation RDW Coeff of Jo Plt Count MPV Immature Gran % (Auto) Neut % (Auto) Lymph % (Auto) [place] % (Auto) Eos % (Auto) Baso % (Auto) Absolute Neuts (auto) Absolute Lymphs (auto) Nucleated RBC % Iron 24 L TIBC 74 L Iron Saturation 32.4 Vancomycin Trough POC Glucose 215 H Blood Type O POSITIVE Antibody Screen NEGATIVE Crossmatch See Detail 01/14/21 01/14/21 01/14/21 11:35 14:10 16:28 WBC RBC Hgb 8.3 L Hct 25.2 L MCV MCH MCHC RDW Std Deviation RDW Coeff of Jo Plt Count MPV Immature Gran % (Auto) Neut % (Auto) Lymph % (Auto) Mathews % (Auto) Eos % (Auto) Baso % (Auto) Absolute Neuts (auto) Absolute Lymphs (auto) Nucleated RBC % Iron TIBC Iron Saturation Vancomycin Trough POC Glucose 184 H 144 H Blood Type Antibody Screen Crossmatch 01/14/21 01/15/21 01/15/21 21:59 02:50 06:44 WBC 9.8 RBC 3.42 L Hgb 9.1 L Hct 28.0 L MCV 81.9 MCH 26.6 L MCHC 32.5 RDW Std Deviation 41.1 RDW Coeff of Jo 13.9 Plt Count 299 MPV 11.0 Immature Gran % (Auto) 0.500 Neut % (Auto) 84.5 H Lymph % (Auto) 9.2 L Mathews % (Auto) 5.5 Eos % (Auto) 0.1 Baso % (Auto) 0.2 Absolute Neuts (auto) 8.3 H Absolute Lymphs (auto) 0.90 Nucleated RBC % 0 Iron TIBC Iron Saturation Vancomycin Trough 10.8 POC Glucose 109 Blood Type Antibody Screen Crossmatch Micro: Microbiology 01/13/21 01:45 Blood Culture (Wb) - Anticubital Left Blood Culture - Preliminary Enterobacter cloacae complex 01/13/21 Unknown Bone - Left Foot Gram Stain - Final 01/13/21 Unknown Bone - Left Foot Wound Culture - Preliminary Gram negative glenda 01/13/21 Unknown Tissue - Left Foot Gram Stain - Final 01/13/21 Unknown Tissue - Left Foot Wound Culture - Preliminary GNR lactose technician support engineer 01/13/21 02:10 Wound - Heel, Left Gram Stain - Final 01/13/21 02:10 Wound - Heel, Left Wound Culture - Preliminary Gram positive organism Gram negative glenda 01/13/21 13:40 Interface Orders SARS-CoV-2 Antigen (Rapid) - Final Radiography Diagnostic Testing: Radiology Impression Foot X-Ray 01/13/21 19:49 IMPRESSION: Subacute fracture of the distal fibula. Could consider a left ankle x-ray. Interval resection of the calcaneus debridement of the soft tissues. Prior fracture of the fifth metatarsal. Prior amputation of the second digit at the metatarsophalangeal joint. Electronically Signed: Alissa Allen MD at 8:06 EDT Tel , Service support , Ankle X-Ray 01/14/21 10:00 IMPRESSION: 1. Healed fracture the distal fibula proximal tibial plafond. 2. Status post resection of the posterior calcaneus per Electronically Signed: En Caballero MD at 11:03 EDT Tel , Service support , Physical Exam Const alert and oriented x3 Constitutional Narrative: Smells of possible Pseudomonas infection General Appearance: uncooperative, disheveled, frail and appears older than stated age Exam Limitations: behavioral limitations Nutritional Appearance: cachectic HEENT normocephalic and external ears normal Eyes PERRL and EOMs intact bilaterally Neck supple, no JVD and no carotid bruits Lymph Lymphatic: lymphadenopathy Lymphadenopathy Laterality: bilateral Chest inspection of chest normal and palpation of chest normal Resp normal respiratory effort and clear to auscultation bilaterally Effort and Inspection: Negative for stridor, actively coughing or uses accessory muscles Auscultation: diminished lung sounds; Negative for rales, rhonchi or wheezes Cardio no murmurs, no rub and no gallops Rate: tachycardic Peripheral Pulses: Negative for dorsalis pedis pulses present GI normal to inspection, nondistended, normoactive bowel sounds and soft to palpation Extremity normal capillary refill General Extremity: clubbing; Negative for edema Skin no rashes or lesions noted Skin Narrative: Vascular insufficiency changes of all extremities. Wound Narrative: Multiple superficial ulcers in various stages of healing. Left calcaneal heel wound currently dressed and was not personally evaluated. No crepitus appreciated on ankle. Nails: dystrophic and yellow and thickened Neuro CN's II-XII intact bilaterally Psych cooperative and affect normal Assessment & Plan Assessment/Plan (1) Acute osteomyelitis of left hindfoot: (2) Non-pressure chronic ulcer of left heel and midfoot with necrosis of bone: (3) Severe sepsis: (4) DKA (diabetic ketoacidoses): QUALIFIERS: Diabetes mellitus type: other specified (including YAAKOV) Diabetes mellitus complication detail: without coma Qualified Code(s): E13.10 - Other specified diabetes mellitus with ketoacidosis without coma (5) Diabetic gastroparesis: (6) Peripheral vascular disease: (7) Amputation of right lower extremity: (8) Diabetes mellitus with polyneuropathy: (9) Acute kidney injury: PLAN: RECOMMENDATIONS: 1. Agree with empiric antibiotics. Likely okay to discontinue clindamycin from my perspective 2. Consider discontinuation of IV fluids 3. Continue subcu insulin with sliding scale 4. Await future surgical recommendations 5. Await morning BMP and replete as indicated 6. Hemodynamically stable on room air. Will sign off from a critical care perspective 7. Potential need for guardianship. Social work/case management to follow IMPRESSIONS: 1. Severe sepsis secondary to left calcaneal infected wound Patient with tachycardia and hypotension with evidence of endorgan damage including acute kidney injury. Patient has received fluid boluses initially. Patient is likely significantly volume depleted given acute DKA and history of gastroparesis. Patient appears to be volume resuscitated at this time. Okay to discontinue IV fluids from my perspective. Patient is on appropriate antibiotics. Patient does have a gram-negative growing in his blood, but clinical suspicion is for polymicrobial wound infection, so would continue Vanco and gram-negative coverage pending culture results. Await podiatry recommendation on potential further surgeries. 2. Acute DKA secondary to problem #1 Resolved. Patient with attempted compensation from a respiratory standpoint for significant acidosis. Initial acidosis was likely a mixed metabolic acidosis. Okay to continue basal insulin with sliding scale 3. Acute kidney injury Improving. Baseline renal function appears to be approximately 1. No indication for renal replacement therapy at this time, but will have to follow closely as patient appears to have prerenal etiology. Volume resuscitation is underway. Potassium was significantly elevated, but this is likely complicated by acute DKA. 4. Malnutrition/multiple diabetic complications including peripheral vascular disease, gastroparesis and delayed healing Patient with multiple wounds at various stages of healing. Patient will be difficult to recover given his lack of compliance and comorbidities associated with diabetes. Wound nurse is following. Cultures have been taken. 5. Poor insight/malnutrition/lack of follow-up/anemia Complicates care, management, recovery and prognosis. Patient appears to have progressed significantly since last visit in the wound center. Patient may require evaluation for protective services versus emergency guardianship. Social work/case management to follow. Hemoglobin has remained stable. No clinical signs of bleeding at this time. Visit Charges Inpatient E&M: 29691 Subs Hosp L2
[2021-01-15 07:31] LABS: ALB/GLOB Ratio 0.4 RATIO (0.9-2.4); AST(SGOT) 14 U/L (15-37); Alanine Aminotransfer ALT/SGPT 15 U/L (16-61); Albumin, Serum 1.7 g/dL (3.2-5.0); Alkaline Phosphatase 102 U/L (45-117); Anion Gap 7 (5-15); BUN 13 mg/dL (7-18); BUN/Creat Ratio 20.3 RATIO (10-20); Calcium,Total 7.8 mg/dL (8.5-10.1); Chloride 106 mmol/L (98-107); Creatinine, Serum 0.64 mg/dL (0.70-1.30); EST Glomerular Filtration Rate 132 mL/min (>60); Est Glom Filt Rate - Afr Amer 160 mL/min (>60); Estimated Creatinine Clearance 78.37 ml/min; Globulin 3.9 g/dL (2.2-4.2); Glucose 66 mg/dL (74-106); Potassium 2.9 mmol/L (3.5-5.1); Protein, Total 5.6 g/dL (6.4-8.2); Sodium Level 139 mmol/L (136-145)
[2021-01-15] MEDS: Insulin Lispro 100 UNIT/ML INSULN.PEN SC ×2 (08:13→22:56)
[2021-01-15 08:20] LABS: Bedside Glucose 83 mg/dL (70-110)
--- NOTE | 2021-01-15 08:21 | PCM.PROGNOTE ---
Subjective Subjective Patient was seen this morning for follow up on left foot. Patient has been transferred out of ICU. WBC normal, patient afebrile. He relates to neuropathy pains in hands and foot. Objective Data Objective Data Vital Signs: Vital Signs Temp Pulse Resp BP Pulse Ox 97.6 F L 68 20 H 141/67 H 94 01/15/21 02:25 01/15/21 02:25 01/15/21 02:25 01/15/21 02:25 01/15/21 02:25 Oxygen Flow Rate (L/min) 2 Oxygen Delivery Method Room Air Weight: 77.3 kg Body Mass Index (BMI) 21.7 Intake & Output: Intake and Output for Last 24 Hours 01/13/21 01/14/21 01/15/21 23:59 23:59 23:59 Intake Total 9375.13 / 9375.13 3568.67 / 4068.67 1971.00 / 1971.00 Output Total 625 / 625 1900 / 1900 1650 / 1650 Balance 8750.13 / 8750.13 1668.67 / 2168.67 321.00 / 321.00 Lab / Micro Data Result Diagrams: 01/15/21 06:44 01/15/21 06:44 Labs: Laboratory Results - last 24 hr 01/14/21 01/14/21 01/14/21 04:40 08:02 09:35 WBC RBC Hgb Hct MCV MCH MCHC RDW Std Deviation RDW Coeff of Jo Plt Count MPV Immature Gran % (Auto) Neut % (Auto) Lymph % (Auto) [place] % (Auto) Eos % (Auto) Baso % (Auto) Absolute Neuts (auto) Absolute Lymphs (auto) Nucleated RBC % Sodium Potassium Chloride Carbon Dioxide Anion Gap BUN Creatinine Estim Creat Clear Calc Est GFR (MDRD) Af Amer Est GFR (MDRD) Non-Af BUN/Creatinine Ratio Glucose Calcium Iron 24 L TIBC 74 L Iron Saturation 32.4 Total Bilirubin AST ALT Alkaline Phosphatase Total Protein Albumin Globulin Albumin/Globulin Ratio Vancomycin Trough POC Glucose 215 H Blood Type O POSITIVE Antibody Screen NEGATIVE Crossmatch See Detail 01/14/21 01/14/21 01/14/21 11:35 14:10 16:28 WBC RBC Hgb 8.3 L Hct 25.2 L MCV MCH MCHC RDW Std Deviation RDW Coeff of Jo Plt Count MPV Immature Gran % (Auto) Neut % (Auto) Lymph % (Auto) [place] % (Auto) Eos % (Auto) Baso % (Auto) Absolute Neuts (auto) Absolute Lymphs (auto) Nucleated RBC % Sodium Potassium Chloride Carbon Dioxide Anion Gap BUN Creatinine Estim Creat Clear Calc Est GFR (MDRD) Af Amer Est GFR (MDRD) Non-Af BUN/Creatinine Ratio Glucose Calcium Iron TIBC Iron Saturation Total Bilirubin AST ALT Alkaline Phosphatase Total Protein Albumin Globulin Albumin/Globulin Ratio Vancomycin Trough POC Glucose 184 H 144 H Blood Type Antibody Screen Crossmatch 01/14/21 01/15/21 01/15/21 21:59 02:50 06:44 WBC 9.8 RBC 3.42 L Hgb 9.1 L Hct 28.0 L MCV 81.9 MCH 26.6 L MCHC 32.5 RDW Std Deviation 41.1 RDW Coeff of Jo 13.9 Plt Count 299 MPV 11.0 Immature Gran % (Auto) 0.500 Neut % (Auto) 84.5 H Lymph % (Auto) 9.2 L [place] % (Auto) 5.5 Eos % (Auto) 0.1 Baso % (Auto) 0.2 Absolute Neuts (auto) 8.3 H Absolute Lymphs (auto) 0.90 Nucleated RBC % 0 Sodium Potassium Chloride Carbon Dioxide Anion Gap BUN Creatinine Estim Creat Clear Calc Est GFR (MDRD) Af Amer Est GFR (MDRD) Non-Af BUN/Creatinine Ratio Glucose Calcium Iron TIBC Iron Saturation Total Bilirubin AST ALT Alkaline Phosphatase Total Protein Albumin Globulin Albumin/Globulin Ratio Vancomycin Trough 10.8 POC Glucose 109 Blood Type Antibody Screen Crossmatch 01/15/21 01/15/21 06:44 08:09 WBC RBC Hgb Hct MCV MCH MCHC RDW Std Deviation RDW Coeff of Jo Plt Count MPV Immature Gran % (Auto) Neut % (Auto) Lymph % (Auto) [place] % (Auto) Eos % (Auto) Baso % (Auto) Absolute Neuts (auto) Absolute Lymphs (auto) Nucleated RBC % Sodium 139 Potassium 2.9 L Chloride 106 Carbon Dioxide 26.0 Anion Gap 7 BUN 13 Creatinine 0.64 L Estim Creat Clear Calc 78.37 Est GFR (MDRD) Af Amer 160 Est GFR (MDRD) Non-Af 132 BUN/Creatinine Ratio 20.3 H Glucose 66 L Calcium 7.8 L Iron TIBC Iron Saturation Total Bilirubin 0.40 AST 14 L ALT 15 L Alkaline Phosphatase 102 Total Protein 5.6 L Albumin 1.7 L Globulin 3.9 Albumin/Globulin Ratio 0.4 L Vancomycin Trough POC Glucose 83 Blood Type Antibody Screen Crossmatch Micro: Microbiology 01/13/21 Unknown Bone - Left Foot Gram Stain - Final 01/13/21 Unknown Bone - Left Foot Wound Culture - Final Enterobacter cloacae complex 01/13/21 01:45 Blood Culture (Wb) - Anticubital Left Blood Culture - Preliminary Enterobacter cloacae complex 01/13/21 Unknown Tissue - Left Foot Gram Stain - Final 01/13/21 Unknown Tissue - Left Foot Wound Culture - Preliminary GNR lactose corrosion engineer 01/13/21 02:10 Wound - Heel, Left Gram Stain - Final 01/13/21 02:10 Wound - Heel, Left Wound Culture - Preliminary Gram positive organism Gram negative glenda 01/13/21 13:40 Interface Orders SARS-CoV-2 Antigen (Rapid) - Final Radiography Diagnostic Testing: Radiology Impression Ankle X-Ray 01/14/21 10:00 IMPRESSION: 1. Healed fracture the distal fibula proximal tibial plafond. 2. Status post resection of the posterior calcaneus per Electronically Signed: En Caballero MD at 11:03 EDT Tel , Service support , Physical Exam Const alert and no apparent distress General Appearance: frail and appears older than stated age Nutritional Appearance: thin Extremity Extremity Narrative: s/p debridement of left foot down to deep soft tissue and bone - tissues overall much improved, no abscess, no maloder, no purulence, bleeding controlled, infection much/significantly improved. Chronic peripheral neuropathy to the left foot. CFT < 2 seconds to all toe on the left foot. Assessment & Plan Assessment/Plan (1) Acute osteomyelitis of left hindfoot: (2) Non-pressure chronic ulcer of left heel and midfoot with necrosis of bone: (3) Severe sepsis: (4) DKA (diabetic ketoacidoses): QUALIFIERS: Diabetes mellitus type: other specified (including YAAKOV) Diabetes mellitus complication detail: without coma Qualified Code(s): E13.10 - Other specified diabetes mellitus with ketoacidosis without coma (5) Diabetes: (6) Diabetic neuropathy: QUALIFIERS: Diabetes mellitus type: type 2 Diabetes mellitus complication detail: diabetic polyneuropathy Qualified Code(s): E11.42 - Type 2 diabetes mellitus with diabetic polyneuropathy PLAN: s/p debridement left foot/heel with partial calcanectomy on 01/13/2021. Reviewed diagnostic data. Reviewed left ankle xrays - no acute findings, old fibular fx appears healed per radiology report. Clinically from infection standpoint foot significantly improved. Cultures have been obtained and final results pending. Patient is on IV antibiotics - Vanc/Zosyn and Clindamycin, Dr. Vital/ID on consult. Bleeding controlled to the left foot. Hgb improved - currently 9.1. Continue with daily dressing changes to the left foot - betadine wet to dry dressing changes with overlying gauze, kerlix, abd pads and deep bandage. No weightbearing left foot. Advised patient foot will be nonfunctional due to the extent of the infection. I am very guarded his foot will heal given the extent of the infection he had in foot with peripheral vascular disease, residential BKA or AKA is indicated. He relates he will not proceed with future amputation. Podiatry will continue to follow.
[2021-01-15 08:30] VITALS: BP 130/71; PULSE 79; RESP 16; TEMP 36.5; O2SAT 96
[2021-01-15 12:20] LABS: Bedside Glucose 206 mg/dL (70-110)
--- NOTE | 2021-01-15 12:27 | PCM.PN.HOSP ---
Subjective Subjective Patient was seen and examined. Complains of pain in his fingers from neuropathy. Denied any fever or chills. Objective Data Objective Data Vital Signs: Vital Signs Temp Pulse Resp BP Pulse Ox 97.7 F L 79 16 130/71 H 96 01/15/21 08:30 01/15/21 08:30 01/15/21 08:30 01/15/21 08:30 01/15/21 08:30 Oxygen Flow Rate (L/min) 2 Oxygen Delivery Method Room Air Weight: 77.3 kg Body Mass Index (BMI) 21.7 Intake & Output: Intake and Output for Last 24 Hours 01/13/21 01/14/21 01/15/21 23:59 23:59 23:59 Intake Total 9375.13 / 9375.13 3568.67 / 4068.67 3024.83 / 3024.83 Output Total 625 / 625 1900 / 1900 3350 / 3350 Balance 8750.13 / 8750.13 1668.67 / 2168.67 -325.17 / -325.17 Lab / Micro Data Result Diagrams: 01/15/21 06:44 01/15/21 06:44 Labs: Laboratory Results - last 24 hr 01/13/21 01/14/21 01/14/21 07:15 09:35 14:10 WBC RBC Hgb 8.3 L Hct 25.2 L MCV MCH MCHC RDW Std Deviation RDW Coeff of Jo Plt Count MPV Immature Gran % (Auto) Neut % (Auto) Lymph % (Auto) [place] % (Auto) Eos % (Auto) Baso % (Auto) Absolute Neuts (auto) Absolute Lymphs (auto) Nucleated RBC % Sodium Potassium Chloride Carbon Dioxide Anion Gap BUN Creatinine Estim Creat Clear Calc Est GFR (MDRD) Af Amer Est GFR (MDRD) Non-Af BUN/Creatinine Ratio Glucose Calcium Total Bilirubin AST ALT Alkaline Phosphatase Total Protein Albumin Globulin Albumin/Globulin Ratio Urine Color Yellow Urine Clarity Clear Urine pH 5.0 Ur Specific [place] 1.020 Urine Protein 15 H Urine Glucose (UA) 1000 H Urine Ketones 50 H Urine Occult Blood 25 H Urine Nitrite Negative Urine Bilirubin Negative Urine Urobilinogen Normal Ur Leukocyte Esterase Negative Urine RBC 0-5 SEEN Urine WBC 0 SEEN Ur Squamous Epith Cells 0 SEEN Urine Bacteria 0 SEEN Urine Mucus 0 SEEN Vancomycin Trough POC Glucose Crossmatch See Detail 01/14/21 01/14/21 01/15/21 16:28 21:59 02:50 WBC RBC Hgb Hct MCV MCH MCHC RDW Std Deviation RDW Coeff of Jo Plt Count MPV Immature Gran % (Auto) Neut % (Auto) Lymph % (Auto) [place] % (Auto) Eos % (Auto) Baso % (Auto) Absolute Neuts (auto) Absolute Lymphs (auto) Nucleated RBC % Sodium Potassium Chloride Carbon Dioxide Anion Gap BUN Creatinine Estim Creat Clear Calc Est GFR (MDRD) Af Amer Est GFR (MDRD) Non-Af BUN/Creatinine Ratio Glucose Calcium Total Bilirubin AST ALT Alkaline Phosphatase Total Protein Albumin Globulin Albumin/Globulin Ratio Urine Color Urine Clarity Urine pH Ur Specific [place] Urine Protein Urine Glucose (UA) Urine Ketones Urine Occult Blood Urine Nitrite Urine Bilirubin Urine Urobilinogen Ur Leukocyte Esterase Urine RBC Urine WBC Ur Squamous Epith Cells Urine Bacteria Urine Mucus Vancomycin Trough 10.8 POC Glucose 144 H 109 Crossmatch 01/15/21 01/15/21 01/15/21 06:44 06:44 08:09 WBC 9.8 RBC 3.42 L Hgb 9.1 L Hct 28.0 L MCV 81.9 MCH 26.6 L MCHC 32.5 RDW Std Deviation 41.1 RDW Coeff of Jo 13.9 Plt Count 299 MPV 11.0 Immature Gran % (Auto) 0.500 Neut % (Auto) 84.5 H Lymph % (Auto) 9.2 L [place] % (Auto) 5.5 Eos % (Auto) 0.1 Baso % (Auto) 0.2 Absolute Neuts (auto) 8.3 H Absolute Lymphs (auto) 0.90 Nucleated RBC % 0 Sodium 139 Potassium 2.9 L Chloride 106 Carbon Dioxide 26.0 Anion Gap 7 BUN 13 Creatinine 0.64 L Estim Creat Clear Calc 78.37 Est GFR (MDRD) Af Amer 160 Est GFR (MDRD) Non-Af 132 BUN/Creatinine Ratio 20.3 H Glucose 66 L Calcium 7.8 L Total Bilirubin 0.40 AST 14 L ALT 15 L Alkaline Phosphatase 102 Total Protein 5.6 L Albumin 1.7 L Globulin 3.9 Albumin/Globulin Ratio 0.4 L Urine Color Urine Clarity Urine pH Ur Specific [place] Urine Protein Urine Glucose (UA) Urine Ketones Urine Occult Blood Urine Nitrite Urine Bilirubin Urine Urobilinogen Ur Leukocyte Esterase Urine RBC Urine WBC Ur Squamous Epith Cells Urine Bacteria Urine Mucus Vancomycin Trough POC Glucose 83 Crossmatch 01/15/21 12:12 WBC RBC Hgb Hct MCV MCH MCHC RDW Std Deviation RDW Coeff of Jo Plt Count MPV Immature Gran % (Auto) Neut % (Auto) Lymph % (Auto) [place] % (Auto) Eos % (Auto) Baso % (Auto) Absolute Neuts (auto) Absolute Lymphs (auto) Nucleated RBC % Sodium Potassium Chloride Carbon Dioxide Anion Gap BUN Creatinine Estim Creat Clear Calc Est GFR (MDRD) Af Amer Est GFR (MDRD) Non-Af BUN/Creatinine Ratio Glucose Calcium Total Bilirubin AST ALT Alkaline Phosphatase Total Protein Albumin Globulin Albumin/Globulin Ratio Urine Color Urine Clarity Urine pH Ur Specific [place] Urine Protein Urine Glucose (UA) Urine Ketones Urine Occult Blood Urine Nitrite Urine Bilirubin Urine Urobilinogen Ur Leukocyte Esterase Urine RBC Urine WBC Ur Squamous Epith Cells Urine Bacteria Urine Mucus Vancomycin Trough POC Glucose 206 H Crossmatch Micro: Microbiology 01/13/21 02:10 Wound - Heel, Left Gram Stain - Final 01/13/21 02:10 Wound - Heel, Left Wound Culture - Preliminary Gram positive glenda Gram negative glenda GNR lactose a and p technician 01/13/21 Unknown Tissue - Left Foot Gram Stain - Final 01/13/21 Unknown Tissue - Left Foot Wound Culture - Final Citrobacter freundii 01/13/21 01:45 Blood Culture (Wb) - Anticubital Left Blood Culture - Final Enterobacter cloacae complex 01/13/21 02:22 Blood Culture (Wb) - Right Forearm Blood Culture - Preliminary No growth in 48 hours. 01/13/21 Unknown Bone - Left Foot Gram Stain - Final 01/13/21 Unknown Bone - Left Foot Wound Culture - Final Enterobacter cloacae complex 01/13/21 13:40 Interface Orders SARS-CoV-2 Antigen (Rapid) - Final Physical Exam Narrative General: Alert, Oriented x3, Cooperative, No apparent distress, Well developed HEENT: Atraumatic Oral: Moist Mucosa Neck: Supple Lungs: Clear to auscultation Cardiovascular: HS I+II, regular, no murmurs Abdomen: Bowel Sounds Present, Soft, Non Tender Extremities: No edema Skin: No rashes, No breakdown Neurological: Grossly intact Psych/Mental Status: Appropriate Assessment & Plan Assessment/Plan (1) Severe sepsis: (2) INFECTED DIABETIC ULCERS: (3) DKA (diabetic ketoacidoses): QUALIFIERS: Diabetes mellitus complication detail: without coma Diabetes mellitus type: other specified (including YAAKOV) Qualified Code(s): E13.10 - Other specified diabetes mellitus with ketoacidosis without coma (4) Acute osteomyelitis of left hindfoot: (5) Non-pressure chronic ulcer of left heel and midfoot with necrosis of bone: (6) Acute kidney injury: (7) Anemia: (8) Hyponatremia: (9) Hypokalemia: (10) Hypotension: PLAN: Summary: 65-year-old male with past medical history of type II DM, complicated by neuropathy, status post right BKA, chronic ulcer who comes in with worsening left heel wound and found to have acute DKA. He was managed initially in ICU and transferred to the regular floor. 1. Acute DKA, resolved, off insulin drip, blood sugars better controlled Continue on Lantus, premeal insulin, ISS 2. Severe sepsis secondary to acute necrotic diabetic ulcer/osteomyelitis of the left heel calcaneus, improved WBC count is improved to 9.8. Blood and wound cultures are growing Enterobacter and Citrobacter Patient does not want to have amputation. Podiatry and ID following Continue on IV vancomycin, Zosyn, clindamycin, repeat blood in a.m. 3. Acute kidney injury, pre-renal secondary to #1 and 2, resolved Creatinine of 2.65, creatinine is 0.64 today We will discontinue IV fluids, repeat blood work in a.m. 4. Severe anemia, etiology is likely mixed from acute blood loss from surgery as well as anemia of chronic disease Status post 1 unit packed RBC. Hb is 9.1. Stool for occult blood is pending 5. Hypokalemia, replace, recheck in a.m., check magnesium level 6. Hyponatremia secondary to #1 , resolved 7. Relative hypotension related to dehydration, resolved 8. Nicotine dependence, advised to quit Disposition: PT/OT to evaluate and treat/SW for discharge planning likely to a [place] [facility] facility Visit Charges Inpatient E&M: 29490 Subs Hosp L2
--- NOTE | 2021-01-15 12:35 | EKG12_ITS ---
Test Reason : LOW K+ Blood Pressure : / mmHG Vent. Rate : 083 BPM Atrial Rate : 083 BPM P-R Int : 134 ms QRS Dur : 086 ms QT Int : 408 ms P-R-T Axes : 065 051 037 degrees QTc Int : 479 ms Sinus rhythm with occasional Premature ventricular complexes Otherwise normal ECG When compared with ECG of 13-JAN-2021 04:16, MANUAL COMPARISON REQUIRED, DATA IS UNCONFIRMED Confirmed by ANKIT RIVAS, PERLA ([id number]), electronic news gathering editor ALBERTO GARZA ([id number]) on 01/17/2021 9:44:23 AM Referred By: SURY Confirmed By:PERLA PHAM MD
[2021-01-15 13:09] LABS: Magnesium 1.7 mg/dL (1.6-2.6)
[2021-01-15] MEDS: oxyCODONE 5 MG Tablet 10 MG PO ×2 (13:23→23:43)
[2021-01-15] MEDS: Pregabalin 75 MG Capsule 150 MG PO ×3 (13:23→22:50)
--- NOTE | 2021-01-15 14:01 | VDLE_ITS ---
Reason For Study: Swelling RIGHT LEFT GSV is normal. GSV is normal. CFV is compressible, spontaneous, phasic, CFV is compressible, spontaneous, phasic, competent and demonstrates normal competent, and demonstrates normal augmentation. augmentation. FV is compressible, spontaneous, phasic, FV is compressible, spontaneous, phasic, competent and demonstrates normal competent and demonstrates normal augmentation. augmentation. POP V is compressible, spontaneous, phasic, POP V is compressible, spontaneous, phasic, competent and demonstrates normal competent and demonstrates normal augmentation. augmentation. T/P Trunk is compressible. T/P Trunk is compressible. Rt below knee amputation, no calf veins. PTV is compressible. Procedure Acute deep vein thrombosis is noted in the This is a venous duplex using B-mode, color left peroneal vein. flow and spectral Doppler. Exam performed portable in patient room. A preliminary report was called and/or faxed to [facility]. VL/Venous Duplex US - [place] Extrem Interpretation Summary Acute deep vein thrombosis is noted in the left peroneal vein. The remainder of the left lower extremity deep venous system is patent and compressible. Deep veins of the righ t lower extremity are patent and compressible segmentally. There is no evidence of right lower extrem ity deep vein thrombosis. Valvular competence appears intact within the proximal deep venous systems bilaterally. The great saphenous veins appear bilaterally patent and compressible segmentall y. A right below-knee amputation is noted. Ordering Physician: Carlton East Referring Physician: Dani Sevilla Performed By: Noemi Armendariz RVT
[2021-01-15] MEDS: Potassium Chloride 10mEq/100mL 10 MEQ/100 ML IV.SOLN. 100 MEQ IV BOLUS ×4 (14:09→17:53)
[2021-01-15] MEDS: Enoxaparin 40 MG/0.4 ML Syringe SC (14:09)
[2021-01-15 14:30] VITALS: BP 144/69; PULSE 84; RESP 18; TEMP 36.4; O2SAT 99
--- NOTE | 2021-01-15 15:59 | PCM.RX.CS ---
Consult Pharmacy has been consulted to manage selected antiobiotic: Vancomycin Type of Consult: Follow-up Suspected Infection: Skin/Soft tissue, Osteomyelitis Prior Doses of Antibiotics Received/Current Regimen: Has been on 750mg iv q24h. Labs: Sodium 139 mmol/L (136-145) 01/15/21 06:44 Potassium 2.9 mmol/L (3.5-5.1) L 01/15/21 06:44 Chloride 106 mmol/L (98-107) 01/15/21 06:44 Carbon Dioxide 26.0 mmol/L (21.0-32.0) 01/15/21 06:44 Anion Gap 7 (5-15) 01/15/21 06:44 BUN 13 mg/dL (7-18) 01/15/21 06:44 Creatinine 0.64 mg/dL (0.70-1.30) L 01/15/21 06:44 Est GFR (MDRD) Af Amer 160 mL/min (>60) 01/15/21 06:44 Est GFR (MDRD) Non-Af 132 mL/min (>60) 01/15/21 06:44 BUN/Creatinine Ratio 20.3 RATIO (10-20) H 01/15/21 06:44 Glucose 66 mg/dL (74-106) L 01/15/21 06:44 Vancomycin Trough 10.8 ug/mL (5.0-15.0) 01/15/21 02:50 Microbiology: Microbiology 01/13/21 02:10 Wound - Heel, Left Gram Stain - Final 01/13/21 02:10 Wound - Heel, Left Wound Culture - Preliminary Gram positive glenda Gram negative glenda GNR lactose container finisher 01/13/21 Unknown Tissue - Left Foot Gram Stain - Final 01/13/21 Unknown Tissue - Left Foot Wound Culture - Final Citrobacter freundii 01/13/21 01:45 Blood Culture (Wb) - Anticubital Left Blood Culture - Final Enterobacter cloacae complex 01/13/21 02:22 Blood Culture (Wb) - Right Forearm Blood Culture - Preliminary No growth in 48 hours. 01/13/21 Unknown Bone - Left Foot Gram Stain - Final 01/13/21 Unknown Bone - Left Foot Wound Culture - Final Enterobacter cloacae complex 01/13/21 13:40 Interface Orders SARS-CoV-2 Antigen (Rapid) - Final Weight used for dosin kg Estimated Creatinine Clearance: ~78ml/min Goal Trough: 15-20 mcg/mL Pharmacy Plan for Drug Dosing: Trough this AM was 10.8. Renal function has improved. SCr now 0.64 with CrCl of 78ml/min. Will increase dose to 1gm iv q12h and get another trough level on 01.17.21 before 4th dose of new regimen. Pharmacy Service will continue to monitor and adjust dosing as required. Follow-Up Labs: Trough Vancomycin - 01.17.21 @0430 before 0500 dose
[2021-01-15] MEDS: Vancomycin IV 1,000 MG/200 ML BAG 200 MG IV (16:51)
[2021-01-15 17:26] LABS: Bedside Glucose 190 mg/dL (70-110)
[2021-01-15 20:50] VITALS: BP 137/78; PULSE 79; RESP 18; TEMP 36.4; O2SAT 100
[2021-01-15 23:05] LABS: Bedside Glucose 294 mg/dL (70-110)
[2021-01-16 03:10] VITALS: BP 130/71; PULSE 79; RESP 16; TEMP 36.8; O2SAT 95
[2021-01-16] MEDS: Vancomycin IV 1,000 MG/200 ML BAG 200 MG IV (04:33)
[2021-01-16 06:08] LABS: Absolute Lymphocyte Count 0.94 X10^3/uL (0.83-4.51); Absolute Neutrophil Count 5.4 X10^3/uL (2.0-7.7); Basophil# 0.03 X10^3/uL; Basophil% 0.4 % (0-1); Eosinophil# 0.05 X10^3/uL; Eosinophils% 0.7 % (0-5); Hematocrit 28.1 % (40-54); Lymphocyte # 0.94 X10^3/ul (0.83-4.51); Lymphocyte % 13.5 % (19-41); Mean Corpuscular Hgb 26.9 pg (27.0-32.0); Mean Corpuscular Volume 83.9 fL (80-94); Mean Platelet Vol. 11.2 fl (6.2-12.0); Monocyte# 0.44 X10^3/uL; Monocyte% 6.3 % (0-10); NRBC Flagged by Analyzer 0 % (0-5); Neutrophil # 5.44 X10^3/uL (2.7-7.7); Neutrophil % 78.1 % (47-70); Platelet Count 266 K/mm3 (150-450); RBC Distribution Width CV 14.2 % (11.6-14.6); RBC Distribution Width SD 43.7 fl (35.1-43.9); Red Blood Count 3.35 M/mm3 (4.6-6.2)
[2021-01-16 06:35] LABS: ALB/GLOB Ratio 0.4 RATIO (0.9-2.4); AST(SGOT) 9 U/L (15-37); Alanine Aminotransfer ALT/SGPT 13 U/L (16-61); Albumin, Serum 1.5 g/dL (3.2-5.0); Alkaline Phosphatase 86 U/L (45-117); Anion Gap 8 (5-15); BUN 11 mg/dL (7-18); BUN/Creat Ratio 13.7 RATIO (10-20); Calcium,Total 7.5 mg/dL (8.5-10.1); Chloride 104 mmol/L (98-107); EST Glomerular Filtration Rate 102 mL/min (>60); Est Glom Filt Rate - Afr Amer 124 mL/min (>60); Estimated Creatinine Clearance 97.97 ml/min; Globulin 3.7 g/dL (2.2-4.2); Glucose 263 mg/dL (74-106); Potassium 3.3 mmol/L (3.5-5.1); Protein, Total 5.2 g/dL (6.4-8.2); Sodium Level 138 mmol/L (136-145)
[2021-01-16] MEDS: oxyCODONE 5 MG Tablet 10 MG PO ×3 (07:20→19:38)
--- NOTE | 2021-01-16 07:25 | PCM.PROGNOTE ---
Subjective Subjective This patient was seen this morning for follow up on left foot. He is s/p left widespread debridement of soft tissue and bone including aggressive calcanectomy and incision and drainage of foot. He relates to neuropathy pains in hands and foot. He denies fever, chills, vomiting, foot pain, or calf pain. He has nausea. Objective Data Objective Data Vital Signs: Vital Signs Temp Pulse Resp BP Pulse Ox 98.3 F 79 16 130/71 H 95 01/16/21 03:10 01/16/21 03:10 01/16/21 03:10 01/16/21 03:10 01/16/21 03:10 Oxygen Flow Rate (L/min) 2 Oxygen Delivery Method Room Air Weight: 77.3 kg Body Mass Index (BMI) 21.7 Intake & Output: Intake and Output for Last 24 Hours 01/14/21 01/15/21 01/16/21 23:59 23:59 23:59 Intake Total 3568.67 / 4068.67 3923.83 / 4123.83 612.5 / 612.5 Output Total 1900 / 1900 4550 / 5550 1000 / 1000 Balance 1668.67 / 2168.67 -626.17 / -1426.17 -387.5 / -387.5 Lab / Micro Data Result Diagrams: 01/16/21 05:37 01/16/21 05:37 Labs: Laboratory Results - last 24 hr 01/13/21 01/15/21 01/15/21 07:15 06:44 06:44 WBC RBC Hgb Hct MCV MCH MCHC RDW Std Deviation RDW Coeff of Jo Plt Count MPV Immature Gran % (Auto) Neut % (Auto) Lymph % (Auto) [place] % (Auto) Eos % (Auto) Baso % (Auto) Absolute Neuts (auto) Absolute Lymphs (auto) Nucleated RBC % Sodium 139 Potassium 2.9 L Chloride 106 Carbon Dioxide 26.0 Anion Gap 7 BUN 13 Creatinine 0.64 L Estim Creat Clear Calc 78.37 Est GFR (MDRD) Af Amer 160 Est GFR (MDRD) Non-Af 132 BUN/Creatinine Ratio 20.3 H Glucose 66 L Calcium 7.8 L Magnesium 1.7 Total Bilirubin 0.40 AST 14 L ALT 15 L Alkaline Phosphatase 102 Total Protein 5.6 L Albumin 1.7 L Globulin 3.9 Albumin/Globulin Ratio 0.4 L Urine Color Yellow Urine Clarity Clear Urine pH 5.0 Ur Specific [place] 1.020 Urine Protein 15 H Urine Glucose (UA) 1000 H Urine Ketones 50 H Urine Occult Blood 25 H Urine Nitrite Negative Urine Bilirubin Negative Urine Urobilinogen Normal Ur Leukocyte Esterase Negative Urine RBC 0-5 SEEN Urine WBC 0 SEEN Ur Squamous Epith Cells 0 SEEN Urine Bacteria 0 SEEN Urine Mucus 0 SEEN POC Glucose 01/15/21 01/15/21 01/15/21 08:09 12:12 16:57 WBC RBC Hgb Hct MCV MCH MCHC RDW Std Deviation RDW Coeff of Jo Plt Count MPV Immature Gran % (Auto) Neut % (Auto) Lymph % (Auto) [place] % (Auto) Eos % (Auto) Baso % (Auto) Absolute Neuts (auto) Absolute Lymphs (auto) Nucleated RBC % Sodium Potassium Chloride Carbon Dioxide Anion Gap BUN Creatinine Estim Creat Clear Calc Est GFR (MDRD) Af Amer Est GFR (MDRD) Non-Af BUN/Creatinine Ratio Glucose Calcium Magnesium Total Bilirubin AST ALT Alkaline Phosphatase Total Protein Albumin Globulin Albumin/Globulin Ratio Urine Color Urine Clarity Urine pH Ur Specific [place] Urine Protein Urine Glucose (UA) Urine Ketones Urine Occult Blood Urine Nitrite Urine Bilirubin Urine Urobilinogen Ur Leukocyte Esterase Urine RBC Urine WBC Ur Squamous Epith Cells Urine Bacteria Urine Mucus POC Glucose 83 206 H 190 H 01/15/21 01/16/21 01/16/21 22:56 05:37 05:37 WBC 7.0 RBC 3.35 L Hgb 9.0 L Hct 28.1 L MCV 83.9 MCH 26.9 L MCHC 32.0 RDW Std Deviation 43.7 RDW Coeff of Jo 14.2 Plt Count 266 MPV 11.2 Immature Gran % (Auto) 1.000 H Neut % (Auto) 78.1 H Lymph % (Auto) 13.5 L [place] % (Auto) 6.3 Eos % (Auto) 0.7 Baso % (Auto) 0.4 Absolute Neuts (auto) 5.4 Absolute Lymphs (auto) 0.94 Nucleated RBC % 0 Sodium 138 Potassium 3.3 L Chloride 104 Carbon Dioxide 26.0 Anion Gap 8 BUN 11 Creatinine 0.80 Estim Creat Clear Calc 97.97 Est GFR (MDRD) Af Amer 124 Est GFR (MDRD) Non-Af 102 BUN/Creatinine Ratio 13.7 Glucose 263 H Calcium 7.5 L Magnesium Total Bilirubin 0.40 AST 9 L ALT 13 L Alkaline Phosphatase 86 Total Protein 5.2 L Albumin 1.5 L Globulin 3.7 Albumin/Globulin Ratio 0.4 L Urine Color Urine Clarity Urine pH Ur Specific [place] Urine Protein Urine Glucose (UA) Urine Ketones Urine Occult Blood Urine Nitrite Urine Bilirubin Urine Urobilinogen Ur Leukocyte Esterase Urine RBC Urine WBC Ur Squamous Epith Cells Urine Bacteria Urine Mucus POC Glucose 294 H Micro: Microbiology 01/13/21 02:10 Wound - Heel, Left Gram Stain - Final 01/13/21 02:10 Wound - Heel, Left Wound Culture - Preliminary Gram positive glenda Gram negative glenda GNR lactose fitness specialist 01/13/21 Unknown Tissue - Left Foot Gram Stain - Final 01/13/21 Unknown Tissue - Left Foot Wound Culture - Final Citrobacter freundii 01/13/21 01:45 Blood Culture (Wb) - Anticubital Left Blood Culture - Final Enterobacter cloacae complex 01/13/21 02:22 Blood Culture (Wb) - Right Forearm Blood Culture - Preliminary No growth in 48 hours. 01/13/21 Unknown Bone - Left Foot Gram Stain - Final 01/13/21 Unknown Bone - Left Foot Wound Culture - Final Enterobacter cloacae complex 01/13/21 13:40 Interface Orders SARS-CoV-2 Antigen (Rapid) - Final Physical Exam Const alert and no apparent distress General Appearance: frail and appears older than stated age Nutritional Appearance: thin HEENT normocephalic Extremity normal capillary refill Extremity Narrative: Right below knee amputation. s/p debridement of left foot down to deep soft tissue and bone - tissues overall much improved, no abscess, no maloder, no purulence, bleeding controlled, infection much/significantly improved. Chronic peripheral neuropathy to the left foot. CFT < 2 seconds to all toe on the left foot. No raj necrosis or active bleeding; moderate serosangenoud drainage on dressing noted this morning. Negative aaron and schroeder sign left lower extremity General Extremity: edema Skin Skin Narrative: no purulence, no erythema, no streaking, no odor. Adjacent skin is atrophic Neuro Neuro Narrative: lack of normal epicritic sensation via light touch consistent with neuropathy Assessment & Plan Assessment/Plan (1) Acute osteomyelitis of left hindfoot: (2) Non-pressure chronic ulcer of left heel and midfoot with necrosis of bone: (3) Severe sepsis: (4) DKA (diabetic ketoacidoses): QUALIFIERS: Diabetes mellitus type: other specified (including YAAKOV) Diabetes mellitus complication detail: without coma Qualified Code(s): E13.10 - Other specified diabetes mellitus with ketoacidosis without coma (5) Diabetes: (6) Diabetic neuropathy: QUALIFIERS: Diabetes mellitus type: type 2 Diabetes mellitus complication detail: diabetic polyneuropathy Qualified Code(s): E11.42 - Type 2 diabetes mellitus with diabetic polyneuropathy PLAN: I reviewed and discussed his case. He is s/p debridement left foot/heel with partial calcanectomy on 01/13/2021. Reviewed diagnostic data. He is afebrile and vitals are stable. Clinically from infection standpoint foot significantly improved. Cultures have been obtained and final results pending. Patient is on IV antibiotics - Vanc/Zosyn and Clindamycin, Dr. Vital/ID on consult. Preoperative cultures withcitrobacter freundii, enterobacter cloacae complex, corynebacterium minutissimum. Intraoperative bone culture and blood cultures with enterobacter cloacae complex. WBC 7.0 this morning. Histopathological specimen results pending. Bleeding controlled to the left foot. Hgb improved - currently 9.1. Dressing changed to the left foot this morning - betadine wet to dry dressing changes with overlying gauze, kerlix, abd pads and deep bandage. Ordered wound vac for application today; 150 mmHg continuous. Will plan for change three times weekly. No weightbearing left foot. Advised patient foot will be nonfunctional due to the extent of the infection. I am very guarded his foot will heal given the extent of the infection he had in foot with peripheral vascular disease, mobile sales consultant BKA or AKA is indicated. The guarded prognosis and risks vs benefits were reviewed again this morning. It is noted he has also had significant delay in prosthetic use and healing with his contralateral limb below knee amputation and this contributes to his apprehension to proceed forward amputation left lower extremity. Wound care plan with patellar tendon weight bearing brace would be considered for a more palliative type program if he continues to refuse amputation. He relates he will not proceed with future amputation. Podiatry will continue to follow. Please do not hesitate to call if you have any questions. Upon continued medical stabiliation it is ok to d/c from a podiatry surgical standpoint. Skilled facility placement pending prior authorization. To follow up at the wound healing center weekly at time of discharge. Justa Garcia DPM, [facility] [phone]
--- NOTE | 2021-01-16 07:35 | NURSING ---
wound photo: left heel
[2021-01-16] MEDS: Insulin Lispro 100 UNIT/ML INSULN.PEN SC ×4 (08:07→16:40)
[2021-01-16 08:16] LABS: Bedside Glucose 275 mg/dL (70-110)
[2021-01-16 08:28] VITALS: BP 149/76; PULSE 77; RESP 18; TEMP 36.3; O2SAT 97
--- NOTE | 2021-01-16 09:06 | PN.HOSP_ITS ---
Subjective Subjective Patient is a 65-year-old gentleman with history of diabetes mellitus type 2 admitted with diabetic ketoacidosis as well as worsening left heel wound. Initially managed in the ICU stabilized and subsequently transferred to regular nursing floor Objective Data Objective Data Vital Signs: Vital Signs Temp Pulse Resp BP Pulse Ox 97.4 F L 77 18 149/76 H 97 01/16/21 08:28 01/16/21 08:28 01/16/21 08:28 01/16/21 08:28 01/16/21 08:28 Oxygen Flow Rate (L/min) 2 Oxygen Delivery Method Room Air Weight: 77.3 kg Body Mass Index (BMI) 21.7 Intake & Output: Intake and Output for Last 24 Hours 01/14/21 01/15/21 01/16/21 23:59 23:59 23:59 Intake Total 3568.67 / 4068.67 3923.83 / 4123.83 612.5 / 612.5 Output Total 1900 / 1900 4550 / 5550 1000 / 1000 Balance 1668.67 / 2168.67 -626.17 / -1426.17 -387.5 / -387.5 Lab / Micro Data Result Diagrams: 01/16/21 05:37 01/16/21 05:37 Micro: Microbiology 01/13/21 02:10 Wound - Heel, Left Gram Stain - Final 01/13/21 02:10 Wound - Heel, Left Wound Culture - Final Corynebacterium minutissimum Enterobacter cloacae complex Citrobacter freundii 01/13/21 Unknown Tissue - Left Foot Gram Stain - Final 01/13/21 Unknown Tissue - Left Foot Wound Culture - Final Citrobacter freundii 01/13/21 01:45 Blood Culture (Wb) - Anticubital Left Blood Culture - Final Enterobacter cloacae complex 01/13/21 02:22 Blood Culture (Wb) - Right Forearm Blood Culture - Preliminary No growth in 48 hours. 01/13/21 Unknown Bone - Left Foot Gram Stain - Final 01/13/21 Unknown Bone - Left Foot Wound Culture - Final Enterobacter cloacae complex 01/13/21 13:40 Interface Orders SARS-CoV-2 Antigen (Rapid) - Final Physical Exam Narrative GENERAL: cooperative HEENT: Atraumatic; EYES; Anicteric, Normal Conjunctiva NECK; supple, normal thyroid, RESPIRATORY: Diminished to auscultation CARDIOVASCULAR: Regular S1 S2, GI: soft, normoactive bowel sounds, : No Renal angle tenderness; EXTREMITIES: Necrotic left heel, right BKA MUSCULOSKELETAL: no muscle waisting NEURO: Awake; no lateralizing signs. SKIN: As described above PSYCH; Flat affect Assessment & Plan Assessment/Plan (1) DKA (diabetic ketoacidoses): QUALIFIERS: Diabetes mellitus type: other specified (including YAAKOV) Diabetes mellitus complication detail: without coma Qualified Code(s): E13.10 - Other specified diabetes mellitus with ketoacidosis without coma (2) Non-pressure chronic ulcer of left heel and midfoot with necrosis of bone: PLAN: Patient is a 65-year-old gentleman with history of diabetes mellitus type 2 admitted with diabetic ketoacidosis as well as worsening left heel wound. Initially managed in the ICU stabilized and subsequently transferred to regular nursing floor 1. Diabetic ketoacidosis ?In a patient with type II diabetes mellitus. Patient was managed with IV fluids systemic insulin and correction of electrolyte has since resolved patient transferred from intensive care unit to [facility] floor 2. Severe sepsis secondary to necrotic left heel ?Pictures from wound care nurse reviewed. Cultures so far from the left heel grew Corynebacterium minutissimum Enterobacter cloacae complex and Citrobacter freundii. Patient had bacteremia with Enterobacter cloacae complex currently on broad-spectrum antibiotic therapy with ID and pod iatry on consult 3. Acute kidney injury ?Secondary to severe dehydration present on admission which has since resolved with IV fluid resuscitation 4. Hypokalemia corrected 5. Hyponatremia ?Secondary to pseudohyponatremia from patient hyperglycemia on admission resolved 6. Tobacco dependence - Counseled on cessation, offered nicotine patch for tobacco cravings 7. DVT prophylaxis - On enoxaparin Visit Charges Inpatient E&M: 94204 Subs Hosp L2
[2021-01-16] MEDS: Pregabalin 75 MG Capsule 150 MG PO ×4 (10:08→22:37)
[2021-01-16] MEDS: Enoxaparin 40 MG/0.4 ML Syringe SC (10:08)
--- NOTE | 2021-01-16 11:30 | NURSING ---
Pt states he will most likely need to go to the long term at discharge. states he would like to go to [facility]. GUILLAUME Franklin aware. BYRON Franklin will be in to talk with patient today.
--- NOTE | 2021-01-16 11:48 | ADUL_ITS ---
Reason For Study: Ulcer left leg Left Velocities Ext Iliac Artery, dist = 136.3 cm./sec. Common Femoral Artery, mid = 128.9 cm./sec. Supf. Femoral Artery, prox = 167.4 cm./sec. Supf. Femoral Artery, mid = 288.6 cm./sec. Supf. Femoral Artery, dist = 97.4 cm./sec. Profunda Femoral Artery = 49 cm./sec. Popliteal Artery, proximal, = 86.9 cm./sec. Popliteal Artery, mid = 93.5 cm./sec. Popliteal Artery, distal = 95.7 cm./sec. Post. Tibial Artery, prox = 81.5 cm./sec. Post Tibial Artery, mid = 105.2 cm./sec. Post Tibial Artery, dist. = 185.4 cm./sec. Peroneal Artery, prox = 27 cm./sec. Peroneal Artery, mid = 17.1 cm./sec. Peroneal Artery,dist. = 17.1 cm./sec. Ant.Tibial Artery, prox = 189.4 cm./sec. Ant Tibial Artery, mid = 106.7 cm./sec. Ant. Tibial Artery, distal = 80.3 cm./sec. Procedure Exam performed portable in patient room. /US Art Duplex Unilat Lower Ext Interpretation Summary 50 to 99% stenosis left mid superficial femoral artery Patent left anterior tibial and posterior tibial arteries Findings demonstrate markedly diminished flow left peroneal artery with suspect ed area of occlusion Ordering Physician: Carlton East Referring Physician: Dani Sevilla Performed By: Noemi Armendariz RVT
[2021-01-16 12:31] LABS: Bedside Glucose 274 mg/dL (70-110)
[2021-01-16] MEDS: 0.9% Saline Lock 10 ML Syringe IV (13:25)
[2021-01-16 14:30] VITALS: BP 95/56; PULSE 100; RESP 18; TEMP 36.9; O2SAT 100
--- NOTE | 2021-01-16 14:30 | PCM.PN.ID ---
Physical Exam Narrative Feeling ok, some nausea and loose stool, no fever Const alert and no apparent distress General Appearance: cooperative Resp normal air movement and clear to auscultation bilaterally Cardio regular rate and regular rhythm GI normal to inspection, nondistended, normoactive bowel sounds Skin Skin Narrative: reviewed photo ID ID: Route of nutrition/ use of supplements: [] Nutritional Intake: [] IV Site: [] Almodovar Catheter: [] Assessment & Plan Assessment/Plan (1) Acute osteomyelitis of left hindfoot: PLAN: On empiric vanc/zosyn/clinda. Wound cx 10/2020 with klebs, enterobacter, strep, enterococcus, CoNS, corynebacter, and anaerobes. OR 01/13/[address] East. Bcx with enterobacter. Wound cx and surg cx with enterobacter, citrobacter, corynebacter. Having some loose stool. Will stop vanc/clinda. Cont zosyn, add linezolid for anti-toxin effect given extent of necrosis seen in OR. Counseled re: importance of covid shot after discharge. Will follow, (2) DKA (diabetic ketoacidoses): QUALIFIERS: Diabetes mellitus type: other specified (including YAAKOV) Diabetes mellitus complication detail: without coma Qualified Code(s): E13.10 - Other specified diabetes mellitus with ketoacidosis without coma (3) Severe sepsis:
--- NOTE | 2021-01-16 15:00 | CASEMGMT ---
Social Work Note SW in to speak with pt regarding discharge plans. SW introduced self and role at [facility]. Pt confirms he will need a SNF at discharge. Patient was provided a list of SNF providers including quality and resource use data and consistent with the patient?s preferred geographic region, medical needs, and insurance network Pt's preferred provider is [facility] has pt has been there before. SW placed a call to [facility] and spoke with Aziza. BYRON updated Tabby on referral. SW faxed referral. Plan: SNF pending acceptance [facility], [facility]
[2021-01-16 17:21] LABS: Bedside Glucose 362 mg/dL (70-110)
[2021-01-16 18:05] LABS: Bedside Glucose 284 mg/dL (70-110)
[2021-01-16 19:39] VITALS: BP 120/65; PULSE 87; RESP 16; TEMP 37.2; O2SAT 99
[2021-01-16 22:46] LABS: Bedside Glucose 134 mg/dL (70-110)
[2021-01-16] MEDS: Linezolid 600 MG Tablet PO (23:12)
--- NOTE | 2021-01-17 06:13 | PCM.PROGNOTE ---
Subjective Subjective This patient was seen this morning for follow up on left foot. He is s/p left widespread debridement of soft tissue and bone including aggressive calcanectomy and incision and drainage of foot. His wound VAC was placed yesterday. He denies fever, chills, vomiting, or calf pain. His nausea has resolved compared to yesterday since his medications have been adjusted. His foot pain is controlled with pain medication use. He relates he is not ready to proceed forward with leg amputation at this time but will consider it in the future. He is resting in bed with his left knee bent and pressure applied to his wound heel site. Objective Data Objective Data Vital Signs: Vital Signs Temp Pulse Resp BP Pulse Ox 99.0 F 87 16 120/65 99 01/16/21 19:39 01/16/21 19:39 01/16/21 19:39 01/16/21 19:39 01/16/21 19:39 Oxygen Flow Rate (L/min) 2 Oxygen Delivery Method Room Air Weight: 77.3 kg Body Mass Index (BMI) 21.7 Intake & Output: Intake and Output for Last 24 Hours 01/15/21 01/16/21 01/17/21 23:59 23:59 23:59 Intake Total 3923.83 / 4123.83 1666.5 / 1666.5 50 / 50 Output Total 4550 / 5550 1000 / 1000 Balance -626.17 / -1426.17 666.5 / 666.5 50 / 50 Lab / Micro Data Result Diagrams: 01/16/21 05:37 01/16/21 05:37 Labs: Laboratory Results - last 24 hr 01/16/21 01/16/21 01/16/21 05:37 08:02 12:15 Sodium 138 Potassium 3.3 L Chloride 104 Carbon Dioxide 26.0 Anion Gap 8 BUN 11 Creatinine 0.80 Estim Creat Clear Calc 97.97 Est GFR (MDRD) Af Amer 124 Est GFR (MDRD) Non-Af 102 BUN/Creatinine Ratio 13.7 Glucose 263 H Calcium 7.5 L Total Bilirubin 0.40 AST 9 L ALT 13 L Alkaline Phosphatase 86 Total Protein 5.2 L Albumin 1.5 L Globulin 3.7 Albumin/Globulin Ratio 0.4 L POC Glucose 275 H 274 H 01/16/21 01/16/21 01/16/21 16:31 18:02 22:38 Sodium Potassium Chloride Carbon Dioxide Anion Gap BUN Creatinine Estim Creat Clear Calc Est GFR (MDRD) Af Amer Est GFR (MDRD) Non-Af BUN/Creatinine Ratio Glucose Calcium Total Bilirubin AST ALT Alkaline Phosphatase Total Protein Albumin Globulin Albumin/Globulin Ratio POC Glucose 362 H 284 H 134 H Micro: Microbiology 01/16/21 10:50 Stool Stool Occult Blood (EL) - Final 01/13/21 Unknown Bone - Left Foot Gram Stain - Final 01/13/21 Unknown Bone - Left Foot Wound Culture - Final Enterobacter cloacae complex 01/13/21 Unknown Bone - Left Foot Anaerobic Culture - Preliminary Checking for anaerobes, further studies to follow. 01/13/21 Unknown Tissue - Left Foot Gram Stain - Final 01/13/21 Unknown Tissue - Left Foot Wound Culture - Final Citrobacter freundii 01/13/21 Unknown Tissue - Left Foot Anaerobic Culture - Preliminary Checking for anaerobes, further studies to follow. 01/13/21 02:10 Wound - Heel, Left Gram Stain - Final 01/13/21 02:10 Wound - Heel, Left Wound Culture - Final Corynebacterium minutissimum Enterobacter cloacae complex Citrobacter freundii 01/13/21 01:45 Blood Culture (Wb) - Anticubital Left Blood Culture - Final Enterobacter cloacae complex 01/13/21 02:22 Blood Culture (Wb) - Right Forearm Blood Culture - Preliminary No growth in 48 hours. 01/13/21 13:40 Interface Orders SARS-CoV-2 Antigen (Rapid) - Final Radiography Diagnostic Testing: Radiology Impression Venous Doppler Study 01/15/21 14:01 Interpretation Summary Acute deep vein thrombosis is noted in the left peroneal vein. The remainder of the left lower extremity deep venous system is patent and compressible. Deep veins of the right lower extremity are patent and compressible segmentally. There is no evidence of right lower extremity deep vein thrombosis. Valvular competence appears intact within the proximal deep venous systems bilaterally. The great saphenous veins appear bilaterally patent and compressible segmentally. A right below-knee amputation is noted. Ordering Physician: Carlton East Referring Physician: Dani Sevilla Performed By: Noemi Armendariz RVT Physical Exam Const alert and no apparent distress General Appearance: frail and appears older than stated age Nutritional Appearance: thin HEENT normocephalic Extremity normal capillary refill Extremity Narrative: Right below knee amputation. s/p debridement of left foot now with wound VAC in place without evidence of leaking. CFT < 2 seconds to all toe on the left foot. No odor, streaking, erythema. Negative aaron and schroeder sign left lower extremity General Extremity: edema Skin Skin Narrative: Adjacent skin is atrophic Neuro Neuro Narrative: lack of normal epicritic sensation via light touch consistent with neuropathy Assessment & Plan Assessment/Plan (1) Acute osteomyelitis of left hindfoot: (2) Non-pressure chronic ulcer of left heel and midfoot with necrosis of bone: (3) Severe sepsis: (4) DKA (diabetic ketoacidoses): QUALIFIERS: Diabetes mellitus type: other specified (including YAAKOV) Diabetes mellitus complication detail: without coma Qualified Code(s): E13.10 - Other specified diabetes mellitus with ketoacidosis without coma (5) Diabetes: (6) Diabetic neuropathy: QUALIFIERS: Diabetes mellitus type: type 2 Diabetes mellitus complication detail: diabetic polyneuropathy Qualified Code(s): E11.42 - Type 2 diabetes mellitus with diabetic polyneuropathy PLAN: I reviewed and discussed his case. He is s/p debridement left foot/heel with partial calcanectomy on 01/13/2021. Reviewed diagnostic data. He is afebrile and vitals are stable. Clinically from infection standpoint foot significantly improved. Cultures have been obtained and final results pending. Patient is on IV antibiotics - narrowed to Zosyn and Linezolid, Dr. Vital/ID on consult. Preoperative cultures with citrobacter freundii, Enterobacter cloacae complex, corynebacterium minutissimum. Intraoperative bone culture and blood cultures with enterobacter cloacae complex. Histopathological specimen results pending. Wound VAC was placed; 150 mmHg continuous. Will plan for change three times weekly. No weightbearing left foot. He was advised to hang his heel over pillow while in bed to keep pressure off of the surgical and wound site. Advised patient foot will be nonfunctional due to the extent of the infection. I am very guarded his foot will heal given the extent of the infection he had in foot with peripheral vascular disease, senior care BKA or AKA is indicated. The guarded prognosis and risks vs benefits were reviewed again this morning. It is noted he has also had significant delay in prosthetic use and healing with his contralateral limb below knee amputation and this contributes to his apprehension to proceed forward amputation left lower extremity. Wound care plan with patellar tendon weight bearing brace would be considered for a more palliative type program if he continues to refuse amputation. He relates he is currently refusing an amputation but after thinking about this more yesterday he will consider this in the future. He asked questions in regards to really potentially be performed and surgery would he he can be referred to in the outpatient setting. An arterial duplex Doppler was ordered and recommended to confirm limb perfusion for wound healing and also for work-up prior to potential amputation. It is noted his last vascular assessment was over a couple of years ago. Peroneal vein DVT noted; management per hospitalist. Medical management per hospitalist. Upon continued medical stabilization it is ok to d/c from a podiatry surgical standpoint. Podiatry will continue to follow. Please do not hesitate to call if you have any questions. Skilled facility placement planned for [facility]. To follow up at the wound healing center weekly at time of discharge. Justa Garcia DPM, [facility] [phone]
[2021-01-17 06:28] VITALS: BP 128/77; PULSE 76; RESP 18; TEMP 36.4; O2SAT 96
[2021-01-17] MEDS: oxyCODONE 5 MG Tablet 10 MG PO ×2 (06:34→12:54)
[2021-01-17 06:57] LABS: Absolute Lymphocyte Count 1.49 X10^3/uL (0.83-4.51); Absolute Neutrophil Count 6.5 X10^3/uL (2.0-7.7); Basophil# 0.04 X10^3/uL; Basophil% 0.5 % (0-1); Eosinophil# 0.12 X10^3/uL; Eosinophils% 1.4 % (0-5); Hematocrit 29.2 % (40-54); Hemoglobin 9.3 g/dL (13.0-16.5); Lymphocyte # 1.49 X10^3/ul (0.83-4.51); Mean Corp Hgb Conc 31.8 g/dL (32-36); Mean Corpuscular Hgb 26.9 pg (27.0-32.0); Mean Corpuscular Volume 84.4 fL (80-94); Mean Platelet Vol. 11.2 fl (6.2-12.0); Monocyte# 0.53 X10^3/uL; NRBC Flagged by Analyzer 0 % (0-5); Neutrophil # 6.54 X10^3/uL (2.7-7.7); Neutrophil % 74.3 % (47-70); Platelet Count 290 K/mm3 (150-450); RBC Distribution Width CV 14.2 % (11.6-14.6); RBC Distribution Width SD 43.8 fl (35.1-43.9); Red Blood Count 3.46 M/mm3 (4.6-6.2); White Blood Count 8.8 K/mm3 (4.4-11.0)
--- NOTE | 2021-01-17 07:25 | PCM.PN.HOSP ---
Subjective Subjective Venous duplex obtained on 01/16/2021 demonstrated acute deep vein thrombosis is noted in the left peroneal vein did start patient on Xarelto Objective Data Objective Data Vital Signs: Vital Signs Temp Pulse Resp BP Pulse Ox 97.5 F L 76 18 128/77 H 96 01/17/21 06:28 01/17/21 06:28 01/17/21 06:28 01/17/21 06:28 01/17/21 06:28 Oxygen Flow Rate (L/min) 2 Oxygen Delivery Method Room Air Weight: 76.028 kg Body Mass Index (BMI) 21.7 Intake & Output: Intake and Output for Last 24 Hours 01/15/21 01/16/21 01/17/21 23:59 23:59 23:59 Intake Total 3923.83 / 4123.83 1666.5 / 1666.5 650 / 650 Output Total 4550 / 5550 1000 / 1000 Balance -626.17 / -1426.17 666.5 / 666.5 650 / 650 Lab / Micro Data Result Diagrams: 01/17/21 06:25 01/17/21 06:25 Labs: Laboratory Results - last 24 hr 01/16/21 01/16/21 01/16/21 08:02 12:15 16:31 WBC RBC Hgb Hct MCV MCH MCHC RDW Std Deviation RDW Coeff of Jo Plt Count MPV Immature Gran % (Auto) Neut % (Auto) Lymph % (Auto) [place] % (Auto) Eos % (Auto) Baso % (Auto) Absolute Neuts (auto) Absolute Lymphs (auto) Nucleated RBC % POC Glucose 275 H 274 H 362 H 01/16/21 01/16/21 01/17/21 18:02 22:38 06:25 WBC 8.8 RBC 3.46 L Hgb 9.3 L Hct 29.2 L MCV 84.4 MCH 26.9 L MCHC 31.8 L RDW Std Deviation 43.8 RDW Coeff of Jo 14.2 Plt Count 290 MPV 11.2 Immature Gran % (Auto) 0.800 Neut % (Auto) 74.3 H Lymph % (Auto) 17.0 L [place] % (Auto) 6.0 Eos % (Auto) 1.4 Baso % (Auto) 0.5 Absolute Neuts (auto) 6.5 Absolute Lymphs (auto) 1.49 Nucleated RBC % 0 POC Glucose 284 H 134 H Micro: Microbiology 01/16/21 10:50 Stool Stool Occult Blood (EL) - Final 01/13/21 Unknown Bone - Left Foot Gram Stain - Final 01/13/21 Unknown Bone - Left Foot Wound Culture - Final Enterobacter cloacae complex 01/13/21 Unknown Bone - Left Foot Anaerobic Culture - Preliminary Checking for anaerobes, further studies to follow. 01/13/21 Unknown Tissue - Left Foot Gram Stain - Final 01/13/21 Unknown Tissue - Left Foot Wound Culture - Final Citrobacter freundii 01/13/21 Unknown Tissue - Left Foot Anaerobic Culture - Preliminary Checking for anaerobes, further studies to follow. 01/13/21 02:10 Wound - Heel, Left Gram Stain - Final 01/13/21 02:10 Wound - Heel, Left Wound Culture - Final Corynebacterium minutissimum Enterobacter cloacae complex Citrobacter freundii 01/13/21 01:45 Blood Culture (Wb) - Anticubital Left Blood Culture - Final Enterobacter cloacae complex 01/13/21 02:22 Blood Culture (Wb) - Right Forearm Blood Culture - Preliminary No growth in 48 hours. 01/13/21 13:40 Interface Orders SARS-CoV-2 Antigen (Rapid) - Final Radiography Diagnostic Testing: Radiology Impression Venous Doppler Study 01/15/21 14:01 Interpretation Summary Acute deep vein thrombosis is noted in the left peroneal vein. The remainder of the left lower extremity deep venous system is patent and compressible. Deep veins of the right lower extremity are patent and compressible segmentally. There is no evidence of right lower extremity deep vein thrombosis. Valvular competence appears intact within the proximal deep venous systems bilaterally. The great saphenous veins appear bilaterally patent and compressible segmentally. A right below-knee amputation is noted. Ordering Physician: Carlton East Referring Physician: Dani Sevilla Performed By: Noemi Armendariz RVT Physical Exam Narrative GENERAL: cooperative HEENT: Atraumatic; EYES; Anicteric, Normal Conjunctiva NECK; supple, normal thyroid, RESPIRATORY: Diminished to auscultation CARDIOVASCULAR: Regular S1 S2, GI: soft, normoactive bowel sounds, : No Renal angle tenderness; EXTREMITIES: Wound VAC left heel MUSCULOSKELETAL: no muscle waisting NEURO: Awake; no lateralizing signs. SKIN: As described above PSYCH; Flat affect Assessment & Plan Assessment/Plan (1) DKA (diabetic ketoacidoses): QUALIFIERS: Diabetes mellitus complication detail: without coma Diabetes mellitus type: other specified (including YAAKOV) Qualified Code(s): E13.10 - Other specified diabetes mellitus with ketoacidosis without coma (2) Non-pressure chronic ulcer of left heel and midfoot with necrosis of bone: PLAN: Patient is a 65-year-old gentleman with history of diabetes mellitus type 2 admitted with diabetic ketoacidosis as well as worsening left heel wound. Initially managed in the ICU stabilized and subsequently transferred to regular nursing floor 1. Diabetic ketoacidosis ?In a patient with type II diabetes mellitus. Patient was managed with IV fluids systemic insulin and correction of electrolyte has since resolved patient transferred from intensive care unit to [facility] floor 2. Severe sepsis secondary to necrotic left heel ?Pictures from wound care nurse reviewed. Cultures so far from the left heel grew Corynebacterium minutissimum Enterobacter cloacae complex and Citrobacter freundii. Patient had bacteremia with Enterobacter cloacae complex currently on broad-spectrum antibiotic therapy with ID and podiatry on consult -01/17/2021; notes and recommendations from both ID and podiatry reviewed. Patient underwent wound VAC placement 3. Acute deep vein thrombosis is noted in the left peroneal vein -Patient started on Xarelto 4. Acute kidney injury ?Secondary to severe dehydration present on admission which has since resolved with IV fluid resuscitation 5. Hypokalemia - corrected 6. Hyponatremia ?Secondary to pseudohyponatremia from patient hyperglycemia on admission resolved 7. Tobacco dependence - Counseled on cessation, offered nicotine patch for tobacco cravings 8. DVT prophylaxis - On enoxaparin Visit Charges Inpatient E&M: 04356 Subs Hosp L2
[2021-01-17 07:37] LABS: ALB/GLOB Ratio 0.4 RATIO (0.9-2.4); AST(SGOT) 9 U/L (15-37); Alanine Aminotransfer ALT/SGPT 11 U/L (16-61); Albumin, Serum 1.5 g/dL (3.2-5.0); Alkaline Phosphatase 79 U/L (45-117); Anion Gap 5 (5-15); BUN 12 mg/dL (7-18); BUN/Creat Ratio 13.9 RATIO (10-20); Calcium,Total 7.8 mg/dL (8.5-10.1); Chloride 107 mmol/L (98-107); Creatinine, Serum 0.86 mg/dL (0.70-1.30); EST Glomerular Filtration Rate 94 mL/min (>60); Est Glom Filt Rate - Afr Amer 114 mL/min (>60); Estimated Creatinine Clearance 89.63 ml/min; Globulin 3.7 g/dL (2.2-4.2); Glucose 111 mg/dL (74-106); Magnesium 1.8 mg/dL (1.6-2.6); Protein, Total 5.2 g/dL (6.4-8.2); Sodium Level 139 mmol/L (136-145)
--- NOTE | 2021-01-17 10:14 | CASEMGMT ---
Addendum entered by Noemi Navarro 01/17/21 13:44: SW in to speak with pt. [facility]. Patient was provided a list of SNF providers including quality and resource use data and consistent with the patient?s preferred geographic region, medical needs, and insurance network. Pt states he would like to review list. SW informed pt that he is medically ready for discharge, SNF needs to be decided soon. SW informed pt that this worker will be back in about an hour or so. SW encouraged pt to have 2-3 choices for SNF. Pt states understanding. Addendum entered by Noemi Navarro 01/17/21 12:07: SW received call from Erica at [facility] stating they are not able to accept pt has pt is on IV antibiotics every 8 hours. BYRON attempted to update pt, pt currently with PT/OT, will update pt once PT/OT is done with pt. Original Note: Social Work Note SW placed a call to [facility] and spoke with Aziza. Aziza states they are still reviewing referral. BYRON updated Tabby that pt will be on IV antibiotics at discharge. Aziza states she will have staff call this worker once a decision has been made regarding referral. 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
[2021-01-17] MEDS: Pregabalin 75 MG Capsule 150 MG PO ×3 (10:15→17:00)
[2021-01-17] MEDS: Linezolid 600 MG Tablet PO (10:15)
[2021-01-17] MEDS: Potassium Chloride Oral Tablet 20 MEQ 40 MEQ PO (10:15)
--- NOTE | 2021-01-17 10:23 | PCM.PN.ID ---
Physical Exam Narrative Feeling better, diarrhea improved slightly. Const alert General Appearance: cooperative Resp normal air movement and clear to auscultation bilaterally Cardio regular rate and regular rhythm Skin Skin Narrative: wound vac in place ID ID: Route of nutrition/ use of supplements: [] Nutritional Intake: [] IV Site: [] Almodovar Catheter: [] Assessment & Plan Assessment/Plan (1) Acute osteomyelitis of left hindfoot: PLAN: On empiric vanc/zosyn/clinda. Wound cx 10/2020 with klebs, enterobacter, strep, enterococcus, CoNS, corynebacter, and anaerobes. OR 01/13/[address] East. Bcx with enterobacter. Wound cx and surg cx with enterobacter, citrobacter, corynebacter. Having some loose stool. Ok for d/c to ECF on 6 weeks zosyn, stop date 02/24. Counseled re: importance of covid shot after discharge. Will follow, ID followup in 2 weeks, d/w manager case, wrote rx (2) DKA (diabetic ketoacidoses): QUALIFIERS: Diabetes mellitus type: other specified (including YAAKOV) Diabetes mellitus complication detail: without coma Qualified Code(s): E13.10 - Other specified diabetes mellitus with ketoacidosis without coma (3) Severe sepsis:
[2021-01-17 12:30] VITALS: BP 141/84; PULSE 87; RESP 18; TEMP 36.6; O2SAT 98
[2021-01-17 13:05] LABS: Bedside Glucose 285 mg/dL (70-110)
--- NOTE | 2021-01-17 14:23 | CASEMGMT ---
SW spoke w/pt regarding other ch[facility] choices. Pt would like a referral to TCU. SW called Maryse in TCU, message left. CARLOS Mcneil
--- NOTE | 2021-01-17 15:01 | MDS.RN ---
RNCM Palliative Care Screening Note [facility] Palliative Care Screening completed and does not meet criteria at this time. May consider Palliative consult d/t low Albumin- 1.5 and if patient having significant decrease in ability to perform ADLs. H/o RLL BKA, here for Lt heel necrotic ulcer. On IV Zosyn- plan to go to TCU. TERA Hermosillo
--- NOTE | 2021-01-17 15:05 | PCM.TXEXTCAR ---
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 Discharge Plan Admission Admit Date/Time: 01/13/21 04:31 Attending Provider: Willis Haley Primary Care Provider: Dani Sevilla Consulting Providers: Daniel Vital ; Fernie Tao ; Sunny Levy ; Naima Mcleod QUANTITATIVE STRATEGY ANALYST ; Justa Garcia Instructions Additional Instructions / Restrictions: Maintain a non weightbear left lower extremity status with assistive devices. Wound vac 150 mmHg continuous; change three times weekly. Wash limb with soap and water between vac changes. Elevate left lower extremity. Follow up at wound care center weekly after hospital discharge with Dr. Nolan or Dr. Garcia; call [phone]. Discharge Orders/Prescriptions Prescriptions: New Zosyn in dextrose (iso-osm) 3.375 gram/50 mL piggyback 3.375 g IV Q8H 38 Days Qty: 114 RF: 0 oxycodone 5 mg Tablet 10 mg PO Q6H PRN PRN (Reason: Pain Score 6-10) 3 Days Qty: 10 RF: 0 insulin lispro [Humalog KwikPen Insulin] 100 unit/mL Insulin Pen 5 unit subcut BREAKFAST Qty: 1 RF: 0 insulin lispro [Humalog KwikPen Insulin] 100 unit/mL Insulin Pen 5 unit subcut DINNER Qty: 1 RF: 0 insulin lispro [Humalog KwikPen Insulin] 100 unit/mL Insulin Pen See Protocol unit subcut 4X/DAYCM Qty: 1 RF: 0 insulin lispro [Humalog KwikPen Insulin] 100 unit/mL Insulin Pen 5 unit subcut LUNCH Qty: 1 RF: 0 Lantus Solostar U-100 Insulin 100 unit/mL (3 mL) Insulin Pen 25 units subcut DINNER Qty: 1 RF: 0 rivaroxaban 15 mg tablet 15 mg PO BIDCM Qty: 20 RF: 0 Continued cyclobenzaprine 10 MG tablet 10 mg PO TID PRN (Reason: Spasms) RF: 0 metoclopramide HCl 10 MG tablet 10 mg PO BIDCM PRN (Reason: STOMACH) RF: 0 pregabalin 150 MG capsule 150 mg PO 4X/DAY RF: 0 ondansetron 4 MG tablet 4 mg PO Q6H PRN (Reason: Nausea) RF: 0 insulin detemir U-100 100 UNIT/ML insulin pen 35 unit SQ BID Qty: 1 RF: 0 Held dulaglutide 0.75 MG/0.5 ML pen injector 0.75 mg SQ FR RF: 0 Hold Instructions: Resume on 03/02/21. testosterone 75 GM gel in metered-dose pump 2 each TD QHS RF: 0 Hold Instructions: Resume on 03/02/21. Discontinued insulin aspart U-100 [Novolog Flexpen U-100 Insulin] 100 UNITS/ML insulin pen 5 - 7 units subcut TIDAC RF: 0 oxycodone 20 MG tablet 20 mg PO TID PRN PRN (Reason: Pain 1-10 Or Fever) RF: 0 cefdinir 300 MG capsule 300 mg PO BID Qty: 28 RF: 0 Referrals / Follow Up: Justa Garcia DPM [STAFF PHYSICIAN] - In 1 Week Dani Sevilla DO [Primary Care Provider] - Within 1 Month Daniel Vital MD [STAFF PHYSICIAN] - Within 2 Weeks Disposition Disposition (needs filled in before D/C Order can be placed): [facility] Facility
--- NOTE | 2021-01-17 15:18 | DS.PCM_ITS ---
Providers Date of Admission: 01/13/21 Primary Care Physician: Dr. Dani Sevilla DO Consultations 01/13/21 05:51 Consult: Onc/Wound/manager combination Routine Comment: Reason for Consult:: left heel wound 01/13/21 08:22 Consult: Marine [employer] / Pulmonary Medicine Routine Consulting Provider: Fernie Tao Reason for Consult: DKA, SEVERE SEPSIS EMERGENT Consult: No MD Notified: No Date Notified:: 01/13/21 Time Notified: 04:28 Consult: Podiatry Routine Consulting Provider: Justa Garcia Reason for Consult: Diabetic foot infection EMERGENT Consult: No MD Notified: Yes Date Notified:: 01/13/21 Time Notified: 04:26 Method of Notification: Verbal Method of Consult:: In-Person 01/13/21 08:42 Consult: Infectious Disease Routine Consulting Provider: Daniel Vital Reason for Consult: Severe sepsis, gas gangrene left leg EMERGENT Consult: No MD Notified: Yes Date Notified:: 01/13/21 Time Notified: 12:00 Method of Notification: Verbal Method of Consult:: In-Person 01/13/21 10:26 Consult: [employer] / Pulmonary Medicine Routine Consulting Provider: Pulmonary Medicine [facility] Reason for Consult: septic shock EMERGENT Consult: No MD Notified: Yes Date Notified:: 01/13/21 Time Notified: 10:27 Method of Notification: Verbal Reason For Visit: DKA, DIABETIC WOUND INFECTION Diagnosis Discharge Diagnosis (1) Acute osteomyelitis of left hindfoot: Status: Acute Code(s): M86.172 - Other acute osteomyelitis, left ankle and foot (2) DKA (diabetic ketoacidoses): Status: Acute Code(s): E11.10 - Type 2 diabetes mellitus with ketoacidosis without coma Qualifiers: Diabetes mellitus complication detail: without coma Diabetes mellitus type: other specified (including YAAKOV) Qualified Code(s): E13.10 - Other specified diabetes mellitus with ketoacidosis without coma (3) Severe sepsis: Status: Acute Code(s): A41.9 - Sepsis, unspecified organism; R65.20 - Severe sepsis without septic shock (4) Ulcer of right lower 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: Chronic Code(s): L97.912 - Non-pressure chronic ulcer of unspecified part of right lower leg with fat layer exposed Medications at Discharge Home Medications cyclobenzaprine 10 mg PO TID PRN 10/25/20 dulaglutide 0.75 mg SQ FR 10/25/20 metoclopramide HCl 10 mg PO BIDCM PRN 10/25/20 ondansetron 4 mg PO Q6H PRN 10/25/20 pregabalin 150 mg PO 4X/DAY 10/25/20 testosterone 2 each TD QHS 10/25/20 insulin detemir U-100 35 unit SQ BID #1 insuln.pen 10/28/20 insulin glargine [Lantus Solostar U-100 Insulin] 25 units SUBCUT DINNER #1 ml 01/17/21 insulin lispro [Humalog KwikPen Insulin] 5 unit SUBCUT BREAKFAST #1 ml 01/17/21 insulin lispro [Humalog KwikPen Insulin] 5 unit SUBCUT DINNER #1 ml 01/17/21 insulin lispro [Humalog KwikPen Insulin] 5 unit SUBCUT LUNCH #1 ml 01/17/21 insulin lispro [Humalog KwikPen Insulin] See Protocol SUBCUT 4X/DAYCM #1 ml 01/17/21 oxycodone 10 mg PO Q6H PRN PRN 3 Days #10 tab 01/17/21 [id number] [Zosyn in dextrose (iso-osm)] 3.375 g IV Q8H 38 Days #114 bag 01/17/21 rivaroxaban 15 mg PO BIDCM #20 tab 01/17/21 Hospital Course Summary of Care Provided Minutes Spent on Discharge: 45 Hospital Course: 1.? Diabetic ketoacidosis ?In a patient with type II diabetes mellitus.? Patient was managed with IV fluids systemic insulin and correction of electrolyte has since resolved patient transferred from intensive care unit to [facility] floor 2.? Severe sepsis secondary to necrotic left heel ?Pictures from wound care nurse reviewed.? Cultures so far from the left heel grew Corynebacterium minutissimum? Enterobacter cloacae complex and? Citrobacter freundii.? Patient had bacteremia with? Enterobacter cloacae complex currently on broad-spectrum antibiotic therapy with ID and podiatry on consult -01/17/2021; notes and recommendations from both ID and podiatry reviewed.? Patient underwent wound VAC placement -Patient was [facility] to a detention facility with Zosyn for 6 weeks prescription written by 3. Acute deep vein thrombosis is noted in the left peroneal vein -Patient started on Xarelto -Patient was discharged on Xarelto 50 mg p.o. for 21 days and subsequently 20 mg daily 4.? Acute kidney injury ?Secondary to severe dehydration present on admission which has since resolved with IV fluid resuscitation 5.? Hypokalemia - corrected 6.? Hyponatremia ?Secondary to pseudohyponatremia from patient hyperglycemia on admission resolved 7.? Tobacco dependence - Counseled on cessation, offered nicotine patch for tobacco cravings 8.? DVT prophylaxis - On enoxaparin Physical Exam Const alert HEENT normocephalic GI normal to inspection, nondistended, normoactive bowel sounds Psych affect normal ABG / Lab / Microbiology Data Result Diagrams: 01/17/21 06:25 01/17/21 06:25 Laboratory: Laboratory Results - last 24 hr 01/16/21 01/16/21 01/16/21 16:31 18:02 22:38 WBC RBC Hgb Hct MCV MCH MCHC RDW Std Deviation RDW Coeff of Jo Plt Count MPV Immature Gran % (Auto) Neut % (Auto) Lymph % (Auto) [place] % (Auto) Eos % (Auto) Baso % (Auto) Absolute Neuts (auto) Absolute Lymphs (auto) Nucleated RBC % Sodium Potassium Chloride Carbon Dioxide Anion Gap BUN Creatinine Estim Creat Clear Calc Est GFR (MDRD) Af Amer Est GFR (MDRD) Non-Af BUN/Creatinine Ratio Glucose Calcium Magnesium Total Bilirubin AST ALT Alkaline Phosphatase Total Protein Albumin Globulin Albumin/Globulin Ratio POC Glucose 362 H 284 H 134 H 01/17/21 01/17/21 01/17/21 06:25 06:25 13:00 WBC 8.8 RBC 3.46 L Hgb 9.3 L Hct 29.2 L MCV 84.4 MCH 26.9 L MCHC 31.8 L RDW Std Deviation 43.8 RDW Coeff of Jo 14.2 Plt Count 290 MPV 11.2 Immature Gran % (Auto) 0.800 Neut % (Auto) 74.3 H Lymph % (Auto) 17.0 L [place] % (Auto) 6.0 Eos % (Auto) 1.4 Baso % (Auto) 0.5 Absolute Neuts (auto) 6.5 Absolute Lymphs (auto) 1.49 Nucleated RBC % 0 Sodium 139 Potassium 3.0 L Chloride 107 Carbon Dioxide 27.0 Anion Gap 5 BUN 12 Creatinine 0.86 Estim Creat Clear Calc 89.63 Est GFR (MDRD) Af Amer 114 Est GFR (MDRD) Non-Af 94 BUN/Creatinine Ratio 13.9 Glucose 111 H Calcium 7.8 L Magnesium 1.8 Total Bilirubin 0.30 AST 9 L ALT 11 L Alkaline Phosphatase 79 Total Protein 5.2 L Albumin 1.5 L Globulin 3.7 Albumin/Globulin Ratio 0.4 L POC Glucose 285 H Microbiology: Microbiology 01/16/21 10:50 Stool Occult Blood (EL) - Final Stool Microbiology 01/16/21 10:50 Stool Stool Occult Blood (EL) - Final 01/13/21 Unknown Bone - Left Foot Gram Stain - Final 01/13/21 Unknown Bone - Left Foot Wound Culture - Final Enterobacter cloacae complex 01/13/21 Unknown Bone - Left Foot Anaerobic Culture - Preliminary Checking for anaerobes, further studies to follow. 01/13/21 Unknown Tissue - Left Foot Gram Stain - Final 01/13/21 Unknown Tissue - Left Foot Wound Culture - Final Citrobacter freundii 01/13/21 Unknown Tissue - Left Foot Anaerobic Culture - Preliminary Checking for anaerobes, further studies to follow. 01/13/21 02:10 Wound - Heel, Left Gram Stain - Final 01/13/21 02:10 Wound - Heel, Left Wound Culture - Final Corynebacterium minutissimum Enterobacter cloacae complex Citrobacter freundii 01/13/21 01:45 Blood Culture (Wb) - Anticubital Left Blood Culture - Final Enterobacter cloacae complex 01/13/21 02:22 Blood Culture (Wb) - Right Forearm Blood Culture - Preliminary No growth in 48 hours. 01/13/21 13:40 Interface Orders SARS-CoV-2 Antigen (Rapid) - Final Radiography Diagnostic Testing: Radiology Impression Venous Doppler Study 01/15/21 14:01 Interpretation Summary Acute deep vein thrombosis is noted in the left peroneal vein. The remainder of the left lower extremity deep venous system is patent and compressible. Deep veins of the right lower extremity are patent and compressible segmentally. There is no evidence of right lower extremity deep vein thrombosis. Valvular competence appears intact within the proximal deep venous systems bilaterally. The great saphenous veins appear bilaterally patent and compressible segmentally. A right below-knee amputation is noted. Ordering Physician: Carlton East Referring Physician: Dani Sevilla Performed By: Noemi Armendariz RVT D/C Instructions Discharge Diet: No restrictions Meaningful Use Info Meaningful Use Diagnoses (Choose all that apply): None applicable Discharge Plan Admission Admit Date/Time: 01/13/21 04:31 Primary Reason for Your Visit: Osteomyelitis involving the left heel, DVT Attending Provider: Willis Haley Primary Care Provider: Dani Sevilla Consulting Providers: Daniel Vital ; Fernie Tao ; Sunny Levy ; Naima Mcleod WATERWORKS SUPERVISOR ; Justa Garcia Instructions Additional Instructions / Restrictions: Maintain a non weightbear left lower extremity status with assistive devices. Wound vac 150 mmHg continuous; change three times weekly. Wash limb with soap and water between vac changes. Elevate left lower extremity. Follow up at wound care center weekly after hospital discharge with Dr. Nolan or Dr. Garcia; call [phone]. Discharge Orders/Prescriptions Prescriptions: New Zosyn in dextrose (iso-osm) 3.375 gram/50 mL piggyback 3.375 g IV Q8H 38 Days Qty: 114 RF: 0 oxycodone 5 mg Tablet 10 mg PO Q6H PRN PRN (Reason: Pain Score 6-10) 3 Days Qty: 10 RF: 0 insulin lispro [Humalog KwikPen Insulin] 100 unit/mL Insulin Pen 5 unit subcut BREAKFAST Qty: 1 RF: 0 insulin lispro [Humalog KwikPen Insulin] 100 unit/mL Insulin Pen 5 unit subcut DINNER Qty: 1 RF: 0 insulin lispro [Humalog KwikPen Insulin] 100 unit/mL Insulin Pen See Protocol unit subcut 4X/DAYCM Qty: 1 RF: 0 insulin lispro [Humalog KwikPen Insulin] 100 unit/mL Insulin Pen 5 unit subcut LUNCH Qty: 1 RF: 0 Lantus Solostar U-100 Insulin 100 unit/mL (3 mL) Insulin Pen 25 units subcut DINNER Qty: 1 RF: 0 rivaroxaban 15 mg tablet 15 mg PO BIDCM Qty: 20 RF: 0 Continued cyclobenzaprine 10 MG tablet 10 mg PO TID PRN (Reason: Spasms) RF: 0 metoclopramide HCl 10 MG tablet 10 mg PO BIDCM PRN (Reason: STOMACH) RF: 0 pregabalin 150 MG capsule 150 mg PO 4X/DAY RF: 0 ondansetron 4 MG tablet 4 mg PO Q6H PRN (Reason: Nausea) RF: 0 insulin detemir U-100 100 UNIT/ML insulin pen 35 unit SQ BID Qty: 1 RF: 0 Held dulaglutide 0.75 MG/0.5 ML pen injector 0.75 mg SQ FR RF: 0 Hold Instructions: Resume on 03/02/21. testosterone 75 GM gel in metered-dose pump 2 each TD QHS RF: 0 Hold Instructions: Resume on 03/02/21. Discontinued insulin aspart U-100 [Novolog Flexpen U-100 Insulin] 100 UNITS/ML insulin pen 5 - 7 units subcut TIDAC RF: 0 oxycodone 20 MG tablet 20 mg PO TID PRN PRN (Reason: Pain 1-10 Or Fever) RF: 0 cefdinir 300 MG capsule 300 mg PO BID Qty: 28 RF: 0 Referrals / Follow Up: Justa Garcia DPM [STAFF PHYSICIAN] - In 1 Week Dani Sevilla DO [Primary Care Provider] - Within 1 Month Daniel Vital MD [STAFF PHYSICIAN] - Within 2 Weeks Disposition Disposition (needs filled in before D/C Order can be placed): Group Home Facility Visit Charges Inpatient E&M: 49323 Disch Hosp
--- NOTE | 2021-01-17 15:22 | CASEMGMT ---
Addendum entered by Noemi Navarro 01/17/21 15:29: BYRON updated pt on discharge to TCU today. Pt states understanding. Original Note: Social Work Note BYRON received call from Maryse with TCU stating TCU can accept pt but there are two medications on pt' home medication list that pt will not be able to be on while on TCU. The first one is pt's Testerone Shot and the second one is Trulicity. BYRON in to speak with pt. BYRON updated pt that TCU can accept pt if pt is not on the following Medications (Testerone and Trulicity). Pt states he doesn't take Testerone at home but does confirm he takes Trulicity once a week. Pt states he is ok without being on the Trulicity while he is on TCU. BYRON udpated physician. Pt can discharge to TCU today. BYRON updated Maryse with TCU. Plan: TCU today Noemi Navarro TOOL ROOM ATTENDANT, LICENSED REACTOR OPERATOR
[2021-01-17] MEDS: Insulin Lispro 100 UNIT/ML INSULN.PEN SC ×2 (16:17→16:18)
[2021-01-17] MEDS: Rivaroxaban 15 MG Tablet PO (16:30)
[2021-01-17] MEDS: Potassium Chloride Oral Tablet 20 MEQ PO (16:30)
[2021-01-17] MEDS: 0.9% Saline Lock 10 ML Syringe IV (16:40)
== END 2021-01-17 17:21 | DRG 853 ==
LOC: ED 04:18 → ICU 04:55 → MS3 01-14 15:18
PROVIDERS: Internal Medicine; Internal Medicine Critical Care Medicine; Podiatrist; Admitting Provider Hospitalist; Emergency Provider Emergency Medicine; PCP Family Medicine; Visit Provider Internal Medicine
PROC: 0QBM0ZZ Excision of Left Tarsal, Open Approach (ICD-10-PCS; principal; 2021-01-13 16:00)
DX: A41.81 Sepsis due to Enterococcus (principal); E11.10 Type 2 diabetes mellitus with ketoacidosis without coma; M86.172 Other acute osteomyelitis, left ankle and foot; E11.52 Type 2 diabetes mellitus with diabetic peripheral angiopathy with gangrene; N17.9 Acute kidney failure, unspecified; L97.424 Non-pressure chronic ulcer of left heel and midfoot with necrosis of bone; E87.1 Hypo-osmolality and hyponatremia; R64 Cachexia; I82.452 Acute embolism and thrombosis of left peroneal vein; R63.8 Other symptoms and signs concerning food and fluid intake; Z68.22 Body mass index [BMI] 22.0-22.9, adult; B95.2 Enterococcus as the cause of diseases classified elsewhere; B96.89 Other specified bacterial agents as the cause of diseases classified elsewhere; R65.20 Severe sepsis without septic shock; E11.69 Type 2 diabetes mellitus with other specified complication; E11.43 Type 2 diabetes mellitus with diabetic autonomic (poly)neuropathy; K31.84 Gastroparesis; E11.621 Type 2 diabetes mellitus with foot ulcer; E87.6 Hypokalemia; F17.200 Nicotine dependence, unspecified, uncomplicated; Z89.511 Acquired absence of right leg below knee; Z91.19 Patient's noncompliance with other medical treatment and regimen; Z79.4 Long term (current) use of insulin; Z79.899 Other long term (current) drug therapy
CPT/HCPCS: 36415; 36600; 70450; 71045; 73610; 73630; 80048; 80053; 80076; 80202; 81001; 82009; 82274; 82570; 82803; 82962; 83036; 83540; 83550; 83605; 83735; 84300; 85014; 85018; 85025; 85610; 85652; 85730; 86140; 86850; 86900; 86901; 86920; 86922; 87015; 87040; 87070; 87075; 87077; 87102; 87116; 87186; 87205; 87206; 87426; 87641; 88305; 88311; 93005; 93926; 93970; 97162; 97166; 97802; 97803; 99285; J7030; J7040; J7050; J7120; P9016; A4216; C1751; J2405; J7799

== ENCOUNTER 2021-01-17 17:35 | Inpatient (IN) | payer MEDICARE, SELFPAY ==
[2021-01-13 13:25] VITALS: BMI 21.7
[2021-01-17 17:59] VITALS: BP 130/88; PULSE 89; RESP 16; TEMP 36.7; O2SAT 97; BMI 21.7
[2021-01-17] MEDS: oxyCODONE 5 MG Tablet 10 MG PO (20:00)
--- NOTE | 2021-01-17 20:14 | HP.PCM_ITS ---
HPI - General General Date of Admission: 01/17/21 HPI Narrative 01/13/2021 MARIAMA HUDDLESTON, is a 65 Male who presented to [facility] Emergency Department with left heel wound, confusion. 01/13/2021 EKG normal sinus rhythm, nonspecific ST&T wave abnormality. 01/13/2021 Chest X-ray okay. 01/13/2021 CT head negative. Left diabetic foot wound infection, quit wound center 2-3 months ago. Feels weak, left foot wound worse, feeling confused. IV Fluid bolus given, pancultured, empiric antibiotics given, insulin drip started for DKA. Left subclavian central line placed. 01/13/2021 Admit to ICU. Vancomycin, Zosyn for left heel wound infection. IV fluids for Diabetic ketoacidosis, acute kidney injury. 01/13/2021 Podiatry debrided left heel wound, wound VAC placed. DKA resolved with IV fluids, insulin, electrolyte correction. Left heel culture grew multiple organisms. Blood culture grew Enterobacter cloacae complex. Infectious Disease recommended Zosyn IV for 6 weeks. Left lower extremity DVT treated with Xarelto. Acute kidney injury resolved with IV fluids. 01/17/2021 Admit to TCU with debility, here for rehabilitation, strengthening, wound care, IV antibiotics, prior to discharge home alone. Resident told me he is ready for left below the knee amputation. [facility] Medical History Diabetes Malnutrition Home Medications cyclobenzaprine 10 mg PO TID PRN 10/25/20 [History Last Taken 10/25/20] dulaglutide 0.75 mg SQ FR 10/25/20 [History Last Taken 10/21/20] metoclopramide HCl 10 mg PO BIDCM PRN 10/25/20 [History Last Taken 2 Weeks Ago ~10/11/20] ondansetron 4 mg PO Q6H PRN 10/25/20 [History Last Taken 10/25/20] pregabalin 150 mg PO 4X/DAY 10/25/20 [History Last Taken 10/25/20] testosterone 2 each TD QHS 10/25/20 [History Last Taken 10/24/20] insulin detemir U-100 35 unit SQ BID 01/17/21 [History Last Taken Unknown] insulin glargine [Lantus Solostar U-100 Insulin] 25 units SUBCUT DINNER 01/17/21 [History Last Taken Unknown] insulin lispro [Humalog KwikPen Insulin] 5 unit SUBCUT BREAKFAST 01/17/21 [History Last Taken Unknown] insulin lispro [Humalog KwikPen Insulin] 5 unit SUBCUT DINNER 01/17/21 [History Last Taken Unknown] insulin lispro [Humalog KwikPen Insulin] 5 unit SUBCUT LUNCH 01/17/21 [History Last Taken Unknown] insulin lispro [Humalog KwikPen Insulin] See Protocol SUBCUT 4X/DAYCM 01/17/21 [History Last Taken Unknown] oxycodone 10 mg PO Q6H PRN PRN 3 Days #10 tab 01/17/21 [Rx Last Taken Unknown] [id number]-zjlvwqubve-mvpvmb [Zosyn in dextrose (iso-osm)] 3.375 g IV Q8H 01/17/21 [History Last Taken Unknown] rivaroxaban 15 mg PO BIDCM 01/17/21 [History Last Taken Unknown] Allergy/AdvReac Type Severity Reaction Status Date / Time No Known Allergies Allergy Verified 01/13/21 01:19 Surgical History Below-knee amputation of right lower extremity Social History (Updated 01/17/21 @ 20:[address] Fernando Clancy MD) household members: none Smoking Status: Current every day smoker ROS Constitutional Constitutional: Denies chills, fever(s) or weight gain ENT HEENT: Denies headache(s), nasal congestion or nasal discharge Cardiovascular Cardiovascular: Denies chest pain or palpitations Respiratory/Chest Respiratory/Chest: Denies cough, excessive phlegm production or shortness of breath with exertion Gastrointestinal Gastrointestinal: Denies abdominal pain, nausea or vomiting Genitourinary Genitourinary: Denies dysuria Musculoskeletal Musculoskeletal: Denies joint pain or joint swelling Integumentary Integumentary: Denies rash or wounds Neurologic Neurologic: Denies focal weakness, numbness or tingling Psychiatric Psychiatric: Reports auditory hallucinations; Denies anxiety, depression, homicidal ideation or suicidal ideation Vital Signs Vital Signs Vital Signs: 01/17/21 17:59 Temperature 98.0 F Temperature Source Temporal Pulse Rate 89 Respiratory Rate 16 Blood Pressure 130/88 H Blood Pressure Mean 102 Blood Pressure Source Monitor Blood Pressure Position Sitting Blood Pressure Location Right Arm Pulse Ox 97 Oxygen Delivery Method Room Air Physical Exam Const alert and oriented x3 General Appearance: cooperative HEENT normocephalic Eyes PERRL and EOMs intact bilaterally Neck supple, no JVD and no carotid bruits Resp normal respiratory effort, normal air movement and clear to auscultation bilaterally Cardio regular rate and regular rhythm GI normal to inspection, nondistended, normoactive bowel sounds, non-tender and non-distended Extremity normal capillary refill Extremity Narrative: Right below the knee amputation. Left foot dressed, see wound nurse photos. General Extremity: Negative for edema Skin no rashes or lesions noted General Skin Exam: no breakdown Psych affect normal Appearance: appropriate Assessment & Plan Assessment/Plan (1) Debility: (2) Infectious encephalopathy: (3) Open wound of left heel: (4) Foot osteomyelitis, left: (5) Sepsis: (6) Bacteremia: (7) Diabetic ketoacidosis: (8) Acute kidney injury: (9) Acute deep vein thrombosis of left lower extremity: (10) Diabetes mellitus: (11) Nausea: (12) Muscle spasm: (13) Diabetic neuropathy: (14) Hypogonadism: PLAN: 65 year old male with below past medical history hospitalized for sepsis secondary to left heel osteomyelitis, bacteremia, complicated by diabetic ketoacidosis, acute encephalopathy, acute kidney injury, acute left lower extremity DVT, admitted to TCU with debility, here for rehabilitation, strengthening, wound care, intravenous antibiotics, prior to discharge home alone. * Debility - PT/OT. * Pain - Tylenol 1000MG Q6H PRN pain (1-5), Oxycodone 10MG Q6H PRN pain (6-10). * Bowel - Miralax 17GM daily, Senna/colace 2 tablets BID, Dulcolax 10MG daily PRN. * Adult immunization - Administer Prevnar 13, Pneumovax 23, Fluzone, COVID19 vaccine as appropriate. * DVT prophylaxis - Not necessary, already anticoagulated. * Diabetes Mellitus II - Lantus 35 units, 25 units, 35 units, Humalog 5 units TIDAC. * Nausea - Reglan 10MG BID PRN, Zofran 4MG Q6H PRN. * Left foot osteomyelitis/bacteremia - Zosyn 3.375GM IV Q8H thru , consult Dr. Vital, consult Dr. East. * Diabetic polyneuropathy - Lyrica 150MG 4x/day. * Acute LLE DVT - Xarelto 15MG BID x 21 days, then 20MG daily.
[2021-01-17 21:36] LABS: Bedside Glucose 294 mg/dL (70-110)
[2021-01-17 22:15] VITALS: PULSE 87; RESP 16; O2SAT 93
[2021-01-17] MEDS: Pregabalin 75 MG Capsule 150 MG PO (23:06)
[2021-01-17] MEDS: 0.9% Saline Lock 10 ML Syringe IV (23:31)
[2021-01-18] MEDS: oxyCODONE 5 MG Tablet 10 MG PO ×3 (04:16→18:08)
[2021-01-18] MEDS: Menthol/Lanolin/Calamine/Znox 113 GM Tube 1 APPLIC TOPICAL ×2 (05:38→17:54)
[2021-01-18 05:39] VITALS: BP 99/53; PULSE 78; RESP 16; TEMP 36.2; O2SAT 93
[2021-01-18] MEDS: Pregabalin 75 MG Capsule 150 MG PO ×4 (05:43→21:30)
[2021-01-18] MEDS: 0.9% Saline Lock 10 ML Syringe IV (05:44)
[2021-01-18 05:47] LABS: Absolute Lymphocyte Count 1.56 X10^3/uL (0.83-4.51); Absolute Neutrophil Count 6.3 X10^3/uL (2.0-7.7); Basophil# 0.02 X10^3/uL; Basophil% 0.2 % (0-1); Eosinophil# 0.14 X10^3/uL; Eosinophils% 1.6 % (0-5); Hematocrit 27.6 % (40-54); Hemoglobin 8.9 g/dL (13.0-16.5); Lymphocyte # 1.56 X10^3/ul (0.83-4.51); Mean Corp Hgb Conc 32.2 g/dL (32-36); Mean Corpuscular Hgb 27.2 pg (27.0-32.0); Mean Corpuscular Volume 84.4 fL (80-94); Monocyte# 0.58 X10^3/uL; Monocyte% 6.7 % (0-10); NRBC Flagged by Analyzer 0 % (0-5); Neutrophil # 6.27 X10^3/uL (2.7-7.7); Neutrophil % 72.2 % (47-70); Platelet Count 280 K/mm3 (150-450); RBC Distribution Width CV 14.3 % (11.6-14.6); RBC Distribution Width SD 43.8 fl (35.1-43.9); Red Blood Count 3.27 M/mm3 (4.6-6.2); White Blood Count 8.7 K/mm3 (4.4-11.0)
[2021-01-18] MEDS: Ondansetron ODT 4 MG Tablet PO (05:52)
[2021-01-18 06:28] LABS: Anion Gap 4 (5-15); BUN 13 mg/dL (7-18); BUN/Creat Ratio 13.4 RATIO (10-20); Calcium,Total 7.9 mg/dL (8.5-10.1); Chloride 107 mmol/L (98-107); Creatinine, Serum 0.97 mg/dL (0.70-1.30); EST Glomerular Filtration Rate 82 mL/min (>60); Est Glom Filt Rate - Afr Amer 99 mL/min (>60); Estimated Creatinine Clearance 81.11 ml/min; Glucose 191 mg/dL (74-106); Potassium 3.5 mmol/L (3.5-5.1); Sodium Level 137 mmol/L (136-145)
--- NOTE | 2021-01-18 07:21 | PN_ITS ---
Subjective Subjective This patient was seen this morning for follow up on left foot. He is s/p left widespread debridement of soft tissue and bone including aggressive calcanectomy and incision and drainage of foot. His wound VAC was placed already. He denies fever, chills, vomiting, or calf pain. His nausea has decreased. He relates he is not ready to proceed forward with leg amputation at this time but will consider it in the future. He is resting in bed with his left knee bent and pressure applied to his wound heel site again today. He relates he had his arterial studies completed yesterday. Objective Data Objective Data Vital Signs: Vital Signs Temp Pulse Resp BP Pulse Ox 97.1 F L 78 16 99/53 L 93 01/18/21 05:39 01/18/21 05:39 01/18/21 05:39 01/18/21 05:39 01/18/21 05:39 Oxygen Delivery Method Room Air Weight: 79.6 kg Body Mass Index (BMI) 21.7 Intake & Output: Intake and Output for Last 24 Hours 01/16/21 01/17/21 01/18/21 23:59 23:59 23:59 Intake Total 120 / 120 50 / 50 Balance 120 / 120 50 / 50 Lab / Micro Data Result Diagrams: 01/18/21 05:28 01/18/21 05:28 Labs: Laboratory Results - last 24 hr 01/17/21 01/18/21 01/18/21 21:31 05:28 05:28 WBC 8.7 RBC 3.27 L Hgb 8.9 L Hct 27.6 L MCV 84.4 MCH 27.2 MCHC 32.2 RDW Std Deviation 43.8 RDW Coeff of Jo 14.3 Plt Count 280 MPV 11.0 Immature Gran % (Auto) 1.300 H Neut % (Auto) 72.2 H Lymph % (Auto) 18.0 L [place] % (Auto) 6.7 Eos % (Auto) 1.6 Baso % (Auto) 0.2 Absolute Neuts (auto) 6.3 Absolute Lymphs (auto) 1.56 Nucleated RBC % 0 Sodium 137 Potassium 3.5 Chloride 107 Carbon Dioxide 26.0 Anion Gap 4 L BUN 13 Creatinine 0.97 Estim Creat Clear Calc 81.11 Est GFR (MDRD) Af Amer 99 Est GFR (MDRD) Non-Af 82 BUN/Creatinine Ratio 13.4 Glucose 191 H Calcium 7.9 L POC Glucose 294 H Physical Exam Const alert and oriented x3 General Appearance: cooperative HEENT normocephalic Extremity normal capillary refill Extremity Narrative: no cyanosis, no calf tenderness, diminished pulses muscle wasting noted. no tenderness. Right below-knee amputation. Left widespread foot resection with wound VAC in place without evidence of leaking General Extremity: edema Skin Skin Narrative: no dressing strikethrough. No adjacent dressing purulence, no erythema, no streaking, no odor, no infection. Adjacent skin is atrophic Neuro Neuro Narrative: lack of normal epicritic sensation via light touch consistent with neuropathy Assessment & Plan Assessment/Plan (1) 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: (2) Delayed wound healing: (3) Diabetes mellitus with polyneuropathy: (4) Peripheral vascular disease: (5) Foot osteomyelitis, left: PLAN: I reviewed and discussed his case. He is s/p debridement left foot/heel with partial calcanectomy on 01/13/2021. Reviewed diagnostic data. He is afebrile and vitals are stable. White blood cell count was 8.7. Clinically from infection standpoint foot significantly improved. Cultures have been obtained and final results pending. Patient is on IV antibiotics - narrowed to Dr. Zahraa Garcia/ID on consult. Preoperative cultures with citrobacter freundii, Enterobacter cloacae complex, corynebacterium minutissimum. Intraoperative bone culture and blood cultures with enterobacter cloacae complex. Histopathological specimen results pending. Wound VAC was placed; 150 mmHg continuous. Will plan for change three times weekly. No weightbearing left foot. He was advised to hang his heel over pillow while in bed to keep pressure off of the surgical and wound site. His padding was repositioned this morning to allow offloading. Advised patient foot will be nonfunctional due to the extent of the infection. I am very guarded his foot will heal given the extent of the infection he had in foot with peripheral vascular disease, intermediate BKA or AKA is indicated. The guarded prognosis and risks vs benefits were reviewed again this morning. It is noted he has also had significant delay in prosthetic use and healing with his contralateral limb below knee amputation and this contributes to his apprehension to proceed forward amputation left lower extremity. Wound care plan with patellar tendon weight bearing brace would be considered for a more palliative type program if he continues to refuse amputation. He relates he is currently now considering an amputation and would like to sort through this prior to having the surgery referral. An arterial duplex Doppler was ordered and is biphasic PT artery waveform MARISSA 0.87. There are some abnormalities and reported as moderate to severe arterial disease. I recommend a vascular surgery consultation. This will help understand salvageability and also will help with future amputation planning. Peroneal vein DVT noted; management per Dr. Clancy. He is on xarelto. Medical management is noted and appreciated. Uncontrolled diabetes is noted. He has a hemoglobin A1c of 12.4. Podiatry will continue to follow. Please do not hesitate to call if you have any questions. He is now residing in the transitional care unit which I will follow him every few days in this location. To follow up at the wound healing center weekly at time of discharge. Justa Garcia DPM, [facility] [phone]
[2021-01-18] MEDS: Insulin Lispro 100 UNIT/ML INSULN.PEN SC ×3 (08:07→17:57)
[2021-01-18] MEDS: Glucerna Shake 120 ML LIQUID PO ×3 (08:09→17:54)
[2021-01-18] MEDS: Rivaroxaban 15 MG Tablet PO ×2 (08:09→17:55)
[2021-01-18] MEDS: Juven (unflavored) Packet 1 PACKET PO ×2 (09:14→17:56)
[2021-01-18 10:00] VITALS: PULSE 82; RESP 16; O2SAT 94
--- NOTE | 2021-01-18 10:46 | NURSING ---
wound photo: left lateral foot
--- NOTE | 2021-01-18 10:48 | NURSING ---
wound photo: left foot
[2021-01-18] MEDS: Tuberculin,Purif.prot.deriv. 50 TU/ML Vial 5 ML ID (11:07)
--- NOTE | 2021-01-18 11:31 | CASEMGMT ---
Social Work SW met w/pt for initial assessment. SW reviewed CODE status, pt confirmed is a full code. SW reviewed MOLST form w/pt, communication to physician, form placed in chart. SW reviewed w/pt that Medicare covers 20 days and he would be covered until 02/06/21. SW explained that [facility] does not accept Medicaid, so on day 21 he would have a copay. We discussed the possibility of pt going to a SNF in the community if needed that takes Medicaid, and whether or not his Medicaid is active. Pt does think his Medicaid is active to help w/Medicare premiums, but is not certain if it covers SNF or not. SW reminded pt that he is to have IV antibiotics for 6 weeks, so will need to see about his Medicaid and the benefits with it. Pt states did not know needed IVs for 6 weeks, thought would be less time. He also states he needs to make a decision about having a L BKA, and is going to be speaking w/Dr. Garcia again about it. Pt states he thinks she wants a decision by Saturday if possible, pt states that this is a very difficult decision however. SW offered support to pt. This decision may also impact pt's length of stay and how long he needs IV antibiotics. SW also spoke w/pt about completing LW/POA forms. Pt may want to complete the forms while here, needs to speak w/his neighbor however to see if he would be willing to be his POA. Pt is to let SW know if he would like to complete the forms while here. Plan at this point is to be determined, will depend on pt's decision regarding surgery, the definitive amount of time he will need IV antibiotics, and limits of pt's insurance. SW will continue to follow. CARLOS Mcneil
--- NOTE | 2021-01-18 11:31 | PCM.CONS.GEN ---
Assessment & Plan Assessment/Plan (1) PAD (peripheral artery disease): PLAN: Patient went with wound left foot. Does not appear that this will be able to heal. He appears to have adequate perfusion to build to heal below-knee amputation. We will follow as needed HPI Consult Data Date of Consult: 01/18/21 HPI Narrative HPI Narrative: MARIAMA HUDDLESTON, is a 65 M who presents with left heel wound. He has had debridement with podiatry. He is going to need a amputation. Vascular surgery asked for evaluation. He has a previous right below-knee amputation. Currently has a wound VAC on the left and dressings are changed. Left MARISSA 0.87, he should be able to heal below-knee amputation [facility] Medical History Diabetes Malnutrition Home Medications cyclobenzaprine 10 mg PO TID PRN 10/25/20 [History Last Taken 10/25/20] dulaglutide 0.75 mg SQ FR 10/25/20 [History Last Taken 10/21/20] metoclopramide HCl 10 mg PO BIDCM PRN 10/25/20 [History Last Taken 2 Weeks Ago ~10/11/20] ondansetron 4 mg PO Q6H PRN 10/25/20 [History Last Taken 10/25/20] pregabalin 150 mg PO 4X/DAY 10/25/20 [History Last Taken 10/25/20] testosterone 2 each TD QHS 10/25/20 [History Last Taken 10/24/20] insulin detemir U-100 35 unit SQ BID 01/17/21 [History Last Taken Unknown] insulin glargine [Lantus Solostar U-100 Insulin] 25 units SUBCUT DINNER 01/17/21 [History Last Taken Unknown] insulin lispro [Humalog KwikPen Insulin] 5 unit SUBCUT BREAKFAST 01/17/21 [History Last Taken Unknown] insulin lispro [Humalog KwikPen Insulin] 5 unit SUBCUT DINNER 01/17/21 [History Last Taken Unknown] insulin lispro [Humalog KwikPen Insulin] 5 unit SUBCUT LUNCH 01/17/21 [History Last Taken Unknown] insulin lispro [Humalog KwikPen Insulin] See Protocol SUBCUT 4X/DAYCM 01/17/21 [History Last Taken Unknown] oxycodone 10 mg PO Q6H PRN PRN 3 Days #10 tab 01/17/21 [Rx Last Taken Unknown] [id number] [Zosyn in dextrose (iso-osm)] 3.375 g IV Q8H 01/17/21 [History Last Taken Unknown] rivaroxaban 15 mg PO BIDCM 01/17/21 [History Last Taken Unknown] Allergy/AdvReac Type Severity Reaction Status Date / Time No Known Allergies Allergy Verified 01/13/21 01:19 Surgical History Below-knee amputation of right lower extremity Social History household members: none Smoking Status: Current every day smoker ROS ROS Narrative All negative for full 10 point review except for what is in the HPI Physical Exam Const alert and oriented x3 General Appearance: cooperative Orientation / Consciousness: awake HEENT Head and Scalp: atraumatic Mouth: oral and palatal mucosa normal Eyes PERRL Neck full ROM Lymph Lymphatic: no lymphadenopathy noted Chest inspection of chest normal Resp normal respiratory effort Cardio regular rate GI normal to inspection, nondistended, normoactive bowel sounds Back/Spine no CVA tenderness Extremity Extremity Narrative: Bilateral palpable radial pulses Right below-knee amputation Left foot wound VAC in place on the foot Left femoral pulse normal Appears to have adequate popliteal pulse Lab / Micro Data Result Diagrams: 01/18/21 05:28 01/18/21 05:28 Labs: Laboratory Results - last 24 hr 01/17/21 01/18/21 01/18/21 21:31 05:28 05:28 WBC 8.7 RBC 3.27 L Hgb 8.9 L Hct 27.6 L MCV 84.4 MCH 27.2 MCHC 32.2 RDW Std Deviation 43.8 RDW Coeff of Jo 14.3 Plt Count 280 MPV 11.0 Immature Gran % (Auto) 1.300 H Neut % (Auto) 72.2 H Lymph % (Auto) 18.0 L [place] % (Auto) 6.7 Eos % (Auto) 1.6 Baso % (Auto) 0.2 Absolute Neuts (auto) 6.3 Absolute Lymphs (auto) 1.56 Nucleated RBC % 0 Sodium 137 Potassium 3.5 Chloride 107 Carbon Dioxide 26.0 Anion Gap 4 L BUN 13 Creatinine 0.97 Estim Creat Clear Calc 81.11 Est GFR (MDRD) Af Amer 99 Est GFR (MDRD) Non-Af 82 BUN/Creatinine Ratio 13.4 Glucose 191 H Calcium 7.9 L POC Glucose 294 H
[2021-01-18 11:37] LABS: Bedside Glucose 185 mg/dL (70-110)
[2021-01-18 13:50] VITALS: BP 131/66; PULSE 98; RESP 17; O2SAT 96
[2021-01-18 14:06] LABS: Bedside Glucose 288 mg/dL (70-110)
--- NOTE | 2021-01-18 14:58 | PCM.PN.RX ---
Progress Note - Pharmacy Subjective: TCU Admission Objective: Allergies No Known Allergies Allergy (Verified 01/13/21 01:19) Current Medications Generic Name Dose Route Start Last Admin Trade Name Freq PRN Reason Stop Dose Admin Acetaminophen 1,000 mg 01/17/21 20:37 Acetaminophen 500 Mg Tablet PO Q6H PRN PRN Pain Score 1-5 Bisacodyl 10 mg 01/17/21 20:37 Bisacodyl 5 Mg Tablet PO DAILY PRN Constipation Calamine/Phenol 1 applic 01/18/21 06:00 01/18/21 05:38 Menthol/Lanolin/Calamine/Znox 113 Gm Tube TOPICAL 1 applic BID JAMES Administration Protocol Piperacillin Sod/Tazobactam 50 mls @ 12.5 mls/hr 01/17/21 22:00 01/18/21 14:36 Sod 3.375 gm/ Sodium Chloride IV 12.5 mls/hr Q8 JAMES Administration Sodium Chloride 250 mls @ 15 mls/hr 01/17/21 22:33 01/17/21 23:20 IV 15 mls/hr .[id number] PRN Administration Saline Flush Sodium Chloride 250 mls @ 15 mls/hr 01/17/21 22:33 IV .[id number] PRN Additional IVPB Infusion Insulin Glargine 35 units 01/18/21 08:00 01/18/21 08:08 Insulin Glargine 100 Units/Ml Pen SC 35 units BIDCM JAMES Administration Insulin Human Lispro 5 unit 01/18/21 08:00 01/18/21 08:07 Insulin Lispro 100 Unit/Ml Insuln.Pen SC 5 units BREAKFAST JAMES Administration Insulin Human Lispro 5 unit 01/18/21 17:00 Insulin Lispro 100 Unit/Ml Insuln.Pen SC DINNER [facility] Insulin Human Lispro 5 unit 01/18/21 12:00 01/18/21 11:18 Insulin Lispro 100 Unit/Ml Insuln.Pen SC 5 units LUNCH JAMES Administration L-Arginine/L-Glutamine/Calcium HMB 1 packet 01/18/21 08:00 01/18/21 09:14 Brett (Unflavored) Packet PO 1 packet BIDCM JAMES Administration Metoclopramide HCl 10 mg 01/17/21 19:41 Metoclopramide 10 Mg Tablet PO BIDCM PRN STOMACH Nutritional Formula (Lactose Free) 120 ml 01/18/21 07:45 01/18/21 11:19 Glucerna Shake 120 Ml Liquid PO 120 ml TIDCM [facility] Administration Nystatin 1 applic 01/18/21 18:00 Nystatin Powder 15gm Bottle TOPICAL BID [facility] Protocol Ondansetron HCl 4 mg 01/17/21 19:41 01/18/21 05:52 Ondansetron Odt 4 Mg Tablet PO 4 mg Q6H PRN PRN Administration Nausea Oxycodone HCl 10 mg 01/17/21 19:41 01/18/21 11:06 Oxycodone 5 Mg Tablet PO 10 mg Q6H PRN PRN Administration Pain Score 6-10 Polyethylene Glycol 17 gm 01/18/21 06:00 01/18/21 05:38 Polyethylene Glycol 3350 17 Gm Packet PO Not Given DAILY [facility] Pregabalin 150 mg 01/17/21 22:00 01/18/21 11:06 Pregabalin 75 Mg Capsule PO 150 mg 4X/DAY [facility] Administration Rivaroxaban 15 mg 01/18/21 08:00 01/18/21 08:09 Rivaroxaban 15 Mg Tablet PO 02/08/21 17:00 15 mg BIDCM [facility] Administration Rivaroxaban 20 mg 02/09/21 17:00 Rivaroxaban 20 Mg Tablet PO DAILY@1700 [facility] Senna/Docusate Sodium 2 tablet 01/18/21 06:00 01/18/21 05:39 Senna/Docusate Sodium 1 Tablet PO Not Given BID [facility] Sodium Chloride 10 - 40 ml 01/17/21 22:33 01/18/21 05:44 0.9% Saline Lock 10 Ml Syringe IV 20 ml UD PRN Administration Multilumen/Rubio Flush Tuberculin PPD 5 tu 01/25/21 10:00 Tuberculin,Purif.Prot.Deriv. 50 Tu/Ml Vial ID 01/25/21 10:01 X1 ONE Problem List (Last Reviewed 01/18/21 @ 11:[address] Sang Arias MD) PAD (peripheral artery disease) (Acute) 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 (Acute) Hypogonadism (Acute) Diabetic neuropathy (Acute) Muscle spasm (Acute) Nausea (Acute) Diabetes mellitus (Acute) Acute deep vein thrombosis of left lower extremity (Acute) Acute kidney injury (Acute) Diabetic ketoacidosis (Acute) Bacteremia (Acute) Sepsis (Acute) Foot osteomyelitis, left (Acute) Open wound of left heel (Acute) Infectious encephalopathy (Acute) Debility (Acute) Peripheral vascular disease (Chronic) Diabetes mellitus with polyneuropathy (Chronic) Delayed wound healing (Chronic) Vital Signs Temp Pulse Resp BP Pulse Ox 97.1 F L 98 17 131/66 H 96 01/18/21 05:39 01/18/21 13:50 01/18/21 13:50 01/18/21 13:50 01/18/21 13:50 Oxygen Delivery Method Room Air Weight: 79.6 kg Body Mass Index (BMI) 21.7 Sodium 137 mmol/L (136-145) 01/18/21 05:28 Potassium 3.5 mmol/L (3.5-5.1) 01/18/21 05:28 Chloride 107 mmol/L (98-107) 01/18/21 05:28 Carbon Dioxide 26.0 mmol/L (21.0-32.0) 01/18/21 05:28 Anion Gap 4 (5-15) L 01/18/21 05:28 BUN 13 mg/dL (7-18) 01/18/21 05:28 Creatinine 0.97 mg/dL (0.70-1.30) 01/18/21 05:28 Est GFR (MDRD) Af Amer 99 mL/min (>60) 01/18/21 05:28 Est GFR (MDRD) Non-Af 82 mL/min (>60) 01/18/21 05:28 BUN/Creatinine Ratio 13.4 RATIO (10-20) 01/18/21 05:28 Glucose 191 mg/dL (74-106) H 01/18/21 05:28 Assessment/Plan: 1. Pain: acetaminophen 1000mg PO Q6H PRN pain (1-5) and oxycodone 5mg PO Q6H PRN pain (6-10). Please continue to monitor pain, PRN usage, and respiratory depression.? *2. Left foot osteomyelitis/bacteremia: Zosyn 3.375gm IV Q8H. Please continue to monitor WBC (last 8.7), renal function, infection improvement and diarrhea. Please consider adding stop date to Zosyn. Thanks. 3. Diabetes Mellitus II: Lantus 35units SC BIDCM and Humalog 5units SC TIDAC. Please continue to monitor blood glucose (last 185 mg/dL), HbA1C (last 12.4%), and for S/S of hypoglycemia. 4. Nausea: metoclopramide 10mg PO BID PRN stomach and ondansetron ODT 4mg PO Q6H PRN nausea. Please continue to monitor nausea and PRN usage. 5. Diabetic polyneuropathy: pregabalin 150mg PO 4x/day. Please continue to monitor S/S of diabetic neuropathy. 6. Acute LLE DVT: rivaroxaban 15mg PO BID x 21 ?days (through 02/08/21), then 20mg PO daily. Please continue to monitor platelets (last 280,000), hemoglobin (last 8.9g/dL) and S/S of bleeding.?? Psychotropic Medications: None Unnecessary Medications: None Bowel Regimen: Miralax 17gm PO daily, senna/docusate 2T PO BID and bisacodyl 10mg PO daily PRN constipation. Please continue to monitor constipation and PRN usage.? Date of Note:: 01/18/21
[2021-01-18 16:46] LABS: Bedside Glucose 273 mg/dL (70-110)
[2021-01-18 21:26] LABS: Bedside Glucose 219 mg/dL (70-110)
[2021-01-19] MEDS: oxyCODONE 5 MG Tablet 10 MG PO ×4 (00:17→20:26)
[2021-01-19 04:06] LABS: Bedside Glucose 52 mg/dL (70-110)
[2021-01-19 04:46] LABS: Bedside Glucose 75 mg/dL (70-110)
[2021-01-19] MEDS: Menthol/Lanolin/Calamine/Znox 113 GM Tube 1 APPLIC TOPICAL ×2 (05:41→18:06)
[2021-01-19] MEDS: Nystatin Powder 15gm Bottle 1 APPLIC TOPICAL ×2 (05:42→18:07)
[2021-01-19] MEDS: Pregabalin 75 MG Capsule 150 MG PO ×4 (05:45→22:18)
[2021-01-19 06:31] LABS: Bedside Glucose 193 mg/dL (70-110)
[2021-01-19 07:04] VITALS: BP 101/45; PULSE 88; RESP 16; TEMP 36.9
[2021-01-19] MEDS: Juven (unflavored) Packet 1 PACKET PO ×2 (08:03→18:01)
[2021-01-19] MEDS: Glucerna Shake 120 ML LIQUID PO ×3 (08:04→18:05)
[2021-01-19] MEDS: Rivaroxaban 15 MG Tablet PO ×2 (08:05→18:01)
--- NOTE | 2021-01-19 10:08 | NURSING ---
Pt requested to talk with Dr. Vital regarding Antibiotics. Dr. Vital's answering service updated and will update him.
--- NOTE | 2021-01-19 10:09 | NURSING ---
Dr. Clancy ordered Acidophilus 1 tab bid. Order was put in to start at [address] Aston healy to do unscheduled dose.
--- NOTE | 2021-01-19 10:29 | PCM.PN.ID ---
Physical Exam Narrative C/o 6 episodes of diarrhea, no fever Const alert General Appearance: cooperative Resp normal air movement and clear to auscultation bilaterally Cardio regular rate and regular rhythm GI normal to inspection, nondistended, normoactive bowel sounds Skin no rashes or lesions noted ID ID: Route of nutrition/ use of supplements: [] Nutritional Intake: [] IV Site: [] Almodovar Catheter: [] Assessment & Plan Assessment/Plan (1) Bacteremia: (2) Foot osteomyelitis, left: PLAN: On zosyn.? Wound cx 10/2020 with klebs, enterobacter, strep, enterococcus, CoNS, corynebacter, and anaerobes.? OR 01/13/[address] East.? Bcx with enterobacter.? Wound cx and surg cx with enterobacter, citrobacter, corynebacter.? On 6 weeks iv abx , stop date 02/24. Worsened diarrhea, no laxatives given. Will change zosyn to cefepime/flagyl and check cdiff. Counseled re: importance of covid shot after discharge. Will follow
[2021-01-19 10:36] LABS: Bedside Glucose 286 mg/dL (70-110)
--- NOTE | 2021-01-19 11:27 | CASEMGMT ---
Social Work Contacted [employer]FS to get Medicaid status. Spoke with pt to relay information. Pt has [facility] Medicaid which pays for Medicare premiums. JFS stated if pt transfers to SNF, to notify them upon admission and pt can have status changed for coverage. Pt aware he will need SNF d/t IV ATB and possibly getting amputation. Provided SNF list for pt to review. SW to continue to assist. Pt appreciative. Christa Pyle, COMPUTER ANALYST DEHYDRATOR
[2021-01-19] MEDS: Insulin Lispro 100 UNIT/ML INSULN.PEN SC ×2 (12:19→18:04)
[2021-01-19] MEDS: metroNIDAZOLE 500 MG Tablet PO ×2 (14:48→22:19)
[2021-01-19 16:00] VITALS: BP 137/63; PULSE 91; RESP 14; TEMP 36.9; O2SAT 99
[2021-01-19 16:56] LABS: Bedside Glucose 131 mg/dL (70-110)
[2021-01-19 21:00] VITALS: PULSE 93; RESP 16; O2SAT 97
[2021-01-19 21:36] LABS: Bedside Glucose 166 mg/dL (70-110)
[2021-01-19] MEDS: 0.9% Saline Lock 10 ML Syringe IV (22:29)
[2021-01-20 05:00] VITALS: BP 120/50; PULSE 88; RESP 16; TEMP 37.1; O2SAT 96
[2021-01-20] MEDS: metroNIDAZOLE 500 MG Tablet PO ×3 (05:41→20:31)
[2021-01-20] MEDS: oxyCODONE 5 MG Tablet 10 MG PO ×3 (05:42→20:26)
[2021-01-20] MEDS: Menthol/Lanolin/Calamine/Znox 113 GM Tube 1 APPLIC TOPICAL ×2 (05:42→17:59)
[2021-01-20] MEDS: 0.9% Saline Lock 10 ML Syringe IV (05:43)
[2021-01-20] MEDS: Nystatin Powder 15gm Bottle 1 APPLIC TOPICAL ×2 (05:47→18:00)
[2021-01-20] MEDS: Pregabalin 75 MG Capsule 150 MG PO ×4 (05:50→20:30)
[2021-01-20 06:26] LABS: Bedside Glucose 72 mg/dL (70-110)
--- NOTE | 2021-01-20 06:54 | PCM.WC.PN ---
History of Present Illness Date of Service: 01/20/21 Chief Complaint: right leg revisional below knee amputation; chronic ulceration / delayed healing diabetes delayed healing continued History of Wound: This 62 year old male with significant past medical history of uncontrolled diabetes, smoking habit, non compliance, recurrent lower extremity infections, h/o right below knee amputation, and small vessel disease follows up today for multiple lower extremity wounds. He denies fever, chills, nausea, vomiting, calf or foot pain. He denies new injuries. He brought a wound VAC supplies today; KC. He presents today with a wheelchair. He has kept his dressing intact as advised. He denies hypoglycemia today. He was unable to find an alternative wound VAC cord. He has not followed up with his previous orthopedic surgeon as advised and has not ever been able to progress into his prosthetic limb Objective Data Objective Data Vital Signs: Vital Signs Temp Pulse Resp BP Pulse Ox 98.8 F 88 16 120/50 L 96 01/20/21 05:00 01/20/21 05:00 01/20/21 05:00 01/20/21 05:00 01/20/21 05:00 Oxygen Delivery Method Room Air Weight: 79.6 kg Body Mass Index (BMI) 21.7 Intake & Output: Intake and Output for Last 24 Hours 01/18/21 01/19/21 01/20/21 23:59 23:59 23:59 Intake Total 760 / 760 610 / 610 Balance 760 / 760 610 / 610 Lab / Micro Data Result Diagrams: 01/18/21 05:28 01/18/21 05:28 Labs: Laboratory Results - last 24 hr 01/19/21 01/19/21 01/19/21 10:30 16:48 21:21 POC Glucose 286 H 131 H 166 H 01/20/21 06:22 POC Glucose 72 Micro: Microbiology 01/19/21 20:20 Stool C. difficile DNA Amplification - Final
--- NOTE | 2021-01-20 06:55 | PCM.PROGNOTE ---
Subjective Subjective This patient was seen this morning for follow up on left foot. He is s/p left widespread debridement of soft tissue and bone including aggressive calcanectomy and incision and drainage of foot. He denies fever, chills, vomiting, or calf pain. He has nausea and reports he was hypoglycemic this morning. He has been undergoing negative pressure therapy. He was seen by vascular surgery earlier this week. This patient has considered the indications, benefits and risks of a below-knee amputation and is ready to proceed forward with a surgical consultation. Objective Data Objective Data Vital Signs: Vital Signs Temp Pulse Resp BP Pulse Ox 98.8 F 88 16 120/50 L 96 01/20/21 05:00 01/20/21 05:00 01/20/21 05:00 01/20/21 05:00 01/20/21 05:00 Oxygen Delivery Method Room Air Weight: 79.6 kg Body Mass Index (BMI) 21.7 Intake & Output: Intake and Output for Last 24 Hours 01/18/21 01/19/21 01/20/21 23:59 23:59 23:59 Intake Total 760 / 760 610 / 610 Balance 760 / 760 610 / 610 Lab / Micro Data Result Diagrams: 01/18/21 05:28 01/18/21 05:28 Labs: Laboratory Results - last 24 hr 01/19/21 01/19/21 01/19/21 10:30 16:48 21:21 POC Glucose 286 H 131 H 166 H 01/20/21 06:22 POC Glucose 72 Micro: Microbiology 01/19/21 20:20 Stool C. difficile DNA Amplification - Final Physical Exam Const alert and oriented x3 General Appearance: cooperative HEENT normocephalic Extremity normal capillary refill Extremity Narrative: Muscle wasting noted. Wide spread debridement left lower extremity. Right below-knee amputation. Compartments are soft to palpate left lower extremity and there is negative Virgie and Long sign left. Palpable DP pulse, left. Reduced edema left lower extremity General Extremity: edema Skin Skin Narrative: left lower extremity: Upon vac removal, open widespread debridement site with no purulence, no erythema, no necrosis, no odor, no streaking. There is exposed calcaneus bone. Adjacent skin is hairless and atrophic. There are no new areas of fluctuance or bogginess. Neuro Neuro Narrative: Lack of epicritic sensation is consistent with neuropathic status Assessment & Plan Assessment/Plan (1) 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: (2) Delayed wound healing: (3) Diabetes mellitus with polyneuropathy: (4) Peripheral vascular disease: (5) Foot osteomyelitis, left: PLAN: I reviewed and discussed his case. He is s/p debridement left foot/heel with partial calcanectomy on 01/13/2021. Reviewed diagnostic data. He is afebrile and vitals are stable. Clinically from infection standpoint foot significantly improved. Cultures have been obtained and final results pending. Patient is on IV antibiotics - narrowed to Dr. Zahraa Garcia/ID on consult. Preoperative cultures with citrobacter freundii, Enterobacter cloacae complex, corynebacterium minutissimum. Intraoperative bone culture with Enterobacter cloacae and anaerobic cocci. Blood cultures with enterobacter cloacae complex. Histopathological specimen with acute osteomyelitis confirmed. Wound VAC was placed; 150 mmHg continuous. Will plan for change three times weekly. This will be reapplied later this morning. Clinically there is no purulence or raj necrosis. No weightbearing left foot. He was advised to hang his heel over pillow while in bed to keep pressure off of the surgical and wound site. Advised patient foot will be nonfunctional due to the extent of the infection. I am very guarded his foot will heal given the extent of the infection he had in foot with peripheral vascular disease, manager intermediate BKA or AKA is indicated. The guarded prognosis and risks vs benefits were reviewed again this morning. He relates he is currently now considering an amputation and is ready for surgical consultation. Consultation for below-knee amputation will be placed. An arterial duplex Doppler was ordered and is biphasic PT artery waveform MARISSA 0.87. There are some abnormalities and reported as moderate to severe arterial disease. I recommend a vascular surgery consultation. Dr. Arias evaluated this patient and input is greatly appreciated. He appears to have adequate perfusion that would suggest a below the knee amputation can heal. Peroneal vein DVT noted; management per Dr. Clancy. He is on xarelto. Medical management is noted and appreciated. Uncontrolled diabetes is noted. He has a hemoglobin A1c of 12.4. Podiatry will continue to follow. Please do not hesitate to call if you have any questions. He is now residing in the transitional care unit which I will follow him 1 to 2 days per week. To follow up at the wound healing center weekly at time of discharge. Justa Garcia DPM, F[facility] [phone]
[2021-01-20] MEDS: Juven (unflavored) Packet 1 PACKET PO (08:28)
[2021-01-20] MEDS: Rivaroxaban 15 MG Tablet PO ×2 (08:28→17:52)
[2021-01-20] MEDS: Glucerna Shake 120 ML LIQUID PO ×2 (08:41→12:19)
--- NOTE | 2021-01-20 10:53 | NURSING ---
Patient refused pneumonia vaccine at this time. Patient would like to receive vaccine at a later time.
[2021-01-20 10:55] LABS: Bedside Glucose 282 mg/dL (70-110)
--- NOTE | 2021-01-20 11:30 | NURSING ---
Resident educated on the COVID-19 Vaccine, he does not want to receive it at this time.
[2021-01-20] MEDS: Insulin Lispro 100 UNIT/ML INSULN.PEN SC ×2 (12:20→17:52)
[2021-01-20 15:05] VITALS: PULSE 87; RESP 18; O2SAT 100
[2021-01-20 16:30] LABS: Bedside Glucose 339 mg/dL (70-110)
[2021-01-20 18:02] VITALS: BP 136/65; PULSE 87; RESP 18; TEMP 36.8; O2SAT 100
[2021-01-20] MEDS: Diphenoxylate/Atrop 1 Tablet PO (18:09)
[2021-01-20 21:30] LABS: Bedside Glucose 274 mg/dL (70-110)
--- NOTE | 2021-01-20 22:02 | NURSING ---
Pt refused IV antibiotic, stated he might take it on Saturday. Educated pt on importance of finishing ATB once started. Pt was insisted that he was just not taking it.
[2021-01-21] MEDS: metroNIDAZOLE 500 MG Tablet PO ×3 (05:05→23:08)
[2021-01-21] MEDS: Pregabalin 75 MG Capsule 150 MG PO ×4 (05:05→23:07)
[2021-01-21] MEDS: Menthol/Lanolin/Calamine/Znox 113 GM Tube 1 APPLIC TOPICAL (05:05)
[2021-01-21] MEDS: Nystatin Powder 15gm Bottle 1 APPLIC TOPICAL (05:06)
[2021-01-21] MEDS: oxyCODONE 5 MG Tablet 10 MG PO ×3 (05:07→18:23)
[2021-01-21 06:20] VITALS: BP 108/61; PULSE 84; RESP 14; TEMP 37.1; O2SAT 97
[2021-01-21 06:30] LABS: Bedside Glucose 150 mg/dL (70-110)
[2021-01-21] MEDS: Insulin Lispro 100 UNIT/ML INSULN.PEN SC ×3 (08:53→17:44)
[2021-01-21] MEDS: Rivaroxaban 15 MG Tablet PO ×2 (08:54→17:46)
[2021-01-21] MEDS: Acetaminophen 500 MG Tablet 1000 MG PO (08:57)
[2021-01-21] MEDS: Diphenoxylate/Atrop 1 Tablet PO ×2 (08:57→14:35)
[2021-01-21] MEDS: Glucerna Shake 120 ML LIQUID PO (09:11)
[2021-01-21 10:56] LABS: Bedside Glucose 313 mg/dL (70-110)
[2021-01-21 14:27] VITALS: BP 138/62; PULSE 85; RESP 18; TEMP 36.4; O2SAT 98
[2021-01-21] MEDS: 0.9% Saline Lock 10 ML Syringe IV (14:29)
[2021-01-21] MEDS: Ondansetron ODT 4 MG Tablet PO (14:35)
[2021-01-21] MEDS: Juven (unflavored) Packet 1 PACKET PO (15:28)
--- NOTE | 2021-01-21 15:32 | NURSING ---
Pt reports feeling better with nausea. Has been refusing Brett. Encouraged to take it with wound healing to foot. Reports he will take it with Cranberry juice. Refuses dominic and Nystating powder and states nope. We are going to leave my bottom alone right now.
[2021-01-21 16:36] LABS: Bedside Glucose 304 mg/dL (70-110)
--- NOTE | 2021-01-21 20:20 | NURSING ---
Pt informs this nurse he is refusing IV Cefepime tonight d/t liquid stools and he thinks he is being overmedicated w/ antibiotics. Is agreeable to dose at 0600 tomorrow am.
[2021-01-21 21:25] LABS: Bedside Glucose 279 mg/dL (70-110)
[2021-01-22] MEDS: oxyCODONE 5 MG Tablet 10 MG PO ×4 (00:37→21:33)
[2021-01-22] MEDS: Nystatin Powder 15gm Bottle 1 APPLIC TOPICAL (06:08)
[2021-01-22] MEDS: Menthol/Lanolin/Calamine/Znox 113 GM Tube 1 APPLIC TOPICAL ×2 (06:08→17:49)
[2021-01-22 06:15] VITALS: BP 91/53; PULSE 79; RESP 16; TEMP 36.8; O2SAT 91
[2021-01-22] MEDS: metroNIDAZOLE 500 MG Tablet PO ×3 (06:16→21:32)
[2021-01-22] MEDS: Pregabalin 75 MG Capsule 150 MG PO ×4 (06:17→21:33)
[2021-01-22 06:26] LABS: Bedside Glucose 83 mg/dL (70-110)
[2021-01-22] MEDS: Glucerna Shake 120 ML LIQUID PO ×3 (08:21→17:50)
[2021-01-22] MEDS: Rivaroxaban 15 MG Tablet PO ×2 (08:21→17:48)
[2021-01-22] MEDS: Juven (unflavored) Packet 1 PACKET PO ×2 (08:24→17:48)
[2021-01-22] MEDS: 0.9% Saline Lock 10 ML Syringe IV ×3 (08:30→21:37)
[2021-01-22 11:20] LABS: Bedside Glucose 325 mg/dL (70-110)
[2021-01-22] MEDS: Insulin Lispro 100 UNIT/ML INSULN.PEN SC ×2 (12:01→17:48)
[2021-01-22] MEDS: Diphenoxylate/Atrop 1 Tablet PO (12:10)
[2021-01-22 14:42] VITALS: BP 136/60; PULSE 98; RESP 20; TEMP 36.2; O2SAT 97
[2021-01-22 18:05] LABS: Bedside Glucose 357 mg/dL (70-110)
[2021-01-22 21:20] LABS: Bedside Glucose 329 mg/dL (70-110)
--- NOTE | 2021-01-23 03:45 | NURSING ---
Wound vac alarming- canister full. Large amount of serosangunious drainage noted. Canister changed. Vac resumed at ordered pressure.
[2021-01-23 05:42] VITALS: BP 128/47; PULSE 78; RESP 16; TEMP 36.6; O2SAT 96
[2021-01-23] MEDS: Menthol/Lanolin/Calamine/Znox 113 GM Tube 1 APPLIC TOPICAL (05:44)
[2021-01-23] MEDS: Nystatin Powder 15gm Bottle 1 APPLIC TOPICAL (05:44)
[2021-01-23] MEDS: metroNIDAZOLE 500 MG Tablet PO ×3 (05:44→20:49)
[2021-01-23] MEDS: Pregabalin 75 MG Capsule 150 MG PO ×4 (05:45→21:05)
[2021-01-23] MEDS: oxyCODONE 5 MG Tablet 10 MG PO ×3 (05:52→18:17)
[2021-01-23 06:26] LABS: Bedside Glucose 81 mg/dL (70-110)
--- NOTE | 2021-01-23 06:38 | NURSING ---
Refuses IV atb this am. Plan to update oncoming RN to notify infectious disease office.
[2021-01-23] MEDS: Juven (unflavored) Packet 1 PACKET PO ×2 (08:21→17:38)
[2021-01-23] MEDS: Glucerna Shake 120 ML LIQUID PO ×3 (08:22→17:46)
[2021-01-23] MEDS: Rivaroxaban 15 MG Tablet PO ×2 (08:23→17:39)
--- NOTE | 2021-01-23 08:33 | NURSING ---
Triple lumen central line to rt upper chest. Brown port flushes w/ ease and has a good blood return. Blue port does not flush. White port flushes but does not have a blood return. Dressing dry and intact. Insertion site pink and without sxs infection. Dressing dated 02/17/21.
--- NOTE | 2021-01-23 08:41 | NURSING ---
Pt requests to have BSC moved beside bed. Informs this nurse he has completed some unassisted transfers. instructed pt he needs to call for staff assist to prevent any injury. A physical therapy staff member was present during a portion of this discussion.
--- NOTE | 2021-01-23 10:29 | CM.UR ---
SW spoke w/pt about completing LW/POA forms. Pt has not yet spoken w/his neighbor about being his POA. Pt plans to do so today. SW explained will come back later today or in the morning to complete the forms, pt states understanding and is in agreement. CARLOS Mcneil
[2021-01-23 10:40] LABS: Bedside Glucose 266 mg/dL (70-110)
[2021-01-23] MEDS: Diphenoxylate/Atrop 1 Tablet PO (11:08)
[2021-01-23] MEDS: Ondansetron ODT 4 MG Tablet PO ×2 (11:08→21:07)
--- NOTE | 2021-01-23 11:09 | NURSING ---
Reports pain. refusing tylenol at this time and will wait till oxyir is due to be given. Reports nausea and loose stool has been improving slightly since I have been refusing my antibiotic. Educated given on this. Given Lomotil and Zofran at this time for symptom relief.
[2021-01-23] MEDS: Insulin Lispro 100 UNIT/ML INSULN.PEN SC ×2 (11:50→17:34)
[2021-01-23 13:43] VITALS: BP 120/72; PULSE 85; RESP 20; TEMP 36.3; O2SAT 97
--- NOTE | 2021-01-23 13:47 | CASEMGMT ---
SW spoke w/pt earlier about completing LW/POA forms, pt stated at that time he planned to speak w/his neighbor today about his being pt's POA. SW checked back w/pt this afternoon, he states he has decided he would like to have an devops solutions architect be his POA, rather than someone he knows. He is not certain which devops solutions architect yet, he needs to shop around. SW also spoke w/pt about SNF choices after [facility], pt has not decided, states will let SW know in the next day or two. CARLOS Mcneil
--- NOTE | 2021-01-23 14:13 | NURSING ---
Addendum entered by Natalie Zendejas 01/23/21 15:18: Dr Garcia calls and states she is having a hard time coming up with a surgeon for amputee surgery. Shes is asking if there is a discharge date for resident. Updated her that there is not current DC date. She states she will continue to call around and see if she can come up with someone for him to have surgery while he is here. She will be in touch about this time. Original Note: Dr. Dawkins is not taking consults at this time contacted Dr. Garcia office and updated. Answering services stated that Dr. Garcia will enter in a new consult for BKA.
--- NOTE | 2021-01-23 15:01 | NURSING ---
wound photo: left heel
--- NOTE | 2021-01-23 15:02 | NURSING ---
wound photo: left lateral foot
[2021-01-23 16:41] LABS: Bedside Glucose 204 mg/dL (70-110)
[2021-01-23 21:30] LABS: Bedside Glucose 249 mg/dL (70-110)
[2021-01-24 04:26] LABS: Bedside Glucose 32 mg/dL (70-110)
[2021-01-24 04:37] VITALS: BP 96/58; PULSE 86; RESP 16; TEMP 36.7; O2SAT 97
[2021-01-24] MEDS: Dextrose 50%-Water 25 GM/50 ML DISP.SYRIN IV (05:17)
[2021-01-24 05:30] LABS: Glucose 135 mg/dL (74-106)
[2021-01-24] MEDS: Menthol/Lanolin/Calamine/Znox 113 GM Tube 1 APPLIC TOPICAL ×2 (05:41→18:03)
[2021-01-24 05:50] LABS: Bedside Glucose 225 mg/dL (70-110)
--- NOTE | 2021-01-24 06:15 | NURSING ---
Patient called out shortly after 4am saying he felt his blood sugar was low. Sugar was in the 30s. Patient awake and appropriate, able to take juice and snacks. Multiple re-checks still low. Notified Dr. Clancy of sugars, order for d50. Gave d50, sugar re-check in low 200s. Patient feeling better but worn out. Will continue to monitor.
[2021-01-24 06:26] LABS: Bedside Glucose 232 mg/dL (70-110)
[2021-01-24] MEDS: metroNIDAZOLE 500 MG Tablet PO ×3 (06:27→22:16)
[2021-01-24] MEDS: Pregabalin 75 MG Capsule 150 MG PO ×4 (06:27→22:28)
[2021-01-24] MEDS: Nystatin Powder 15gm Bottle 1 APPLIC TOPICAL ×2 (06:28→18:04)
[2021-01-24 07:15] LABS: Bedside Glucose 46 mg/dL (70-110)
[2021-01-24 07:15] LABS: Bedside Glucose 63 mg/dL (70-110)
[2021-01-24 07:15] LABS: Bedside Glucose 36 mg/dL (70-110)
[2021-01-24 07:15] LABS: Bedside Glucose 26 mg/dL (70-110)
[2021-01-24] MEDS: Juven (unflavored) Packet 1 PACKET PO ×2 (07:53→17:57)
[2021-01-24] MEDS: Rivaroxaban 15 MG Tablet PO ×2 (07:53→17:58)
[2021-01-24] MEDS: Glucerna Shake 120 ML LIQUID PO (07:53)
--- NOTE | 2021-01-24 08:00 | NURSING ---
Pt requested to have his Humalog 1 hour after breakfast and have Blood sugar checked.
[2021-01-24] MEDS: Insulin Lispro 100 UNIT/ML INSULN.PEN 10 UNIT SC ×2 (10:13→12:32)
--- NOTE | 2021-01-24 10:15 | NURSING ---
pt blood sugar 353 pt requested only 5 units refused 10 units.
[2021-01-24 10:16] LABS: Bedside Glucose 353 mg/dL (70-110)
--- NOTE | 2021-01-24 10:34 | NURSING ---
Called Dr. Vital's office to update him on pt's refusal of every other dose of IV antibiotics. Spoke with clerical secretary and she will send Dr. Vital a Message.
[2021-01-24 12:15] LABS: Bedside Glucose 316 mg/dL (70-110)
[2021-01-24] MEDS: oxyCODONE 5 MG Tablet 10 MG PO ×2 (12:58→20:08)
[2021-01-24] MEDS: Diphenoxylate/Atrop 1 Tablet PO (15:52)
--- NOTE | 2021-01-24 16:26 | NURSING ---
Patient refuses to take IV antibiotic as scheduled. Only wants every other dose. This nurse explained the importance of taking antibiotic as ordered. Patient complains of diarrhea and antibiotics are to blame.
[2021-01-24 17:20] LABS: Bedside Glucose 170 mg/dL (70-110)
[2021-01-24 22:26] LABS: Bedside Glucose 165 mg/dL (70-110)
[2021-01-24 23:00] VITALS: PULSE 76; RESP 16; O2SAT 97
--- NOTE | 2021-01-25 02:29 | NURSING ---
Addendum entered by Laila Silver 01/25/21 02:46: Laser[facility]on called with blood glucose level of 50 mg/dL at this time. RN aware. Original Note: Patient called out and said he thought his blood sugar was low. This nurse went into room and obtained blood suger. 38 mg/dL blood glucose obtained. Retested and second read 48 mg/dL. Patient given a coke, cranberry juice, cookies and peanut butter per his request. STAT lab order put in per policy. RN aware.
[2021-01-25 02:44] LABS: Absolute Lymphocyte Count 3.27 X10^3/uL (0.83-4.51); Absolute Neutrophil Count 5.5 X10^3/uL (2.0-7.7); Basophil# 0.08 X10^3/uL; Basophil% 0.8 % (0-1); Eosinophil# 0.15 X10^3/uL; Eosinophils% 1.5 % (0-5); Hematocrit 29.3 % (40-54); Hemoglobin 8.9 g/dL (13.0-16.5); Lymphocyte # 3.27 X10^3/ul (0.83-4.51); Lymphocyte % 33.6 % (19-41); Mean Corp Hgb Conc 30.4 g/dL (32-36); Mean Corpuscular Volume 88.8 fL (80-94); Mean Platelet Vol. 11.7 fl (6.2-12.0); Monocyte# 0.66 X10^3/uL; Monocyte% 6.8 % (0-10); NRBC Flagged by Analyzer 0 % (0-5); Neutrophil # 5.47 X10^3/uL (2.7-7.7); Neutrophil % 56.4 % (47-70); Platelet Count 329 K/mm3 (150-450); RBC Distribution Width CV 15.6 % (11.6-14.6); RBC Distribution Width SD 48.7 fl (35.1-43.9); White Blood Count 9.7 K/mm3 (4.4-11.0)
[2021-01-25 02:45] LABS: Glucose 50 mg/dL (74-106)
[2021-01-25 03:00] VITALS: BP 94/43; PULSE 76; RESP 18; TEMP 36.7; O2SAT 98
[2021-01-25] MEDS: Menthol/Lanolin/Calamine/Znox 113 GM Tube 1 APPLIC TOPICAL ×2 (03:04→17:59)
[2021-01-25 03:16] LABS: Bedside Glucose 57 mg/dL (70-110)
[2021-01-25 03:36] LABS: Bedside Glucose 123 mg/dL (70-110)
--- NOTE | 2021-01-25 03:36 | NURSING ---
After snack patient's sugar now up to 123. He remained awake and oriented. He can tell when his sugar is dropping because he has vision changes, resolves when sugar comes back up within normal limits.
[2021-01-25] MEDS: Pregabalin 75 MG Capsule 150 MG PO ×4 (05:02→21:48)
[2021-01-25] MEDS: oxyCODONE 5 MG Tablet 10 MG PO ×3 (05:02→21:48)
[2021-01-25] MEDS: metroNIDAZOLE 500 MG Tablet PO ×2 (05:03→14:46)
[2021-01-25] MEDS: Nystatin Powder 15gm Bottle 1 APPLIC TOPICAL ×2 (05:03→18:40)
[2021-01-25 05:16] LABS: Bedside Glucose 119 mg/dL (70-110)
[2021-01-25 06:00] LABS: Anion Gap 4 (5-15); BUN 39 mg/dL (7-18); BUN/Creat Ratio 33.3 RATIO (10-20); Calcium,Total 8.9 mg/dL (8.5-10.1); Chloride 113 mmol/L (98-107); Creatinine, Serum 1.17 mg/dL (0.70-1.30); EST Glomerular Filtration Rate 66 mL/min (>60); Est Glom Filt Rate - Afr Amer 80 mL/min (>60); Estimated Creatinine Clearance 67.25 ml/min; Glucose 122 mg/dL (74-106); Potassium 4.5 mmol/L (3.5-5.1); Sodium Level 139 mmol/L (136-145)
[2021-01-25 06:05] LABS: Bedside Glucose 124 mg/dL (70-110)
[2021-01-25 07:05] LABS: Bedside Glucose 38 mg/dL (70-110)
[2021-01-25 07:05] LABS: Bedside Glucose 49 mg/dL (70-110)
[2021-01-25] MEDS: Juven (unflavored) Packet 1 PACKET PO ×2 (08:22→17:48)
[2021-01-25] MEDS: Rivaroxaban 15 MG Tablet PO ×2 (08:22→17:49)
[2021-01-25] MEDS: Glucerna Shake 120 ML LIQUID PO ×3 (08:22→17:54)
[2021-01-25] MEDS: Diphenoxylate/Atrop 1 Tablet PO ×2 (08:32→18:09)
--- NOTE | 2021-01-25 10:34 | CON.PCM_ITS ---
Assessment & Plan Assessment/Plan (1) PAD (peripheral artery disease): PLAN: Reviewed testing. MARISSA 0.87 with moderately severe lower extremity arterial disease. Adequate femoral pulses. Patient at this time would be able to appropriately heal a below the knee amputation from a vascular standpoint. (2) 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: PLAN: I will discuss this patient with Dr. Vasquez upon return. At this time, I have briefly discussed a below the knee amputation. Patient is in agreement with this plan. Patient will further discuss details of the procedure with Dr. Vasquez at his tentative outpatient visit scheduled on 02/10/21 at 0800 AM with arrival time at 0740 AM. Patient is tentatively on the operating room schedule for 02/20/21 for a left lower extremity below the knee amputation. Patient has had the opportunity to ask and have questions answered. Patient verbally understands and agrees with the plan. (3) Hypoalbuminemia: PLAN: Nutrition has been consulted for the patient. It was discussed with emphasis with the patient that he will need to assist with getting ready for surgery by increasing caloric and protein intake. This will assist with healing process. Patient is aware and understands the importance. (4) Diabetes mellitus: QUALIFIERS: Diabetes mellitus complication status: with other specified complication Diabetes mellitus mcfp insulin use: unspecified rico g term insulin use status Diabetes mellitus type: type 2 Qualified Code(s): E11.69 - Type 2 diabetes mellitus with other specified complication PLAN: Unfortunately patient's diabetes is not well controlled. Medicine wi ll need to assist with this in preparation for his upcoming below the knee amputation. (5) Acute deep vein thrombosis of left lower extremity: QUALIFIERS: Affected thrombotic vein of extremity: peroneal Qualified Code(s): I82.452 - Acute embolism and thrombosis of left peroneal vein PLAN: Continue the Xarelto at this time. Patient will need to hold the Xarelto for surgery. It will be discussed at outpatient visit how long to hold this medication. HPI Consult Data Date of Consult: 01/25/21 HPI Narrative HPI Narrative: MARIAMA HUDDLESTON, is a 65 M who I am seeing for non-healing left calcaneal wound. Patient presented to [facility] ED on 01/13/21 with infected wound and mental status change. Patient stated he has neuropathy of the left lower extremity and a right below the knee amputation (BKA). He stated he pulled off his sock one day last year and the tissue of the heal came off with the sock. He noted this went down to the bone. He was evaluated at the wound center and then stopped participating approximately 2-3 months ago. He presented to the ED after his neighbor convinced him to come in. Patient stated a chronic open infected wound of the right heal lead to his right BKA approximately 5 years ago which was completed in [place]. He states he has a prosthesis for the right BKA however he does not always wear this due to it causes ulcers on his anterior and lateral lower extremity. He notes he was in the process of being fitted for a new prosthesis prior to coming into current hospitalization. Patient denies any complications or infections following the right BKA surgery. Patient states he was taken to the operating room on 01/13/[address] East for a debridement of all nonviable, infected and necrotic soft tissue and bone from the left foot. Patient has continued on IV Zosyn for infection. Infectious disease has been following the patient. Preoperative cultures with citrobacter freundii, Enterobacter cloacae complex, corynebacterium minutissimum.? Intraoperative bone culture with Enterobacter cloacae and anaerobic cocci. Blood cultures with enterobacter cloacae complex. Histopathological specimen with acute osteomyelitis confirmed. Patient was discharged on 01/17 to the transitional care unit, where he currently resides. Infectious disease, podiatry and vascular medicine have continued to follow this patient. Patient's previous vascular studies have included a lower extremity arterial exam on 10/25/20 which demonstrated a left MARISSA of 0.87 with moderately severe arterial occlusive disease. On 01/16/21 patient had a lower extremity DVT study and left lower extremity arterial duplex. DVT study demonstrated acute DVT of the left peroneal vein. Patient was placed on Xarelto secondary to the finding. His arterial duplex exam demonstrated 50-99% stenosis of mid superficial femoral artery of the left lower extremity and diminished flow to the left peroneal with suspected occlusion of this area. Dr. Arias was consulted and evaluated the patient on 01/18/21 his impression as is follows: He appears to have adequate perfusion to build to heal below-knee amputation. Patient has been established with Dr. Arias once previously in 2016. He has not followed with Dr. Arias since that time until now per patient. Dr. Garcia has continued to follow this patient and at this time has had multiple conversations with the patient in regards to a below the knee amputation as the current status of being able to salvage the left foot is grime. Patient has been a diabetic since 1989. He states his diabetes is well controlled. He notes he used to follow-up with an ginseng farmer, however now he sees his PCP, Dr. Sevilla, every 6 months who manages his diabetes. He denies previous cardiac issues. He denies previous myocardial infarction, stroke or blood clots until current diagnosis. He denies previous pulmonary history. He is an on again, off again smoker. He lives in a 2 story house alone. He notes his bathroom is on the 2nd floor and he has no problem making it up the stairs. He notes he usually sleeps on the main floor on the couch. He is disabled since 2001. 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 He has a neighbor who is also disabled and helps to care for him. He states he provides meals for him. He states he eats 2 meals a day and that has always been his normal. He denies any urinary concerns. He notes normal bowel movements except since starting IV antibiotics. He notes diarrhea every since these were started. He had a C Diff test on 01/19/21 which returned as negative. He notes his last colonoscopy was approximately 4-5 years ago at [facility]. Per patient the colonoscopy was normal. He is unsure when he is supposed to complete another colonoscopy. It is also of note the patient's hemoglobin has been low. His most recent was 8.9. He denies any rectal bleeding or gum bleeding since starting the Xarelto. A stool occult blood test was completed on 01/16/21 which returned negative. Patient denies having COVID or being around anyone who was diagnosed with COVID. He has not received the COVID vaccine. Patient states he unsure how long he will be in the [facility] TCU. Dr. Vasquez has been consulted for evaluation for below the knee amputation of the left lower extremity. [facility] Medical History (Updated 01/25/21 @ 12:23 by Fadumo COCHRAN, PAIvanC) Amputation of right lower extremity Diabetes Hypoalbuminemia Malnutrition Home Medications cyclobenzaprine 10 mg PO TID PRN 10/25/20 [History Last Taken 10/25/20] dulaglutide 0.75 mg SQ FR 10/25/20 [History Last Taken 10/21/20] metoclopramide HCl 10 mg PO BIDCM PRN 10/25/20 [History Last Taken 2 Weeks Ago ~10/11/20] ondansetron 4 mg PO Q6H PRN 10/25/20 [History Last Taken 10/25/20] pregabalin 150 mg PO 4X/DAY 10/25/20 [History Last Taken 10/25/20] testosterone 2 each TD QHS 10/25/20 [History Last Taken 10/24/20] insulin detemir U-100 35 unit SQ BID 01/17/21 [History Last Taken Unknown] insulin glargine [Lantus Solostar U-100 Insulin] 25 units SUBCUT DINNER 01/17/21 [History Last Taken Unknown] insulin lispro [Humalog KwikPen Insulin] 5 unit SUBCUT BREAKFAST 01/17/21 [History Last Taken Unknown] insulin lispro [Humalog KwikPen Insulin] 5 unit SUBCUT DINNER 01/17/21 [History Last Taken Unknown] insulin lispro [Humalog KwikPen Insulin] 5 unit SUBCUT LUNCH 01/17/21 [History Last Taken Unknown] insulin lispro [Humalog KwikPen Insulin] See Protocol SUBCUT 4X/DAYCM 01/17/21 [History Last Taken Unknown] oxycodone 10 mg PO Q6H PRN PRN 3 Days #10 tab 01/17/21 [Rx Last Taken Unknown] pzpajkxhwlco-swbelkxwdx-csevlh [Zosyn in dextrose (iso-osm)] 3.375 g IV Q8H 01/17/21 [History Last Taken Unknown] rivaroxaban 15 mg PO BIDCM 01/17/21 [History Last Taken Unknown] Allergy/AdvReac Type Severity Reaction Status Date / Time No Known Allergies Allergy Verified 01/13/21 01:19 Surgical History Below-knee amputation of right lower extremity Social History household members: none Smoking Status: Current every day smoker ROS Constitutional Constitutional: Reports systems reviewed and no addt'l complaints, except as documented Eyes Eyes: Reports systems reviewed and no addt'l complaints, except as documented ENT HEENT: Reports systems reviewed and no addt'l complaints, except as documented Cardiovascular Cardiovascular: Reports systems reviewed and no addt'l complaints, except as documented Respiratory/Chest Respiratory/Chest: Reports systems reviewed and no addt'l complaints, except as documented Gastrointestinal Gastrointestinal: Reports systems reviewed and no addt'l complaints, except as documented Genitourinary Genitourinary: Reports systems reviewed and no addt'l complaints, except as documented Musculoskeletal Musculoskeletal: Reports systems reviewed and no addt'l complaints, except as documented Integumentary Integumentary: Reports systems reviewed and no addt'l complaints, except as documented Neurologic Neurologic: Reports systems reviewed and no addt'l complaints, except as documented Psychiatric Psychiatric: Reports systems reviewed and no addt'l complaints, except as d ocumented Endocrine Endocrinology: Reports systems reviewed and no addt'l complaints, except as documented Hematologic/Lymphatic Hematologic/Lymphatic: Reports systems reviewed and no addt'l complaints, except as documented Allergic/Immunologic Allergic/Immunologic: Reports systems reviewed and no addt'l complaints, except as documented Physical Exam Const alert, oriented x3 and no apparent distress Constitutional Narrative: Patient is wheelchair bound General Appearance: cooperative, comfortable, disheveled, frail and appears older than stated age Exam Limitations: physical limitations Nutritional Appearance: cachectic HEENT normocephalic Eyes PERRL and EOMs intact bilaterally Neck full ROM Thyroid: Negative for mass Lymph Lymphatic: no lymphadenopathy noted Chest inspection of chest normal Resp normal respiratory effort Auscultation: clear to auscultation bilaterally Cardio regular rate GI normal to inspection, nondistended, normoactive bowel sounds no CVA tenderness Narrative: Depends in place due to diarrhea. Uses bedside commode otherwise. Back/Spine no CVA tenderness and thoracic and lumbar spine normal to inspection Extremity Extremity Narrative: Right below the knee amputation. Anterior wound with scab in place at the right knee and lateral knee. No erythema noted. Left foot swollen double in size. Currently has deep wrap dressing. Wound vac in place over wound. General Extremity: amputation and edema left lower extremity Peripheral Pulses: Yes radial pulses present bilateral 2+, femoral pulses present bilateral 2+ and popliteal pulses present right 1+ and diminished and left 1+ and diminished; Negative for dorsalis pedis pulses present Skin Skin Narrative: Multiple microabrasions on the arms, finger tips, bilateral lower extremities. Neuro oriented x3 and moves all extremities Psych mental status grossly normal, thought process normal and cooperative Lab / Micro Data Result Diagrams: 01/25/21 02:30 01/25/21 05:38 Labs: Laboratory Results - last 24 hr 01/24/21 01/24/21 01/24/21 11:47 17:02 22:01 WBC RBC Hgb Hct MCV MCH MCHC RDW Std Deviation RDW Coeff of Jo Plt Count MPV Immature Gran % (Auto) Neut % (Auto) Lymph % (Auto) [place] % (Auto) Eos % (Auto) Baso % (Auto) Absolute Neuts (auto) Absolute Lymphs (auto) Nucleated RBC % Sodium Potassium Chloride Carbon Dioxide Anion Gap BUN Creatinine Estim Creat Clear Calc Est GFR (MDRD) Af Amer Est GFR (MDRD) Non-Af BUN/Creatinine Ratio Glucose Calcium POC Glucose 316 H 170 H 165 H 01/25/21 01/25/21 01/25/21 02:19 02:20 02:30 WBC 9.7 RBC 3.30 L Hgb 8.9 L Hct 29.3 L MCV 88.8 MCH 27.0 MCHC 30.4 L RDW Std Deviation 48.7 H RDW Coeff of Jo 15.6 H Plt Count 329 MPV 11.7 Immature Gran % (Auto) 0.900 Neut % (Auto) 56.4 Lymph % (Auto) 33.6 [place] % (Auto) 6.8 Eos % (Auto) 1.5 Baso % (Auto) 0.8 Absolute Neuts (auto) 5.5 Absolute Lymphs (auto) 3.27 Nucleated RBC % 0 Sodium Potassium Chloride Carbon Dioxide Anion Gap BUN Creatinine Estim Creat Clear Calc Est GFR (MDRD) Af Amer Est GFR (MDRD) Non-Af BUN/Creatinine Ratio Glucose Calcium POC Glucose 38 L* 49 L 01/25/21 01/25/21 01/25/21 02:30 02:57 03:29 WBC RBC Hgb Hct MCV MCH MCHC RDW Std Deviation RDW Coeff of Jo Plt Count MPV Immature Gran % (Auto) Neut % (Auto) Lymph % (Auto) [place] % (Auto) Eos % (Auto) Baso % (Auto) Absolute Neuts (auto) Absolute Lymphs (auto) Nucleated RBC % Sodium Potassium Chloride Carbon Dioxide Anion Gap BUN Creatinine Estim Creat Clear Calc Est GFR (MDRD) Af Amer Est GFR (MDRD) Non-Af BUN/Creatinine Ratio Glucose 50 L Calcium POC Glucose 57 L 123 H 01/25/21 01/25/21 01/25/21 05:06 05:38 06:01 WBC RBC Hgb Hct MCV MCH MCHC RDW Std Deviation RDW Coeff of Jo Plt Count MPV Immature Gran % (Auto) Neut % (Auto) Lymph % (Auto) [place] % (Auto) Eos % (Auto) Baso % (Auto) Absolute Neuts (auto) Absolute Lymphs (auto) Nucleated RBC % Sodium 139 Potassium 4.5 Chloride 113 H Carbon Dioxide 22.0 Anion Gap 4 L BUN 39 H Creatinine 1.17 Estim Creat Clear Calc 67.25 Est GFR (MDRD) Af Amer 80 Est GFR (MDRD) Non-Af 66 BUN/Creatinine Ratio 33.3 H Glucose 122 H Calcium 8.9 POC Glucose 119 H 124 H Charges/Coding Visit Charges Office Visits / Consults: 53522 OP Consult L4
--- NOTE | 2021-01-25 10:35 | CASEMGMT ---
Social Work IDT met with patient for care plan meeting. Discussed patient's progress in therapy and nursing. Pt progressing well. Awaiting Dr's outcome of amputation surgery. Inquired about SNF choices. Pt requesting referrals to [facility] and [facility]. Explained Medicare benefit and Day 21 is 6/7 to DC by then to use [facility] to cover copays. Depending on surgery, discussed pt transferring to accepting SNF vs returning to TCU to get established. Pt prefers that option. Referrals made. SW to continue to follow. Christa Pyle, METALLURGICAL OR MATERIALS TECHNICIAN CABLE SPLICER ASSISTANT
[2021-01-25 11:15] LABS: Bedside Glucose 301 mg/dL (70-110)
[2021-01-25] MEDS: Insulin Lispro 100 UNIT/ML INSULN.PEN SC ×2 (13:00→17:56)
[2021-01-25 14:23] VITALS: BP 112/51; PULSE 91; RESP 18; TEMP 36.6; O2SAT 94
[2021-01-25] MEDS: Tuberculin,Purif.prot.deriv. 50 TU/ML Vial 0.1 ML ID (14:51)
[2021-01-25] MEDS: 0.9% Saline Lock 10 ML Syringe IV (15:03)
--- NOTE | 2021-01-25 15:36 | PCM.PN.ID ---
Physical Exam Narrative Has been refusing half of his IV abx doses due to diarrhea. No fever. Const alert General Appearance: cooperative Resp normal air movement and clear to auscultation bilaterally Cardio regular rate and regular rhythm GI normal to inspection, nondistended, normoactive bowel sounds Skin Skin Narrative: leg wrapped ID ID: Route of nutrition/ use of supplements: [] Nutritional Intake: [] IV Site: [] Almodovar Catheter: [] Assessment & Plan Assessment/Plan (1) Bacteremia: (2) Foot osteomyelitis, left: PLAN: On zosyn.? Wound cx 10/2020 with klebs, enterobacter, strep, enterococcus, CoNS, corynebacter, and anaerobes.? OR 01/13/[address] East.? Bcx with enterobacter.? Wound cx and surg cx with enterobacter, citrobacter, corynebacter.? On 6 weeks iv abx , stop date 02/24. Worsened diarrhea, no laxatives given. 01/19 changed to cefepime/flagyl. Cdiff was neg. Still with some diarrhea and has been refusing half of his abx doses. Will change to po cipro/augmentin to see if this is easier on his stomach. Is on probiotic. Counseled re: importance of covid shot after discharge. Will follow
--- NOTE | 2021-01-25 16:18 | NURSING ---
DMIAS Matthews in to see pt today. per her notes, Patient will further discuss details of the procedure with Dr. Vasquez at his tentative outpatient visit scheduled on 02/10/21 at 0800 AM with arrival time at 0740 AM. Patient is tentatively on the operating room schedule for 02/20/21 for a left lower extremity below the knee amputation. Patient has had the opportunity to ask and have questions answered. Patient verbally understands and agrees with the plan.
[2021-01-25 16:50] LABS: Bedside Glucose 292 mg/dL (70-110)
[2021-01-25] MEDS: Amox/Clavulanate 875 MG Tablet PO (18:40)
--- NOTE | 2021-01-25 19:01 | PCM.PROGNOTE ---
Subjective Subjective Patient seen and examined resting comfortably. Patient denies any new pedal complaints. Patient denies any nausea, fever, chills, chest pain, shortness of breath, cough, streaking, purulence, vomiting. Objective Data Objective Data Vital Signs: Vital Signs Temp Pulse Resp BP Pulse Ox 97.8 F 91 18 112/51 L 94 01/25/21 14:23 01/25/21 14:23 01/25/21 14:23 01/25/21 14:23 01/25/21 14:23 Oxygen Delivery Method Room Air Weight: 79.6 kg Body Mass Index (BMI) 21.7 Intake & Output: Intake and Output for Last 24 Hours 01/23/21 01/24/21 01/25/21 23:59 23:59 23:59 Intake Total 1300 / 1300 1123.33 / 1123.33 440 / 440 Balance 1300 / 1300 1123.33 / 1123.33 440 / 440 Lab / Micro Data Result Diagrams: 01/25/21 02:30 01/25/21 05:38 Labs: Laboratory Results - last 24 hr 01/24/21 01/25/21 01/25/21 22:01 02:19 02:20 WBC RBC Hgb Hct MCV MCH MCHC RDW Std Deviation RDW Coeff of Jo Plt Count MPV Immature Gran % (Auto) Neut % (Auto) Lymph % (Auto) [place] % (Auto) Eos % (Auto) Baso % (Auto) Absolute Neuts (auto) Absolute Lymphs (auto) Nucleated RBC % Sodium Potassium Chloride Carbon Dioxide Anion Gap BUN Creatinine Estim Creat Clear Calc Est GFR (MDRD) Af Amer Est GFR (MDRD) Non-Af BUN/Creatinine Ratio Glucose Calcium POC Glucose 165 H 38 L* 49 L 01/25/21 01/25/21 01/25/21 02:30 02:30 02:57 WBC 9.7 RBC 3.30 L Hgb 8.9 L Hct 29.3 L MCV 88.8 MCH 27.0 MCHC 30.4 L RDW Std Deviation 48.7 H RDW Coeff of Jo 15.6 H Plt Count 329 MPV 11.7 Immature Gran % (Auto) 0.900 Neut % (Auto) 56.4 Lymph % (Auto) 33.6 [place] % (Auto) 6.8 Eos % (Auto) 1.5 Baso % (Auto) 0.8 Absolute Neuts (auto) 5.5 Absolute Lymphs (auto) 3.27 Nucleated RBC % 0 Sodium Potassium Chloride Carbon Dioxide Anion Gap BUN Creatinine Estim Creat Clear Calc Est GFR (MDRD) Af Amer Est GFR (MDRD) Non-Af BUN/Creatinine Ratio Glucose 50 L Calcium POC Glucose 57 L 01/25/21 01/25/21 01/25/21 03:29 05:06 05:38 WBC RBC Hgb Hct MCV MCH MCHC RDW Std Deviation RDW Coeff of Jo Plt Count MPV Immature Gran % (Auto) Neut % (Auto) Lymph % (Auto) [place] % (Auto) Eos % (Auto) Baso % (Auto) Absolute Neuts (auto) Absolute Lymphs (auto) Nucleated RBC % Sodium 139 Potassium 4.5 Chloride 113 H Carbon Dioxide 22.0 Anion Gap 4 L BUN 39 H Creatinine 1.17 Estim Creat Clear Calc 67.25 Est GFR (MDRD) Af Amer 80 Est GFR (MDRD) Non-Af 66 BUN/Creatinine Ratio 33.3 H Glucose 122 H Calcium 8.9 POC Glucose 123 H 119 H 01/25/21 01/25/21 01/25/21 06:01 11:04 16:47 WBC RBC Hgb Hct MCV MCH MCHC RDW Std Deviation RDW Coeff of Jo Plt Count MPV Immature Gran % (Auto) Neut % (Auto) Lymph % (Auto) [place] % (Auto) Eos % (Auto) Baso % (Auto) Absolute Neuts (auto) Absolute Lymphs (auto) Nucleated RBC % Sodium Potassium Chloride Carbon Dioxide Anion Gap BUN Creatinine Estim Creat Clear Calc Est GFR (MDRD) Af Amer Est GFR (MDRD) Non-Af BUN/Creatinine Ratio Glucose Calcium POC Glucose 124 H 301 H 292 H Micro: Microbiology 01/19/21 20:20 Stool C. difficile DNA Amplification - Final Physical Exam Const alert and oriented x3 General Appearance: cooperative HEENT normocephalic Extremity normal capillary refill Extremity Narrative: Muscle wasting noted. Wide spread ulceration left lower plantar and posterior foot and lower extremity. Right below-knee amputation. Compartments are soft to palpate left lower extremity and there is negative Virgie and Long sign left. Palpable DP and PT pulse, left. Reduced edema left lower extremity General Extremity: edema Skin Skin Narrative: left lower extremity: Upon vac removal, open widespread ulceration site with no purulence, no erythema, no necrosis, no odor, no streaking. There is exposed calcaneus bone. Adjacent skin is hairless and atrophic. There are no new areas of fluctuance or bogginess. Neuro Neuro Narrative: Lack of epicritic sensation is consistent with neuropathic status Assessment & Plan Assessment/Plan (1) 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: (2) Delayed wound healing: (3) Diabetes mellitus with polyneuropathy: (4) Peripheral vascular disease: (5) Foot osteomyelitis, left: PLAN: Patient seen and examined I reviewed and discussed his case. He is s/p debridement left foot/heel with partial calcanectomy on 01/13/2021. Reviewed diagnostic data. He is afebrile and vitals are stable. Continue antibiotics per infectious disease Preoperative cultures with citrobacter freundii, Enterobacter cloacae complex, corynebacterium minutissimum.? Intraoperative bone culture with Enterobacter cloacae and anaerobic cocci. Blood cultures with enterobacter cloacae complex. Histopathological specimen with acute osteomyelitis confirmed. Wound VAC was placed; 150 mmHg continuous. Will plan for change three times weekly. This will be reapplied later this morning. Clinically there is no purulence or raj necrosis. No weightbearing left foot. He was advised to hang his heel over pillow while in bed to keep pressure off of the surgical and wound site. Advised patient foot will be nonfunctional due to the extent of the infection. I am very guarded his foot will heal given the extent of the infection he had in foot with peripheral vascular disease, custodial BKA or AKA is indicated. The guarded prognosis and risks vs benefits were reviewed again this morning. He relates he is in agreement with a below-knee amputation and is awaiting further discussion with the surgeon. An arterial duplex Doppler was ordered and is biphasic PT artery waveform MARISSA 0.87. There are some abnormalities and reported as moderate to severe arterial disease. I recommend a vascular surgery consultation. Dr. Arias evaluated this patient and input is greatly appreciated. He appears to have adequate perfusion that would suggest a below the knee amputation can heal. It is noted that Dr. Vasquez was consulted for BKA. It is noted that his PA Fadumo Gallardo saw patient after I saw patient today. Upon reviewing the noted was seen that patient and mammograph with RN agreement that a BKA is a valid option. Patient is noted to have outpatient visit scheduled with Dr. Vasquez on 02/10/2021 with a tentative surgery date of 02/20/2021. Peroneal vein DVT noted; management per Dr. Clancy. He is on xarelto. Medical management is noted and appreciated. Uncontrolled diabetes is noted. He has a hemoglobin A1c of 12.4. Podiatry will continue to follow weekly. Please do not hesitate to call if you have any questions. To follow up at the wound healing center weekly at time of discharge unless discharge is within the week of planned follow-up with Dr. Vasquez for below-knee amputation. This note was generated with [employer] dictation software. It may contain incorrect words, spelling, and punctuation that were not noted in checking the note before signing.
[2021-01-25 19:59] VITALS: PULSE 86; RESP 16; O2SAT 100
[2021-01-25 21:30] LABS: Bedside Glucose 276 mg/dL (70-110)
[2021-01-26 00:36] LABS: Bedside Glucose 138 mg/dL (70-110)
[2021-01-26 02:11] LABS: Bedside Glucose 96 mg/dL (70-110)
[2021-01-26 05:00] VITALS: BP 103/53; PULSE 79; RESP 16; TEMP 37.3; O2SAT 94
[2021-01-26] MEDS: Pregabalin 75 MG Capsule 150 MG PO ×4 (05:38→22:17)
[2021-01-26] MEDS: Nystatin Powder 15gm Bottle 1 APPLIC TOPICAL ×2 (05:39→11:57)
[2021-01-26] MEDS: Amox/Clavulanate 875 MG Tablet PO ×2 (05:39→17:36)
[2021-01-26] MEDS: Menthol/Lanolin/Calamine/Znox 113 GM Tube 1 APPLIC TOPICAL ×2 (05:39→11:57)
[2021-01-26] MEDS: oxyCODONE 5 MG Tablet 10 MG PO ×3 (05:44→22:18)
[2021-01-26] MEDS: Diphenoxylate/Atrop 1 Tablet PO ×3 (05:48→17:43)
[2021-01-26 06:20] LABS: Bedside Glucose 81 mg/dL (70-110)
[2021-01-26] MEDS: Glucerna Shake 120 ML LIQUID PO ×3 (08:44→17:41)
[2021-01-26] MEDS: Juven (unflavored) Packet 1 PACKET PO ×2 (08:45→17:35)
[2021-01-26] MEDS: Rivaroxaban 15 MG Tablet PO ×2 (08:45→17:35)
[2021-01-26 11:20] LABS: Bedside Glucose 305 mg/dL (70-110)
[2021-01-26] MEDS: Insulin Lispro 100 UNIT/ML INSULN.PEN SC ×2 (11:53→17:33)
--- NOTE | 2021-01-26 13:32 | CASEMGMT ---
Social Work [facility] accepted pt now that he is off of IV ATB. Pt agreed to [facility] but would like to stay in TCU until 02/06 in case he can see Dr. Vasquez sooner. Notified [facility]. Plan: DC to [facility] 02/06 skilled Christa Pyle, MYLES HEW
[2021-01-26 13:58] VITALS: BP 124/58; PULSE 95; RESP 16; TEMP 36.8; O2SAT 99
[2021-01-26] MEDS: 0.9% Saline Lock 10 ML Syringe IV (16:07)
[2021-01-26 16:55] LABS: Bedside Glucose 273 mg/dL (70-110)
--- NOTE | 2021-01-26 17:51 | NURSING ---
Noted resident has not been getting PO Cipro. Just the PO Augementin. Ordered entered as RT order. Order changed to be given PO.
--- NOTE | 2021-01-26 20:41 | PCM.DC.SUM ---
Providers Date of Admission: 01/17/21 Primary Care Physician: Dr. Dani Sevilla, Consultations 01/17/21 18:11 Consult: Infectious Disease Routine Consulting Provider: Daniel Vital Reason for Consult: Necrotic left heel infection EMERGENT Consult: No MD Notified: Yes Date Notified:: 01/18/21 Time Notified: 13:33 Method of Notification: Answering Service Comments:: Dr. 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 Routine Comment: Reason for Consult:: Left foot wound vac 01/17/21 18:19 Consult: Podiatry Routine Consulting Provider: Justa Garcia Reason for Consult: Left foot infection EMERGENT Consult: No MD Notified: Yes Date Notified:: 01/17/21 Time Notified: 18:19 Method of Notification: Verbal 01/17/21 20:37 Consult: Infectious Disease Routine Consulting Provider: Daniel Vital Reason for Consult: Left foot osteomyelitis/enterobacter cloacae complex bacteremia EMERGENT Consult: No MD Notified: Yes Date Notified:: 01/18/21 Time Notified: 13:32 Method of Notification: Answering Service Consult: Podiatry Routine Consulting Provider: Carlton East Reason for Consult: Left heel osteomyelitis, patient ready for left below the knee amputation. EMERGENT Consult: No MD Notified: Yes Date Notified:: 01/18/21 Time Notified: 13:28 Method of Notification: Answering Service Method of Consult:: In-Person 01/18/21 07:43 Consult: Vascular Surgery Routine Consulting Provider: Sang Arias Reason for Consult: pvd, left limb widespread wound, amputation recommended (bka vs aka) EMERGENT Consult: No MD Notified: Yes Date Notified:: 01/18/21 Time Notified: 11:00 Method of Notification: Verbal Method of Consult:: In-Person 01/24/21 15:50 Consult: Vascular Surgery Routine Consulting Provider: Daniel Vasquez Reason for Consult: below knee amputation consult EMERGENT Consult: No MD Notified: Yes Date Notified:: 01/24/21 Time Notified: 15:53 Method of Notification: Text Reason For Visit: DKA,DIABETIC WOUND Diagnosis Discharge Diagnosis (1) 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: Status: Acute Code(s): L97.526 - Non-pressure chronic ulcer of other part of left foot with bone involvement without evidence of necrosis (2) Delayed wound healing: Status: Chronic Code(s): T14.8 - Other injury of unspecified body region (3) Diabetes mellitus with polyneuropathy: Status: Chronic Code(s): E11.42 - Type 2 diabetes mellitus with diabetic polyneuropathy (4) Peripheral vascular disease: Status: Chronic Code(s): I73.9 - Peripheral vascular disease, unspecified (5) Foot osteomyelitis, left: Status: Acute Code(s): M86.9 - Osteomyelitis, unspecified Medications at Discharge Home Medications acetaminophen 1,000 mg PO Q6H PRN PRN #0 tab 01/26/21 acidophilus-pectin, citrus 1 tab PO BID #0 tab 01/26/21 amoxicillin-pot clavulanate 875 mg PO BID #0 tab 01/26/21 wtvvq-xhzz-UdQOZ-xwiblv-go-jdw [Brett (with collagen)] 1 packet PO BIDCM #0 ea 01/26/21 ciprofloxacin HCl 500 mg PO Q12 #0 tab 01/26/21 insulin glargine [Lantus Solostar U-100 Insulin] 25 unit SUBCUT BIDCM #0 ml 01/26/21 insulin lispro [Humalog KwikPen Insulin] 5 unit SUBCUT BREAKFAST #0 ml 01/26/21 insulin lispro [Humalog KwikPen Insulin] 5 unit SUBCUT DINNER #0 ml 01/26/21 insulin lispro [Humalog KwikPen Insulin] 5 unit SUBCUT LUNCH #0 ml 01/26/21 menthol-zinc oxide [Calmoseptine] 1 applic TOPICAL BID #0 g 01/26/21 nut.tx.gluc intol,lf,soy-fiber [Glucerna 1.2 Desean] 120 ml PO TIDCM #0 ml 01/26/21 nystatin [Nyamyc] 1 applic TOPICAL BID #0 g 01/26/21 ondansetron 4 mg PO Q6H PRN PRN #0 tab 01/26/21 oxycodone 10 mg PO Q6H PRN PRN 3 Days #24 tab 01/26/21 pregabalin 150 mg PO 4X/DAY 30 Days #240 cap 01/26/21 rivaroxaban [Xarelto] 20 mg PO DAILY@1700 #0 tab 01/26/21 Hospital Course Operations None Procedures None Summary of Care Provided Minutes Spent on Discharge: 35 Hospital Course: 65 year old male with below past medical history hospitalized for sepsis secondary to left heel osteomyelitis, bacteremia, complicated by diabetic ketoacidosis, acute encephalopathy, acute kidney injury, acute left lower extremity DVT, admitted to TCU with debility, here for rehabilitation, strengthening, wound care, intravenous antibiotics, prior to discharge home alone. Left lower extremity DVT treated with Xarelto thru 04/18/2021. Cipro/Augmentin PO for polymicrobial left foot infection/osteomyelitis, stop date per Dr. Vital. Consultation with Dr. Daniel Vasquez 02/10/2021, planning left below the knee amputation 02/20/2021. [facility]charge to [facility] 02/06/2021 Skilled. Physical Exam Const alert and oriented x3 General Appearance: cooperative HEENT normocephalic Eyes PERRL and EOMs intact bilaterally Neck supple, no JVD and no carotid bruits Resp normal respiratory effort, normal air movement and clear to auscultation bilaterally Cardio regular rate and regular rhythm GI normal to inspection, nondistended, normoactive bowel sounds, non-tender and non-distended Extremity normal capillary refill Extremity Narrative: Right BKA, Left foot dressed. General Extremity: Negative for edema Skin no rashes or lesions noted General Skin Exam: no breakdown Psych affect normal Appearance: appropriate ABG / Lab / Microbiology Data Result Diagrams: 01/25/21 02:30 01/25/21 05:38 Laboratory: Laboratory Results - last 24 hr 01/25/21 01/26/21 01/26/21 21:08 00:29 02:05 POC Glucose 276 H 138 H 96 01/26/21 01/26/21 01/26/21 06:12 11:00 16:47 POC Glucose 81 305 H 273 H Microbiology: Microbiology 01/19/21 20:20 Stool C. difficile DNA Amplification - Final D/C Instructions Discharge Diet: No restrictions Discharge Activity: Return to Normal Activity Weight Bearing Status: No weight bearing Call your doctor if you observe: Fever of 101 or Higher, Inability to urinate, Inability to have a bowel movement, Shortness of breath, Dizziness, Fainting spells, Chest pain and Uncontrolled pain Additional Instructions: Discharge to [facility] 02/06/2021 Skilled. Please Follow Up With: Dr. Garcia When: 1 week. Meaningful Use Info Meaningful Use Diagnoses (Choose all that apply): None applicable Discharge Plan Admission Admit Date/Time: 01/17/21 17:35 Primary Reason for Your Visit: Debility Attending Provider: Fernando Clancy Chi Primary Care Provider: Dani Sevilla Consulting Providers: Justa Garcia ; Carlton East ; Sang Arias ; Daniel Vital ; Daniel Vasquez Instructions Additional Instructions / Restrictions: Discharge to [facility] 02/06/2021 Skilled. Discharge Orders/Prescriptions Prescriptions: New insulin lispro [Humalog KwikPen Insulin] 100 unit/mL Insulin Pen 5 unit subcut BREAKFAST Qty: 0 RF: 0 insulin lispro [Humalog KwikPen Insulin] 100 unit/mL Insulin Pen 5 unit subcut DINNER Qty: 0 RF: 0 insulin lispro [Humalog KwikPen Insulin] 100 unit/mL Insulin Pen 5 unit subcut LUNCH Qty: 0 RF: 0 ondansetron 4 mg Tablet,Disintegrating 4 mg PO Q6H PRN PRN (Reason: Nausea) Qty: 0 RF: 0 oxycodone 5 mg Tablet 10 mg PO Q6H PRN PRN (Reason: Pain Score 6-10) 3 Days Qty: 24 RF: 0 pregabalin 75 mg Capsule 150 mg PO 4X/DAY 30 Days Qty: 240 RF: 0 Xarelto 20 mg Tablet 20 mg PO DAILY@1700 Qty: 0 RF: 0 ciprofloxacin HCl 500 mg Tablet 500 mg PO Q12 Qty: 0 RF: 0 acetaminophen 500 mg Tablet 1,000 mg PO Q6H PRN PRN (Reason: Pain Score 1-5) Qty: 0 RF: 0 amoxicillin-pot clavulanate 875-125 mg Tablet 875 mg PO BID Qty: 0 RF: 0 Lantus Solostar U-100 Insulin 100 unit/mL (3 mL) Insulin Pen 25 unit subcut BIDCM Qty: 0 RF: 0 Glucerna 1.2 Desean 0.06-1.2 gram-kcal/mL Liquid 120 ml PO TIDCM Qty: 0 RF: 0 nystatin [Nyamyc] 100,000 unit/gram Powder 1 applic topical BID Qty: 0 RF: 0 acidophilus-pectin, citrus 25 million cell -100 mg Tablet 1 tab PO BID Qty: 0 RF: 0 Calmoseptine 0.44-20.6 % Ointment 1 applic topical BID Qty: 0 RF: 0 Brett (with collagen) 7-7-1.5 gram Powder In Packet 1 packet PO BIDCM Qty: 0 RF: 0 Discontinued cyclobenzaprine 10 MG tablet 10 mg PO TID PRN (Reason: Spasms) RF: 0 metoclopramide HCl 10 MG tablet 10 mg PO BIDCM PRN (Reason: STOMACH) RF: 0 pregabalin 150 MG capsule 150 mg PO 4X/DAY RF: 0 dulaglutide 0.75 MG/0.5 ML pen injector 0.75 mg SQ FR RF: 0 Hold Instructions: Resume on 03/02/21. testosterone 75 GM gel in metered-dose pump 2 each TD QHS RF: 0 Hold Instructions: Resume on 03/02/21. ondansetron 4 MG tablet 4 mg PO Q6H PRN (Reason: Nausea) RF: 0 oxycodone 5 mg Tablet 10 mg PO Q6H PRN PRN (Reason: Pain Score 6-10) 3 Days Qty: 10 RF: 0 Zosyn in dextrose (iso-osm) 3.375 gram/50 mL piggyback 3.375 g IV Q8H RF: 0 insulin lispro [Humalog KwikPen Insulin] 100 unit/mL insulin pen 5 unit subcut BREAKFAST RF: 0 insulin lispro [Humalog KwikPen Insulin] 100 unit/mL insulin pen 5 unit subcut DINNER RF: 0 insulin lispro [Humalog KwikPen Insulin] 100 unit/mL insulin pen See Protocol unit subcut 4X/DAYCM RF: 0 insulin lispro [Humalog KwikPen Insulin] 100 unit/mL insulin pen 5 unit subcut LUNCH RF: 0 insulin detemir U-100 100 UNIT/ML insulin pen 35 unit SQ BID RF: 0 Lantus Solostar U-100 Insulin 100 unit/mL (3 mL) insulin pen 25 units subcut DINNER RF: 0 rivaroxaban 15 mg tablet 15 mg PO BIDCM RF: 0 Referrals / Follow Up: Dani Sevilla DO [Primary Care Provider] - Disposition Disposition (needs filled in before D/C Order can be placed): [facility]
--- NOTE | 2021-01-26 20:51 | PCM.TXEXTCAR ---
Diet 01/18/21 13:01 Diet: Carbohydrate Controlled Food consistency:: Regular Liquid Consistency:: Regular/Thin Dietary Modifications:: Consistent Carbohydrate Is pt able to select menu?: Yes Routine Orders/Code Status Code Status: Full Code Wound(s) Left heel: Wound Type: Surgical Incision Dressing Change: wound VAC Right 5th finger: Wound Type: scabbed and rubbed open Dressing Change: SUKHI left lateral foot: Wound Type: dressing in place Dressing Change: wound VAC Lt buttock: Wound Type: open area Therapies Weight Bearing: Non weight bearing Physical Therapy: Eval and Treat Occupational Therapy: Eval and Treat Problem/Diagnosis (1) 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: Status: Acute (2) Delayed wound healing: Status: Chronic (3) Diabetes mellitus with polyneuropathy: Status: Chronic (4) Peripheral vascular disease: Status: Chronic Comment: venous (5) Foot osteomyelitis, left: Status: Acute Allergies/Procedures Done in Hospital Allergies No Known Allergies Allergy (Verified 01/13/21 01:19) Type of Care/Length of Stay Estimated LOS: Convalescent Care Less Than 30 days Type of Care Needed: Skilled Rehab Potential: Good Prognosis: Good Additional Orders/Day of Discharge Day of Discharge: 02/06/21 Dietary and Speech Recommendations Dietitian Recommendations/Changes: Continue Consistent CHO diet Will continue w/ Brett bid and GS 3x/day Follow Up Care Please follow up with your Primary Care Physician in: Dani Sevilla Please Follow Up With: Dr. Garcia Please Follow Up With: Daniel Vital MD When: 2 weeks. Discharge Plan Admission Admit Date/Time: 01/17/21 17:35 Primary Reason for Your Visit: Debility Attending Provider: Fernando Clancy Chi Primary Care Provider: Dani Sevilla Consulting Providers: Justa Garcia ; Carlton East ; Sang Arias ; Daniel Vital ; Daniel Vasquez Instructions Additional Instructions / Restrictions: Discharge to [facility] 02/06/2021 Skilled. Discharge Orders/Prescriptions Prescriptions: New insulin lispro [Humalog KwikPen Insulin] 100 unit/mL Insulin Pen 5 unit subcut BREAKFAST Qty: 0 RF: 0 insulin lispro [Humalog KwikPen Insulin] 100 unit/mL Insulin Pen 5 unit subcut DINNER Qty: 0 RF: 0 insulin lispro [Humalog KwikPen Insulin] 100 unit/mL Insulin Pen 5 unit subcut LUNCH Qty: 0 RF: 0 ondansetron 4 mg Tablet,Disintegrating 4 mg PO Q6H PRN PRN (Reason: Nausea) Qty: 0 RF: 0 oxycodone 5 mg Tablet 10 mg PO Q6H PRN PRN (Reason: Pain Score 6-10) 3 Days Qty: 24 RF: 0 pregabalin 75 mg Capsule 150 mg PO 4X/DAY 30 Days Qty: 240 RF: 0 Xarelto 20 mg Tablet 20 mg PO DAILY@1700 Qty: 0 RF: 0 ciprofloxacin HCl 500 mg Tablet 500 mg PO Q12 Qty: 0 RF: 0 acetaminophen 500 mg Tablet 1,000 mg PO Q6H PRN PRN (Reason: Pain Score 1-5) Qty: 0 RF: 0 amoxicillin-pot clavulanate 875-125 mg Tablet 875 mg PO BID Qty: 0 RF: 0 Lantus Solostar U-100 Insulin 100 unit/mL (3 mL) Insulin Pen 25 unit subcut BIDCM Qty: 0 RF: 0 Glucerna 1.2 Desean 0.06-1.2 gram-kcal/mL Liquid 120 ml PO TIDCM Qty: 0 RF: 0 nystatin [Nyamyc] 100,000 unit/gram Powder 1 applic topical BID Qty: 0 RF: 0 acidophilus-pectin, citrus 25 million cell -100 mg Tablet 1 tab PO BID Qty: 0 RF: 0 Calmoseptine 0.44-20.6 % Ointment 1 applic topical BID Qty: 0 RF: 0 Brett (with collagen) 7-7-1.5 gram Powder In Packet 1 packet PO BIDCM Qty: 0 RF: 0 Discontinued cyclobenzaprine 10 MG tablet 10 mg PO TID PRN (Reason: Spasms) RF: 0 metoclopramide HCl 10 MG tablet 10 mg PO BIDCM PRN (Reason: STOMACH) RF: 0 pregabalin 150 MG capsule 150 mg PO 4X/DAY RF: 0 dulaglutide 0.75 MG/0.5 ML pen injector 0.75 mg SQ FR RF: 0 Hold Instructions: Resume on 03/02/21. testosterone 75 GM gel in metered-dose pump 2 each TD QHS RF: 0 Hold Instructions: Resume on 03/02/21. ondansetron 4 MG tablet 4 mg PO Q6H PRN (Reason: Nausea) RF: 0 oxycodone 5 mg Tablet 10 mg PO Q6H PRN PRN (Reason: Pain Score 6-10) 3 Days Qty: 10 RF: 0 Zosyn in dextrose (iso-osm) 3.375 gram/50 mL piggyback 3.375 g IV Q8H RF: 0 insulin lispro [Humalog KwikPen Insulin] 100 unit/mL insulin pen 5 unit subcut BREAKFAST RF: 0 insulin lispro [Humalog KwikPen Insulin] 100 unit/mL insulin pen 5 unit subcut DINNER RF: 0 insulin lispro [Humalog KwikPen Insulin] 100 unit/mL insulin pen See Protocol unit subcut 4X/DAYCM RF: 0 insulin lispro [Humalog KwikPen Insulin] 100 unit/mL insulin pen 5 unit subcut LUNCH RF: 0 insulin detemir U-100 100 UNIT/ML insulin pen 35 unit SQ BID RF: 0 Lantus Solostar U-100 Insulin 100 unit/mL (3 mL) insulin pen 25 units subcut DINNER RF: 0 rivaroxaban 15 mg tablet 15 mg PO BIDCM RF: 0 Referrals / Follow Up: Dani Sevilla DO [Primary Care Provider] - Disposition Disposition (needs filled in before D/C Order can be placed): [facility]
[2021-01-26 21:36] LABS: Bedside Glucose 294 mg/dL (70-110)
[2021-01-26] MEDS: Ciprofloxacin 500 MG Tablet PO (22:17)
--- NOTE | 2021-01-26 23:55 | PCA ---
Pt declines to use the slide board stating he feels they are unsafe. em
[2021-01-27 02:36] LABS: Bedside Glucose 110 mg/dL (70-110)
[2021-01-27] MEDS: oxyCODONE 5 MG Tablet 10 MG PO ×4 (05:17→23:59)
[2021-01-27] MEDS: Amox/Clavulanate 875 MG Tablet PO (05:17)
[2021-01-27] MEDS: Ciprofloxacin 500 MG Tablet PO ×2 (05:17→17:33)
[2021-01-27] MEDS: Pregabalin 75 MG Capsule 150 MG PO ×4 (05:48→20:54)
[2021-01-27] MEDS: Menthol/Lanolin/Calamine/Znox 113 GM Tube 1 APPLIC TOPICAL ×2 (06:04→17:35)
[2021-01-27] MEDS: Nystatin Powder 15gm Bottle 1 APPLIC TOPICAL ×2 (06:04→17:35)
[2021-01-27 06:17] VITALS: BP 92/47; PULSE 81; RESP 12; TEMP 36.6; O2SAT 97
[2021-01-27 06:41] LABS: Bedside Glucose 92 mg/dL (70-110)
[2021-01-27] MEDS: Glucerna Shake 120 ML LIQUID PO ×3 (08:21→17:37)
[2021-01-27] MEDS: Juven (unflavored) Packet 1 PACKET PO ×2 (08:23→17:34)
[2021-01-27] MEDS: Rivaroxaban 15 MG Tablet PO ×2 (08:25→17:33)
[2021-01-27 11:16] LABS: Bedside Glucose 409 mg/dL (70-110)
[2021-01-27] MEDS: Insulin Lispro 100 UNIT/ML INSULN.PEN SC ×2 (11:28→13:18)
--- NOTE | 2021-01-27 12:12 | MDS.RN ---
Information for the mds was obtained from review of the clinical record, interview of resident, staff, and direct observation of resident's care.
--- NOTE | 2021-01-27 12:14 | NURSING ---
Pt Blood sugar 409 pt received 5 units of Humalog Advised pt we will call and update Dr. Clancy to ask for more units to cover for his Blood sugar is high. Pt refused stated I just received 5 Units and I want to wait and see what my Blood sugar is in 30min and if it is high then i'll see about taking more Humalog. Educated Pt on elevated Blood Sugar. Will retest Blood sugar in 30min and update Dr. Clancy.
[2021-01-27 13:00] LABS: Bedside Glucose 453 mg/dL (70-110)
--- NOTE | 2021-01-27 13:04 | PCM.PN.ID ---
Physical Exam Narrative still with ongoing diarrhea, no fever Const alert and no apparent distress General Appearance: cooperative Resp normal air movement and clear to auscultation bilaterally Cardio regular rate and regular rhythm GI normal to inspection, nondistended, normoactive bowel sounds Skin Skin Narrative: leg wrapped ID ID: Route of nutrition/ use of supplements: [] Nutritional Intake: [] IV Site: [] Almodovar Catheter: [] Assessment & Plan Assessment/Plan (1) Bacteremia: (2) Foot osteomyelitis, left: PLAN: Wound cx 10/2020 with klebs, enterobacter, strep, enterococcus, CoNS, corynebacter, and anaerobes.? OR 01/13/[address] East.? Bcx with enterobacter.? Wound cx and surg cx with enterobacter, citrobacter, corynebacter.? On 6 weeks iv abx , stop date 02/24. Worsened diarrhea, no laxatives given. 01/19 changed to cefepime/flagyl. Cdiff was neg. Still with some diarrhea and was refusing half of his abx doses. 01/25 changed to po cipro/augmentin to see if this is easier on his stomach. Is on probiotic. 01/27 still with diarrhea, is taking lomotil. Could consider imodium. Will keep cipro, will change augmentin to flagyl to see if this can help. Will need covid shot after discharge. Will follow
[2021-01-27] MEDS: metroNIDAZOLE 500 MG Tablet PO ×2 (14:58→20:54)
[2021-01-27 15:32] VITALS: BP 115/52; PULSE 88; RESP 16; TEMP 37.1; O2SAT 98
[2021-01-27 16:51] LABS: Bedside Glucose 339 mg/dL (70-110)
[2021-01-27] MEDS: Diphenoxylate/Atrop 1 Tablet PO (21:01)
[2021-01-27 22:11] LABS: Bedside Glucose 416 mg/dL (70-110)
[2021-01-28 02:26] LABS: Bedside Glucose 245 mg/dL (70-110)
[2021-01-28 05:00] VITALS: BP 115/60; PULSE 78; RESP 14; TEMP 36.7
[2021-01-28] MEDS: Nystatin Powder 15gm Bottle 1 APPLIC TOPICAL ×2 (05:46→17:09)
[2021-01-28] MEDS: metroNIDAZOLE 500 MG Tablet PO ×2 (05:46→13:29)
[2021-01-28] MEDS: Ciprofloxacin 500 MG Tablet PO (05:46)
[2021-01-28] MEDS: Menthol/Lanolin/Calamine/Znox 113 GM Tube 1 APPLIC TOPICAL ×2 (05:47→17:09)
[2021-01-28] MEDS: Pregabalin 75 MG Capsule 150 MG PO ×4 (05:54→22:44)
[2021-01-28] MEDS: oxyCODONE 5 MG Tablet 10 MG PO ×3 (06:04→22:49)
[2021-01-28 06:25] LABS: Bedside Glucose 171 mg/dL (70-110)
[2021-01-28] MEDS: Insulin Lispro 100 UNIT/ML INSULN.PEN SC ×5 (08:53→22:45)
[2021-01-28] MEDS: Rivaroxaban 15 MG Tablet PO ×2 (08:54→17:08)
[2021-01-28] MEDS: Juven (unflavored) Packet 1 PACKET PO ×2 (08:54→17:08)
[2021-01-28] MEDS: Glucerna Shake 120 ML LIQUID PO ×2 (11:22→17:08)
[2021-01-28 11:25] LABS: Bedside Glucose 351 mg/dL (70-110)
[2021-01-28 11:41] VITALS: PULSE 89; RESP 14; O2SAT 98
[2021-01-28 15:44] VITALS: BP 99/43; PULSE 89; RESP 14; TEMP 36.8; O2SAT 98
--- NOTE | 2021-01-28 17:06 | NURSING ---
Addendum entered by Tequila Jensen 01/28/21 18:27: BS 461 Original Note: Notified Dr. Clancy of patients current BS, received order to administer 10 units of humalog for dinner. Order repeated back, will add order.
[2021-01-28] MEDS: Diphenoxylate/Atrop 1 Tablet PO (17:26)
[2021-01-28 21:55] LABS: Bedside Glucose 461 mg/dL (70-110)
--- NOTE | 2021-01-28 22:29 | NURSING ---
Pt blood sugar 461, pt sitting up in bed, alert and oriented x3, skin warm and dry, pt states he feels fine I only get weird when my sugar drops. Pt states he is willing to take more insulin but only 4-5units, not 20units. Dr. Clancy notified, order for 5units humalog, will continue to monitor.
[2021-01-28] MEDS: Ondansetron ODT 4 MG Tablet PO (22:54)
[2021-01-29 02:21] LABS: Bedside Glucose 293 mg/dL (70-110)
[2021-01-29 04:13] VITALS: BP 98/62; PULSE 80; RESP 18; TEMP 36.7; O2SAT 98
[2021-01-29] MEDS: Pregabalin 75 MG Capsule 150 MG PO ×4 (04:19→21:38)
[2021-01-29] MEDS: Nystatin Powder 15gm Bottle 1 APPLIC TOPICAL ×2 (04:20→18:15)
--- NOTE | 2021-01-29 04:20 | NURSING ---
Pt awake, called out for coffee so he could go to sleep, in to do vitals and meds, pt states he has slept off and on tonight, is pleasant and talkative. Refused to take abx and acidophillus, states I'm not taking any more of that stuff, it is causing my diarrhea, and I'm tired of that dr trying to give me more stuff when I don't need them. pt educated on acidophillus and use of abx, pt still insistent on refusing. Will update Dr. Clancy.
[2021-01-29] MEDS: Menthol/Lanolin/Calamine/Znox 113 GM Tube 1 APPLIC TOPICAL ×2 (04:21→18:15)
[2021-01-29] MEDS: 0.9% Saline Lock 10 ML Syringe IV (04:22)
[2021-01-29 06:36] LABS: Bedside Glucose 413 mg/dL (70-110)
[2021-01-29] MEDS: oxyCODONE 5 MG Tablet 10 MG PO ×2 (07:54→21:36)
[2021-01-29] MEDS: Insulin Lispro 100 UNIT/ML INSULN.PEN SC ×2 (07:55→18:12)
[2021-01-29] MEDS: Juven (unflavored) Packet 1 PACKET PO ×2 (07:56→18:11)
[2021-01-29] MEDS: Rivaroxaban 15 MG Tablet PO ×2 (07:56→18:11)
[2021-01-29] MEDS: Glucerna Shake 120 ML LIQUID PO ×3 (07:59→18:11)
[2021-01-29 11:15] LABS: Bedside Glucose 276 mg/dL (70-110)
--- NOTE | 2021-01-29 14:10 | NURSING ---
Patient refused Humalog this afternoon. This nurse educated patient on the importance of maintaining blood sugar and patient still refused.
[2021-01-29] MEDS: metroNIDAZOLE 500 MG Tablet PO (14:52)
[2021-01-29 15:52] VITALS: BP 90/50; PULSE 88; RESP 14; TEMP 36.8; O2SAT 98
[2021-01-29 17:31] LABS: Bedside Glucose 433 mg/dL (70-110)
[2021-01-29 21:25] LABS: Bedside Glucose 439 mg/dL (70-110)
[2021-01-29] MEDS: Insulin Lispro 100 UNIT/ML INSULN.PEN 7 UNIT SC (21:35)
[2021-01-30 02:41] LABS: Bedside Glucose 124 mg/dL (70-110)
[2021-01-30] MEDS: oxyCODONE 5 MG Tablet 10 MG PO ×3 (03:39→20:03)
[2021-01-30 05:45] VITALS: BP 101/54; PULSE 75; RESP 16; TEMP 36.6; O2SAT 97
[2021-01-30] MEDS: Pregabalin 75 MG Capsule 150 MG PO ×4 (05:45→22:10)
[2021-01-30] MEDS: Menthol/Lanolin/Calamine/Znox 113 GM Tube 1 APPLIC TOPICAL (05:46)
[2021-01-30] MEDS: Nystatin Powder 15gm Bottle 1 APPLIC TOPICAL ×2 (05:48→17:20)
[2021-01-30] MEDS: 0.9% Saline Lock 10 ML Syringe IV ×2 (05:51→11:59)
[2021-01-30 06:30] LABS: Bedside Glucose 153 mg/dL (70-110)
[2021-01-30 07:31] LABS: Bedside Glucose 489 mg/dL (70-110)
[2021-01-30 07:31] LABS: Bedside Glucose 461 mg/dL (70-110)
[2021-01-30] MEDS: Insulin Lispro 100 UNIT/ML INSULN.PEN SC ×3 (08:20→17:25)
[2021-01-30] MEDS: Rivaroxaban 15 MG Tablet PO ×2 (08:20→17:22)
[2021-01-30] MEDS: Glucerna Shake 120 ML LIQUID PO ×3 (08:21→17:20)
[2021-01-30] MEDS: Juven (unflavored) Packet 1 PACKET PO ×2 (08:21→17:20)
[2021-01-30 11:21] LABS: Bedside Glucose 271 mg/dL (70-110)
[2021-01-30] MEDS: Ondansetron ODT 4 MG Tablet PO (14:51)
[2021-01-30 15:39] VITALS: BP 116/56; PULSE 82; RESP 16; TEMP 36.9; O2SAT 94
[2021-01-30 17:15] LABS: Bedside Glucose 298 mg/dL (70-110)
--- NOTE | 2021-01-30 17:52 | NURSING ---
Pt refusing to take antibiotics today. Pt educated on the importance of taking antibiotics. Pt still refusing to take, states they have been giving him diarrhea and skipping some doses will help that stop.
[2021-01-30 21:45] LABS: Bedside Glucose 291 mg/dL (70-110)
--- NOTE | 2021-01-30 23:20 | NURSING ---
Wound vac dressing completed. Black foam removed from wound bed. Wound bed red and w/ scattered patches of white tissue. Wound edge primarily to superior aspect of wound white, macerated. Moderate amount of serosanguinous drainage noted when dressing removed and when cleaning wound. Wound bed and periwound skin cleansed w/ NS and pat dry. Skin prep applied to periwound skin and allowed to dry. Drape applied to periwound skin and skin to dorsal aspect of foot prior to placement of bridge piece. One piece of black foam applied to wound bed and bridged to dorsal aspect of foot. Foam covered w/ several pieces of drape to secure. Quarter size hole cut into foam covered w/ drape to bridged area. Track pad placed and secured w/ additional drape. Connected to wound vac at 150 mmHg continuous suction. No leaks noted. Canister approximately 2/3-3/4 full w/ serosanguinous dressing. ABD placed under tubing of trcak pad. Wrapped w/ kerlix followed by any ENA wrap for support. Pt tolerated well. Call light w/ in reach.
[2021-01-31 05:00] VITALS: BP 94/48; PULSE 79; RESP 16; TEMP 36.5; O2SAT 96
[2021-01-31] MEDS: Menthol/Lanolin/Calamine/Znox 113 GM Tube 1 APPLIC TOPICAL ×2 (05:55→20:53)
[2021-01-31] MEDS: Nystatin Powder 15gm Bottle 1 APPLIC TOPICAL ×2 (05:55→20:54)
[2021-01-31] MEDS: Pregabalin 75 MG Capsule 150 MG PO ×4 (06:08→20:54)
--- NOTE | 2021-01-31 06:46 | NURSING ---
Blood sugar 70 this am. Refuses orange juice. Requests cranberry juice, no added sugar. Given yogurt and two packets of Jeannie Doone cookies given. Pt alert and speech is clear. Vitals obtained and recorded. BP low. Skin pale and dry- baseline. Requests blood sugar to be rechecked at 0700.
--- NOTE | 2021-01-31 06:53 | NURSING ---
Did not change canister to wound vac. Approximately 2/3 full and does not appear to have any additional drainage in canister since dressing change earlier in shift.
--- NOTE | 2021-01-31 07:16 | NURSING ---
Refused Yue and Jose this am. Would like to wait to resume medications tomorrow. Instructed on importance of taking antibiotics as ordered to prevent infection for becoming worse which in turn may delay projected amputation to LLE. Further education needed.
[2021-01-31] MEDS: Juven (unflavored) Packet 1 PACKET PO ×2 (08:22→17:28)
[2021-01-31] MEDS: Glucerna Shake 120 ML LIQUID PO ×3 (08:22→17:34)
[2021-01-31] MEDS: Rivaroxaban 15 MG Tablet PO ×2 (08:24→17:29)
[2021-01-31] MEDS: oxyCODONE 5 MG Tablet 10 MG PO ×2 (08:24→17:35)
[2021-01-31] MEDS: Insulin Lispro 100 UNIT/ML INSULN.PEN SC ×3 (11:35→17:26)
[2021-01-31 11:38] LABS: Bedside Glucose 70 mg/dL (70-110)
[2021-01-31 11:38] LABS: Bedside Glucose 186 mg/dL (70-110)
[2021-01-31 11:38] LABS: Bedside Glucose 186 mg/dL (70-110)
[2021-01-31 11:39] LABS: Bedside Glucose 445 mg/dL (70-110)
--- NOTE | 2021-01-31 11:41 | NURSING ---
Reported blood sugar of [address] Clancy. Patient had refused breafkast humalog but took his Lantus 30 units. Resident requests 3 more units of Humalog. Dr Clancy aware and orders to give 3 more units of Humalog with his lunch.
[2021-01-31 13:10] VITALS: BP 121/73; PULSE 91; RESP 20; TEMP 36.6; O2SAT 99
[2021-01-31] MEDS: 0.9% Saline Lock 10 ML Syringe IV (14:58)
--- NOTE | 2021-01-31 15:00 | NURSING ---
Unable to get blood return to white and blue lumen. Blue lumen flushed with heparin. Sent to communication to pharmacy to send another syringe of heparin to flush white lumen. resident refusing Flagyl antibiotic at this time due to loose stool.
[2021-01-31 16:10] LABS: Bedside Glucose 328 mg/dL (70-110)
--- NOTE | 2021-01-31 18:10 | NURSING ---
Refusing dominic and nystatin powder. Educated on breakdown to buttock and he states Im eating supper now. Have them check back later.
[2021-01-31 21:40] LABS: Bedside Glucose 356 mg/dL (70-110)
[2021-02-01 03:21] LABS: Bedside Glucose 137 mg/dL (70-110)
[2021-02-01 05:41] LABS: Absolute Lymphocyte Count 1.93 X10^3/uL (0.83-4.51); Absolute Neutrophil Count 4.8 X10^3/uL (2.0-7.7); Basophil# 0.08 X10^3/uL; Eosinophils% 2.6 % (0-5); Hematocrit 29.4 % (40-54); Hemoglobin 9.1 g/dL (13.0-16.5); Lymphocyte # 1.93 X10^3/ul (0.83-4.51); Lymphocyte % 25.2 % (19-41); Mean Corpuscular Hgb 27.5 pg (27.0-32.0); Mean Corpuscular Volume 88.8 fL (80-94); Mean Platelet Vol. 11.7 fl (6.2-12.0); Monocyte# 0.58 X10^3/uL; Monocyte% 7.6 % (0-10); NRBC Flagged by Analyzer 0 % (0-5); Neutrophil # 4.82 X10^3/uL (2.7-7.7); Neutrophil % 63.1 % (47-70); Platelet Count 321 K/mm3 (150-450); RBC Distribution Width CV 16.6 % (11.6-14.6); RBC Distribution Width SD 54.3 fl (35.1-43.9); Red Blood Count 3.31 M/mm3 (4.6-6.2); White Blood Count 7.7 K/mm3 (4.4-11.0)
[2021-02-01 06:03] LABS: Anion Gap 5 (5-15); BUN 30 mg/dL (7-18); BUN/Creat Ratio 29.7 RATIO (10-20); Calcium,Total 8.8 mg/dL (8.5-10.1); Chloride 112 mmol/L (98-107); Creatinine, Serum 1.01 mg/dL (0.70-1.30); EST Glomerular Filtration Rate 78 mL/min (>60); Est Glom Filt Rate - Afr Amer 95 mL/min (>60); Estimated Creatinine Clearance 71.55 ml/min; Glucose 83 mg/dL (74-106); Potassium 4.6 mmol/L (3.5-5.1); Sodium Level 141 mmol/L (136-145)
[2021-02-01 06:15] VITALS: BP 122/56; PULSE 85; RESP 16; TEMP 36.8; O2SAT 96
[2021-02-01 06:20] LABS: Bedside Glucose 79 mg/dL (70-110)
[2021-02-01] MEDS: Menthol/Lanolin/Calamine/Znox 113 GM Tube 1 APPLIC TOPICAL ×2 (06:36→16:32)
[2021-02-01] MEDS: Pregabalin 75 MG Capsule 150 MG PO ×4 (06:37→20:29)
[2021-02-01] MEDS: Nystatin Powder 15gm Bottle 1 APPLIC TOPICAL ×2 (06:38→16:33)
[2021-02-01] MEDS: oxyCODONE 5 MG Tablet 10 MG PO ×2 (06:42→16:36)
[2021-02-01] MEDS: Juven (unflavored) Packet 1 PACKET PO ×2 (08:06→16:29)
[2021-02-01] MEDS: Glucerna Shake 120 ML LIQUID PO ×2 (08:06→11:38)
[2021-02-01] MEDS: Rivaroxaban 15 MG Tablet PO ×2 (08:11→16:30)
[2021-02-01 11:00] LABS: Bedside Glucose 348 mg/dL (70-110)
[2021-02-01] MEDS: Insulin Lispro 100 UNIT/ML INSULN.PEN SC ×2 (11:40→17:59)
--- NOTE | 2021-02-01 12:48 | CASEMGMT ---
Social Work PASRR completed. Jose Eduardo Cornelius BROOMCORN SORTER, CARLOS
[2021-02-01 14:26] VITALS: BP 159/73; PULSE 92; RESP 14; TEMP 36.6; O2SAT 99
--- NOTE | 2021-02-01 15:12 | NURSING ---
wound photo: left heel
--- NOTE | 2021-02-01 15:12 | NURSING ---
wound photo: left heel
[2021-02-01 16:25] LABS: Bedside Glucose 308 mg/dL (70-110)
--- NOTE | 2021-02-01 18:01 | NURSING ---
Pt refused Lantus at this time would like to take it at 20:00.
[2021-02-01] MEDS: 0.9% Saline Lock 10 ML Syringe IV (19:24)
[2021-02-01] MEDS: Diphenoxylate/Atrop 1 Tablet PO (20:25)
[2021-02-01 21:26] LABS: Bedside Glucose 292 mg/dL (70-110)
[2021-02-02 02:15] LABS: Bedside Glucose 123 mg/dL (70-110)
[2021-02-02 06:09] VITALS: BP 111/54; PULSE 81; RESP 16; TEMP 36.8; O2SAT 95
[2021-02-02] MEDS: Psyllium 1 PACKET PO (06:10)
[2021-02-02 06:15] LABS: Bedside Glucose 56 mg/dL (70-110)
[2021-02-02] MEDS: Pregabalin 75 MG Capsule 150 MG PO ×4 (06:17→21:09)
[2021-02-02] MEDS: Menthol/Lanolin/Calamine/Znox 113 GM Tube 1 APPLIC TOPICAL ×2 (06:18→17:15)
[2021-02-02] MEDS: Nystatin Powder 15gm Bottle 1 APPLIC TOPICAL ×2 (06:19→17:15)
[2021-02-02] MEDS: oxyCODONE 5 MG Tablet 10 MG PO ×3 (06:22→21:09)
[2021-02-02] MEDS: 0.9% Saline Lock 10 ML Syringe IV (06:39)
[2021-02-02 07:05] LABS: Bedside Glucose 75 mg/dL (70-110)
[2021-02-02] MEDS: Rivaroxaban 15 MG Tablet PO ×2 (08:28→17:07)
[2021-02-02] MEDS: Ondansetron ODT 4 MG Tablet PO (08:28)
[2021-02-02] MEDS: Diphenoxylate/Atrop 1 Tablet PO ×2 (08:28→21:09)
[2021-02-02 10:30] LABS: Bedside Glucose 308 mg/dL (70-110)
[2021-02-02] MEDS: Insulin Lispro 100 UNIT/ML INSULN.PEN SC ×2 (11:49→22:48)
[2021-02-02 13:19] VITALS: BP 103/55; PULSE 89; RESP 18; TEMP 36.3; O2SAT 98
[2021-02-02 16:26] LABS: Bedside Glucose 278 mg/dL (70-110)
[2021-02-02] MEDS: Juven (unflavored) Packet 1 PACKET PO (17:14)
[2021-02-02 21:30] LABS: Bedside Glucose 405 mg/dL (70-110)
--- NOTE | 2021-02-02 22:28 | PCA ---
Pt declined to wash up for the evening, stating he did not want to this evening. em
--- NOTE | 2021-02-02 23:31 | NURSING ---
Pts HS dennise was 405, spoke with patient and he is agreeable to take 5 units of Humolog. Spoke with Dr. Clancy and got 1 time order for 5 units.
[2021-02-03 02:41] LABS: Bedside Glucose 107 mg/dL (70-110)
[2021-02-03] MEDS: Pregabalin 75 MG Capsule 150 MG PO ×4 (05:20→21:37)
[2021-02-03] MEDS: Menthol/Lanolin/Calamine/Znox 113 GM Tube 1 APPLIC TOPICAL ×2 (05:22→17:37)
[2021-02-03] MEDS: Nystatin Powder 15gm Bottle 1 APPLIC TOPICAL ×2 (05:23→17:41)
[2021-02-03 06:26] LABS: Bedside Glucose 137 mg/dL (70-110)
[2021-02-03 06:45] VITALS: BP 98/44; PULSE 85; RESP 14; TEMP 37.2; O2SAT 92
[2021-02-03] MEDS: Juven (unflavored) Packet 1 PACKET PO ×2 (08:26→17:31)
[2021-02-03] MEDS: Rivaroxaban 15 MG Tablet PO ×2 (08:26→17:31)
[2021-02-03] MEDS: Glucerna Shake 120 ML LIQUID PO ×2 (08:28→11:57)
[2021-02-03] MEDS: oxyCODONE 5 MG Tablet 10 MG PO ×2 (08:36→17:36)
[2021-02-03 10:00] VITALS: PULSE 75; RESP 16; O2SAT 99
--- NOTE | 2021-02-03 10:43 | PN_ITS ---
Subjective Subjective Patient was seen today for follow up on left foot. He is ready to proceed with amputation with Dr. Vasquez. He has no fever, chills, nausea, or vomiting. He does relate his diarrhea has improved. Objective Data Objective Data Vital Signs: Vital Signs Temp Pulse Resp BP Pulse Ox 98.9 F 85 14 98/44 L 92 02/03/21 06:45 02/03/21 06:45 02/03/21 06:45 02/03/21 06:45 02/03/21 06:45 Oxygen Delivery Method Room Air Weight: 71.271 kg Body Mass Index (BMI) 21.7 Intake & Output: Intake and Output for Last 24 Hours 02/01/21 02/02/21 02/03/21 23:59 23:59 23:59 Intake Total 2760 / 2760 1920 / 1920 480 / 480 Balance 2760 / 2760 1920 / 1920 480 / 480 Lab / Micro Data Result Diagrams: 02/01/21 05:25 02/01/21 05:25 Labs: Laboratory Results - last 24 hr 02/02/21 02/02/21 02/03/21 16:14 21:21 02:32 POC Glucose 278 H 405 H 107 02/03/21 06:21 POC Glucose 137 H Micro: Microbiology 01/19/21 20:20 Stool C. difficile DNA Amplification - Final Physical Exam Const alert and oriented x3 General Appearance: cooperative HEENT normocephalic Extremity normal capillary refill Extremity Narrative: Muscle wasting noted. Wide spread ulceration left lower plantar and posterior foot and lower extremity with granular tissue. Right below-knee amputation. Compartments are soft to palpate left lower extremity and there is negative Virgie and Long sign left. Palpable DP and PT pulse, left. Reduced edema left lower extremity General Extremity: edema Skin Skin Narrative: left lower extremity: Upon vac removal, open widespread ulceration site with no purulence, no erythema, no necrosis, no odor, no streaking. There is exposed calcaneus bone, no evidence of acute infection. Adjacent skin is hairless and atrophic. There are no new areas of fluctuance or bogginess. Neuro Neuro Narrative: Lack of epicritic sensation is consistent with neuropathic status Assessment & Plan Assessment/Plan (1) 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: (2) Delayed wound healing: (3) Diabetes mellitus with polyneuropathy: (4) Peripheral vascular disease: (5) Foot osteomyelitis, left: PLAN: Patient seen and examined. He is s/p debridement left foot/heel with partial calcanectomy on 01/13/2021. Reviewed diagnostic data. He is afebrile and vitals are stable. Foot is stable and no evidence of acute infection. Continue antibiotics per infectious disease. Preoperative cultures with ci trobacter freundii, Enterobacter cloacae complex, corynebacterium minutissimum.? Intraoperative bone culture with Enterobacter cloacae and anaerobic cocci. Blood cultures with enterobacter cloacae complex. Histopathological specimen with acute osteomyelitis confirmed. Wound VAC was placed; 150 mmHg continuous. Will plan for change three times weekly. No weightbearing left foot. He was advised to hang his heel over pillow while in bed to keep pressure off of the surgical and wound site. An arterial duplex Doppler was ordered and is biphasic PT artery waveform MARISSA 0.87. There are some abnormalities and reported as moderate to severe arterial disease. I recommend a vascular surgery consultation. Dr. Arias evaluated this patient and input is greatly appreciated. He appears to have adequate perfusion that would suggest a below the knee amputation can heal. It is noted that Dr. Vasquez was consulted for BKA and plans to proceed with this in the near future. Peroneal vein DVT noted; management per Dr. Clancy. He is on xarelto. Medical management is noted and appreciated. Podiatry will continue to follow weekly. Please do not hesitate to call if you have any questions.
--- NOTE | 2021-02-03 11:22 | CASEMGMT ---
Brief interview for mental status (BIMS) and resident mood assessment (PHQ-9) completed on this day. Jose Eduardo BUENO, JAIS
[2021-02-03 11:45] LABS: Bedside Glucose 390 mg/dL (70-110)
[2021-02-03] MEDS: Insulin Lispro 100 UNIT/ML INSULN.PEN SC ×2 (11:57→17:31)
[2021-02-03 14:41] VITALS: BP 125/66; PULSE 84; RESP 16; TEMP 36.9; O2SAT 93
[2021-02-03] MEDS: Diphenoxylate/Atrop 1 Tablet PO ×2 (14:43→21:37)
[2021-02-03] MEDS: Ondansetron ODT 4 MG Tablet PO (14:43)
--- NOTE | 2021-02-03 14:46 | NURSING ---
PICC line to left chest removed by Dr. Clancy, pt tolerated well. Dry dressing applied. PICC line tip intact, line measuring 16cm.
[2021-02-03 16:55] LABS: Bedside Glucose 223 mg/dL (70-110)
[2021-02-03 21:20] LABS: Bedside Glucose 281 mg/dL (70-110)
[2021-02-04 02:20] LABS: Bedside Glucose 170 mg/dL (70-110)
[2021-02-04 05:00] VITALS: BP 104/53; PULSE 81; RESP 16; TEMP 36.8; O2SAT 95
[2021-02-04] MEDS: Menthol/Lanolin/Calamine/Znox 113 GM Tube 1 APPLIC TOPICAL ×2 (05:14→17:56)
[2021-02-04] MEDS: Nystatin Powder 15gm Bottle 1 APPLIC TOPICAL ×2 (05:15→17:56)
[2021-02-04] MEDS: Pregabalin 75 MG Capsule 150 MG PO ×4 (05:15→22:23)
[2021-02-04] MEDS: oxyCODONE 5 MG Tablet 10 MG PO ×2 (05:20→18:14)
[2021-02-04 06:16] LABS: Bedside Glucose 83 mg/dL (70-110)
[2021-02-04] MEDS: Glucerna Shake 120 ML LIQUID PO (08:21)
[2021-02-04] MEDS: Juven (unflavored) Packet 1 PACKET PO ×2 (08:21→17:55)
[2021-02-04] MEDS: Rivaroxaban 15 MG Tablet PO ×2 (08:21→17:56)
[2021-02-04 10:00] VITALS: RESP 16; O2SAT 93
[2021-02-04] MEDS: Diphenoxylate/Atrop 1 Tablet PO ×2 (10:13→18:02)
[2021-02-04] MEDS: Ondansetron ODT 4 MG Tablet PO ×2 (10:13→18:02)
[2021-02-04 11:06] LABS: Bedside Glucose 369 mg/dL (70-110)
[2021-02-04] MEDS: Insulin Lispro 100 UNIT/ML INSULN.PEN SC (13:07)
[2021-02-04 14:07] VITALS: BP 92/50; PULSE 65; RESP 14; TEMP 36.1; O2SAT 93
--- NOTE | 2021-02-04 16:05 | NURSING ---
Pt wound Vac container full replaced with new canister.
--- NOTE | 2021-02-04 17:17 | NURSING ---
Addendum entered by Rachelle Wu 02/04/21 18:20: Pt updated on new orders and refused to take 15 units of Humalog only wanted to take 10 units. Educated pt on importance of controlling blood sugars. Pt stated he doesn't do well when sugar goes below 100. Original Note: Pt Blood sugar 454 rechecked and got 372. Dr. Parsons Cortexted and new orders entered for 1x dose of 15 units of Humalog and Changed morning Lantus to 40 units and continued with the 25 units at HS. Order read back.
[2021-02-04] MEDS: Insulin Lispro 100 UNIT/ML INSULN.PEN 10 UNIT SC (17:54)
--- NOTE | 2021-02-04 18:17 | NURSING ---
Pt requested to for Zofran and Oxycodan pt educated on increased risks of falls, lightheadedness/Dizzyness, and/or confusion when taken together pt stated that he will be fine and would like to take both at this time.
[2021-02-04 21:40] LABS: Bedside Glucose 263 mg/dL (70-110)
[2021-02-05 03:51] LABS: Bedside Glucose 122 mg/dL (70-110)
[2021-02-05 05:00] VITALS: BP 104/51; PULSE 79; RESP 14; TEMP 36.1; O2SAT 96
[2021-02-05] MEDS: Pregabalin 75 MG Capsule 150 MG PO ×4 (05:06→21:29)
[2021-02-05] MEDS: Menthol/Lanolin/Calamine/Znox 113 GM Tube 1 APPLIC TOPICAL ×2 (05:07→17:22)
[2021-02-05] MEDS: oxyCODONE 5 MG Tablet 10 MG PO ×3 (05:07→21:23)
[2021-02-05] MEDS: Diphenoxylate/Atrop 1 Tablet PO ×3 (05:07→21:29)
[2021-02-05] MEDS: Nystatin Powder 15gm Bottle 1 APPLIC TOPICAL ×2 (05:08→17:22)
[2021-02-05 06:15] LABS: Bedside Glucose 50 mg/dL (70-110)
[2021-02-05 06:46] LABS: Bedside Glucose 60 mg/dL (70-110)
--- NOTE | 2021-02-05 07:01 | NURSING ---
Blood sugar 50 this AM. Patient awake and appropriate, no mental status change, snack and coke given. First repeat sugar 60. Will continue to monitor.
[2021-02-05] MEDS: Rivaroxaban 15 MG Tablet PO ×2 (08:03→17:21)
[2021-02-05] MEDS: Juven (unflavored) Packet 1 PACKET PO ×2 (08:03→17:22)
--- NOTE | 2021-02-05 09:39 | NURSING ---
Addendum entered by Rachelle Wu 02/05/21 10:00: Pt Blood sugar 290 pt received 40 units of Lantus at this time . Original Note: Pt's blood sugar this morning was 50 and rechecked 30 min later blood sugar was 60. [facility] held this morning Dr. Parsons updated. Dr. Parsons stated to give the 40 units of Lantus this am and New order for Lanuts QHS 12 units. Pt refused to take Lantus until after he had eaten and to recheck Blood sugar prior. This nurse went into get blood sugar pt on bed side commode and stated that he does not want that done at this time. Will recheck blood sugar when pt is finished on bedside commode. Call light within reach.
[2021-02-05 09:56] LABS: Bedside Glucose 290 mg/dL (70-110)
[2021-02-05 11:05] LABS: Bedside Glucose 338 mg/dL (70-110)
[2021-02-05 11:25] VITALS: PULSE 82; RESP 16; O2SAT 95
[2021-02-05] MEDS: Insulin Lispro 100 UNIT/ML INSULN.PEN SC ×2 (11:52→17:21)
[2021-02-05] MEDS: Metoclopramide 10 MG Tablet PO (11:53)
[2021-02-05 15:46] VITALS: BP 112/61; PULSE 82; RESP 16; TEMP 36.8; O2SAT 95
[2021-02-05] MEDS: Ondansetron ODT 4 MG Tablet PO (21:29)
[2021-02-06 02:41] LABS: Bedside Glucose 163 mg/dL (70-110)
[2021-02-06 05:00] VITALS: PULSE 81; RESP 16; TEMP 36.9; O2SAT 96
[2021-02-06 06:20] LABS: Bedside Glucose 153 mg/dL (70-110)
[2021-02-06 06:28] VITALS: BP 99/41; PULSE 80
[2021-02-06] MEDS: Pregabalin 75 MG Capsule 150 MG PO (06:32)
[2021-02-06] MEDS: Menthol/Lanolin/Calamine/Znox 113 GM Tube 1 APPLIC TOPICAL (06:33)
[2021-02-06] MEDS: Nystatin Powder 15gm Bottle 1 APPLIC TOPICAL (06:33)
[2021-02-06] MEDS: Diphenoxylate/Atrop 1 Tablet PO (08:16)
[2021-02-06] MEDS: Metoclopramide 10 MG Tablet PO (08:16)
[2021-02-06] MEDS: Insulin Lispro 100 UNIT/ML INSULN.PEN SC (08:16)
[2021-02-06] MEDS: oxyCODONE 5 MG Tablet 10 MG PO (08:16)
[2021-02-06] MEDS: Rivaroxaban 15 MG Tablet PO (08:16)
[2021-02-06 09:39] VITALS: BP 102/47; PULSE 91; RESP 16; TEMP 36.4; O2SAT 95
[2021-02-06 09:42] VITALS: PULSE 90; RESP 16; O2SAT 95
[2021-02-07 16:15] LABS: Bedside Glucose 396 mg/dL (70-110)
[2021-02-07 16:15] LABS: Bedside Glucose 372 mg/dL (70-110)
[2021-02-07 16:15] LABS: Bedside Glucose 454 mg/dL (70-110)
[2021-02-07 16:15] LABS: Bedside Glucose 394 mg/dL (70-110)
[2021-02-07 16:15] LABS: Bedside Glucose > 500 mg/dL (70-110)
[2021-02-07 16:15] LABS: Bedside Glucose 422 mg/dL (70-110)
== END 2021-02-06 10:30 | DRG 638 ==
PROVIDERS: Admitting Provider Family Medicine Geriatric Medicine; PCP Family Medicine; Visit Provider Family Medicine Geriatric Medicine
DX: E11.69 Type 2 diabetes mellitus with other specified complication (principal); M86.172 Other acute osteomyelitis, left ankle and foot; I82.452 Acute embolism and thrombosis of left peroneal vein; E11.42 Type 2 diabetes mellitus with diabetic polyneuropathy; F17.200 Nicotine dependence, unspecified, uncomplicated; E11.51 Type 2 diabetes mellitus with diabetic peripheral angiopathy without gangrene; Z79.4 Long term (current) use of insulin; Z79.899 Other long term (current) drug therapy
CPT/HCPCS: 36415; 80048; 82947; 82962; 85025; 87493; 87635; 97110; 97162; 97166; 97530; 97535; 97802; J7050; A4216; U0002